=== PATIENT | male | born 1960 | race Caucasian/White ===

== ENCOUNTER → 2017-01-24 | Outpatient (CLI) | payer OTHER ==
[~2017-01-24] MED LIST: ADVIN25/60 INH; IPRA1AER2 INH; IPRASOL4 INH; LISI20TA3 PO; PRLSR20 PO; SILD100T PO
--- NOTE | 2017-01-24 12:17 | DIAGNOSTIC IMAGING REPORT ---
CHEST 2 VIEWS ROUTINE CLINICAL HISTORY: COPD Dyspnea dyspnea COMPARISON STUDY: 08/22/2016 FINDINGS: Mild emphysematous change. Possible nodular density left lower lung region. Lungs otherwise are considered clear. Minimal chronic colonic atelectasis left base. IMPRESSION: 1. Mild emphysematous change. 2. No acute infiltrate. 3. Potential developing nodular density lower left lung with CT chest recommended Electronically signed by: Vinecnt Maradiaga M.D. 01/24/2017 12:16 PM Dictated Date/Time: 01/24/2017 12:14 PM
== END | disposition home or self-care (01) ==
LOC: C.RADPV 11:52
PROVIDERS: ATTEND Family Medicine
DX: J44.1 Chronic obstructive pulmonary disease with (acute) exacerbation (principal); R06.09 Other forms of dyspnea

== ENCOUNTER → 2017-02-01 | Outpatient (CLI) | payer OTHER ==
[~2017-02-01] MED LIST changes: +OPTIRAY 320 IV PRN
--- NOTE | 2017-02-01 09:38 | DIAGNOSTIC IMAGING REPORT ---
CHEST CT WITH CONTRAST CT DOSE: 459.87 mGycm HISTORY: Lung nodule PULMONARY NODULE TECHNIQUE: Multiaxial CT images of the chest were performed following the intravenous administration of contrast. COMPARISON: 10/19/2015 FINDINGS: Unchanging linear scarlike density involving the lingula. This is identical compared to the prior study. No new or interval findings. Lungs otherwise appear clear. The hypervascular densities of the liver are unchanged. IMPRESSION: 1. Identical study compared to the prior exam. 2. Stable scar like density of the lingula 3. Hypervascular changes involving the liver also stable. Electronically signed by: Vincent Maradiaga M.D. 02/01/2017 9:36 AM Dictated Date/Time: 02/01/2017 9:32 AM
== END | disposition home or self-care (01) ==
LOC: C.CTS 08:58
PROVIDERS: ATTEND Family Medicine
DX: R91.1 Solitary pulmonary nodule (principal)

== ENCOUNTER → 2017-03-21 | Outpatient (CLI) | payer OTHER ==
[~2017-03-21] MED LIST changes: -OPTIRAY 320 IV PRN
[2017-03-21 18:34] LABS: ALT/SGPT 31 U/L (12-78); AST/SGOT 13 U/L (15-37); BLOOD UREA NITROGEN 16 mg/dl (7-18); BUN/CREATININE RATIO 16.4 (10-20); CALCIUM 8.8 mg/dl (8.5-10.1); CARBON DIOXIDE 30 mmol/L (21-32); CHLORIDE 108 mmol/L (98-107); GLUCOSE 89 mg/dl (70-99); POTASSIUM 3.7 mmol/L (3.5-5.1); SODIUM 144 mmol/L (136-145)
[2017-03-21 18:37] LABS: ALB/GLOB RATIO 1.1 (0.9-2); ALKALINE PHOSPHATASE 68 U/L (45-117); CHOLESTEROL 177 mg/dl (0-200); CHOLESTEROL/HDL RATIO 3.6; HDL CHOLESTEROL 49 mg/dl; LDL CHOLESTEROL CALCULATED 103 mg/dl; TRIGLYCERIDES 126 mg/dl (0-150); VERY LOW DENSITY LIPOPROT CALC 25 mg/dl
[2017-03-22 06:58] LABS: ESTIMATED AVERAGE GLUCOSE 157 mg/dl; HA1C FLAG Normal (Normal)
== END | disposition home or self-care (01) ==
LOC: C.LABPVFM 15:56
PROVIDERS: ATTEND Nurse Practitioner
DX: R35.0 Frequency of micturition (principal); I10 Essential (primary) hypertension; R73.01 Impaired fasting glucose

== ENCOUNTER → 2017-06-28 | Outpatient (CLI) | payer OTHER | END | disposition home or self-care (01) | LOC: C.LABPVFM 13:14 | PROVIDERS: ATTEND Family Medicine | DX: N23 Unspecified renal colic (principal) ==

== ENCOUNTER → 2018-03-07 | Outpatient (CLI) | payer OTHER | END | disposition home or self-care (01) | LOC: C.LABPVFM 18:26 | PROVIDERS: ATTEND Family Medicine | DX: R31.9 Hematuria, unspecified (principal) ==

== ENCOUNTER 2018-12-07 21:58 | Inpatient (IN) ==
[2018-12-07] MEDS ORDERED: ALBUT/IPRATROP 3MG/0.5MG NEB 3 ML VIAL INH STA (22:03)
[2018-12-07] MEDS ORDERED: RAPID SEQUENCE INDUCTION BAG ONE (22:05)
--- NOTE | 2018-12-07 22:25 | XRay Report ---
XR chest 1V portable CLINICAL HISTORY: Dyspnea COMPARISON STUDY: Chest radiograph July 11, 2018. Chest CT February 01, 2017. FINDINGS: Kyphotic positioning is noted. There is no pneumothorax or pleural effusion. No consolidati on is identified. Cardiomediastinal silhouette is stable. The appearance of the chest is unchanged. IMPRESSION: No acute cardiopulmonary findings. Electronically signed by: Damion Urrutia M.D. 12/07/2018 10:23 PM
[2018-12-07 22:41] LABS: Partial Thromboplastin Ratio 0.9; Partial Thromboplastin Time 22.9 Seconds (21.0-31.0); Prothrombin Time 10.2 Seconds (9.0-12.0)
[2018-12-07 22:44] LABS: Hematocrit (blood only) 48.5 % (42-52); Hemoglobin 15.9 g/dL (14.0-18.0); Mean Corpuscular Hgb Conc 32.8 g/dL (32-36); Mean Corpuscular Volume 92.6 fL (80-100); Platelet Count 287 K/uL (130-400); RDW Coefficient of Variation 13.1 % (11.5-14.5); RDW Standard Deviation 44.3 fL (36.4-46.3); Red Blood Count 5.24 M/uL (4.7-6.1); White Blood Count 27.97 K/uL (4.8-10.8)
[2018-12-07 22:47] LABS: Alanine Aminotransferase 31 U/L (12-78); Albumin Level 4.1 gm/dl (3.4-5.0); Aspartate Aminotransferase 15 U/L (15-37); Blood Urea Nitrogen 23 mg/dl (7-18); Calcium 9.2 mg/dl (8.5-10.1); Carbon Dioxide 34 mmol/L (21-32); Chloride 101 mmol/L (98-107); Est GFR (African American) 57.3; Est GFR (Non-African American) 49.4; Glucose 244 mg/dl (70-99); Potassium 4.6 mmol/L (3.5-5.1); Sodium 140 mmol/L (136-145)
[2018-12-07 22:49] LABS: ALC (manual) 6.88 K/uL (1.2-3.4); Eosinophils # (manual) 1.48 K/uL (0-0.5); Lymphocytes # (manual) 1.23 K/uL (1.2-3.4); Lymphocytes % (manual) 4.4 %; Monocytes # (manual) 0.73 K/uL (0.11-0.59); Monocytes % (manual) 2.6 %; Neutrophils % (manual) 67.5 %; Reactive Lymphocytes # (manual) 5.65 K/uL
[2018-12-07 22:50] LABS: Albumin Globulin Ratio 1.1 (0.9-2); Alkaline Phosphatase 74 U/L (45-117); Bilirubin,Total 0.3 mg/dl (0.2-1); Globulin 3.9 gm/dl (2.5-4.0)
[2018-12-07] MEDS ORDERED: SODIUM CHLORIDE 0.9% 1000ML 1,000 ML IV ONE ×2 (23:01→23:55)
[2018-12-07] MEDS ORDERED: cefTRIAXone SODIUM 1,000 MG/50 ML BAG IV STA (23:16)
[2018-12-07] MEDS ORDERED: OPTIRAY 320 125ml IV PRN (23:31)
--- NOTE | 2018-12-07 23:43 | Emergency Department Note ---
Entered by Valdemar Raphael acting as a scribe for History of Present Illness General Chief complaint: Shortness of Breath/Dyspnea Stated complaint: SOB Time Seen by Provider: 12/07/18 22:03 Source: family () and EMS Limitations: other (patient is not conscious) History of Present Illness Onset (ago): hour(s) 10 Location: chest Pain Consistency: + constant Quality: + other (worsening) Associated symptoms: + denies other symptoms (trauma); no chest pain The patient is a 58 year old male who presents to the Emergency Room with complaints of SOB starting 8 hours ago per EMS. EMS states the patient was sinus tachycardia in the 130s. EMS states the patient was put on C-PAP and did worse on that. The patient's states the patient did not complain about any chest pain or have any recent trauma. The states the patient's SOB started a few hours ago. The notes the patient did not feel good today. She states the patient took nebulizer and antibiotics earlier today. EMS notes they gave the patient Ativan and the patient has a history of anxiety. They note they gave the patient 125 mg of Solumedrol. EMS notes the patient has COPD. HPI is limited because the patient is not conscious. Home Medications Home Medications Medication Instructions Recorded Confirmed Type albuterol sulfate [Ventolin HFA] 1 dose INHALATION DIRECTED 12/07/18 History [id number] 0 dose INHALATION DIRECTED 12/07/18 12/07/18 History [Trelegy Ellipta] lisinopril 20 mg PO DAILY 12/07/18 12/07/18 History metformin 500 mg PO BID 12/07/18 12/07/18 History tiotropium bromide [Spiriva 1 dose INHALATION DIRECTED 12/07/18 12/07/18 History Respimat] Allergies Allergy/AdvReac Type Severity Reaction Status Date / Time Penicillins Allergy Severe THROAT Verified 12/07/18 22:15 SWELLING Past Med/Surg History Medical History COPD (chronic obstructive pulmonary disease) (Chronic) Hypertension (Chronic) Family History Other Family history non-contributory Social History Feels Safe at Home: Yes Smoking Status: Current every day smoker Review of Systems See HPI for pertinent positives & negatives. and A total of 10 systems reviewed and were otherwise negative Physical Exam Vital Signs Vital Signs - 24 hr 12/07/18 22:00 12/07/18 22:03 12/07/18 22:11 Temperature 36.5 C Temperature Source Axillary Sepsis Recent Fever Within 48 Hours No Sepsis Action Taken by Nursing No Action Required Pulse Rate 153 H 153 H Pulse Rate [Apical] Respiratory Rate 32 H Respiratory Effort / Characteristics Labored Pursed Lip Retracting Short of Breath Spontaneous Accessory Muscle Use Labored Pursed Lip Short of Breath Respiratory Depth Shallow Respiratory Pattern Rapid/Shallow Tachypnea Blood Pressure 183/151 H Blood Pressure Mean 161 Pulse Oximetry 83 L 100 Oxygen Delivery Method Nasal Cannula Oxygen Flow Rate 2 Fraction of Inspired Oxygen SaO2/FiO2 Ratio 12/07/18 22:13 12/07/18 22:15 12/07/18 22:16 Temperature Temperature Source Sepsis Recent Fever Within 48 Hours Sepsis Action Taken by Nursing Pulse Rate 156 H 157 H 150 H Pulse Rate [Apical] Respiratory Rate 32 H Respiratory Effort / Characteristics Respiratory Depth Respiratory Pattern Blood Pressure 183/151 H 199/130 H Blood Pressure Mean 161 153 Pulse Oximetry 100 81 L 100 Oxygen Delivery Method Oxygen Flow Rate Fraction of Inspired Oxygen 100 SaO2/FiO2 Ratio 12/07/18 22:17 12/07/18 22:22 12/07/18 22:25 Temperature Temperature Source Sepsis Recent Fever Within 48 Hours Sepsis Action Taken by Nursing Pulse Rate Pulse Rate [Apical] Respiratory Rate Respiratory Effort / Characteristics Respiratory Depth Respiratory Pattern Blood Pressure 182/125 H Blood Pressure Mean 144 Pulse Oximetry 100 Oxygen Delivery Method BiPAP Oxygen Flow Rate Fraction of Inspired Oxygen 100 50 SaO2/FiO2 Ratio 12/07/18 22:30 12/07/18 22:31 12/07/18 22:32 Temperature Temperature Source Sepsis Recent Fever Within 48 Hours Sepsis Action Taken by Nursing Pulse Rate 141 H 140 H 140 H Pulse Rate [Apical] Respiratory Rate Respiratory Effort / Characteristics Respiratory Depth Respiratory Pattern Blood Pressure 144/107 H Blood Pressure Mean 119 Pulse Oximetry 100 97 99 Oxygen Delivery Method Oxygen Flow Rate Fraction of Inspired Oxygen 50 SaO2/FiO2 Ratio 12/07/18 22:40 12/07/18 22:42 12/07/18 22:45 Temperature Temperature Source Sepsis Recent Fever Within 48 Hours Sepsis Action Taken by Nursing Pulse Rate 131 H 143 H Pulse Rate [Apical] Respiratory Rate Respiratory Effort / Characteristics Respiratory Depth Respiratory Pattern Blood Pressure 143/100 H Blood Pressure Mean 114 Pulse Oximetry 99 99 99 Oxygen Delivery Method BiPAP Oxygen Flow Rate Fraction of Inspired Oxygen 50 SaO2/FiO2 Ratio 198 12/07/18 22:50 12/07/18 22:56 12/07/18 23:00 Temperature Temperature Source Sepsis Recent Fever Within 48 Hours Sepsis Action Taken by Nursing Pulse Rate 142 H 137 H Pulse Rate [Apical] 153 H Respiratory Rate 32 H Respiratory Effort / Characteristics Short of Breath Respiratory Depth Respiratory Pattern Blood Pressure 130/93 Blood Pressure Mean 105 Pulse Oximetry 98 82 L 99 Oxygen Delivery Method BiPAP Oxygen Flow Rate Fraction of Inspired Oxygen 100 SaO2/FiO2 Ratio 12/07/18 23:10 12/07/18 23:33 12/07/18 23:35 Temperature Temperature Source Sepsis Recent Fever Within 48 Hours Sepsis Action Taken by Nursing Pulse Rate 132 H 144 H Pulse Rate [Apical] Respiratory Rate Respiratory Effort / Characteristics Respiratory Depth Respiratory Pattern Blood Pressure 168/109 H Blood Pressure Mean 128 Pulse Oximetry 100 96 100 Oxygen Delivery Method Oxygen Flow Rate Fraction of Inspired Oxygen SaO2/FiO2 Ratio 12/07/18 23:40 12/07/18 23:45 12/07/18 23:50 Temperature Temperature Source Sepsis Recent Fever Within 48 Hours Sepsis Action Taken by Nursing Pulse Rate 132 H 134 H 134 H Pulse Rate [Apical] Respiratory Rate 25 H Respiratory Effort / Characteristics Respiratory Depth Respiratory Pattern Blood Pressure 126/94 Blood Pressure Mean 104 Pulse Oximetry 100 100 100 Oxygen Delivery Method Oxygen Flow Rate Fraction of Inspired Oxygen SaO2/FiO2 Ratio 12/08/18 00:00 12/08/18 00:10 12/08/18 00:16 Temperature Temperature Source Sepsis Recent Fever Within 48 Hours Sepsis Action Taken by Nursing Pulse Rate 136 H 153 H 159 H Pulse Rate [Apical] Respiratory Rate Respiratory Effort / Characteristics Respiratory Depth Respiratory Pattern Blood Pressure 135/97 176/135 H Blood Pressure Mean 109 148 Pulse Oximetry 100 100 98 Oxygen Delivery Method Oxygen Flow Rate Fraction of Inspired Oxygen SaO2/FiO2 Ratio 12/08/18 00:20 Temperature Temperature Source Sepsis Recent Fever Within 48 Hours Sepsis Action Taken by Nursing Pulse Rate 159 H Pulse Rate [Apical] Respiratory Rate Respiratory Effort / Characteristics Respiratory Depth Respiratory Pattern Blood Pressure Blood Pressure Mean Pulse Oximetry 100 Oxygen Delivery Method Oxygen Flow Rate Fraction of Inspired Oxygen SaO2/FiO2 Ratio General: Ill appearing older male. Patient is in severe respiratory distress. Patient is cynotic. He is struggling to breathe and is in alerted mental status. HEENT: Normal cephalic atraumatic. Pupils are equal round and reactive to light. Extraocular movements are intact. Oropharynx is pink with moist mucous membranes. No swelling of the mouth lips or tongue. Neck: Supple with a midline trachea. No meningeal signs or stiffness, no JVD or bruits. No Stridor. Chest: No rhonchi. Scattered wheezes with diminished breath sounds bilaterally. Heart: regular rate and rhythm. Abdomen: Soft nontender, nondistended without rebound guarding or rigidity. Extremities: No cyanosis clubbing or edema. No calf tenderness or assymetry Spine/Back. Non tender to palpation. No CVA tenderness Skin: Good turgor without rashes. Neurologic exam: Cranial nerves two through 12 are intact. Motor and sensation are intact and symmetrical throughout. Course 2158: Past medical records reviewed. The patient was evaluated in room B1, and a complete history and physical examination were performed. 2220: I reevaluated the patient. The patient looks better with Bi-Pap and is currently on 100% O2 Sat. iStat labs are not significantly abnormal. 2245: I reevaluated the patient. He is doing a lot better. 2250: I reevaluated the patient. He is able to communicate now. 2300: I reevaluated the patient. I was able to talk to the patient. 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 I will hydrate the patient and he will get a CTA. I reviewed the patient's case with Dr. Cox - [facility]. He will evaluate the patient for further management. 2318: I reevaluated the patient. He is doing much better. 2335: I reevaluated the patient. He got back from the CAT scan. He is doing okay. 2358: I reevaluated the patient. He is doing better. 0015: I reevaluated the patient. He was starting to get SOB again, and I was worried the BiPap was not working. 0035: I reevaluated the patient. Aurea Villatoro PA-C will intubate the patient with the assistance of myself and Dr. Dillon. 0040: I talked to the patient's about the patient's intubation. Administered Medications Ioversol (Optiray 320 125ml) 118 ml IV ONCE PRN PRN Reason: Interaction Checking Stop: 12/11/18 23:30 Last Admin: 12/07/18 23:31 Dose: 118 ml Discontinued Medications Albuterol (Duoneb) 12 ml INH ONE STA Stop: 12/07/18 22:04 Last Admin: 12/07/18 22:56 Dose: 12 ml Sodium Chloride (Nss 1000ml) 1,000 mls @ 999 mls/hr IV .Q1H1M ONE Stop: 12/08/18 00:01 Last Infusion: 12/08/18 00:01 Dose: 0 mls/hr Admin: 12/07/18 23:07 Dose: 999 mls/hr Ceftriaxone Sodium (Rocephin) 1,000 mg in 50 mls @ 100 mls/hr IV DAILY STA Stop: 12/07/18 23:45 Last Infusion: 12/08/18 00:25 Dose: Infusion: 12/08/18 00:13 Dose: 0 mls/hr Admin: 12/07/18 23:43 Dose: 100 mls/hr Medical Decision Making Differential Diagnosis Differential Diagnosis includes: COPD exacerbation, CO2 retention, PE, pneumonia , CHF, cardiac disease, electrolyte or metabolic abnormality. Medical Records Attestation: I reviewed the patient's medical records. Home Medications Current Medication List: was personally reviewed by me Laboratory Data Attestation: I reviewed the patient's lab results. Result diagrams: 12/07/18 22:13 12/07/18 22:13 Lab Results 12/07/18 12/07/18 12/07/18 Range/Units 22:08 22:13 22:13 WBC 27.97 H (4.8-10.8) K/uL RBC 5.24 (4.7-6.1) M/uL Hgb 15.9 (14.0-18.0) g/dL Hct 48.5 (42-52) % MCV 92.6 (80-100) fL MCH 30.3 (25-34) pg MCHC 32.8 (32-36) g/dL RDW Std Deviation 44.3 (36.4-46.3) fL RDW Coeff of [place] 13.1 (11.5-14.5) % Plt Count 287 (130-400) K/uL MPV 12.0 H (7.4-10.4) fL Neutrophils % (Manual) 67.5 % Lymphocytes % (Manual) 4.4 % Reactive Lymphs % (Man) 20.2 % Monocytes % (Manual) 2.6 % Eosinophils % (Manual) 5.3 % Neutrophils # (Manual) 18.88 H (1.4-6.5) K/uL Total Absolute Neuts 18.88 H (1.4-6.5) K/uL Lymphocytes # (Manual) 1.23 (1.2-3.4) K/uL Reactive Lymphs # 5.65 K/uL Total Abs Lymphocytes 6.88 H (1.2-3.4) K/uL Monocytes # (Manual) 0.73 H (0.11-0.59) K/uL Eosinophils # (Manual) 1.48 H (0-0.5) K/uL PT 10.2 (9.0-12.0) Seconds INR 1.0 (0.9-1.1) APTT 22.9 (21.0-31.0) Seconds PTT Ratio 0.9 Sodium (136-145) mmol/L Potassium (3.5-5.1) mmol/L Chloride (98-107) mmol/L Carbon Dioxide (21-32) mmol/L Anion Gap (3-11) BUN (7-18) mg/dl Creatinine (0.6-1.4) mg/dl Est Cr Clr Drug Dosing Est GFR ( Amer) Est GFR (Non-Af Amer) BUN/Creatinine Ratio (10-20) Glucose (70-99) mg/dl POC Glucose 217 H (70-99) Calcium (8.5-10.1) mg/dl Total Bilirubin (0.2-1) mg/dl AST (15-37) U/L ALT (12-78) U/L Alkaline Phosphatase (45-117) U/L Total Protein (6.4-8.2) gm/dl Albumin (3.4-5.0) gm/dl Globulin (2.5-4.0) gm/dl Albumin/Globulin Ratio (0.9-2) 12/07/18 Range/Units 22:13 WBC (4.8-10.8) K/uL RBC (4.7-6.1) M/uL Hgb (14.0-18.0) g/dL Hct (42-52) % MCV (80-100) fL MCH (25-34) pg MCHC (32-36) g/dL RDW Std Deviation (36.4-46.3) fL RDW Coeff of [place] (11.5-14.5) % Plt Count (130-400) K/uL MPV (7.4-10.4) fL Neutrophils % (Manual) % Lymphocytes % (Manual) % Reactive Lymphs % (Man) % Monocytes % (Manual) % Eosinophils % (Manual) % Neutrophils # (Manual) (1.4-6.5) K/uL Total Absolute Neuts (1.4-6.5) K/uL Lymphocytes # (Manual) (1.2-3.4) K/uL Reactive Lymphs # K/uL Total Abs Lymphocytes (1.2-3.4) K/uL Monocytes # (Manual) (0.11-0.59) K/uL Eosinophils # (Manual) (0-0.5) K/uL PT (9.0-12.0) Seconds INR (0.9-1.1) APTT (21.0-31.0) Seconds PTT Ratio Sodium 140 (136-145) mmol/L Potassium 4.6 (3.5-5.1) mmol/L Chloride 101 (98-107) mmol/L Carbon Dioxide 34 H (21-32) mmol/L Anion Gap 5.0 (3-11) BUN 23 H (7-18) mg/dl Creatinine 1.52 H (0.6-1.4) mg/dl Est Cr Clr Drug Dosing Not Reportable Est GFR ( Amer) 57.3 Est GFR (Non-Af Amer) 49.4 BUN/Creatinine Ratio 15.0 (10-20) Glucose 244 H (70-99) mg/dl POC Glucose (70-99) Calcium 9.2 (8.5-10.1) mg/dl Total Bilirubin 0.3 (0.2-1) mg/dl AST 15 (15-37) U/L ALT 31 (12-78) U/L Alkaline Phosphatase 74 (45-117) U/L Total Protein 8.0 (6.4-8.2) gm/dl Albumin 4.1 (3.4-5.0) gm/dl Globulin 3.9 (2.5-4.0) gm/dl Albumin/Globulin Ratio 1.1 (0.9-2) Imaging Data Attestation: I personally reviewed and interpreted this imaging study as follows : My Impression: Chest X-ray 1 view: No congestive heart failure, pneumothorax, or pneumonia. Radiologist's Impression: Radiology results as stated below per my review and the radiologist's interpretation: XR chest 1V portable CLINICAL HISTORY: Dyspnea COMPARISON STUDY: Chest radiograph July 11, 2018. Chest CT February 01, 2017. FINDINGS: Kyphotic positioning is noted. There is no pneumothorax or pleural effusion. No consolidation is identified. Cardiomediastinal silhouette is stable. The appearance of the chest is unchanged. IMPRESSION: No acute cardiopulmonary findings. Electronically signed by: Damion Urrutia M.D. 12/07/2018 10:23 PM CTA CHEST: No evidence of pulmonary embolism or other acute chest abnormality. Emphysematous chagnges in the lungs without focal consolidation or pulmonary edema. Normal cardiac size. No pericardial effusion. Spondylosis of the spine. Radiologist: Ara Velazquez MD Study ready at 23:44 and initial results transmitted at 00:05 ECG Data Attestation: I personally reviewed and interpreted this ECG as follows: Indication: SOB/dyspnea Rate (beats per minute): 150 Rhythm: sinus tachycardia (poor baseline) Findings: + acute ischemic change (no definite ischemic change) Comparison ECG Date: from (08/22/16) Change: the following changes noted (rate has increased, otherwise no definite change) Blood Pressure Blood Pressure Findings: Elevated blood pressure Blood Pressure Disposition: further management by hospitalist [facility] Narrative This patient comes in as described above. The nurses called me to see him immediately upon arrival. He was in extremis he was initially put in B2 but as I evaluated we quickly moved him to be 1 which is her major resuscitation bay. Upon arrival he was cyanotic and very tachypneic he would not but did also seem somewhat altered. 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 He denies any chest pain. We moved quickly to room B1 and put him on BiPAP. We established to large-bore IVs. A portable chest x- ray did not show any pneumonia or pneumothorax he was given continuous albuterol Atrovent nebs through the BiPAP he had received IV Solu-Medrol prior to arrival. His ABG shows a respiratory acidosis with CO2 retention. The BiPAP should help this and in fact with the BiPAP he started improving dramatically. He did tolerate the BiPAP and was able to answer questions and is now no longer cyanotic. his respiratory rate improved dramatically as well. He was given a liter normal saline bolus as there is concern for possible dehydration his white count is elevated at 27 most likely from stress at this point there is no pneumonia. He may also be on steroids. 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 His CAT scan is unremarkable and shows no evidence of PE pneumothorax congestive heart failure or pneumonia. He tolerated the CAT scan well. While he was waiting to be admitted he suddenly got much more tachycardic and short of breath. There was concern that the BiPAP machine was not working well so he switched masks. Dr. Stevens was also at the bedside. He was given further nebs. I suspect that he is just tiring out. Although he seemed to be doing better all of a sudden he is now worse and does need to be intubated for respiratory failure. Dr. Rodgers did agree. The patient was intubated by Aurea Ch PA-C with supervision from Dr. Dillon and myself. Please refer to the procedure note. he did receive IV etomidate as well as IV succinyl choline and the procedure went well and on the first attempt without difficulties. There was positive CO2 color change and condensation in the tube. No breath sounds over the stomach. His oxygen saturation was high 90s to 100%. He was started on propofol dripIV and did need to get a propofol bolus of 40 mg IV as he was starting to wake up. He tolerated this well and has remained normotensive thus far. Post intubation chest x-ray does show that the tube looks a little high and it was advanced. The patient will be going to the ICU. Impression & Plan COPD exacerbation, Respiratory failure, CO2 retention, SOB (shortness of breath ) Critical Care Time I have personally spent greater than 90 minutes of critical care time in the direct management of this patient. This includes bedside care, interpretation of diagnostic studies, and testing, discussion with consultants, patient, and family members, and other required patient management activities. This 90 minutes is in excess of all separately billable procedures. Critical Care Time: Yes Total Critical Care Time: 90 Discharge Plan Visit Data Chief Complaint: Shortness of Breath/Dyspnea Stated Complaint: SOB ED Provider: Luis Felipe Krause Discharge Problem: COPD exacerbation, Respiratory failure, CO2 retention, SOB (shortness of breath ) Patient Disposition: Being Evaluated by Hospitalist Forms Stand Alone Forms: My [facility] Prescriptions Prescriptions: No Action metformin 500 mg tablet 500 mg PO BID RF: 0 lisinopril 20 mg tablet 20 mg PO DAILY RF: 0 albuterol sulfate [Ventolin HFA] 90 mcg/actuation HFA aerosol inhaler 1 dose Inhalation DIRECTED RF: 0 tiotropium bromide [Spiriva Respimat] 2.5 mcg/actuation mist 1 dose Inhalation DIRECTED RF: 0 [id number] [Trelegy Ellipta] 100-62.5-25 mcg blister with device Inhalation DIRECTED RF: 0 Referrals Referrals: Viki Braswell CRNP [Primary Care Provider] - The scribe's documentation has been prepared under my direction and personally reviewed by me in its entirety. I confirm that the note above accurately reflects all work, treatment, procedures, and medical decision making performed by me.
[2018-12-08] MEDS ORDERED: ALBUT/IPRATROP 3MG/0.5MG NEB 3 ML VIAL ONE (00:18)
[2018-12-08] MEDS ORDERED: PROPOFOL IV EMULSION 10 MG/ML 100 ML VIAL IV ONE (00:36)
--- NOTE | 2018-12-08 00:59 | Emergency Department Note ---
ED Visit Note Endotracheal Intubation Indication: Respiratory distress The patient was being bagged by respiratory with BVM. Suction, airway equipment , RSI drugs, respiratory equipment, and appropriate personnel were prepared prior to the initiation of the procedure. A time out was taken. Induction was performed per Dr. Dillon. After observing the clinical benefit of the medications, the airway was easily visualized utilizing a glidescope. A 7.5 size ETT tube was placed atraumatically to 25 cm using standard technique. The cuff inflated without signs of malfunction. There were bilateral breath sounds, positive colormetric change, no gastric sounds, a good capnography waveform, and post procedure pulse oximetry was 100%. Post intubation sedation and paralysis was administered per Dr. Dillon. There were no complications.
[2018-12-08 01:03] LABS: HCO3 ABG 23 mmol/L (19-24); Oxygen Saturation ABG 99.2 % (90-95); PCO2 ABG 75 mmHg (35-46); PO2 ABG 189 mm/Hg (80-95)
[2018-12-08] MEDS ORDERED: MIDAZOLAM HCL 5 MG/ML 1 ML VIAL IV STA ×2 (01:04→01:34)
[2018-12-08] MEDS ORDERED: fentaNYL citrate 100 MCG/2 ML VIAL IV STA ×2 (01:04→01:47)
[2018-12-08 01:10] LABS: Allen Test Pos (Pos); pH ABG 7.09 (7.35-7.45)
[2018-12-08] MEDS ORDERED: SODIUM BICARBONATE 4.2% INJ 10 ML SYR IV STA (01:24)
[2018-12-08] MEDS ORDERED: SODIUM BICARB 8.4% INJ 50 MEQ/50 ML SYR ONE (01:28)
[2018-12-08] MEDS ORDERED: SODIUM BICARBONATE 8.4% 150 MEQ in DEXTROSE 5% 1,000 ML IV SCH (01:30)
[2018-12-08] MEDS ORDERED: SODIUM BICARBONATE 4.2% INJ 10 ML SYR ONE (01:32)
--- NOTE | 2018-12-08 01:37 | Emergency Department Note ---
ED Visit Note ED Physician Sign Out Note: 58 yr old male with COPD arrived earlier in evening with exacerbation. Initially evaluated and treated by Dr Krause and was stabilizing on BiPAP. On return from CTA worsening work of breathing and patient not moving much air. He is becoming increasingly tachycardic, dyspneic and beginning to show signs of hypercapnea. Impending respiratory arrest thus Dr Krause asked that I take over patient's care for intubation and transfer to ICU. Under my supervision Aurea Miller PA-C intubated patient on first attempt using glidescope. I provided sedation for intubation (see below). Patient HR improving. Given boluses of Propofol and Versed/fentanyl with improvement in sedation post intubation. CXR with mildly high tube which was advanced. Mild hypotension for which 500ml NSS bolus ordered by Dr Cox of [facility]. Hospitalists and ICU will manage patient further in ICU. Procedural Sedation Indication: Intubation by JOSE of pt with respiratory failure due to COPD with hypercapnea. Last Ate: unknown Previous issues with sedation: Unknown Snore: Yes Emergent: Yes ASA: 3 Dentures: Uppers, removed by me Total time: 20 Verbal consent was obtained for intubation after the risks and benefits were explained to the family, including, but not limited to aspiration, allergic reaction, breathing difficulties, cardiac complications, vomiting, pain, event recall, bleeding, and/or infection. The patient was on 100% oxygen via BIPAP prior to the procedure. Continuos end tidal CO2 monitoring, pulse oximetry, and cardiac monitoring were utilized. Suction, airway equipment, medications, respiratory equipment, and appropriate personnel were prepared prior to the initiation of the procedure. A time out was taken. Sedation was achieved utilizing 25mg of Etomidate and paralysis with 150mg Succinylcholine. I briefly bagged patient while awaiting complete paralysis. After this the main procedure was performed by Aurea Miller PA-C under my supervision without complication. Sedation was continued with propofol gtt and fentanyl/versed bolus and the monitoring continued. Patient care transferred to Hospitalist/ CCM teams. Forrest Dillon MD
[2018-12-08] MEDS ORDERED: SODIUM BICARB 8.4% INJ 50 MEQ/50 ML SYR IV STA (01:38)
[2018-12-08] MEDS ORDERED: GLUCOSE 10 TABS/TUBE PO PRN (02:46)
[2018-12-08] MEDS ORDERED: ACETAMINOPHEN 1000 MG/100 ML IV IV PRN (02:46)
[2018-12-08] MEDS ORDERED: DEXTROSE 50% 50 ML SYRINGE IV PRN (02:46)
[2018-12-08] MEDS ORDERED: ONDANSETRON INJ 2 MG/ML 2 ML VIAL IV PRN (02:46)
[2018-12-08] MEDS ORDERED: GLUCAGON FOR INJ 1 MG VIAL SQ PRN (02:46)
[2018-12-08] MEDS ORDERED: CARBOHYDRATES FOR HYPOGLYCEMIA PO PRN (02:46)
[2018-12-08] MEDS ORDERED: GLUCOSE 40% GEL 15 GM TUBE PO PRN (02:46)
[2018-12-08] MEDS ORDERED: ICU PROTOCOL FOR HYPERGLYCEMIA PRN (02:46)
[2018-12-08] MEDS ORDERED: fentaNYL citrate 100 MCG/2 ML VIAL IV PRN (02:57)
[2018-12-08 03:07] LABS: Appearance Urine Clear (Clear); Bacteria Urine Automated Negative (Negative); Bilirubin Urine Negative (Negative); Color Urine Yellow; Glucose Urine UA 3+ (Negative); Ketones Urine Trace (Negative); Leukocyte Esterase Urine Negative (Negative); Nitrite Urine Negative (Negative); Protein Urine Negative (Negative); Specific Gravity Urine > 1.045 (1.000-1.030); Urobilinogen Urine Negative (Negative); pH Urine 5.5 (4.5-7.5)
[2018-12-08] MEDS ORDERED: PATIENT'S HEIGHT AND/OR WEIGHT NEEDED SCH (03:15)
[2018-12-08] MEDS: MIDAZOLAM HCL 1 MG/ML 2ML VIAL IV PRN ×2 (03:55→05:37)
[2018-12-08] MEDS: methylPREDNISolone 60 MG in SYRINGE 0 ML IV SCH ×4 (03:57→23:06)
[2018-12-08] MEDS ORDERED: LEVOFLOXACIN/D5W 500 MG/100 ML BAG IV SCH (04:00)
[2018-12-08 04:03] LABS: iSTAT Allen Test Pass; iSTAT Arterial Blood Gas HCO3 29 meg/L (19-24); iSTAT Carbon Dioxide 31 mEq/l (24-31); iSTAT FiO2 50 %
--- NOTE | 2018-12-08 04:16 | History & Physical Report ---
Date of Service December 08, 2018 The patient was seen and examined on December 07, 2018. Assessment & Plan (1) Acute respiratory failure with hypoxia and hypercapnia: Acute respiratory failure with hypoxia and hypercapnia/COPD exacerbation-- As noted, the patient initially seemed to be responding to BiPAP, however, patient did acutely decompensate again. He was intubated while in the emergency department, and was later transferred to the ICU. Ceftriaxone 1 g IV daily. Azithromycin 500 mg IV daily. Solu-Medrol 60 mg IV every 6 hours. Duonebs every 4 hours while awake and every 2 hours when necessary. Sputum Gram stain and culture. 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 Order venous Dopplers bilaterally Consult hard hat diver. Continue vent management adjustments with serial ABGs. Present on Admission?: Yes (2) COPD exacerbation: As above. Present on Admission?: Yes (3) Acute kidney injury (nontraumatic): Creatinine was 1.52 upon admission. Patient did receive IV dye for a CTA of the chest. Will continue IV fluid rehydration, and follow serial laboratory studies. Present on Admission?: Yes (4) Hyperglycemia due to type 2 diabetes mellitus: Check hemoglobin A1c. Placed on Accu-Cheks before meals and at bedtime with NovoLog coverage per scale. Present on Admission?: Yes (5) Hypotension: Patient did develop lower blood pressure shortly after intubation and associate with medication as needed for intubation. He did respond to IV fluid rehydration. He may require levophed is at night progresses. Present on Admission?: Yes (6) Hypertension: On lisinopril 20 mg p.o. daily as outpatient. Present on Admission?: Yes (7) Admitted to intensive care unit: As noted above. Present on Admission?: Yes History of Present Illness Chief Complaint: The patient initially presented to the emergency department via EMS who report that the patient had developed shortness of breath about 8 hours prior to their arrival. EMS reports that the patient was in sinus tachycardia in the 130s, was put on CPAP, which seemed to make him worse. The patient was given Solu-Medrol 125 mg IV in route. Primary Care Provider: CHARISSA Hu The patient is a 58-year-old male with a past medical history including COPD, hypertension and diabetes mellitus, who developed acute shortness of breath about 8 hours prior to EMS being summoned to his home. When EMS arrived, the patient was unconscious, and his heart rate was sinus tachycardia in the 130's. The patient himself is unconscious, and therefore HPI is limited to reports of EMS and the patient's . Patient's reports that he was not feeling well earlier in the day, and had taken his nebulizer and antibiotics earlier in the day. The patient was given Solu-Medrol 25 mg IV in route to the hospital. Upon arrival to the emergency department, the patient was found to be cyanotic appearing, with skin reportedly appearing to be blue, he was placed on BiPAP, given an hour-long nebulizer treatment, and seemed to be somewhat improved. He also underwent a CT of the chest, which was negative for PE. The patient again later decompensated while on the BiPAP in the ED, and decision was made to have the patient intubated. The patient was then admitted to the ICU. Allergies Allergy/AdvReac Type Severity Reaction Status Date / Time Penicillins Allergy Severe THROAT Verified 12/07/18 22:15 SWELLING Home Medications Home Medications Medication Instructions Recorded Confirmed Type albuterol sulfate [Ventolin HFA] 1 dose INHALATION DIRECTED 12/07/18 History [id number]-[id number] 0 dose INHALATION DIRECTED 12/07/18 12/07/18 History [Trelegy Ellipta] lisinopril 20 mg PO DAILY 12/07/18 12/07/18 History metformin 500 mg PO BID 12/07/18 12/07/18 History tiotropium bromide [Spiriva 1 dose INHALATION DIRECTED 12/07/18 12/07/18 History Respimat] Past Med/Surg History Medical History COPD (chronic obstructive pulmonary disease) (Chronic) Hypertension (Chronic) Family History Other Family history non-contributory Social History Current Living Situation: Family Feels Safe at Home: Yes Smoking Status: Unknown if ever smoked Review of Systems Review of systems is severely limited due to patient's nonresponsive state. Any information gathered is as noted from EMS and his . Physical Exam 2 Vital Signs (Past 24 Hours): Last Vital Signs Temp 37.0 C 12/08/18 02:00 Pulse 127 H 12/08/18 02:29 Resp 26 H 12/08/18 02:29 BP 109/74 12/08/18 02:00 Pulse Ox 97 12/08/18 02:29 Physical Exam: The patient is nonresponsive, normocephalic and atraumatic, lying in bed and in moderate respiratory distress while on BiPAP. HEENT--PERRL, EOMI, mucous membranes and oropharynx dry. Neck--supple. No JVD. No bruits. Thyroid normal, trachea midline, no adenopathy. Heart--normal S1 and S2. No murmurs, rubs or gallops. Lungs--decreased breath sounds throughout. Abdomen--normal bowel sounds and soft. Nontender. Moderately distended and tympanitic. Extremities--no cyanosis or clubbing. No edema. There are good distal pulses b/ l. Dermatologic--skin color was variable depending upon oxygenation status from normal-appearing to more cyanotic. Neurologic--cranial nerves II through XII grossly intact. Rheumatologic--limited exam Psychiatric--nonresponsive Results & Data Laboratory Results Laboratory Results WBC 27.97 K/uL (4.8-10.8) H 12/07/18 22:13 RBC 5.24 M/uL (4.7-6.1) 12/07/18 22:13 Hgb 15.9 g/dL (14.0-18.0) 12/07/18 22:13 Hct 48.5 % (42-52) 12/07/18 22:13 MCV 92.6 fL (80-100) 12/07/18 22:13 MCH 30.3 pg (25-34) 12/07/18 22: MCHC 32.8 g/dL (32-36) 12/07/18 22:13 RDW Std Deviation 44.3 fL (36.4-46.3) 12/07/18 22:13 RDW Coeff of [place] 13.1 % (11.5-14.5) 12/07/18 22:13 Plt Count 287 K/uL (130-400) 12/07/18 22:13 MPV 12.0 fL (7.4-10.4) H 12/07/18 22:13 Neutrophils % (Manual) 67.5 % 12/07/18 22:13 Lymphocytes % (Manual) 4.4 % 12/07/18 22:13 Reactive Lymphs % (Man) 20.2 % 12/07/18 22:13 Monocytes % (Manual) 2.6 % 12/07/18 22:13 Eosinophils % (Manual) 5.3 % 12/07/18 22:13 Neutrophils # (Manual) 18.88 K/uL (1.4-6.5) H 12/07/18 22:13 Total Absolute Neuts 18.88 K/uL (1.4-6.5) H 12/07/18 22:13 Lymphocytes # (Manual) 1.23 K/uL (1.2-3.4) 12/07/18 22:13 Reactive Lymphs # 5.65 K/uL 12/07/18 22:13 Total Abs Lymphocytes 6.88 K/uL (1.2-3.4) H 12/07/18 22:13 Monocytes # (Manual) 0.73 K/uL (0.11-0.59) H 12/07/18 22:13 Eosinophils # (Manual) 1.48 K/uL (0-0.5) H 12/07/18 22:13 PT 10.2 Seconds (9.0-12.0) 12/07/18 22:13 INR 1.0 (0.9-1.1) 12/07/18 22:13 APTT 22.9 Seconds (21.0-31.0) 12/07/18 22:13 PTT Ratio 0.9 12/07/18 22:13 Sample Site L Radial 12/08/18 03:48 POC pH 7.31 (7.35-7.45) L 12/08/18 03:48 POC pCO2 58 mmHg (35-46) H 12/08/18 03:48 POC pO2 156 mmHg (80-95) H 12/08/18 03:48 POC HCO3 29 janes/L (19-24) H 12/08/18 03:48 POC Total CO2 31 mEq/l (24-31) 12/08/18 03:48 POC Base Excess 3.0 janes/L (-9-1.8) H 12/08/18 03:48 ABG pH 7.09 (7.35-7.45) L* 12/08/18 00:55 ABG pCO2 75 mmHg (35-46) H 12/08/18 00:55 ABG pO2 189 mm/Hg (80-95) H 12/08/18 00:55 ABG HCO3 23 mmol/L (19-24) 12/08/18 00:55 POC ABG O2 Sat 99.0 % (90-95) H 12/08/18 03:48 ABG O2 Saturation 99.2 % (90-95) H 12/08/18 00:55 ABG Base Excess -8.7 mEq/L (-9-1.8) 12/08/18 00:55 Deuce Test Pass 12/08/18 03:48 Oxygen Given 50% BIPAP 12/08/18 00:55 O2 Delivery Device Ventilator 12/08/18 03:48 POC O2 Rate 26 12/08/18 03:48 Minute Ventilation 13.3 12/08/18 03:48 POC FiO2 50 % 12/08/18 03:48 Tidal Volume 550 12/08/18 03:48 PEEP 5 12/08/18 03:48 Sodium 140 mmol/L (136-145) 12/07/18 22:13 Potassium 4.6 mmol/L (3.5-5.1) 12/07/18 22:13 Chloride 101 mmol/L (98-107) 12/07/18 22:13 Carbon Dioxide 34 mmol/L (21-32) H 12/07/18 22:13 Anion Gap 5.0 (3-11) 12/07/18 22:13 BUN 23 mg/dl (7-18) H 12/07/18 22:13 Creatinine 1.52 mg/dl (0.6-1.4) H 12/07/18 22:13 Est Cr Clr Drug Dosing Not Reportable 12/07/18 22:13 Est GFR ( Amer) 57.3 12/07/18 22:13 Est GFR (Non-Af Amer) 49.4 12/07/18 22:13 BUN/Creatinine Ratio 15.0 (10-20) 12/07/18 22:13 Glucose 244 mg/dl (70-99) H 12/07/18 22:13 POC Glucose 217 (70-99) H 12/07/18 22:08 Calcium 9.2 mg/dl (8.5-10.1) 12/07/18 22:13 Total Bilirubin 0.3 mg/dl (0.2-1) 12/07/18 22:13 AST 15 U/L (15-37) 12/07/18 22:13 ALT 31 U/L (12-78) 12/07/18 22:13 Alkaline Phosphatase 74 U/L (45-117) 12/07/18 22:13 Total Protein 8.0 gm/dl (6.4-8.2) 12/07/18 22:13 Albumin 4.1 gm/dl (3.4-5.0) 12/07/18 22:13 Globulin 3.9 gm/dl (2.5-4.0) 12/07/18 22:13 Albumin/Globulin Ratio 1.1 (0.9-2) 12/07/18 22:13 Urine Color Yellow 12/08/18 02:50 Urine Appearance Clear (Clear) 12/08/18 02:50 Urine pH 5.5 (4.5-7.5) 12/08/18 02:50 Ur Specific [place] > 1.045 (1.000-1.030) H 12/08/18 02:50 Urine Protein Negative (Negative) 12/08/18 02:50 Urine Glucose (UA) 3+ (Negative) H 12/08/18 02:50 Urine Ketones Trace (Negative) H 12/08/18 02:50 Urine Blood Trace (Negative) H 12/08/18 02:50 Urine Nitrite Negative (Negative) 12/08/18 02:50 Urine Bilirubin Negative (Negative) 12/08/18 02:50 Urine Urobilinogen Negative (Negative) 12/08/18 02:50 Ur Leukocyte Esterase Negative (Negative) 12/08/18 02:50 Urine WBC (Auto) 1-5 /hpf (0-5) 12/08/18 02:50 Urine RBC (Auto) 5-10 /hpf (0-4) H 12/08/18 02:50 U Hyaline Cast (Auto) 1-5 /lpf (0-5) 12/08/18 02:50 U Epithel Cells (Auto) 10-20 /lpf (0-5) H 12/08/18 02:50 Urine Bacteria (Auto) Negative (Negative) 12/08/18 02:50 Diagnostic Findings [facility], [place] [phone] XRay Report Patient: SIMON BACAAdmit Date: 12/07/18 MR#: [id number] [address] Acct ID:[id number]: [address] Date: 1960City Zip: [place] [address] Age: 58Location: ED Sex: M Room/Bed: Att Phy: Diagnosis: SOB Amita Phy: Viki Braswell CRNPService Date: 12/07/18 Fam Phy: Interpreting Phy: Damion Urrutia MD Admit Phy: Ordering Phy: Luis Felipe Krause M.D. cc: ~ XR chest 1V portable CLINICAL HISTORY: Dyspnea COMPARISON STUDY: Chest radiograph July 11, 2018. Chest CT February 01, 2017. FINDINGS: Kyphotic positioning is noted. There is no pneumothorax or pleural effusion. No consolidation is identified. Cardiomediastinal silhouette is stable. The appearance of the chest is unchanged. IMPRESSION: No acute cardiopulmonary findings. Electronically signed by: Damion Urrutia M.D. 12/07/2018 10:23 PM Dictated: 12/07/182220 Transcribed: 12/07/182220 Medications Administered Home Medications Medication Instructions Recorded Confirmed albuterol sulfate [Ventolin HFA] 1 dose INHALATION DIRECTED 12/07/18 12/07/18 oiorfytktsx-znxvvkshq-umwduvik 0 dose INHALATION DIRECTED 12/07/18 12/07/18 [Trelegy Ellipta] lisinopril 20 mg PO DAILY 12/07/18 12/07/18 metformin 500 mg PO BID 12/07/18 12/07/18 tiotropium bromide [Spiriva 1 dose INHALATION DIRECTED 12/07/18 12/07/18 Respimat] Code Status & VTE Plan Code Status Full code VTE Prophylaxis Plan VTE Prophylaxis will be ordered: Yes Critical Care Time Total critical care time was 70 minutes. Critical Care Time: Yes Total Critical Care Time: 70
[2018-12-08] MEDS ORDERED: SODIUM CHLORIDE 0.9% 1000ML 1,000 ML IV SCH (04:30)
[2018-12-08 04:38] LABS: Partial Thromboplastin Ratio 0.8; Partial Thromboplastin Time 20.2 Seconds (21.0-31.0); Prothrombin Time 10.2 Seconds (9.0-12.0)
[2018-12-08] MEDS: PROPOFOL 1,000 MG/100 ML VIAL IV PRN ×2 (04:39→06:24)
[2018-12-08 04:45] LABS: Basophils # (auto) 0.01 K/uL (0-0.2); Basophils % (auto) 0.1 %; Eosinophils # (auto) 0.01 K/uL (0-0.5); Eosinophils % (auto) 0.1 %; Hematocrit (blood only) 43.2 % (42-52); Hemoglobin 14.2 g/dL (14.0-18.0); Immature Granulocytes # (auto) 0.09 K/uL (0.00-0.02); Immature Granulocytes % (auto) 0.6 %; Lymphocytes # (auto) 0.34 K/uL (1.2-3.4); Lymphocytes % (auto) 2.2 %; Mean Corpuscular Hgb Conc 32.9 g/dL (32-36); Mean Corpuscular Volume 92.7 fL (80-100); Mean Platelet Volume 11.2 fL (7.4-10.4); Monocytes # (auto) 0.62 K/uL (0.11-0.59); Neutrophils # (auto) 14.59 K/uL (1.4-6.5); Platelet Count 260 K/uL (130-400); RDW Coefficient of Variation 13.2 % (11.5-14.5); RDW Standard Deviation 44.7 fL (36.4-46.3); Red Blood Count 4.66 M/uL (4.7-6.1); White Blood Count 15.66 K/uL (4.8-10.8)
--- NOTE | 2018-12-08 04:54 | Critical Care Consultation ---
Date of Consultation December 08, 2018 Assessment & Plan (1) Admitted to intensive care unit: Reason Critically Ill: 58-year-old male with acute hypoxic respiratory failure with hypercapnia requiring endotracheal intubation for airway protection and aggressive pulmonary toilet. NEURO - * CAM ICU: POSITIVE * SEDATION: Propofol gtt, Fentanyl/Versed PRN CARDIAC/VASCULAR - * Tachycardia: * Presumed stress reaction related to pulmonary status. * Agree with CTA for PE eval in patient's presentation. * Trend Trops. * AM Echo ordered. * Will recheck EKG on presentation to ICU. * Monitor on telemetry. * After arrival in the ICU, patient was found to have a significantly elevated troponin of greater than 3. EKG shows no acute ST/T-wave changes per my interpretation. In conjunction with newly found DVT, will treat with heparin pending further cardiac evaluation. RESPIRATORY - * Acute hypoxic respiratory failure with hypercapnia with respiratory failure: * Requiring endotracheal intubation. * Settings: 26/550/5/50% * Initial gas: 7.09/75/189/23 * Will make adjustments to vent as needed. * Serial ABGs. * Aggressive pulmonary toilet. Steroids/nebs. * h/o Pulmonary nodule - followed in the outpatient with pulm. GI/NUTRITION - * NPO at this point. * OG in place. RENAL/LYTES - * CHANTELL: * Continue w/ IVFs * Monitor for IV Contrast induced nephropathy. * IVF: Initially placed on BiCarb gtt - will d/c with repeat ABG showing improvement. Will continue w/ NSS. - * Jarrell in place - Strict I&Os. ENDO - * Hyperglycemia: * h/o DMII on metformin alone. * Will recheck. Patient at risk for HHS vs. DKA. * BSGs per unit protocol. ISS --> gtt per unit policy. HEME - * Stable H&H: * Will trend. ID - * COPD w/ Exacerbation: * Given extent of s/s and c/o developing infection, agree with empiric antibiotic coverage. * Rocephin/Levaquin. Plan for early deescalation. LINES/IV ACCESS - * PIVs x3 DVT PROPHYLAXIS - * Heparin bolus w/ gtt added in the setting of new RLE DVT w/ new STEMI. * Hold on SCDs in the setting of known DVT. I have personally spent 60 minutes of critical care time in the direct management of this patient. This is a life/limb threatening event. This includes time spent evaluating patient, direct bedside care, chart review, placing orders, interpretation of diagnostic studies, discussion with consultants, patient, and family members, as well as other required patient management activities. This time is exclusive of all separately billable procedures, and teaching time and separate from and in addition to any other critical care service time. Thank you for allowing us to participate in the care of this patient. Please refer to my attending physician's documentation for any further recommendations. (2) Acute respiratory failure with hypoxia and hypercapnia: (3) Respiratory failure: (4) Acute kidney injury (nontraumatic): (5) Hyperglycemia due to type 2 diabetes mellitus: (6) DVT (deep venous thrombosis): Supervising Physician Co-Signing Physician Notes I have personally evaluated and examined this patient. I agree with assessment and plan of Lesley Andrade PA-C. Patient was extubated this morning transition to noninvasive mechanical ventilation. Had been temporary weaned to nasal cannula had increased work of breathing and placed back on noninvasive mechanical ventilation. He is at risk of reintubation however his extubation parameters were acceptable. Continue IV steroids today and respiratory quinolone his EKG is largely unremarkable. His troponin is elevating however he is still remains on heparin. QTC this morning for 446 repeat was 467 this was after administration of Levaquin. I have personally spent 35 minutes of critical care time in the direct management of this patient. This is a life/limb threatening event. This includes time spent evaluating patient, direct bedside care, chart review, placing orders, interpretation of diagnostic studies, discussion with consultants, patient, and/or family members regarding treatment decisions, as well as other required patient management activities. This time is exclusive of all separately billable procedures, and teaching time and separate from and in addition to any other critical care service time. History of Present Illness Attending Physician: Darian Cox MD History of Present Illness Information per colleagues notes and conversations. Patient unable to participate in history of present illness secondary to current state of intubation with sedation. Patient is a 58-year-old male with a significant past medical history of COPD who was recently treated in October of last month for bronchitis at his primary care provider's office. He presented via EMS to the emergency department with acute respiratory failure. He was placed on CPAP in route to the emergency department. While in the emergency department, he was found to be acidotic with primary respiratory component. He was placed on BiPAP with moderate resolve of symptoms. A chest x-ray demonstrated no acute pathology. Given his acuity of onset of symptoms and worsening dyspnea, a CTA of the chest was obtained for evaluation of possible underlying thromboembolic process. CTA demonstrated no acute PE. Despite on BiPAP, the patient decompensated with a significant respiratory acidosis and change in mental status. At this point, the patient was intubated and sedated. The patient was found to have a moderate leukocytosis. In addition, he was found to have an CHANTELL. Through the events, the patient was significantly tachycardic with heart rates in the 150s. This did improve with sedation. Upon arrival in the ICU, patient is endotracheally intubated and sedated. He does respond to stimuli and becomes agitated and attempts to pull at equipment. Allergies Allergy/AdvReac Type Severity Reaction Status Date / Time Penicillins Allergy Severe THROAT Verified 12/07/18 22:15 SWELLING Home Medications Home Medications Medication Instructions Recorded Confirmed Type albuterol sulfate [Ventolin HFA] 1 dose INHALATION DIRECTED 12/07/18 History knobtyobtaw-trnhxgjyp-mmwrjsmv 0 dose INHALATION DIRECTED 12/07/18 12/07/18 History [Trelegy Ellipta] lisinopril 20 mg PO DAILY 12/07/18 12/07/18 History metformin 500 mg PO BID 12/07/18 12/07/18 History tiotropium bromide [Spiriva 1 dose INHALATION DIRECTED 12/07/18 12/07/18 History Respimat] Patient History Medical History COPD (chronic obstructive pulmonary disease) (Chronic) Hypertension (Chronic) Family History Other Family history non-contributory Social History Current Living Situation: Family Feels Safe at Home: Yes Smoking Status: Unknown if ever smoked Communication Ability: Effective Review of Systems Unable to obtain secondary to current state of sedation. Physical Exam 2 Vital Signs (Past 24 Hours): Last Vital Signs Temp 37.0 C 12/08/18 02:00 Pulse 127 H 12/08/18 02:29 Resp 26 H 12/08/18 04:25 BP 109/74 12/08/18 02:00 Pulse Ox 97 12/08/18 02:29 Physical Exam: VITAL SIGNS - Vital signs and nursing notes were reviewed. GENERAL - 58-year-old male appearing older than his stated age who is in no acute distress. Intubated and sedated. HEAD - NC/AT. EYES - PERRL with EOMI bilaterally. Sclera anicteric. EARS - No deformities of external structures noted on gross examination bilaterally. NOSE - Midline and without cyanosis. No epistaxis or purulent drainage noted. MOUTH/OROPHARYNX - ET Tube in place. Without perioral cyanosis. Buccal mucosa pink and moist. NECK - Neck with FROM. Supple to palpation. LUNGS - Chest wall symmetric with accessory muscle use and retractions appreciated. Slight inspiratory wheeze noted to the LEFT lung lane with little to no air movement. RIGHT lung lane with little to no air exchange. CARDIAC - RRR with S1/S2. No murmur, rubs, or gallops appreciated. ABDOMEN - Abdominal contour protuberant without pulsations or visible masses. BS normoactive all four quadrants. No tenderness, palpable masses, hepatosplenomegaly, or ascites noted. EXTREMITIES - No clubbing or peripheral cyanosis. No pretibial edema present. +3 /5 radial and dorsalis pedis pulses palpated throughout. NEUROLOGIC - Unable to assess secondary to sedation. No focal deficits appreciated. _ (1) Respiratory failure Chronicity: unspecified Respiratory failure complication: hypercapnia Qualified Code(s): J96.92 - Respiratory failure, unspecified with hypercapnia
[2018-12-08 05:01] LABS: Albumin Level 3.2 gm/dl (3.4-5.0); BUN Creatinine Ratio 18.4 (10-20); Bilirubin,Total 0.7 mg/dl (0.2-1); Calcium 7.5 mg/dl (8.5-10.1); Creatinine Clr Calc Pharmacy 65.7 ml/min; Est GFR (African American) 72.6; Est GFR (Non-African American) 62.6; Globulin 3.2 gm/dl (2.5-4.0); Magnesium 1.7 mg/dl (1.8-2.4); Total Protein 6.4 gm/dl (6.4-8.2); Troponin I 3.41 ng/ml (0-0.045)
[2018-12-08] MEDS ORDERED: HEPARIN IV BOLUS 6,000 UNITS in SYRINGE 0 ML IV ONE (05:30)
[2018-12-08] MEDS: HEPARIN STANDARD DEXTROSE 25,000 UNITS/500 ML IV SCH (05:42)
[2018-12-08] MEDS ORDERED: ENOXAPARIN 80 MG/0.8 ML SYR SQ SCH (06:00)
[2018-12-08] MEDS ORDERED: HEPARIN SOD 5,000 UNIT/0.5 ML VIAL SQ SCH (06:00)
[2018-12-08] MEDS ORDERED: NovoLIN-R BOLUS FROM BAG IV ONE (06:34)
--- NOTE | 2018-12-08 06:38 | CT Scan Report ---
CT ANGIOGRAM OF THE CHEST CLINICAL HISTORY: Shortness of breath. Possible pulmonary embolism. COMPARISON STUDY: 02/01/2017 TECHNIQUE: Following the IV administration of 118 mL of Optiray-320, CT angiogram of the thorax was p erformed from the thoracic inlet to the lung bases utilizing the pulmonary embolus protocol. Images a re reviewed in the axial, sagittal, and coronal planes. IV contrast was administered without complica tion. MIP imaging was performed. A dose lowering technique was utilized adhering to the principles o f ALARA. CT DOSE: 745.91 mGy.cm FINDINGS: Hilar lymph nodes are the upper limits of normal in size. There are no pathologically enlarged medias tinal or axillary lymph nodes. There was no evidence of thoracic aortic dilatation. There were no pulmonary artery filling defects to indicate acute pulmonary embolism. No pleural effusions are visualized. There is moderate respiratory motion artifact. There is no focal pulmonary consolidation. There is mi ld emphysema. There are lingular atelectatic changes. 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 IMPRESSION: 1. No evidence of acute pulmonary embolism 2. No evidence of focal pulmonary consolidation 3. Ankylosis of the spine. Electronically signed by: Dennis Weber M.D. 12/08/2018 6:37 AM
--- NOTE | 2018-12-08 06:39 | XRay Report ---
XR chest 1V portable CLINICAL HISTORY: Shortness of breath. COMPARISON STUDY: 12/07/2018 FINDINGS: There is mild pulmonary emphysema. There is no focal pulmonary consolidation. There is no p neumothorax. There is no overt failure. There are no significant pleural effusions.[ IMPRESSION: 1. Mild emphysema. No evidence of focal pulmonary consolidation Electronically signed by: Dennis Weber M.D. 12/08/2018 6:38 AM
[2018-12-08] MEDS: INSULIN REGULAR 250 UNITS in SODIUM CHLORIDE 0.9% 247.5 ML IV SCH (06:43)
--- NOTE | 2018-12-08 06:43 | XRay Report ---
XR chest 1V portable CLINICAL HISTORY: Respiratory failure COMPARISON STUDY: 12/08/2018 FINDINGS: The cardiac and mediastinal contours remain stable. There is no focal pulmonary consolidati on. There is been interval insertion of endotracheal tube. Tip projects 5.8 cm above the mary lou. A se cond catheter projects of the upper thoracic spine. This could represent a nasogastric tube within th e upper thoracic esophagus.[ IMPRESSION: 1. Interval placement of an endotracheal tube 5.8 cm above the mary lou 2. Equivocal visualization of a nasogastric tube within the upper thoracic esophagus Electronically signed by: Dennis Weber M.D. 12/08/2018 6:41 AM
--- NOTE | 2018-12-08 06:44 | Ultrasound Report ---
US venous doppler LE BI HISTORY: Dyspnea. Pain. acute resp failure with hypoxia/hypercap COMPARISON STUDY: None. FINDINGS: Evidence for acute deep venous thrombosis peripheral aspect distal superficial femoral vein . All remaining venous structures are unremarkable. Compressibility and augmentation characteristics are unremarkable involving the left leg. IMPRESSION: Focal deep venous thrombosis distal right superficial femoral vein. All remaining components of the s tudy are unremarkable. The above report was generated using voice recognition software. It may contain grammatical, syntax or spelling errors. Electronically signed by: Vincent Maradiaga M.D. 12/08/2018 6:43 AM
--- NOTE | 2018-12-08 06:45 | XRay Report ---
XR KUB CLINICAL HISTORY: og tube placement COMPARISON STUDY: No previous studies for comparison. FINDINGS: A single view centered the hemidiaphragms provided for interpretation. The orogastric tube is positioned with its tip at the level the esophagogastric junction. The proximal sidehole was posit ioned within the distal esophagus. IMPRESSION: The enteric tube is positioned with its tip at the esophagogastric junction. Electronically signed by: Dennis Weber M.D. 12/08/2018 6:44 AM
[2018-12-08] MEDS ORDERED: PHARMACY GLYCEMIC MGMT CONSULT PRN (06:50)
[2018-12-08 07:01] LABS: Estimated Average Glucose 137 mg/dl
[2018-12-08] MEDS: ALBUT/IPRATROP 3MG/0.5MG NEB 3 ML VIAL NEB SCH ×4 (07:14→18:53)
--- NOTE | 2018-12-08 07:26 | XRay Report ---
XR chest 1V portable CLINICAL HISTORY: acute resp failure with hypoxia and hypercapnia COMPARISON STUDY: 12/08/2018 FINDINGS: There is an endotracheal tube 5.2 cm above the mary lou. There is a nasogastric tube with its tip extending into the stomach. Mild emphysema is suspected. There is no focal pulmonary consolidati on.[ IMPRESSION: 1. No evidence of focal pulmonary consolidation 2. Nasogastric tube within the stomach. Endotracheal tube 52 mm above the mary lou Electronically signed by: Dennis Weber M.D. 12/08/2018 7:25 AM
[2018-12-08] MEDS ORDERED: INSULIN ASPART 100 UNITS/ML 3 ML PEN SC SCH (07:30)
[2018-12-08] MEDS ORDERED: fentaNYL citrate 100 MCG/2 ML VIAL IV ONE (07:38)
[2018-12-08] MEDS ORDERED: MIDAZOLAM HCL 5 MG/ML VIAL IV ONE (07:38)
[2018-12-08] MEDS ORDERED: ETOMIDATE 2 MG/ML 20 ML VIAL IV ONE (07:38)
[2018-12-08] MEDS ORDERED: SUCCINYLCHOLINE CHLORIDE 20 MG/ML 10 ML VIAL IV ONE (07:38)
[2018-12-08] MEDS: INSULIN ASPART 100 UNITS/ML 3 ML PEN SC SCH ×4 (08:41→22:49)
[2018-12-08] MEDS: MAGNESIUM SULFATE / D5W 1 GM/100 ML BAG IV SCH ×2 (08:49→09:52)
[2018-12-08 09:48] LABS: Influenza A virus by PCR Neg for Influ A (Neg); Influenza B virus by PCR Neg for Influ B (Neg)
[2018-12-08] MEDS: LACTATED RINGER'S 1,000 ML IV SCH ×2 (09:51→19:48)
[2018-12-08] MEDS: PANTOprazole 40 MG in SYRINGE 0 ML IV SCH (11:22)
[2018-12-08] MEDS ORDERED: BISACODYL 5 MG TABEC PO ONE (11:30)
[2018-12-08] MEDS ORDERED: POLYETHYLENE (MIRALAX) 17 GM PACK PO ONE (12:00)
[2018-12-08 12:25] LABS: Partial Thromboplastin Ratio 3.7
[2018-12-08 13:06] LABS: Partial Thromboplastin Time 95.1 Seconds (21.0-31.0)
[2018-12-08] MEDS ORDERED: METOPROLOL TARTRATE 1 MG/ML VIAL IV ONE (13:15)
[2018-12-08] MEDS ORDERED: METOPROLOL TARTRATE 1 MG/ML VIAL IV STA (13:16)
[2018-12-08 17:33] LABS: BUN Creatinine Ratio 22.9 (10-20); Calcium 8.3 mg/dl (8.5-10.1); Creatinine Clr Calc Pharmacy 85.5 ml/min; Est GFR (African American) 99.9; Est GFR (Non-African American) 86.2; Magnesium 2.6 mg/dl (1.8-2.4); Potassium 4.3 mmol/L (3.5-5.1)
[2018-12-08 17:41] LABS: Troponin I 7.72 ng/ml (0-0.045)
--- NOTE | 2018-12-08 17:52 | Hospitalist Progress Note ---
Date of Service December 08, 2018 Assessment & Plan (1) Acute respiratory failure with hypoxia and hypercapnia: 2nd to COPD exacerbation. Extubated from the vent this am to BIPAP, weaned to oxymask, then placed back on BIPAP this afternoon. Cont high-dose IV steroids, IV abx, nebs, etc. Cannot rule out a component of acute systolic CHF / NSTEMI contributing. Appreciate critical care input and recommendations. Present on Admission?: Yes (2) COPD exacerbation: Cont IV steroids, abx, nebs, supportive care, BIPAP, etc. (3) Acute kidney injury (nontraumatic): resolved (4) DVT (deep venous thrombosis): RLE heparin drip the heparin will also cover the NSTEMI no evidence of PE on CTA (5) NSTEMI (non-ST elevated myocardial infarction): troponin today up to 7 no ischemic symptoms but multiple CAD risk factors (tobacco, HTN, pre-DM/DM, etc ) add asa 81mg daily check lipids am will need BB echo with severe systolic CHF -- ischemic? cardiology consult requested (6) Acute systolic congestive heart failure: chronicity uncertain in light of NSTEMI - could some of the depressed EF be from ischemic cardiomyopathy? will need BB and ANGELIKA (or ARB) caution with IVF and volume (7) Hypomagnesemia: replaced with IV mag today (8) Hyperglycemia due to type 2 diabetes mellitus: control satisfactory at this time appreciate pharmacy consult & management (9) Hypertension: controlled Subjective Patient was extubated this am by the critical care staff. During my afternoon rounds he was on oxymask. About 1/2 way through the visit he asked to be put back on BIPAP. He was very dyspneic, only able to speak in 2-3 word sentences. He denied chest pain or chest tightness. Denied any etoh use. Very anxious. Constitutional: no fever Respiratory: + dyspnea, + dyspnea on exertion and + wheezing Cardiovascular: + orthopnea; no chest pain Gastrointestinal: no abdominal pain Physical Exam 2 Vital Signs (Past 24 Hours): Last Vital Signs Temp 36.9 C 12/08/18 13:00 Pulse 119 H 12/08/18 17:24 Resp 22 12/08/18 17:24 BP 106/84 12/08/18 14:30 Pulse Ox 96 12/08/18 17:24 Constitutional: well developed, well nourished, + acute distress (with simply moving in the bed he got very short of breath, tachypneic, with accessory muscle use ) and + ill appearing ENMT: external ear and nose normal, oropharynx normal Respiratory: Auscultation: + diminished lung sounds (throughout both hemithoraces) and + wheezes (minimal ); no rales and no rhonchi Cardiovascular: Rate/Rhythm: regular rate and + tachycardic Heart Sounds: normal S1 and normal S2; no murmur Vessels: posterior tibial pulses present and dorsalis pedis pulses present Extremities: no edema Gastrointestinal (Abdomen): Inspection/Auscultation: + abdomen distended and normal bowel sounds Percussion/Palpation: abdomen nontender, no guarding and no hepatosplenomegaly Psychiatric: Affect: + anxious affect Results & Data Laboratory Results Laboratory Results - last 24 hr 12/07/18 12/08/18 12/08/18 22:13 00:55 02:50 WBC RBC Hgb Hct MCV MCH MCHC RDW Std Deviation RDW Coeff of [place] Plt Count MPV Immature Gran % (Auto) Neut % (Auto) Lymph % (Auto) [place] % (Auto) Eos % (Auto) Baso % (Auto) Immature Gran # (Auto) Neut # (Auto) Lymph # (Auto) [place] # (Auto) Eos # (Auto) Baso # (Auto) Blood Smear Review PT INR APTT PTT Ratio Sample Site POC pH POC pCO2 POC pO2 POC HCO3 POC Total CO2 POC Base Excess ABG pH 7.09 L* ABG pCO2 75 H ABG pO2 189 H ABG HCO3 23 POC ABG O2 Sat ABG O2 Saturation 99.2 H ABG Base Excess -8.7 Deuce Test Pos Oxygen Given 50% BIPAP O2 Delivery Device POC O2 Rate Minute Ventilation POC FiO2 Tidal Volume PEEP Sodium Potassium Chloride Carbon Dioxide Anion Gap BUN Creatinine Est Cr Clr Drug Dosing Est GFR ( Amer) Est GFR (Non-Af Amer) BUN/Creatinine Ratio Glucose POC Glucose Estimat Average Glucose Hemoglobin A1c Calcium Phosphorus Magnesium Total Bilirubin AST ALT Alkaline Phosphatase Troponin I Total Protein Albumin Globulin Albumin/Globulin Ratio Triglycerides Cholesterol LDL Cholesterol, Calc VLDL Cholesterol, Calc HDL Cholesterol Cholesterol/HDL Ratio Beta-Hydroxybutyric Acd Urine Color Yellow Urine Appearance Clear Urine pH 5.5 Ur Specific [place] > 1.045 H Urine Protein Negative Urine Glucose (UA) 3+ H Urine Ketones Trace H Urine Blood Trace H Urine Nitrite Negative Urine Bilirubin Negative Urine Urobilinogen Negative Ur Leukocyte Esterase Negative Urine WBC (Auto) 1-5 Urine RBC (Auto) 5-10 H U Hyaline Cast (Auto) 1-5 U Epithel Cells (Auto) 10-20 H Urine Bacteria (Auto) Negative Nasal Screen MRSA (PCR) Hepatitis C Ab Screen Influenza Type A (PCR) Influenza Type B (PCR) 12/08/18 12/08/18 12/08/18 02:50 03:48 04:12 WBC RBC Hgb Hct MCV MCH MCHC RDW Std Deviation RDW Coeff of [place] Plt Count MPV Immature Gran % (Auto) Neut % (Auto) Lymph % (Auto) [place] % (Auto) Eos % (Auto) Baso % (Auto) Immature Gran # (Auto) Neut # (Auto) Lymph # (Auto) [place] # (Auto) Eos # (Auto) Baso # (Auto) Blood Smear Review PT INR APTT PTT Ratio Sample Site L Radial POC pH 7.31 L POC pCO2 58 H POC pO2 156 H POC HCO3 29 H POC Total CO2 31 POC Base Excess 3.0 H ABG pH ABG pCO2 ABG pO2 ABG HCO3 POC ABG O2 Sat 99.0 H ABG O2 Saturation ABG Base Excess Deuce Test Pass Oxygen Given O2 Delivery Device Ventilator POC O2 Rate 26 Minute Ventilation 13.3 POC FiO2 50 Tidal Volume 550 PEEP 5 Sodium 138 Potassium 5.0 Chloride 106 Carbon Dioxide 24 Anion Gap 8.0 BUN 23 H Creatinine 1.25 Est Cr Clr Drug Dosing 65.7 Est GFR ( Amer) 72.6 Est GFR (Non-Af Amer) 62.6 BUN/Creatinine Ratio 18.4 Glucose 344 H POC Glucose Estimat Average Glucose Hemoglobin A1c Calcium 7.5 L D Phosphorus Magnesium 1.7 L Total Bilirubin 0.7 AST 70 H ALT 75 Alkaline Phosphatase 58 Troponin I 3.410 H* Total Protein 6.4 Albumin 3.2 L Globulin 3.2 Albumin/Globulin Ratio 1.0 Triglycerides Cholesterol LDL Cholesterol, Calc VLDL Cholesterol, Calc HDL Cholesterol Cholesterol/HDL Ratio Beta-Hydroxybutyric Acd 6.36 H Urine Color Urine Appearance Urine pH Ur Specific [place] Urine Protein Urine Glucose (UA) Urine Ketones Urine Blood Urine Nitrite Urine Bilirubin Urine Urobilinogen Ur Leukocyte Esterase Urine WBC (Auto) Urine RBC (Auto) U Hyaline Cast (Auto) U Epithel Cells (Auto) Urine Bacteria (Auto) Nasal Screen MRSA (PCR) Negative Hepatitis C Ab Screen Influenza Type A (PCR) Influenza Type B (PCR) 12/08/18 12/08/18 12/08/18 04:12 04:12 04:12 WBC 15.66 H D RBC 4.66 L Hgb 14.2 Hct 43.2 MCV 92.7 MCH 30.5 MCHC 32.9 RDW Std Deviation 44.7 RDW Coeff of [place] 13.2 Plt Count 260 MPV 11.2 H Immature Gran % (Auto) 0.6 Neut % (Auto) 93.0 Lymph % (Auto) 2.2 [place] % (Auto) 4.0 Eos % (Auto) 0.1 Baso % (Auto) 0.1 Immature Gran # (Auto) 0.09 H Neut # (Auto) 14.59 H Lymph # (Auto) 0.34 L [place] # (Auto) 0.62 H Eos # (Auto) 0.01 Baso # (Auto) 0.01 Blood Smear Review PT 10.2 INR 1.0 APTT 20.2 L PTT Ratio 0.8 Sample Site POC pH POC pCO2 POC pO2 POC HCO3 POC Total CO2 POC Base Excess ABG pH ABG pCO2 ABG pO2 ABG HCO3 POC ABG O2 Sat ABG O2 Saturation ABG Base Excess Deuce Test Oxygen Given O2 Delivery Device POC O2 Rate Minute Ventilation POC FiO2 Tidal Volume PEEP Sodium Potassium Chloride Carbon Dioxide Anion Gap BUN Creatinine Est Cr Clr Drug Dosing Est GFR ( Amer) Est GFR (Non-Af Amer) BUN/Creatinine Ratio Glucose POC Glucose Estimat Average Glucose 137 Hemoglobin A1c 6.4 H Calcium Phosphorus Magnesium Total Bilirubin AST ALT Alkaline Phosphatase Troponin I Total Protein Albumin Globulin Albumin/Globulin Ratio Triglycerides Cholesterol LDL Cholesterol, Calc VLDL Cholesterol, Calc HDL Cholesterol Cholesterol/HDL Ratio Beta-Hydroxybutyric Acd Urine Color Urine Appearance Urine pH Ur Specific [place] Urine Protein Urine Glucose (UA) Urine Ketones Urine Blood Urine Nitrite Urine Bilirubin Urine Urobilinogen Ur Leukocyte Esterase Urine WBC (Auto) Urine RBC (Auto) U Hyaline Cast (Auto) U Epithel Cells (Auto) Urine Bacteria (Auto) Nasal Screen MRSA (PCR) Hepatitis C Ab Screen Influenza Type A (PCR) Influenza Type B (PCR) 12/08/18 12/08/18 12/08/18 04:12 07:48 08:45 WBC RBC Hgb Hct MCV MCH MCHC RDW Std Deviation RDW Coeff of [place] Plt Count MPV Immature Gran % (Auto) Neut % (Auto) Lymph % (Auto) [place] % (Auto) Eos % (Auto) Baso % (Auto) Immature Gran # (Auto) Neut # (Auto) Lymph # (Auto) [place] # (Auto) Eos # (Auto) Baso # (Auto) Blood Smear Review PT INR APTT PTT Ratio Sample Site POC pH POC pCO2 POC pO2 POC HCO3 POC Total CO2 POC Base Excess ABG pH ABG pCO2 ABG pO2 ABG HCO3 POC ABG O2 Sat ABG O2 Saturation ABG Base Excess Deuce Test Oxygen Given O2 Delivery Device POC O2 Rate Minute Ventilation POC FiO2 Tidal Volume PEEP Sodium Potassium Chloride Carbon Dioxide Anion Gap BUN Creatinine Est Cr Clr Drug Dosing Est GFR ( Amer) Est GFR (Non-Af Amer) BUN/Creatinine Ratio Glucose POC Glucose 233 H 196 H Estimat Average Glucose Hemoglobin A1c Calcium Phosphorus Magnesium Total Bilirubin AST ALT Alkaline Phosphatase Troponin I Total Protein Albumin Globulin Albumin/Globulin Ratio Triglycerides Cholesterol LDL Cholesterol, Calc VLDL Cholesterol, Calc HDL Cholesterol Cholesterol/HDL Ratio Beta-Hydroxybutyric Acd Urine Color Urine Appearance Urine pH Ur Specific [place] Urine Protein Urine Glucose (UA) Urine Ketones Urine Blood Urine Nitrite Urine Bilirubin Urine Urobilinogen Ur Leukocyte Esterase Urine WBC (Auto) Urine RBC (Auto) U Hyaline Cast (Auto) U Epithel Cells (Auto) Urine Bacteria (Auto) Nasal Screen MRSA (PCR) Hepatitis C Ab Screen Neg Influenza Type A (PCR) Influenza Type B (PCR) 12/08/18 12/08/18 12/08/18 09:05 09:44 09:46 WBC RBC Hgb Hct MCV MCH MCHC RDW Std Deviation RDW Coeff of [place] Plt Count MPV Immature Gran % (Auto) Neut % (Auto) Lymph % (Auto) [place] % (Auto) Eos % (Auto) Baso % (Auto) Immature Gran # (Auto) Neut # (Auto) Lymph # (Auto) [place] # (Auto) Eos # (Auto) Baso # (Auto) Blood Smear Review PT INR APTT PTT Ratio Sample Site POC pH POC pCO2 POC pO2 POC HCO3 POC Total CO2 POC Base Excess ABG pH ABG pCO2 ABG pO2 ABG HCO3 POC ABG O2 Sat ABG O2 Saturation ABG Base Excess Deuce Test Oxygen Given O2 Delivery Device POC O2 Rate Minute Ventilation POC FiO2 Tidal Volume PEEP Sodium Potassium Chloride Carbon Dioxide Anion Gap BUN Creatinine Est Cr Clr Drug Dosing Est GFR ( Amer) Est GFR (Non-Af Amer) BUN/Creatinine Ratio Glucose POC Glucose 211 H Estimat Average Glucose Hemoglobin A1c Calcium Phosphorus Magnesium Total Bilirubin AST ALT Alkaline Phosphatase Troponin I 6.580 H* Total Protein Albumin Globulin Albumin/Globulin Ratio Triglycerides Cholesterol LDL Cholesterol, Calc VLDL Cholesterol, Calc HDL Cholesterol Cholesterol/HDL Ratio Beta-Hydroxybutyric Acd Urine Color Urine Appearance Urine pH Ur Specific [place] Urine Protein Urine Glucose (UA) Urine Ketones Urine Blood Urine Nitrite Urine Bilirubin Urine Urobilinogen Ur Leukocyte Esterase Urine WBC (Auto) Urine RBC (Auto) U Hyaline Cast (Auto) U Epithel Cells (Auto) Urine Bacteria (Auto) Nasal Screen MRSA (PCR) Hepatitis C Ab Screen Influenza Type A (PCR) Neg for Influ A Influenza Type B (PCR) Neg for Influ B 12/08/18 12/08/18 12/08/18 10:51 11:49 11:51 WBC RBC Hgb Hct MCV MCH MCHC RDW Std Deviation RDW Coeff of [place] Plt Count MPV Immature Gran % (Auto) Neut % (Auto) Lymph % (Auto) [place] % (Auto) Eos % (Auto) Baso % (Auto) Immature Gran # (Auto) Neut # (Auto) Lymph # (Auto) [place] # (Auto) Eos # (Auto) Baso # (Auto) Blood Smear Review PT INR APTT 95.1 H* PTT Ratio 3.7 Sample Site POC pH POC pCO2 POC pO2 POC HCO3 POC Total CO2 POC Base Excess ABG pH ABG pCO2 ABG pO2 ABG HCO3 POC ABG O2 Sat ABG O2 Saturation ABG Base Excess Deuce Test Oxygen Given O2 Delivery Device POC O2 Rate Minute Ventilation POC FiO2 Tidal Volume PEEP Sodium Potassium Chloride Carbon Dioxide Anion Gap BUN Creatinine Est Cr Clr Drug Dosing Est GFR ( Amer) Est GFR (Non-Af Amer) BUN/Creatinine Ratio Glucose POC Glucose 227 H 185 H Estimat Average Glucose Hemoglobin A1c Calcium Phosphorus Magnesium Total Bilirubin AST ALT Alkaline Phosphatase Troponin I Total Protein Albumin Globulin Albumin/Globulin Ratio Triglycerides Cholesterol LDL Cholesterol, Calc VLDL Cholesterol, Calc HDL Cholesterol Cholesterol/HDL Ratio Beta-Hydroxybutyric Acd Urine Color Urine Appearance Urine pH Ur Specific [place] Urine Protein Urine Glucose (UA) Urine Ketones Urine Blood Urine Nitrite Urine Bilirubin Urine Urobilinogen Ur Leukocyte Esterase Urine WBC (Auto) Urine RBC (Auto) U Hyaline Cast (Auto) U Epithel Cells (Auto) Urine Bacteria (Auto) Nasal Screen MRSA (PCR) Hepatitis C Ab Screen Influenza Type A (PCR) Influenza Type B (PCR) 12/08/18 12/08/18 12/08/18 12:51 13:47 14:49 WBC RBC Hgb Hct MCV MCH MCHC RDW Std Deviation RDW Coeff of [place] Plt Count MPV Immature Gran % (Auto) Neut % (Auto) Lymph % (Auto) [place] % (Auto) Eos % (Auto) Baso % (Auto) Immature Gran # (Auto) Neut # (Auto) Lymph # (Auto) [place] # (Auto) Eos # (Auto) Baso # (Auto) Blood Smear Review PT INR APTT PTT Ratio Sample Site POC pH POC pCO2 POC pO2 POC HCO3 POC Total CO2 POC Base Excess ABG pH ABG pCO2 ABG pO2 ABG HCO3 POC ABG O2 Sat ABG O2 Saturation ABG Base Excess Deuce Test Oxygen Given O2 Delivery Device POC O2 Rate Minute Ventilation POC FiO2 Tidal Volume PEEP Sodium Potassium Chloride Carbon Dioxide Anion Gap BUN Creatinine Est Cr Clr Drug Dosing Est GFR ( Amer) Est GFR (Non-Af Amer) BUN/Creatinine Ratio Glucose POC Glucose 170 H 190 H 157 H Estimat Average Glucose Hemoglobin A1c Calcium Phosphorus Magnesium Total Bilirubin AST ALT Alkaline Phosphatase Troponin I Total Protein Albumin Globulin Albumin/Globulin Ratio Triglycerides Cholesterol LDL Cholesterol, Calc VLDL Cholesterol, Calc HDL Cholesterol Cholesterol/HDL Ratio Beta-Hydroxybutyric Acd Urine Color Urine Appearance Urine pH Ur Specific [place] Urine Protein Urine Glucose (UA) Urine Ketones Urine Blood Urine Nitrite Urine Bilirubin Urine Urobilinogen Ur Leukocyte Esterase Urine WBC (Auto) Urine RBC (Auto) U Hyaline Cast (Auto) U Epithel Cells (Auto) Urine Bacteria (Auto) Nasal Screen MRSA (PCR) Hepatitis C Ab Screen Influenza Type A (PCR) Influenza Type B (PCR) 12/08/18 12/08/18 12/08/18 16:09 16:23 16:23 WBC RBC Hgb Hct MCV MCH MCHC RDW Std Deviation RDW Coeff of [place] Plt Count MPV Immature Gran % (Auto) Neut % (Auto) Lymph % (Auto) [place] % (Auto) Eos % (Auto) Baso % (Auto) Immature Gran # (Auto) Neut # (Auto) Lymph # (Auto) [place] # (Auto) Eos # (Auto) Baso # (Auto) Blood Smear Review PT INR APTT PTT Ratio Sample Site POC pH POC pCO2 POC pO2 POC HCO3 POC Total CO2 POC Base Excess ABG pH ABG pCO2 ABG pO2 ABG HCO3 POC ABG O2 Sat ABG O2 Saturation ABG Base Excess Deuce Test Oxygen Given O2 Delivery Device POC O2 Rate Minute Ventilation POC FiO2 Tidal Volume PEEP Sodium 139 Potassium 4.3 Chloride 107 Carbon Dioxide 27 Anion Gap 5.0 BUN 22 H Creatinine 0.96 Est Cr Clr Drug Dosing 85.5 Est GFR ( Amer) 99.9 Est GFR (Non-Af Amer) 86.2 BUN/Creatinine Ratio 22.9 H Glucose 148 H POC Glucose 176 H Estimat Average Glucose Hemoglobin A1c Calcium 8.3 L Phosphorus 2.0 L Magnesium 2.6 H Total Bilirubin AST ALT Alkaline Phosphatase Troponin I Cancelled 7.720 H* Total Protein Albumin Globulin Albumin/Globulin Ratio Triglycerides Cancelled 50 Cholesterol Cancelled 150 LDL Cholesterol, Calc Cancelled 90 VLDL Cholesterol, Calc Cancelled 10 HDL Cholesterol Cancelled 50 Cholesterol/HDL Ratio Cancelled 3 Beta-Hydroxybutyric Acd Urine Color Urine Appearance Urine pH Ur Specific [place] Urine Protein Urine Glucose (UA) Urine Ketones Urine Blood Urine Nitrite Urine Bilirubin Urine Urobilinogen Ur Leukocyte Esterase Urine WBC (Auto) Urine RBC (Auto) U Hyaline Cast (Auto) U Epithel Cells (Auto) Urine Bacteria (Auto) Nasal Screen MRSA (PCR) Hepatitis C Ab Screen Influenza Type A (PCR) Influenza Type B (PCR) 12/08/18 12/08/18 12/08/18 17:14 18:20 19:32 WBC RBC Hgb Hct MCV MCH MCHC RDW Std Deviation RDW Coeff of [place] Plt Count MPV Immature Gran % (Auto) Neut % (Auto) Lymph % (Auto) [place] % (Auto) Eos % (Auto) Baso % (Auto) Immature Gran # (Auto) Neut # (Auto) Lymph # (Auto) [place] # (Auto) Eos # (Auto) Baso # (Auto) Blood Smear Review PT INR APTT PTT Ratio Sample Site POC pH POC pCO2 POC pO2 POC HCO3 POC Total CO2 POC Base Excess ABG pH ABG pCO2 ABG pO2 ABG HCO3 POC ABG O2 Sat ABG O2 Saturation ABG Base Excess Deuce Test Oxygen Given O2 Delivery Device POC O2 Rate Minute Ventilation POC FiO2 Tidal Volume PEEP Sodium Potassium Chloride Carbon Dioxide Anion Gap BUN Creatinine Est Cr Clr Drug Dosing Est GFR ( Amer) Est GFR (Non-Af Amer) BUN/Creatinine Ratio Glucose POC Glucose 140 H 168 H 140 H Estimat Average Glucose Hemoglobin A1c Calcium Phosphorus Magnesium Total Bilirubin AST ALT Alkaline Phosphatase Troponin I Total Protein Albumin Globulin Albumin/Globulin Ratio Triglycerides Cholesterol LDL Cholesterol, Calc VLDL Cholesterol, Calc HDL Cholesterol Cholesterol/HDL Ratio Beta-Hydroxybutyric Acd Urine Color Urine Appearance Urine pH Ur Specific [place] Urine Protein Urine Glucose (UA) Urine Ketones Urine Blood Urine Nitrite Urine Bilirubin Urine Urobilinogen Ur Leukocyte Esterase Urine WBC (Auto) Urine RBC (Auto) U Hyaline Cast (Auto) U Epithel Cells (Auto) Urine Bacteria (Auto) Nasal Screen MRSA (PCR) Hepatitis C Ab Screen Influenza Type A (PCR) Influenza Type B (PCR) 12/08/18 12/08/18 12/08/18 20:18 20:37 22:34 WBC RBC Hgb Hct MCV MCH MCHC RDW Std Deviation RDW Coeff of [place] Plt Count MPV Immature Gran % (Auto) Neut % (Auto) Lymph % (Auto) [place] % (Auto) Eos % (Auto) Baso % (Auto) Immature Gran # (Auto) Neut # (Auto) Lymph # (Auto) [place] # (Auto) Eos # (Auto) Baso # (Auto) Blood Smear Review PT INR APTT 56.6 H* PTT Ratio 2.2 Sample Site POC pH POC pCO2 POC pO2 POC HCO3 POC Total CO2 POC Base Excess ABG pH ABG pCO2 ABG pO2 ABG HCO3 POC ABG O2 Sat ABG O2 Saturation ABG Base Excess Deuce Test Oxygen Given O2 Delivery Device POC O2 Rate Minute Ventilation POC FiO2 Tidal Volume PEEP Sodium Potassium Chloride Carbon Dioxide Anion Gap BUN Creatinine Est Cr Clr Drug Dosing Est GFR ( Amer) Est GFR (Non-Af Amer) BUN/Creatinine Ratio Glucose POC Glucose 136 H 150 H Estimat Average Glucose Hemoglobin A1c Calcium Phosphorus Magnesium Total Bilirubin AST ALT Alkaline Phosphatase Troponin I Total Protein Albumin Globulin Albumin/Globulin Ratio Triglycerides Cholesterol LDL Cholesterol, Calc VLDL Cholesterol, Calc HDL Cholesterol Cholesterol/HDL Ratio Beta-Hydroxybutyric Acd Urine Color Urine Appearance Urine pH Ur Specific [place] Urine Protein Urine Glucose (UA) Urine Ketones Urine Blood Urine Nitrite Urine Bilirubin Urine Urobilinogen Ur Leukocyte Esterase Urine WBC (Auto) Urine RBC (Auto) U Hyaline Cast (Auto) U Epithel Cells (Auto) Urine Bacteria (Auto) Nasal Screen MRSA (PCR) Hepatitis C Ab Screen Influenza Type A (PCR) Influenza Type B (PCR) _ (1) DVT (deep venous thrombosis) DVT location: lower extremity Affected thrombotic vein of extremity: unspecified vein of extremity Chronicity: acute Laterality: unspecified laterality Qualified Code(s): I82.409 - Acute embolism and thrombosis of unspecified deep veins of unspecified lower extremity (2) Hyperglycemia due to type 2 diabetes mellitus 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
[2018-12-08] MEDS ORDERED: SODIUM PHOSPHATE 3 MMOL/1 ML 5 ML VIAL IV ONE (18:02)
[2018-12-08] MEDS ORDERED: SODIUM PHOSPHATE 15 MMOL in SODIUM CHLORIDE 0.9% 250 ML IV ONE (18:15)
[2018-12-08] MEDS: ASPIRIN 81 MG ECTAB PO SCH (18:16)
[2018-12-08] MEDS ORDERED: diazePAM 5 MG TABLET PO PRN (20:09)
[2018-12-08] MEDS ORDERED: FUROSEMIDE 80 MG in SYRINGE 0 ML IV STA (20:12)
[2018-12-08 20:46] LABS: Partial Thromboplastin Ratio 2.2
[2018-12-08 20:47] LABS: Partial Thromboplastin Time 56.6 Seconds (21.0-31.0)
[2018-12-09] MEDS: HEPARIN STANDARD DEXTROSE 25,000 UNITS/500 ML IV SCH (02:28)
[2018-12-09] MEDS: methylPREDNISolone 60 MG in SYRINGE 0 ML IV SCH ×2 (04:21→09:13)
[2018-12-09] MEDS: LEVOFLOXACIN/D5W 750 MG/150 ML BAG IV SCH (04:21)
[2018-12-09 04:38] LABS: Hematocrit (blood only) 43.8 % (42-52); Hemoglobin 14.4 g/dL (14.0-18.0); Immature Granulocytes # (auto) 0.05 K/uL (0.00-0.02); Immature Granulocytes % (auto) 0.3 %; Lymphocytes # (auto) 1.18 K/uL (1.2-3.4); Lymphocytes % (auto) 7.6 %; Mean Corpuscular Hgb Conc 32.9 g/dL (32-36); Mean Corpuscular Volume 91.4 fL (80-100); Mean Platelet Volume 12.1 fL (7.4-10.4); Monocytes # (auto) 0.99 K/uL (0.11-0.59); Monocytes % (auto) 6.4 %; Neutrophils # (auto) 13.35 K/uL (1.4-6.5); Neutrophils % (auto) 85.7 %; Platelet Count 221 K/uL (130-400); RDW Coefficient of Variation 13.4 % (11.5-14.5); RDW Standard Deviation 44.1 fL (36.4-46.3); Red Blood Count 4.79 M/uL (4.7-6.1); White Blood Count 15.57 K/uL (4.8-10.8)
[2018-12-09 04:46] LABS: INR 1.2 (0.9-1.1); Prothrombin Time 11.8 Seconds (9.0-12.0)
[2018-12-09 05:00] LABS: Albumin Level 3.2 gm/dl (3.4-5.0); BUN Creatinine Ratio 24.3 (10-20); Creatinine Clr Calc Pharmacy 95.5 ml/min; Est GFR (Non-African American) 94.9; Magnesium 2.3 mg/dl (1.8-2.4); Potassium 3.8 mmol/L (3.5-5.1)
[2018-12-09 05:11] LABS: Bilirubin,Total 0.4 mg/dl (0.2-1); Globulin 3.2 gm/dl (2.5-4.0); Phosphorus 2.7 mg/dl (2.5-4.9); Total Protein 6.4 gm/dl (6.4-8.2); Troponin I 10.1 ng/ml (0-0.045)
[2018-12-09 05:12] LABS: Partial Thromboplastin Ratio 2.2
[2018-12-09 05:32] LABS: Partial Thromboplastin Time 58.1 Seconds (21.0-31.0)
[2018-12-09] MEDS ORDERED: FUROSEMIDE 40 MG in SYRINGE 0 ML IV ONE (05:45)
[2018-12-09 06:03] LABS: iSTAT Allen Test Pass; iSTAT Arterial Blood Gas HCO3 31 meg/L (19-24); iSTAT Carbon Dioxide 32 mEq/l (24-31); iSTAT FiO2 35 %
[2018-12-09] MEDS: ALBUT/IPRATROP 3MG/0.5MG NEB 3 ML VIAL NEB SCH ×4 (07:03→19:03)
[2018-12-09] MEDS: ASPIRIN 81 MG ECTAB PO SCH (07:33)
[2018-12-09] MEDS: INSULIN ASPART 100 UNITS/ML 3 ML PEN SC SCH ×4 (07:45→19:57)
[2018-12-09] MEDS ORDERED: BISACODYL 5 MG TABEC PO ONE (08:30)
[2018-12-09] MEDS ORDERED: POLYETHYLENE (MIRALAX) 17 GM PACK PO ONE (09:00)
[2018-12-09] MEDS: PANTOprazole 40 MG in SYRINGE 0 ML IV SCH (09:13)
--- NOTE | 2018-12-09 09:31 | Cardiology Consultation ---
Date of Consultation December 09, 2018 Assessment & Plan (1) NSTEMI (non-ST elevated myocardial infarction): He has an elevated troponin, and it has been rising since admission. It is a somewhat unusual presentation in that he appears to have had a myocardial infarction sometime prior to admission (between 2016 and now) and seems to have ongoing damage yet he did not present in congestive heart failure and despite his low EF did not have left ventricular dilatation. Certainly we need to evaluate his coronary status, some of the left ventricular dysfunction may be due to his presentation with respiratory failure. (2) CAD (coronary artery disease): Based on his electrocardiogram and his wall motion abnormalities on the he will most certainly has coronary artery disease. It is not clear the extent of it as noted above. We will need to catheterization on that and see whether there is anything which needs to be addressed urgently. If we can do the catheterization today that would be ideal, we will see if he can lay flat and I will keep him and n. p.o. (3) SOB (shortness of breath): He has a long history of shortness of breath and well-documented lung disease, which was quite severe on presentation. Conceivably some of his dyspnea on exertion coronary disease, that had been evaluated in 2016 with a stress test which was negative for ischemia. It is possible that some of his presentation was heart failure although it did not show up on his chest x-ray or his CT scan. His weight has not changed here. (4) Cardiomyopathy: He has a cardiomyopathy, the duration is not certain. With that degree of left ventricular dysfunction one would expect for him to develop left ventricular dilatation which he has not, that may suggest a more acute presentation however that is often associated with congestive heart failure which she does not seem to have. We need to determine whether this is ischemic in etiology or some other etiology. Currently he is not on an ANGELIKA inhibitor although he is on low-dose metoprolol tartrate. We should start an ANGELIKA inhibitor, but perhaps not immediately before catheterization. History of Present Illness Reason for Consultation: Elevated troponin Attending Physician: Chaz Garzon History of Present Illness This is a very pleasant 58-year-old gentleman who has a history of lung disease but no known history of heart disease. He presented on December 07, 2017 with shortness of breath starting shortly before presentation, he apparently had acute onset of shortness of breath, was brought in by EMS and was put on CPAP but did not tolerate it very well. He was intubated, that remained in for about a day before it was removed. At the time of my evaluation today he is breathing on his own. He reports to me that his breathing is not as good as it should be, but he is not very short of breath but is at rest. He describes long-standing lung disease, he tells me it is been present for perhaps 10 years and he does see wheel cutter in our office. He currently does not smoke. He has had worsening of his shortness of breath over the last week or so, especially immediately before presentation. He did have a dobutamine stress echo on October 26, 2015 for dyspnea on exertion, that showed normal left ventricular size and function with no wall motion abnormalities. It was negative for ischemia and he had no chest discomfort. He reports never having much in the way of chest discomfort, over the last month or so he may have had what he calls mild twinges, these do not really sound like angina. His exertional symptoms are primarily dyspnea on exertion. He has however got anteroseptal Q waves suggestive of a prior myocardial infarction and his troponins have been trending upward since he arrived, now being over 10. His electrocardiogram on presentation December 07 at 2200 showed sinus tachycardia with anterior Q waves and some J-point elevation but does not appear to be an acute myocardial infarction. Compared to his most recent prior electrocardiogram and I am aware of done August 22, 2016 the anteroseptal Q waves are new. They have remained present during this hospitalization. Echocardiography has shown severe left ventricular dysfunction with ejection fraction the 20% range. Allergies Allergy/AdvReac Type Severity Reaction Status Date / Time Penicillins Allergy Severe THROAT Verified 12/07/18 22:15 SWELLING Home Medications Home Medications Medication Instructions Recorded Confirmed Type albuterol sulfate [Ventolin HFA] 1 dose INHALATION DIRECTED 12/07/18 History excikfghxbi-wfwfiqwfk-djvnznly 0 dose INHALATION DIRECTED 12/07/18 12/07/18 History [Trelegy Ellipta] lisinopril 20 mg PO DAILY 12/07/18 12/07/18 History metformin 500 mg PO BID 12/07/18 12/07/18 History tiotropium bromide [Spiriva 1 dose INHALATION DIRECTED 02/10/19 02/10/19 History Respimat] Patient History Medical History COPD (chronic obstructive pulmonary disease) (Chronic) Hypertension (Chronic) Family History Other Family history non-contributory Social History Current Living Situation: Family Feels Safe at Home: Yes Smoking Status: Unknown if ever smoked Communication Ability: Effective Review of Systems Negative for lightheadedness, dizziness, palpitations, presyncope or syncope. Chronic dyspnea on exertion with recent progression, no exertional chest pain. No orthopnea or PND or peripheral edema. No GI complaints, no bleeding. No neurologic complaints such as TIA or stroke symptoms. Other systems negative. Physical Exam 2 Vital Signs (Past 24 Hours): Last Vital Signs Temp 37.1 C 12/09/18 07:46 Pulse 91 H 12/09/18 09:00 Resp 17 12/09/18 09:00 BP 122/84 12/09/18 09:00 Pulse Ox 97 12/09/18 09:00 Physical Exam: Constitutional: Alert, cooperative and in no distress. HEENT: Unremarkable Neck: No jugular venous distention, carotid pulses are normal and equal bilaterally without bruits. Pulmonary: Clear to auscultation bilaterally but with decreased breath sounds throughout. Cardiac: Regular rhythm with no murmur, gallop or rub. Abdomen: Soft, nontender with normal bowel sounds. Extremities: No edema. Distal pulses intact. Neurologic: No focal findings. Gait is steady. Skin: No rash, ecchymoses or petechiae. Results & Data Diagnostic Findings Electrocardiograms: The initial electrocardiogram shows an anteroseptal myocardial infarction which is new since 2016, but does not appear to be acute. There is not been much in way of progression and subsequent electrocardiograms but the Q waves have remained. Echocardiogram: This shows severe left ventricular dysfunction (but with normal left ventricular size) and wall motion abnormalities consistent with ischemic heart disease. Chest x-ray: Normal cardiac size, emphysema, no significant CHF CT scan: Normal LV size, no PE
--- NOTE | 2018-12-09 09:33 | Critical Care Progress Note ---
Date of Service December 09, 2018 Assessment & Plan (1) Admitted to intensive care unit: Reason Critically Ill: 58-year-old male with acute hypoxic respiratory failure with hypercapnia initially requiring endotracheal intubation for airway protection and aggressive pulmonary toilet. Now extubated to NC and CPAP at night. Developing NSTEMI w/ Troponins continuing to trend from 3 to 13. No acute EKG change and on heparin gtt. Cards consulted and plan for heart cath today. NEURO - * CAM ICU: Negative * Alert and oriented CARDIAC/VASCULAR - * Tachycardia: * Presumed stress reaction related to pulmonary status. * CTA negative for PE. * 12.5 mg MTP started this AM * Currently NSR, Continue to monitor on telemetry. * NSTEMI: troponin trending from 3 to 13. No acute changes on EKGs and pt asymptomatic. - Cards consulted and plan for heart cath today. F/u procedural note. - Continue heparin gtt. - weaning methylprednisone - monitor and replete electrolytes as needed - Trending * CAD: Lipid profile unremarkable dispite no home statin and s/s - starting Lipitor 40mg - f/u heart cath report - continue ASA, holding lisinopril for CHANTELL RESPIRATORY - * Acute hypoxic respiratory failure with hypercapnia with respiratory failure: * initially required intubation, extubated to Bipap; now on 2L NC and CPAP at night * AB.46/43/115/32. * Aggressive pulmonary toilet. Continue nebs. Weaning IV steroids. * Diuresis with Diamox switched from lasix d/t mild alkylosis * h/o Pulmonary nodule - followed in the outpatient with pulm. GI/NUTRITION - * Currently NPO for HC, will advance diet post-procedure RENAL/LYTES - * CHANTELL: * Continue w/ IVFs * Trend with AM labs. * BUN/ Cr / .86 * Hypokalemia: - aggressively repleting w/ KCl IV - trend w/ BMPs - * Ardon in place - Strict I&Os. ENDO - * Hyperglycemia: * h/o DMII on metformin alone. A1C 6.4. * Started on insulin gtt per unit policy, will continue for now HEME - * Stable H&H: * Will trend. ID - * COPD w/ Exacerbation: * Leukocytosis and c/o developing infection, agree with empiric antibiotic coverage. * Rocephin D/Josh; Continueing Levaquin x7 days. LINES/IV ACCESS - * PIVs x3 DVT PROPHYLAXIS - * Heparin bolus w/ gtt added in the setting of new RLE DVT w/ N-STEMI. * Hold on SCDs in the setting of known DVT. Thank you for allowing us to participate in the care of this patient. Please refer to my attending physician's documentation for any further recommendations. (2) Acute respiratory failure with hypoxia and hypercapnia: (3) Respiratory failure: (4) Acute kidney injury (nontraumatic): (5) Hyperglycemia due to type 2 diabetes mellitus: (6) DVT (deep venous thrombosis): Supervising Physician Co-Signing Physician Notes I have personally evaluated and examined this patient. I agree with assessment and plan of Gonzales CARRINGTON. Patient extubated yesterday, transition to noninvasive mechanical ventilation, Eventually weaned to nasal cannula reviewed echocardiogram, in setting of increasing troponins requested cardiology to evaluate. Patient will remain n.p.o. for possible cardiac cath. His troponin is elevating however he is still remains on heparin, Troponins continue to elevate QTC this morning for 459 can continue Levaquin. Initiating beta-pete 12.5 metoprolol p.o. Continue diuresis and aggressive potassium replenishment I have personally spent 40 minutes of critical care time in the direct management of this patient. This is a life/limb threatening event. This includes time spent evaluating patient, direct bedside care, chart review, placing orders, interpretation of diagnostic studies, discussion with consultants, patient, and/or family members regarding treatment decisions, as well as other required patient management activities. This time is exclusive of all separately billable procedures, and teaching time and separate from and in addition to any other critical care service time. Subjective Constitutional: no fever, no chills, no body aches, no fatigue and no weakness Eyes: no diplopia, no discharge and no problem reported Ear, Nose, Mouth, Throat: + sore throat and + hoarseness; no tinnitus and no dysphagia Respiratory: no cough, no dyspnea, no hemoptysis and no wheezing Cardiovascular: no chest pain, no dyspnea at rest, no palpitations and no syncope Gastrointestinal: no abdominal pain, no nausea and no vomiting Genitourinary (Male): no testicle pain Approximately 2.5 L diuresed overnight Ardon currently in place Musculoskeletal: no deformity, no limited range of motion and no body aches Integumentary: no rash, no sores and no wounds Neurologic: no loss of sensation, no numbness, no syncope, no headache(s) and no confusion Psychiatric: no suicidal ideation, no confusion and no problem reported Endocrine: no fatigue and no problem reported Hematologic / Lymphatic: no unexplained weight loss and no problem reported Physical Exam 2 Vital Signs (Past 24 Hours): Last Vital Signs Temp 37.1 C 12/09/18 07:46 Pulse 91 H 12/09/18 09:00 Resp 17 12/09/18 09:00 BP 122/84 12/09/18 09:00 Pulse Ox 97 12/09/18 09:00 Constitutional: WD/WN, vitals as above no acute distress Eyes: PERRL, conjunctivae normal, anicteric sclerae EOM intact bilaterally ; normal light reflex ENMT: external ear and nose normal, oropharynx normal Ears: no hearing impairment Nose: no nasal discharge Neck: trachea midline, no thyromegaly no tracheal deviation and no neck crepitus Respiratory: normal respiratory effort, lungs clear to auscultation no respiratory distress, no labored breathing and does not use accessory muscles Auscultation: lungs clear to auscultation bilaterally and + diminished lung sounds (in bases bilaterally) Cardiovascular: RRR, no murmur, no edema Rate/Rhythm: regular rate and regular rhythm Heart Sounds: normal S1 and normal S2; no gallop and no murmur Vessels: normal peripheral pulses; no JVD Extremities: normal capillary refill Gastrointestinal (Abdomen): normal bowel sounds, soft, nontender, no hepatosplenomegaly Percussion/Palpation: abdomen soft; no hernia and no ascites Musculoskeletal: no cyanosis or clubbing, extremities motor strength 5/5 Head/Neck/Chest: normocephalic and neck supple Extremities: extremities normal to inspection Skin: no rashes, warm and dry normal turgor Neurologic: PERRL, EOMI, accommodation nl, no face palsy, no dysarthria normal touch/pain/proprioception and moves all extremities Psychiatric: A+Ox3, euthymic affect Speech: normal rate/rhythm/volume of speech Judgement: good judgement Genitourinary: ardon inserted, adequate urine output Lymphatic: no cervical or axillary lymphadenopathy Results & Data Laboratory Results Abnormal lab results 12/08/18 12/08/1812/08/19 Range/Units 11:51 12:51 13:47 WBC (4.8-10.8) K/uL MPV (7.4-10.4) fL Immature Gran # (Auto) (0.00-0.02) K/uL Neut # (Auto) (1.4-6.5) K/uL Lymph # (Auto) (1.2-3.4) K/uL [place] # (Auto) (0.11-0.59) K/uL INR (0.9-1.1) APTT 95.1 H* (21.0-31.0) Seconds POC pH (7.35-7.45) POC pO2 (80-95) mmHg POC HCO3 (19-24) janes/L POC Total CO2 (24-31) mEq/l POC Base Excess (-9-1.8) janes/L POC ABG O2 Sat (90-95) % BUN (7-18) mg/dl BUN/Creatinine Ratio (10-20) Glucose (70-99) mg/dl POC Glucose 170 H 190 H (70-99) Calcium (8.5-10.1) mg/dl Phosphorus (2.5-4.9) mg/dl Magnesium (1.8-2.4) mg/dl AST (15-37) U/L Troponin I (0-0.045) ng/ml Albumin (3.4-5.0) gm/dl 12/08/18 12/08/18 12/08/18 Range/Units 14:49 16:09 16:23 WBC (4.8-10.8) K/uL MPV (7.4-10.4) fL Immature Gran # (Auto) (0.00-0.02) K/uL Neut # (Auto) (1.4-6.5) K/uL Lymph # (Auto) (1.2-3.4) K/uL [place] # (Auto) (0.11-0.59) K/uL INR (0.9-1.1) APTT (21.0-31.0) Seconds POC pH (7.35-7.45) POC pO2 (80-95) mmHg POC HCO3 (19-24) janes/L POC Total CO2 (24-31) mEq/l POC Base Excess (-9-1.8) janes/L POC ABG O2 Sat (90-95) % BUN 22 H (7-18) mg/dl BUN/Creatinine Ratio 22.9 H (10-20) Glucose 148 H (70-99) mg/dl POC Glucose 157 H 176 H (70-99) Calcium 8.3 L (8.5-10.1) mg/dl Phosphorus 2.0 L (2.5-4.9) mg/dl Magnesium 2.6 H (1.8-2.4) mg/dl AST (15-37) U/L Troponin I 7.720 H* (0-0.045) ng/ml Albumin (3.4-5.0) gm/dl 12/08/18 12/08/18 12/08/18 Range/Units 17:14 18:20 19:32 WBC (4.8-10.8) K/uL MPV (7.4-10.4) fL Immature Gran # (Auto) (0.00-0.02) K/uL Neut # (Auto) (1.4-6.5) K/uL Lymph # (Auto) (1.2-3.4) K/uL [place] # (Auto) (0.11-0.59) K/uL INR (0.9-1.1) APTT (21.0-31.0) Seconds POC pH (7.35-7.45) POC pO2 (80-95) mmHg POC HCO3 (19-24) janes/L POC Total CO2 (24-31) mEq/l POC Base Excess (-9-1.8) janes/L POC ABG O2 Sat (90-95) % BUN (7-18) mg/dl BUN/Creatinine Ratio (10-20) Glucose (70-99) mg/dl POC Glucose 140 H 168 H 140 H (70-99) Calcium (8.5-10.1) mg/dl Phosphorus (2.5-4.9) mg/dl Magnesium (1.8-2.4) mg/dl AST (15-37) U/L Troponin I (0-0.045) ng/ml Albumin (3.4-5.0) gm/dl 12/08/18 12/08/18 12/08/18 Range/Units 20:18 20:37 22:34 WBC (4.8-10.8) K/uL MPV (7.4-10.4) fL Immature Gran # (Auto) (0.00-0.02) K/uL Neut # (Auto) (1.4-6.5) K/uL Lymph # (Auto) (1.2-3.4) K/uL [place] # (Auto) (0.11-0.59) K/uL INR (0.9-1.1) APTT 56.6 H* (21.0-31.0) Seconds POC pH (7.35-7.45) POC pO2 (80-95) mmHg POC HCO3 (19-24) janes/L POC Total CO2 (24-31) mEq/l POC Base Excess (-9-1.8) janes/L POC ABG O2 Sat (90-95) % BUN (7-18) mg/dl BUN/Creatinine Ratio (10-20) Glucose (70-99) mg/dl POC Glucose 136 H 150 H (70-99) Calcium (8.5-10.1) mg/dl Phosphorus (2.5-4.9) mg/dl Magnesium (1.8-2.4) mg/dl AST (15-37) U/L Troponin I (0-0.045) ng/ml Albumin (3.4-5.0) gm/dl 12/09/18 12/09/18 12/09/18 Range/Units 00:32 02:27 04:06 WBC 15.57 H (4.8-10.8) K/uL MPV 12.1 H (7.4-10.4) fL Immature Gran # (Auto) 0.05 H (0.00-0.02) K/uL Neut # (Auto) 13.35 H (1.4-6.5) K/uL Lymph # (Auto) 1.18 L (1.2-3.4) K/uL [place] # (Auto) 0.99 H (0.11-0.59) K/uL INR (0.9-1.1) APTT (21.0-31.0) Seconds POC pH (7.35-7.45) POC pO2 (80-95) mmHg POC HCO3 (19-24) janes/L POC Total CO2 (24-31) mEq/l POC Base Excess (-9-1.8) janes/L POC ABG O2 Sat (90-95) % BUN (7-18) mg/dl BUN/Creatinine Ratio (10-20) Glucose (70-99) mg/dl POC Glucose 127 H 117 H (70-99) Calcium (8.5-10.1) mg/dl Phosphorus (2.5-4.9) mg/dl Magnesium (1.8-2.4) mg/dl AST (15-37) U/L Troponin I (0-0.045) ng/ml Albumin (3.4-5.0) gm/dl 12/09/18 12/09/18 12/09/18 Range/Units 04:06 04:06 04:06 WBC (4.8-10.8) K/uL MPV (7.4-10.4) fL Immature Gran # (Auto) (0.00-0.02) K/uL Neut # (Auto) (1.4-6.5) K/uL Lymph # (Auto) (1.2-3.4) K/uL [place] # (Auto) (0.11-0.59) K/uL INR 1.2 H (0.9-1.1) APTT 58.1 H* (21.0-31.0) Seconds POC pH (7.35-7.45) POC pO2 (80-95) mmHg POC HCO3 (19-24) janes/L POC Total CO2 (24-31) mEq/l POC Base Excess (-9-1.8) janes/L POC ABG O2 Sat (90-95) % BUN 21 H (7-18) mg/dl BUN/Creatinine Ratio 24.3 H (10-20) Glucose 123 H (70-99) mg/dl POC Glucose (70-99) Calcium 8.0 L (8.5-10.1) mg/dl Phosphorus (2.5-4.9) mg/dl Magnesium (1.8-2.4) mg/dl AST 79 H (15-37) U/L Troponin I 10.100 H* (0-0.045) ng/ml Albumin 3.2 L (3.4-5.0) gm/dl 12/09/18 12/09/18 12/09/18 Range/Units 04:12 05:50 06:20 WBC (4.8-10.8) K/uL MPV (7.4-10.4) fL Immature Gran # (Auto) (0.00-0.02) K/uL Neut # (Auto) (1.4-6.5) K/uL Lymph # (Auto) (1.2-3.4) K/uL [place] # (Auto) (0.11-0.59) K/uL INR (0.9-1.1) APTT (21.0-31.0) Seconds POC pH 7.46 H (7.35-7.45) POC pO2 115 H (80-95) mmHg POC HCO3 31 H (19-24) janes/L POC Total CO2 32 H (24-31) mEq/l POC Base Excess 7.0 H (-9-1.8) janes/L POC ABG O2 Sat 99.0 H (90-95) % BUN (7-18) mg/dl BUN/Creatinine Ratio (10-20) Glucose (70-99) mg/dl POC Glucose 116 H 136 H (70-99) Calcium (8.5-10.1) mg/dl Phosphorus (2.5-4.9) mg/dl Magnesium (1.8-2.4) mg/dl AST (15-37) U/L Troponin I (0-0.045) ng/ml Albumin (3.4-5.0) gm/dl 12/09/18 12/09/18 12/09/18 Range/Units 07:22 08:31 10:47 WBC (4.8-10.8) K/uL MPV (7.4-10.4) fL Immature Gran # (Auto) (0.00-0.02) K/uL Neut # (Auto) (1.4-6.5) K/uL Lymph # (Auto) (1.2-3.4) K/uL [place] # (Auto) (0.11-0.59) K/uL INR (0.9-1.1) APTT (21.0-31.0) Seconds POC pH (7.35-7.45) POC pO2 (80-95) mmHg POC HCO3 (19-24) janes/L POC Total CO2 (24-31) mEq/l POC Base Excess (-9-1.8) janes/L POC ABG O2 Sat (90-95) % BUN (7-18) mg/dl BUN/Creatinine Ratio (10-20) Glucose (70-99) mg/dl POC Glucose 119 H 114 H (70-99) Calcium (8.5-10.1) mg/dl Phosphorus (2.5-4.9) mg/dl Magnesium (1.8-2.4) mg/dl AST (15-37) U/L Troponin I 13.000 H* (0-0.045) ng/ml Albumin (3.4-5.0) gm/dl Diagnostic Findings Electrocardiograms: The initial electrocardiogram shows an anteroseptal myocardial infarction which is new since 2016, but does not appear to be acute. There is not been much in way of progression and subsequent electrocardiograms but the Q waves have remained. Echocardiogram: This shows severe left ventricular dysfunction (but with normal left ventricular size) and wall motion abnormalities consistent with ischemic heart disease. Chest x-ray: Normal cardiac size, emphysema, no significant CHF CT scan: Normal LV size, no PE Medications Administered Current Inpatient Medications Acetaminophen (Ofirmev) 1,000 mg IV Q8H PRN PRN Reason: Pain or Fever Stop: 01/07/19 02:45 Albuterol (Duoneb) 3 ml NEB QIDR [facility] Stop: 01/07/19 07:59 Last Admin: 12/09/18 11:17 Dose: 3 ml Aspirin (Ecotrin Ectab) 81 mg PO QAM [facility] Stop: 01/07/19 17:59 Last Admin: 12/09/18 07:33 Dose: 81 mg Atorvastatin Calcium (Lipitor) 40 mg PO QAM [facility] Stop: 01/08/19 09:44 Last Admin: 12/09/18 10:44 Dose: 40 mg Bisacodyl (Dulcolax) 10 mg [place] QD PRN PRN Reason: CONSTIPATION Stop: 01/08/19 11:13 Dextrose (Dextrose 50%) 25 - 50 ml IV UD PRN; Protocol PRN Reason: Hypoglycemia Protocol Stop: 01/07/19 02:45 Diazepam (Valium) 5 mg PO HS PRN PRN Reason: Sleep Stop: 01/07/19 20:08 Glucagon (Glucagen) 1 mg SQ UD PRN; Protocol PRN Reason: Hypoglycemia Protocol Stop: 01/07/19 02:45 Glucose (Glucose 40%) 15 - 30 gm PO UD PRN; Protocol PRN Reason: Hypoglycemia Protocol Stop: 01/07/19 02:45 Glucose (Dex4 Glucose) 4 - 8 tabs PO UD PRN; Protocol PRN Reason: Hypoglycemia Protocol Stop: 01/07/19 02:45 Pantoprazole Sodium 40 mg/ (Syringe) 10 mls @ 5 mls/min IV DAILY@1100 [facility] Stop: 01/07/19 10:59 Last Admin: 12/09/18 09:13 Dose: 5 mls/min Heparin Sodium/Dextrose (Heparin Sodium/Dextrose) 25,000 units in 500 mls @ 24 mls/hr IV .Q0M [facility]; Protocol Stop: 01/07/19 05:19 Last Titration: 12/09/18 06:47 Dose: 1,200 units/hr, 24 mls/hr Insulin Human Regular 250 (units/ Sodium Chloride) 250 mls @ 2.7 mls/hr IV .Q24H [facility]; Protocol Stop: 01/07/19 06:33 Last Titration: 12/09/18 06:47 Dose: 2.7 units/hr, 2.7 mls/hr Levofloxacin/Dextrose (Levaquin/D5w) 750 mg in 150 mls @ 100 mls/hr IV Q24H [facility] Stop: 12/14/18 03:59 Last Infusion: 12/09/18 05:55 Dose: Infused Acetazolamide 500 mg/ Syringe 5 mls @ 5 mls/min IV Q8H [facility] Stop: 12/09/18 17:30 Last Admin: 12/09/18 09:53 Dose: 5 mls/min Methylprednisolone 40 mg/ (Syringe) 0.64 mls @ 1.5 mls/min IV Q8H [facility] Stop: 01/08/19 11:59 Last Admin: 12/09/18 12:02 Dose: 1.5 mls/min Insulin Aspart (Novolog Flexpen) 0 units SC [facility] Stop: 01/07/19 08:59 Last Admin: 12/09/18 11:50 Dose: Not Given Ioversol (Optiray 320 125ml) 118 ml IV ONCE PRN PRN Reason: Interaction Checking Stop: 12/11/18 23:30 Last Admin: 12/07/18 23:31 Dose: 118 ml Metoprolol Tartrate (Lopressor) 12.5 mg PO BID KEISHA Stop: 01/08/19 09:29 Last Admin: 12/09/18 09:53 Dose: 12.5 mg Miscellaneous ([facility] Protocol For Hyperglycemia) 1 ea N/A PRN PRN; Protocol PRN Reason: Hyperglycemia Protocol Stop: 12/10/18 02:45 Miscellaneous (Carbohydrates For Hypoglycemia) 15 - 30 gm PO UD PRN PRN Reason: Hypoglycemia Treatment Stop: 01/07/19 02:45 Miscellaneous Information (Consult Glycemic Management Pharmacy) 1 ea N/A UD PRN PRN Reason: Consult Stop: 01/07/19 06:49 Ondansetron HCl (Zofran) 4 mg IV Q6H PRN PRN Reason: NAUSEA/VOMITING Stop: 01/07/19 02:45 Potassium Chloride (Klor-Con M20) 40 meq PO Q8H [facility]IS[facility] Stop: 12/09/18 17:31 Last Admin: 12/09/18 09:57 Dose: 40 meq _ (1) Hyperglycemia due to type 2 diabetes mellitus Diabetes mellitus fpc insulin use: without fpc use Qualified Code (s): E11.65 - Type 2 diabetes mellitus with hyperglycemia (2) DVT (deep venous thrombosis) Affected thrombotic vein of extremity: unspecified vein of extremity Chronicity: acute DVT location: lower extremity Laterality: unspecified laterality Qualified Code(s): I82.409 - Acute embolism and thrombosis of unspecified deep veins of unspecified lower extremity (3) Respiratory failure Chronicity: unspecified Respiratory failure complication: hypercapnia Qualified Code(s): J96.92 - Respiratory failure, unspecified with hypercapnia
[2018-12-09] MEDS: METOPROLOL TARTRATE 25 MG TAB PO SCH ×2 (09:53→19:57)
[2018-12-09] MEDS: acetaZOLAMIDE 500 MG in SYRINGE 0 ML IV SCH ×2 (09:53→17:18)
[2018-12-09] MEDS: POTASSIUM CHLORIDE 20 MEQ TABCR PO SCH ×2 (09:57→17:18)
[2018-12-09] MEDS: ATORVASTATIN 40 MG TAB PO SCH (10:44)
--- NOTE | 2018-12-09 11:04 | Pharmacy Report ---
PHA: Glycemic Control AP - Date of Service December 09, 2018 - Assessment & Plan The patient is currently receiving an insulin infusion. This will continue while plan for cardiac procedure determined and high dose solumedrol begins to taper. This plan was discussed on multidisciplinary rounds. * Insulin: Insulin infusion Novolog Correction per scale [facility] Goal Range: Low 110 mg/dL - High 180 mg/dL Pharmacy will continue to monitor patient daily and write orders per [facility] inpatient glycemic control protocol. Thanks. * Please note that the plan above was derived based on current level of insulin resistance and hospital stress. These recommendations are appropriate for inpatient admission only. Plan of care upon discharge will need to be reassessed to avoid potential outpatient hypo/hyperglycemia.
[2018-12-09] MEDS ORDERED: BISACODYL 10 MG SUPP PR PRN (11:14)
[2018-12-09] MEDS: methylPREDNISolone 40 MG in SYRINGE 0 ML IV SCH ×2 (12:02→20:00)
[2018-12-09] MEDS ORDERED: fentaNYL citrate 100 MCG/2 ML VIAL ONE (12:41)
[2018-12-09] MEDS ORDERED: MIDAZOLAM HCL 1 MG/ML 2ML VIAL ONE (12:41)
[2018-12-09] MEDS ORDERED: NiCARDipine HCL INJ 2.5 MG/ML 10 ML AMP ONE (12:41)
[2018-12-09] MEDS ORDERED: HEPARIN (PORCINE) 1000 UNIT/ML 10 ML (CATH LAB USE ONLY) ONE (12:41)
[2018-12-09] MEDS ORDERED: NITROGLYCERIN/D5W 100MCG/ML 20ML SYR ONE (12:42)
[2018-12-09] MEDS ORDERED: DEXTROSE 50% 50 ML SYRINGE IV ONE (13:32)
--- NOTE | 2018-12-09 13:48 | XRay Report ---
XR chest 1V portable CLINICAL HISTORY: acute resp failure with hypoxia and hypercapnea COMPARISON STUDY: 12/08/2018 FINDINGS: The endotracheal tube and nasogastric tubes have been removed. The cardiac and mediastinal contours remain stable. There is no acute parenchymal consolidation. There is no failure. There are n o pleural effusions.[ IMPRESSION: 1. Interval removal of the endotracheal tube and nasogastric tube 2. No acute findings. Electronically signed by: Dennis Weber M.D. 12/09/2018 1:46 PM
[2018-12-09] MEDS ORDERED: CLOPIDOGREL BISULFATE 300 MG TAB ONE (14:11)
--- NOTE | 2018-12-09 14:18 | Pre Anesthesia Assessment ---
Date of Service December 09, 2018 Pre Sedation Assessment Vital Signs Temp Pulse Pulse Resp BP Pulse Ox 12/09/18 11:20 87 18 97 12/09/18 11:00 90 21 137/85 96 12/09/18 10:00 94 H 19 127/82 97 12/09/18 09:00 91 H 17 122/84 97 12/09/18 08:00 93 H 20 132/88 97 12/09/18 07:46 37.1 C 12/09/18 07:06 92 H 96 12/09/18 07:00 93 H 18 120/84 96 12/09/18 06:00 87 18 124/88 99 12/09/18 05:58 90 24 99 12/09/18 05:01 77 20 100/74 98 12/09/18 05:00 80 20 98 12/09/18 04:00 36.6 C 82 18 119/80 98 12/09/18 03:01 90 20 124/88 100 12/09/18 02:29 88 24 99 12/09/18 02:00 85 20 135/91 100 12/09/18 01:00 86 118/96 100 12/09/18 00:00 36.5 C 90 115/77 99 12/08/18 23:10 91 H 23 99 12/08/18 23:00 91 H 117/88 99 12/08/18 22:30 92 H 123/88 99 12/08/18 22:00 93 H 122/88 99 12/08/18 21:30 93 H 115/85 99 12/08/18 21:00 95 H 116/89 98 12/08/18 20:30 96 H 124/95 100 12/08/18 20:01 36.7 C 94 H 117/83 100 12/08/18 20:00 95 H 100 12/08/18 19:30 97 H 131/82 100 12/08/18 19:00 95 H 119/84 100 12/08/18 18:57 95 H 22 99 12/08/18 18:54 95 H 22 99 12/08/18 18:30 97 H 115/82 99 12/08/18 18:01 99 H 114/84 98 12/08/18 18:00 100 H 97 12/08/18 17:32 109 H 98 12/08/18 17:31 110 H 134/97 98 12/08/18 17:30 111 H 98 12/08/18 17:24 119 H 22 96 12/08/18 17:23 120 H 22 97 12/08/18 17:00 101 H 155/94 H 98 12/08/18 16:31 92 H 127/94 100 12/08/18 16:30 91 H 100 12/08/18 16:15 90 114/86 98 12/08/18 16:00 91 H 110/86 99 12/08/18 15:45 36.7 C 91 H 116/87 100 12/08/18 15:44 91 H 18 100 12/08/18 15:30 90 118/89 99 12/08/18 15:15 89 119/87 100 12/08/18 15:00 88 103/90 100 12/08/18 14:30 87 106/84 100 Cardiovascular RRR, no murmur, no edema Respiratory normal respiratory effort, lungs clear to auscultation Pre-Sedation Airway Assessment Smoking Status: Unknown if ever smoked Hx Sleep Apnea: No Short, Thick Neck: No Thyromental Distance: > or= 3.5 Finger Breadths Oral Cavity: + WNL Mallampati Class: III ASA: ASA3 NPO Status Date of Last Intake of Fluids: 12/09/18 Time of Last Intake of Fluids: 07:00 Date of Last Intake of Solid Food: 12/09/18 Time of Last Intake of Solid Foods: 07:00 Procedure Planning Contraindications for Sedation: none Current Medications Reviewed: Yes Notes The planned sedation has been discussed with the patient. Informed Consent was obtained. I have identified the patient, determined the appropriateness of sedation and have assessed the patient immediately prior to the procedure. All medicine(s) and interventions are by my order.
--- NOTE | 2018-12-09 14:19 | Post Anesthesia Assessment ---
Date of Service December 09, 2018 Post Sedation Assessment Vital Signs Temp Pulse Pulse Resp BP Pulse Ox 12/09/18 11:20 87 18 97 12/09/18 11:00 90 21 137/85 96 12/09/18 10:00 94 H 19 127/82 97 12/09/18 09:00 91 H 17 122/84 97 12/09/18 08:00 93 H 20 132/88 97 12/09/18 07:46 37.1 C 12/09/18 07:06 92 H 96 12/09/18 07:00 93 H 18 120/84 96 12/09/18 06:00 87 18 124/88 99 12/09/18 05:58 90 24 99 12/09/18 05:01 77 20 100/74 98 12/09/18 05:00 80 20 98 12/09/18 04:00 36.6 C 82 18 119/80 98 12/09/18 03:01 90 20 124/88 100 12/09/18 02:29 88 24 99 12/09/18 02:00 85 20 135/91 100 12/09/18 01:00 86 118/96 100 12/09/18 00:00 36.5 C 90 115/77 99 12/08/18 23:10 91 H 23 99 12/08/18 23:00 91 H 117/88 99 12/08/18 22:30 92 H 123/88 99 12/08/18 22:00 93 H 122/88 99 12/08/18 21:30 93 H 115/85 99 12/08/18 21:00 95 H 116/89 98 12/08/18 20:30 96 H 124/95 100 12/08/18 20:01 36.7 C 94 H 117/83 100 12/08/18 20:00 95 H 100 12/08/18 19:30 97 H 131/82 100 12/08/18 19:00 95 H 119/84 100 12/08/18 18:57 95 H 22 99 12/08/18 18:54 95 H 22 99 12/08/18 18:30 97 H 115/82 99 12/08/18 18:01 99 H 114/84 98 12/08/18 18:00 100 H 97 12/08/18 17:32 109 H 98 12/08/18 17:31 110 H 134/97 98 12/08/18 17:30 111 H 98 12/08/18 17:24 119 H 22 96 12/08/18 17:23 120 H 22 97 12/08/18 17:00 101 H 155/94 H 98 12/08/18 16:31 92 H 127/94 100 12/08/18 16:30 91 H 100 12/08/18 16:15 90 114/86 98 12/08/18 16:00 91 H 110/86 99 12/08/18 15:45 36.7 C 91 H 116/87 100 12/08/18 15:44 91 H 18 100 12/08/18 15:30 90 118/89 99 12/08/18 15:15 89 119/87 100 12/08/18 15:00 88 103/90 100 12/08/18 14:30 87 106/84 100 Recovery Score Activity: Moves 4 extremities Respiration: Deep Breath/Cough Circulation: +/-20% PreAnes Value Consciousness: Fully Awake Oxygen Saturation: O2 needed for >90% Discharge Sedation Level of Care: Fast Track Phase II Post Sedation Plan On clinical assessment, the patient appears to have tolerated the sedation without complications. Patient is recovering as anticipated. Patient will continue to be monitored by nursing and may be discharged when sedation discharge criteria are met per below protocol. Upon Completions of procedure and additional 15 minutes continue every 5 minute vital signs and the P.A.R. score; then discharge to a Phase I or Fast Track to Phase II per the following guidelines: * Discharge Patient to appropriate Phase II area if PAR is 8 or greater or return to pre- procedure baseline. The post - procedure orders will be as directed. * If PAR score is less than 8 or not return to pre-procedure baseline then patient will follow Phase I monitoring till PAR is reached for Phase II. The Phase I may be done in procedure room or may call to secure a Phase I area. * If naloxone or flumazenil are used for reversal, hold in Phase I for continued monitoring from when last reversal dose was given for a minimum of 60 minutes or longer pending the nurse and/or physician discretion of patient condition before discharge to Phase II. Please call the Sedation Physician to re-evaluate and complete post-note for discharge to Phase II area. Do NOT discharge from procedure sedation or Phase 1 until post- sedation evaluation note is complete by procedure /sedation MD Sedation Discharge Instructions to be given to the patient at discharge to home.
--- NOTE | 2018-12-09 14:27 | Cardiac Catheterization ---
Cardiac Cath Procedure Full Procedure Date December 09, 2018 Pre-Procedure Diagnosis Pre-Procedure Diagnosis: Non STEMI and Cardiomyopathy AUC Score AUC Score: 8 Post-Procedure Diagnosis Post-Procedure Diagnosis: Severe CAD, Successful PCI and Elevated Intracardiac Pressures Procedure(s) Performed Procedure(s) Performed: Coronary Angiography, Left Heart Cath and Drug Eluting Stent Office Receptionist Adonay Haider MD Futures Trader(s) Emily Vallejo Estimated Blood Loss Estimated Blood Loss: 15 Medication(s) Medication(s): Clopidogrel, Fentanyl, Heparin, Lidocaine 1%, Nicardipine, Nitroglycerin and Versed Summary of Findings Indication: New severe LV dysfunction, NSTEMI Access: 6 [place] right radial artery Catheters: Dailey, JL 3.5; EBU 3.5 guide Findings: LM -20% distal stenosis LAD -moderate caliber vessel, moderately calcified, proximal luminal irregularities, distal vessel without significant disease as wraps around the apex. Gives off 2 small diagonals without disease. Circumflex -large caliber vessel, 20-30% mid segment disease, 80-90% hazy ostial stenosis of OM 2. Luminal irregularities in distal circumflex/left PLB RCA -dominant, moderate caliber vessel, 30-40% lateproximal into mid stenosis, 20-30% distal stenosis, luminal irregularities in right PDA LVEDP -21 -- PCI -- Antithrombotic therapy: Heparin, clopidogrel Procedure: Left main cannulated with EBU 3.5 guide BMW wire passed across lesion into distal vessel Ostial OM 2 lesion predilated with 2.0 and 2.5 compliant balloon Dilated lesion stented with 2.5 x 18 mm [place] drug-eluting stent Stent post-dilated with 2.5 noncompliant balloon IC vasodilators administered for spasm Post procedure NICO 3 flow, stent well expanded with minimal residual stenosis and no apparent cardiac complications. Arterial Closure: TR band Summary: 1. Severe single vessel coronary artery disease -80-90% ostial moderate caliber OM 2 2. Nonischemic cardiomyopathy 3. Elevated intracardiac filling pressure 4. Successful PCI of ostial OM 2 with single drug-eluting stent (2.5 x 18 mm Bernard). Recommendations: Return to ICU for continued monitoring Loaded with clopidogrel 600 mg in labels molder Continue dual-antiplatelet therapy for at least one year Continue statin, and ASCVD risk factor modification Consult cardiac Rehab Degree of LV dysfunction out of proportion to amount of coronary artery disease. Cardiomyopathy primarily nonischemic in origin. Continue guideline directed medical therapy for cardiomyopathy Continue diuresis for elevated left-sided filling pressures. Hemodynamics Rest Ao:: 105/70/86 Final Ao: 101/55/74 LV: 100/21 Recommendations Recommendations: PCI without planned CABG Specimens Specimens: None Radiation Exposure (mGy) 3715 Contrast (mls) 140 Fluids (cc crystalloids) Fluids (cc crystalloids): 16 Drains Drains: None Anesthesia Moderate Procedural Complication(s) None Disposition ICU ACC Data: [place] Worker Cardiac Status Clinical evaluation leading to the procedure CAD Presenation: Non STEMI Anginal Classification: CCS III Heart Failure: NYHA Class: CCS IV Cardiogenic Shock within 24 Hours: No Cardiac Arrest within 24 Hours: No Imaging Studies Past 6 Months: Yes Stress Studies Past 6 Months: No Diagnostic Physicians Name: Adonay Haider MD Status: Elective Closure Device Percutaneous Entry Location: Radial Closure Device: Radial Band Recommendations: PCI without planned CABG PCI Indication: PCI for high risk Non-VENKATA Lesion Segment Name: Ostial OM 2 Culprit Artery: Yes Stenosis Prior to Rx (%): 80-90 Chronic Total Occlusion: No IVUS: No FFR: No Pre-Procedure NICO Flow: 3 Previously Treated Lesion: No Lesion Complexity: Non-High/Non-C Lesion Length (mm): 15 Thrombus Present: Yes Bifurcation Lesion: Yes Guidewire Across Lesion: Stenosis Post-Procedure (%): 0 Post-Procedure NICO Flow : 3 Devices(s) Deployed: Yes Yes Intraprocedure Events Significant Disection: No Perforation: No
[2018-12-09] MEDS ORDERED: Nursing to Pharmacy Communication ONE (15:19)
[2018-12-09] MEDS: HEPARIN SODIUM/DEXTROSE 25,000 UNITS/500 ML BAG IV SCH (15:38)
--- NOTE | 2018-12-09 20:25 | Hospitalist Progress Note ---
Date of Service December 09, 2018 Assessment & Plan (1) Acute respiratory failure with hypoxia and hypercapnia: Mainly due to severe COPD exacerbation. NSTEMI/acute systolic CHF may have played a role as well. s/p intubation on Hospital day #1 and extubated later the same day. Needed BIPAP for about 24 hours then transitioned to NC O2. He remains on IV steroids & antibiotics for the COPD exacerbation. s/p cath today with deployment of JOE x 1 for severe CAD of single vessel. s/p lasix for probable volume overload from systolic CHF. Continues to slowly progress. Appreciate critical care assistance. Present on Admission?: Yes (2) COPD exacerbation: Improving albeit slowly. Cont high-dose IV steroids. Cont IV levaquin. Cont nebs, inhalers. Supportive care. Needs to quit smoking. Present on Admission?: Yes (3) Acute systolic congestive heart failure: EF 15% on echo. Chronicity uncertain. Initially thought that the cardiomyopathy was ischemic in origin. s/p cath by Dr. Haider on 12/09/18 with only single vessel CAD seen (s/p JOE). Dr. Haider felt the amount of CHF was out of proportion to the amount of CAD seen. He will ultimately need beta pete and resumption of ANGELIKA. s/p lasix this am along with diamox. Serial exams. Present on Admission?: Yes (4) Cardiomyopathy: see discussion above in acute systolic CHF. No history of etoh abuse. etiology of severe CHF?? defer additional work-up to cardiology. Present on Admission?: Yes (5) NSTEMI (non-ST elevated myocardial infarction): Troponin today now 13. Repeat level in am to trend peak. s/p cath today by Dr. Haider. Findings - Findings: LM -20% distal stenosis LAD -moderate caliber vessel, moderately calcified, proximal luminal irregularities, distal vessel without significant disease as wraps around the apex. Gives off 2 small diagonals without disease. Circumflex -large caliber vessel, 20-30% mid segment disease, 80-90% hazy ostial stenosis of OM 2. Luminal irregularities in distal circumflex/left PLB RCA -dominant, moderate caliber vessel, 30-40% lateproximal into mid stenosis, 20-30% distal stenosis, luminal irregularities in right PDA s/p JOE to the 80-90% ostial lesion. Cont asa, plavix, statin. Will ultimately need BB and ANGELIKA. Appreciate cardiology assistance. (6) CAD (coronary artery disease): (7) DVT (deep venous thrombosis): RLE, superficial femoral vein. 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 Remains on heparin drip. Good candidate for novel agent. (8) Hyperglycemia due to type 2 diabetes mellitus: Hemoglobin a1c 6.4%. Was taking metformin at home - this is on hold. Pharmacy managing glycemic control. (9) Acute kidney injury (nontraumatic): resolved. likely due to NSTEMI, acute resp failure, etc. either way it is resolved. (10) Hypertension: (11) DVT prophylaxis: remains on heparin drip PT, OT when able Subjective patient feeling better today with less dyspnea minimal cough no chest pain still w/ orthopnea received IV lasix this am with decent diuresis he reports his father had CAD s/p MT Constitutional: no fever Respiratory: + dyspnea, + dyspnea on exertion and + wheezing; no cough Cardiovascular: + orthopnea; no chest pain, no chest pain at rest and no paroxysmal nocturnal dyspnea Gastrointestinal: no abdominal pain and no vomiting Physical Exam 2 Vital Signs (Past 24 Hours): Last Vital Signs Temp 36.8 C 12/09/18 20:00 Pulse 94 H 12/09/18 20:00 Resp 16 12/09/18 20:00 BP 106/63 12/09/18 20:00 Pulse Ox 94 12/09/18 20:00 Constitutional: well developed and well nourished; no acute distress looks better today; not as much dyspnea ENMT: external ear and nose normal, oropharynx normal Respiratory: normal respiratory effort; no respiratory distress Auscultation: + diminished lung sounds and + wheezes; no crackles and no rhonchi Cardiovascular: RRR, no murmur, no edema Heart Sounds: normal S1 and normal S2 Vessels: posterior tibial pulses present and dorsalis pedis pulses present; no JVD heart tones distant due to COPD Gastrointestinal (Abdomen): Inspection/Auscultation: + abdomen distended ( mild but improved from yesterday's exam) Percussion/Palpation: abdomen nontender and no hepatosplenomegaly Psychiatric: A+Ox3, euthymic affect Results & Data Laboratory Results Laboratory Results - last 24 hr 12/09/18 12/09/18 12/09/18 04:06 04:06 04:06 WBC 15.57 H RBC 4.79 Hgb 14.4 Hct 43.8 MCV 91.4 MCH 30.1 MCHC 32.9 RDW Std Deviation 44.1 RDW Coeff of [place] 13.4 Plt Count 221 MPV 12.1 H Immature Gran % (Auto) 0.3 Neut % (Auto) 85.7 Lymph % (Auto) 7.6 [place] % (Auto) 6.4 Eos % (Auto) 0.0 Baso % (Auto) 0.0 Immature Gran # (Auto) 0.05 H Neut # (Auto) 13.35 H Lymph # (Auto) 1.18 L [place] # (Auto) 0.99 H Eos # (Auto) 0.00 Baso # (Auto) 0.00 PT 11.8 INR 1.2 H APTT PTT Ratio Sample Site POC pH POC pCO2 POC pO2 POC HCO3 POC Total CO2 POC Base Excess POC ABG O2 Sat Deuce Test O2 Delivery Device POC O2 Rate POC FiO2 IPAP Sodium 139 Potassium 3.8 Chloride 103 Carbon Dioxide 30 Anion Gap 6.0 BUN 21 H Creatinine 0.86 Est Cr Clr Drug Dosing 95.5 Est GFR ( Amer) 110.0 Est GFR (Non-Af Amer) 94.9 BUN/Creatinine Ratio 24.3 H Glucose 123 H POC Glucose Calcium 8.0 L Phosphorus 2.7 Magnesium 2.3 Total Bilirubin 0.4 AST 79 H ALT 68 Alkaline Phosphatase 52 Troponin I 10.100 H* Total Protein 6.4 Albumin 3.2 L Globulin 3.2 Albumin/Globulin Ratio 1.0 12/09/18 12/09/18 12/09/18 04:06 04:12 05:50 WBC RBC Hgb Hct MCV MCH MCHC RDW Std Deviation RDW Coeff of [place] Plt Count MPV Immature Gran % (Auto) Neut % (Auto) Lymph % (Auto) [place] % (Auto) Eos % (Auto) Baso % (Auto) Immature Gran # (Auto) Neut # (Auto) Lymph # (Auto) [place] # (Auto) Eos # (Auto) Baso # (Auto) PT INR APTT 58.1 H* PTT Ratio 2.2 Sample Site L Radial POC pH 7.46 H POC pCO2 43 POC pO2 115 H POC HCO3 31 H POC Total CO2 32 H POC Base Excess 7.0 H POC ABG O2 Sat 99.0 H Deuce Test Pass O2 Delivery Device BIPAP POC O2 Rate 20 POC FiO2 35 IPAP 12 Sodium Potassium Chloride Carbon Dioxide Anion Gap BUN Creatinine Est Cr Clr Drug Dosing Est GFR ( Amer) Est GFR (Non-Af Amer) BUN/Creatinine Ratio Glucose POC Glucose 116 H Calcium Phosphorus Magnesium Total Bilirubin AST ALT Alkaline Phosphatase Troponin I Total Protein Albumin Globulin Albumin/Globulin Ratio 12/09/18 12/09/18 12/09/18 06:20 07:22 08:31 WBC RBC Hgb Hct MCV MCH MCHC RDW Std Deviation RDW Coeff of [place] Plt Count MPV Immature Gran % (Auto) Neut % (Auto) Lymph % (Auto) [place] % (Auto) Eos % (Auto) Baso % (Auto) Immature Gran # (Auto) Neut # (Auto) Lymph # (Auto) [place] # (Auto) Eos # (Auto) Baso # (Auto) PT INR APTT PTT Ratio Sample Site POC pH POC pCO2 POC pO2 POC HCO3 POC Total CO2 POC Base Excess POC ABG O2 Sat Deuce Test O2 Delivery Device POC O2 Rate POC FiO2 IPAP Sodium Potassium Chloride Carbon Dioxide Anion Gap BUN Creatinine Est Cr Clr Drug Dosing Est GFR ( Amer) Est GFR (Non-Af Amer) BUN/Creatinine Ratio Glucose POC Glucose 136 H 119 H 114 H Calcium Phosphorus Magnesium Total Bilirubin AST ALT Alkaline Phosphatase Troponin I Total Protein Albumin Globulin Albumin/Globulin Ratio 12/09/18 12/09/18 12/09/18 10:47 12:07 13:29 WBC RBC Hgb Hct MCV MCH MCHC RDW Std Deviation RDW Coeff of [place] Plt Count MPV Immature Gran % (Auto) Neut % (Auto) Lymph % (Auto) [place] % (Auto) Eos % (Auto) Baso % (Auto) Immature Gran # (Auto) Neut # (Auto) Lymph # (Auto) [place] # (Auto) Eos # (Auto) Baso # (Auto) PT INR APTT PTT Ratio Sample Site POC pH POC pCO2 POC pO2 POC HCO3 POC Total CO2 POC Base Excess POC ABG O2 Sat Deuce Test O2 Delivery Device POC O2 Rate POC FiO2 IPAP Sodium Potassium Chloride Carbon Dioxide Anion Gap BUN Creatinine Est Cr Clr Drug Dosing Est GFR ( Amer) Est GFR (Non-Af Amer) BUN/Creatinine Ratio Glucose POC Glucose 102 H 78 Calcium Phosphorus Magnesium Total Bilirubin AST ALT Alkaline Phosphatase Troponin I 13.000 H* Total Protein Albumin Globulin Albumin/Globulin Ratio 12/09/18 12/09/18 12/09/18 13:45 14:45 15:54 WBC RBC Hgb Hct MCV MCH MCHC RDW Std Deviation RDW Coeff of [place] Plt Count MPV Immature Gran % (Auto) Neut % (Auto) Lymph % (Auto) [place] % (Auto) Eos % (Auto) Baso % (Auto) Immature Gran # (Auto) Neut # (Auto) Lymph # (Auto) [place] # (Auto) Eos # (Auto) Baso # (Auto) PT INR APTT PTT Ratio Sample Site POC pH POC pCO2 POC pO2 POC HCO3 POC Total CO2 POC Base Excess POC ABG O2 Sat Deuce Test O2 Delivery Device POC O2 Rate POC FiO2 IPAP Sodium Potassium Chloride Carbon Dioxide Anion Gap BUN Creatinine Est Cr Clr Drug Dosing Est GFR ( Amer) Est GFR (Non-Af Amer) BUN/Creatinine Ratio Glucose POC Glucose 145 H 126 H 133 H Calcium Phosphorus Magnesium Total Bilirubin AST ALT Alkaline Phosphatase Troponin I Total Protein Albumin Globulin Albumin/Globulin Ratio 12/09/18 12/09/18 12/09/18 16:41 17:43 19:55 WBC RBC Hgb Hct MCV MCH MCHC RDW Std Deviation RDW Coeff of [place] Plt Count MPV Immature Gran % (Auto) Neut % (Auto) Lymph % (Auto) [place] % (Auto) Eos % (Auto) Baso % (Auto) Immature Gran # (Auto) Neut # (Auto) Lymph # (Auto) [place] # (Auto) Eos # (Auto) Baso # (Auto) PT INR APTT PTT Ratio Sample Site POC pH POC pCO2 POC pO2 POC HCO3 POC Total CO2 POC Base Excess POC ABG O2 Sat Deuce Test O2 Delivery Device POC O2 Rate POC FiO2 IPAP Sodium Potassium Chloride Carbon Dioxide Anion Gap BUN Creatinine Est Cr Clr Drug Dosing Est GFR ( Amer) Est GFR (Non-Af Amer) BUN/Creatinine Ratio Glucose POC Glucose 142 H 145 H 126 H Calcium Phosphorus Magnesium Total Bilirubin AST ALT Alkaline Phosphatase Troponin I Total Protein Albumin Globulin Albumin/Globulin Ratio 12/09/18 12/09/18 21:56 23:48 WBC RBC Hgb Hct MCV MCH MCHC RDW Std Deviation RDW Coeff of [place] Plt Count MPV Immature Gran % (Auto) Neut % (Auto) Lymph % (Auto) [place] % (Auto) Eos % (Auto) Baso % (Auto) Immature Gran # (Auto) Neut # (Auto) Lymph # (Auto) [place] # (Auto) Eos # (Auto) Baso # (Auto) PT INR APTT PTT Ratio Sample Site POC pH POC pCO2 POC pO2 POC HCO3 POC Total CO2 POC Base Excess POC ABG O2 Sat Deuce Test O2 Delivery Device POC O2 Rate POC FiO2 IPAP Sodium Potassium Chloride Carbon Dioxide Anion Gap BUN Creatinine Est Cr Clr Drug Dosing Est GFR ( Amer) Est GFR (Non-Af Amer) BUN/Creatinine Ratio Glucose POC Glucose 118 H 112 H Calcium Phosphorus Magnesium Total Bilirubin AST ALT Alkaline Phosphatase Troponin I Total Protein Albumin Globulin Albumin/Globulin Ratio _ (1) Cardiomyopathy Cardiomyopathy type: unspecified Qualified Code(s): I42.9 - Cardiomyopathy, unspecified (2) CAD (coronary artery disease) Coronary Disease-Associated Artery/Lesion type: [place] artery [place] vs. transplanted heart: [place] heart Associated angina: without angina Qualified Code(s): I25.10 - Atherosclerotic heart disease of [place] coronary artery without angina pectoris (3) DVT (deep venous thrombosis) DVT location: lower extremity Affected thrombotic vein of extremity: unspecified vein of extremity Chronicity: acute Laterality: unspecified laterality Qualified Code(s): I82.409 - Acute embolism and thrombosis of unspecified deep veins of unspecified lower extremity (4) Hyperglycemia due to type 2 diabetes mellitus Diabetes mellitus fdc insulin use: without silver service waiter use Qualified Code (s): E11.65 - Type 2 diabetes mellitus with hyperglycemia (5) Hypertension Hypertension type: essential hypertension Qualified Code(s): I10 - Essential (primary) hypertension
[2018-12-10] MEDS: LEVOFLOXACIN/D5W 750 MG/150 ML BAG IV SCH (04:03)
[2018-12-10] MEDS: methylPREDNISolone 40 MG in SYRINGE 0 ML IV SCH (04:03)
[2018-12-10 04:57] LABS: Hematocrit (blood only) 43.8 % (42-52); Hemoglobin 14.5 g/dL (14.0-18.0); Mean Corpuscular Hgb Conc 33.1 g/dL (32-36); Mean Corpuscular Volume 92.6 fL (80-100); Mean Platelet Volume 11.6 fL (7.4-10.4); Platelet Count 266 K/uL (130-400); RDW Coefficient of Variation 13.3 % (11.5-14.5); RDW Standard Deviation 45.3 fL (36.4-46.3); Red Blood Count 4.73 M/uL (4.7-6.1); White Blood Count 24.71 K/uL (4.8-10.8)
[2018-12-10 05:02] LABS: Basophils # (auto) 0.01 K/uL (0-0.2); Immature Granulocytes # (auto) 0.11 K/uL (0.00-0.02); Immature Granulocytes % (auto) 0.4 %; Lymphocytes # (auto) 1.63 K/uL (1.2-3.4); Lymphocytes % (auto) 6.6 %; Monocytes # (auto) 1.72 K/uL (0.11-0.59); Neutrophils # (auto) 21.24 K/uL (1.4-6.5)
[2018-12-10 05:09] LABS: INR 1.2 (0.9-1.1); Partial Thromboplastin Ratio 1.9; Prothrombin Time 11.9 Seconds (9.0-12.0)
[2018-12-10 05:16] LABS: Partial Thromboplastin Time 48.1 Seconds (21.0-31.0)
[2018-12-10 05:33] LABS: Albumin Globulin Ratio 0.9 (0.9-2); Albumin Level 3.1 gm/dl (3.4-5.0); Bilirubin,Total 0.5 mg/dl (0.2-1); Calcium 8.4 mg/dl (8.5-10.1); Creatinine Clr Calc Pharmacy 75.3 ml/min; Est GFR (African American) 85.7; Est GFR (Non-African American) 73.9; Globulin 3.3 gm/dl (2.5-4.0); Magnesium 2.3 mg/dl (1.8-2.4); Potassium 4.4 mmol/L (3.5-5.1); Total Protein 6.4 gm/dl (6.4-8.2); Troponin I 8.53 ng/ml (0-0.045)
[2018-12-10] MEDS: INSULIN REGULAR 250 UNITS in SODIUM CHLORIDE 0.9% 247.5 ML IV SCH ×2 (06:32→06:36)
[2018-12-10] MEDS: METOPROLOL TARTRATE 25 MG TAB PO SCH ×2 (07:40→20:35)
[2018-12-10] MEDS: ATORVASTATIN 40 MG TAB PO SCH (07:40)
[2018-12-10] MEDS: CLOPIDOGREL BISULFATE 75 MG TAB PO SCH (07:41)
[2018-12-10] MEDS: ASPIRIN 81 MG ECTAB PO SCH (07:41)
[2018-12-10] MEDS: INSULIN ASPART 100 UNITS/ML 3 ML PEN SC SCH ×5 (07:41→20:35)
--- NOTE | 2018-12-10 08:00 | Critical Care Progress Note ---
Date of Service December 10, 2018 Assessment & Plan (1) Admitted to intensive care unit: 58-year-old male with acute hypoxic respiratory failure with hypercapnia initially requiring endotracheal intubation for airway protection and aggressive pulmonary toilet. Now extubated to NC and CPAP at night. Developing NSTEMI w/ Troponins continuing to trend from 3 to 15 yesterday. No acute EKG change and on heparin gtt. Cards consulted and went for Left heart cath yesterday. OM 2 found to be 80-90 % calcified per cardiology note and JOE successfully placed. Okay to downgrade to telemetry per critical care team. NEURO - * CAM ICU: Negative * Alert and oriented CARDIAC/VASCULAR - * Tachycardia: resolved * NSTEMI / CAD: troponin trending down from 15 to 8 after stent placement 12/09. No acute changes on EKGs and pt w/o CP. - Left heart cath comfirmed, see report - Plavix, Lipitor, MTP, ASA - D/C Heparin gtt. - monitor and replete electrolytes as needed - Trending RESPIRATORY - * Acute hypoxic respiratory failure with hypercapnia with respiratory failure: * initially required intubation, extubated to Bipap; now on 2L NC and CPAP at night * Aggressive pulmonary toilet. Continue nebs. * Convert IV steroid to prednisone taper * h/o Pulmonary nodule - followed in the outpatient with pulm. GI/NUTRITION - * Heart healthy, low carb diet RENAL/LYTES - * CHANTELL: * Trend with AM labs. * BUN/ Cr 25/ 1.09 * Hypokalemia: - trend w/ BMPs - * Jarrell removed, monitor for voiding ENDO - * Hyperglycemia: * h/o DMII on metformin alone. A1C 6.4. * Started on insulin gtt per unit policy, will continue for now HEME - * Stable H&H: * Will trend. ID - * COPD w/ Exacerbation: * Leukocytosis and c/o developing infection, agree with empiric antibiotic coverage. * Rocephin D/Josh; Continueing Levaquin x7 days. LINES/IV ACCESS - * PIVs x3 DVT PROPHYLAXIS - * Heparin gtt D/Josh, coumadin started. * Hold on SCDs in the setting of known DVT. Thank you for allowing us to participate in the care of this patient. Please refer to my attending physician's documentation for any further recommendations. (2) Acute respiratory failure with hypoxia and hypercapnia: (3) Respiratory failure: (4) Acute kidney injury (nontraumatic): (5) Hyperglycemia due to type 2 diabetes mellitus: (6) DVT (deep venous thrombosis): Supervising Physician Co-Signing Physician Notes I have personally evaluated and examined this patient. I agree with assessment and plan of Gonzales CARRINGTON. Patient was discussed in multidisciplinary rounds Patient received drug-eluting stents yesterday shortness of breath improved. Patient will be transitioned off the insulin drip to subcutaneous insulin. 10- day taper of prednisone. Will transition to warfarin at this time given DVT and recent drug-eluting stent. Troponins downtrending, finishing short course of Levaquin for COPD exacerbation. QTC 425 patient stable for downgrade to telemetry status Subjective Review of Systems All systems reviewed & are unremarkable except as noted in HPI & below Pt complains of mild sore throat and sob w/ activity. All other systems reviewed and no further complaints this AM. Ear, Nose, Mouth, Throat: + sore throat; no tinnitus and no dysphagia Respiratory: + dyspnea on exertion Physical Exam 2 Vital Signs (Past 24 Hours): Last Vital Signs Temp 36.6 C 12/10/18 04:00 Pulse 85 12/10/18 06:00 Resp 18 12/10/18 06:00 BP 140/89 12/10/18 06:00 Pulse Ox 96 12/10/18 06:00 Constitutional: no acute distress Eyes: PERRL, conjunctivae normal, anicteric sclerae EOM intact bilaterally ; normal light reflex ENMT: external ear and nose normal, oropharynx normal Ears: no hearing impairment Nose: no nasal discharge Neck: trachea midline, no thyromegaly no tracheal deviation and no neck crepitus Respiratory: normal respiratory effort, lungs clear to auscultation no respiratory distress, no labored breathing and does not use accessory muscles Auscultation: lungs clear to auscultation bilaterally and + diminished lung sounds (in bases bilaterally) Cardiovascular: RRR, no murmur, no edema Rate/Rhythm: regular rate and regular rhythm Heart Sounds: normal S1 and normal S2; no gallop and no murmur Vessels: normal peripheral pulses; no JVD Extremities: normal capillary refill Gastrointestinal (Abdomen): normal bowel sounds, soft, nontender, no hepatosplenomegaly Percussion/Palpation: abdomen soft; no hernia and no ascites Musculoskeletal: no cyanosis or clubbing, extremities motor strength 5/5 Head/Neck/Chest: normocephalic and neck supple Extremities: extremities normal to inspection Skin: no rashes, warm and dry normal turgor Neurologic: PERRL, EOMI, accommodation nl, no face palsy, no dysarthria normal touch/pain/proprioception and moves all extremities Psychiatric: A+Ox3, euthymic affect Speech: normal rate/rhythm/volume of speech Judgement: good judgement Lymphatic: no cervical or axillary lymphadenopathy Results & Data Laboratory Results Laboratory Results - last 24 hr 12/09/18 12/09/18 12/09/18 10:47 12:07 13:29 WBC RBC Hgb Hct MCV MCH MCHC RDW Std Deviation RDW Coeff of [place] Plt Count MPV Immature Gran % (Auto) Neut % (Auto) Lymph % (Auto) [place] % (Auto) Eos % (Auto) Baso % (Auto) Immature Gran # (Auto) Neut # (Auto) Lymph # (Auto) [place] # (Auto) Eos # (Auto) Baso # (Auto) PT INR APTT PTT Ratio Activ Coag Time Kaolin Sodium Potassium Chloride Carbon Dioxide Anion Gap BUN Creatinine Est Cr Clr Drug Dosing Est GFR ( Amer) Est GFR (Non-Af Amer) BUN/Creatinine Ratio Glucose POC Glucose 102 H 78 Calcium Magnesium Total Bilirubin AST ALT Alkaline Phosphatase Troponin I 13.000 H* Total Protein Albumin Globulin Albumin/Globulin Ratio 12/09/18 12/09/18 12/09/18 13:45 14:02 14:45 WBC RBC Hgb Hct MCV MCH MCHC RDW Std Deviation RDW Coeff of [place] Plt Count MPV Immature Gran % (Auto) Neut % (Auto) Lymph % (Auto) [place] % (Auto) Eos % (Auto) Baso % (Auto) Immature Gran # (Auto) Neut # (Auto) Lymph # (Auto) [place] # (Auto) Eos # (Auto) Baso # (Auto) PT INR APTT PTT Ratio Activ Coag Time Kaolin 235 H Sodium Potassium Chloride Carbon Dioxide Anion Gap BUN Creatinine Est Cr Clr Drug Dosing Est GFR ( Amer) Est GFR (Non-Af Amer) BUN/Creatinine Ratio Glucose POC Glucose 145 H 126 H Calcium Magnesium Total Bilirubin AST ALT Alkaline Phosphatase Troponin I Total Protein Albumin Globulin Albumin/Globulin Ratio 12/09/18 12/09/18 12/09/18 15:54 16:41 17:43 WBC RBC Hgb Hct MCV MCH MCHC RDW Std Deviation RDW Coeff of [place] Plt Count MPV Immature Gran % (Auto) Neut % (Auto) Lymph % (Auto) [place] % (Auto) Eos % (Auto) Baso % (Auto) Immature Gran # (Auto) Neut # (Auto) Lymph # (Auto) [place] # (Auto) Eos # (Auto) Baso # (Auto) PT INR APTT PTT Ratio Activ Coag Time Kaolin Sodium Potassium Chloride Carbon Dioxide Anion Gap BUN Creatinine Est Cr Clr Drug Dosing Est GFR ( Amer) Est GFR (Non-Af Amer) BUN/Creatinine Ratio Glucose POC Glucose 133 H 142 H 145 H Calcium Magnesium Total Bilirubin AST ALT Alkaline Phosphatase Troponin I Total Protein Albumin Globulin Albumin/Globulin Ratio 12/09/18 12/09/18 12/09/18 19:55 21:56 23:48 WBC RBC Hgb Hct MCV MCH MCHC RDW Std Deviation RDW Coeff of [place] Plt Count MPV Immature Gran % (Auto) Neut % (Auto) Lymph % (Auto) [place] % (Auto) Eos % (Auto) Baso % (Auto) Immature Gran # (Auto) Neut # (Auto) Lymph # (Auto) [place] # (Auto) Eos # (Auto) Baso # (Auto) PT INR APTT PTT Ratio Activ Coag Time Kaolin Sodium Potassium Chloride Carbon Dioxide Anion Gap BUN Creatinine Est Cr Clr Drug Dosing Est GFR ( Amer) Est GFR (Non-Af Amer) BUN/Creatinine Ratio Glucose POC Glucose 126 H 118 H 112 H Calcium Magnesium Total Bilirubin AST ALT Alkaline Phosphatase Troponin I Total Protein Albumin Globulin Albumin/Globulin Ratio 12/10/18 12/10/18 12/10/18 03:47 04:23 04:23 WBC 24.71 H RBC 4.73 Hgb 14.5 Hct 43.8 MCV 92.6 MCH 30.7 MCHC 33.1 RDW Std Deviation 45.3 RDW Coeff of [place] 13.3 Plt Count 266 MPV 11.6 H Immature Gran % (Auto) 0.4 Neut % (Auto) 86.0 Lymph % (Auto) 6.6 [place] % (Auto) 7.0 Eos % (Auto) 0.0 Baso % (Auto) 0.0 Immature Gran # (Auto) 0.11 H Neut # (Auto) 21.24 H Lymph # (Auto) 1.63 [place] # (Auto) 1.72 H Eos # (Auto) 0.00 Baso # (Auto) 0.01 PT 11.9 INR 1.2 H APTT 48.1 H* PTT Ratio 1.9 Activ Coag Time Kaolin Sodium Potassium Chloride Carbon Dioxide Anion Gap BUN Creatinine Est Cr Clr Drug Dosing Est GFR ( Amer) Est GFR (Non-Af Amer) BUN/Creatinine Ratio Glucose POC Glucose 125 H Calcium Magnesium Total Bilirubin AST ALT Alkaline Phosphatase Troponin I Total Protein Albumin Globulin Albumin/Globulin Ratio 12/10/18 12/10/18 04:23 07:33 WBC RBC Hgb Hct MCV MCH MCHC RDW Std Deviation RDW Coeff of [place] Plt Count MPV Immature Gran % (Auto) Neut % (Auto) Lymph % (Auto) [place] % (Auto) Eos % (Auto) Baso % (Auto) Immature Gran # (Auto) Neut # (Auto) Lymph # (Auto) [place] # (Auto) Eos # (Auto) Baso # (Auto) PT INR APTT PTT Ratio Activ Coag Time Kaolin Sodium 136 Potassium 4.4 D Chloride 108 H Carbon Dioxide 25 Anion Gap 3.0 BUN 25 H Creatinine 1.09 Est Cr Clr Drug Dosing 75.3 Est GFR ( Amer) 85.7 Est GFR (Non-Af Amer) 73.9 BUN/Creatinine Ratio 23.0 H Glucose 129 H POC Glucose 116 H Calcium 8.4 L Magnesium 2.3 Total Bilirubin 0.5 AST 70 H ALT 69 Alkaline Phosphatase 30 L Troponin I 8.530 H* Total Protein 6.4 Albumin 3.1 L Globulin 3.3 Albumin/Globulin Ratio 0.9 Medications Administered Home Medications albuterol sulfate [Ventolin HFA] 1 dose INHALATION DIRECTED 12/07/18 [ History Confirmed 12/07/18] [id number] [Trelegy Ellipta] 0 dose INHALATION DIRECTED 12/07/18 [History Confirmed 12/07/18] lisinopril 20 mg PO DAILY 12/07/18 [History Confirmed 12/07/18] metformin 500 mg PO BID 12/07/18 [History Confirmed 12/07/18] tiotropium bromide [Spiriva Respimat] 1 dose INHALATION DIRECTED 12/07/18 [ History Confirmed 12/07/18] Active Medications Acetaminophen (Ofirmev) 1,000 mg IV Q8H PRN PRN Reason: Pain or Fever Stop: 01/07/19 02:45 Albuterol (Duoneb) 3 ml NEB QIDR [facility] Stop: 01/07/19 07:59 Last Admin: 12/10/18 08:46 Dose: 3 ml Aspirin (Ecotrin Ectab) 81 mg PO [facility] Stop: 01/07/19 17:59 Last Admin: 12/10/18 07:41 Dose: 81 mg Atorvastatin Calcium (Lipitor) 40 mg PO [facility] Stop: 01/08/19 09:44 Last Admin: 12/10/18 07:40 Dose: 40 mg Bisacodyl (Dulcolax) 10 mg ME QD PRN PRN Reason: CONSTIPATION Stop: 01/08/19 11:13 Clopidogrel Bisulfate (Plavix) 75 mg PO [facility] Stop: 01/09/19 08:59 Last Admin: 12/10/18 07:41 Dose: 75 mg Dextrose (Dextrose 50%) 25 - 50 ml IV UD PRN; Protocol PRN Reason: Hypoglycemia Protocol Stop: 01/07/19 02:45 Diazepam (Valium) 5 mg PO HS PRN PRN Reason: Sleep Stop: 01/07/19 20:08 Glucagon (Glucagen) 1 mg SQ UD PRN; Protocol PRN Reason: Hypoglycemia Protocol Stop: 01/07/19 02:45 Glucose (Glucose 40%) 15 - 30 gm PO UD PRN; Protocol PRN Reason: Hypoglycemia Protocol Stop: 01/07/19 02:45 Glucose (Dex4 Glucose) 4 - 8 tabs PO UD PRN; Protocol PRN Reason: Hypoglycemia Protocol Stop: 01/07/19 02:45 Insulin Human Regular 250 (units/ Sodium Chloride) 250 mls @ 1.3 mls/hr IV .Q24H [facility]; Protocol Stop: 01/07/19 06:33 Last Titration: 12/10/18 07:43 Dose: 1.3 units/hr, 1.3 mls/hr Levofloxacin/Dextrose (Levaquin/D5w) 750 mg in 150 mls @ 100 mls/hr IV Q24H [facility] Stop: 12/14/18 03:59 Last Infusion: 12/10/18 05:37 Dose: Infused Methylprednisolone 40 mg/ (Syringe) 0.64 mls @ 1.5 mls/min IV Q8H [facility] Stop: 01/08/19 11:59 Last Admin: 12/10/18 04:03 Dose: 1.5 mls/min Heparin Sodium/Dextrose (Heparin Sodium/Dextrose) 25,000 units in 500 mls @ 24 mls/hr IV .[id number] [facility]; Protocol Stop: 01/08/19 15:29 Last Titration: 12/10/18 07:07 Dose: 1,200 units/hr, 24 mls/hr Insulin Aspart (Novolog Flexpen) 0 units SC [facility] Stop: 01/07/19 08:59 Last Admin: 12/10/18 07:41 Dose: 2 units Insulin Aspart (Novolog Flexpen) 0 units SC [facility] Stop: 01/09/19 11:29 Insulin Glargine (Lantus Solostar Pen) 15 units SC NOW ONE Stop: 12/10/18 09:01 Ioversol (Optiray 320 125ml) 118 ml IV ONCE PRN PRN Reason: Interaction Checking Stop: 12/11/18 23:30 Last Admin: 12/07/18 23:31 Dose: 118 ml Metoprolol Tartrate (Lopressor) 12.5 mg PO BID [facility] Stop: 01/08/19 09:29 Last Admin: 12/10/18 07:40 Dose: 12.5 mg Miscellaneous (Carbohydrates For Hypoglycemia) 15 - 30 gm PO UD PRN PRN Reason: Hypoglycemia Treatment Stop: 01/07/19 02:45 Miscellaneous Information (Consult Glycemic Management Pharmacy) 1 ea N/A UD PRN PRN Reason: Consult Stop: 01/07/19 06:49 Ondansetron HCl (Zofran) 4 mg IV Q6H PRN PRN Reason: NAUSEA/VOMITING Stop: 01/07/19 02:45 Pantoprazole Sodium (Protonix) 40 mg PO DAILY [facility] Stop: 01/09/19 08:59 _ (1) Hyperglycemia due to type 2 diabetes mellitus 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
[2018-12-10] MEDS: ALBUT/IPRATROP 3MG/0.5MG NEB 3 ML VIAL NEB SCH ×4 (08:46→19:58)
[2018-12-10] MEDS ORDERED: INSULIN GLARGINE SOLOSTAR 100 UNITS/ML 3 ML PEN SC ONE (09:00)
[2018-12-10] MEDS: predniSONE 10 MG TABLET PO SCH (09:27)
[2018-12-10] MEDS: PANTOprazole 40 MG TAB PO SCH (09:27)
--- NOTE | 2018-12-10 10:27 | Cardiology Progress Note ---
Date of Service December 10, 2018 Assessment & Plan (1) NSTEMI (non-ST elevated myocardial infarction): His troponin peaked at 13, and has now dropped following successful PCI. He does have other residual coronary disease but nothing severe. (2) CAD (coronary artery disease): He has triple-vessel coronary artery disease although only one area requiring intervention. He will need to continue risk factor modification over the long run as well as aspirin Plavix for now. (3) SOB (shortness of breath): His shortness of breath is probably primarily pulmonary in etiology, but with his severe left ventricular function he may well have had a cardiac component. We will need to watch this closely once his pulmonary situation is optimized. (4) Cardiomyopathy: He has a cardiomyopathy, the duration is not certain. With that degree of left ventricular dysfunction one would expect for him to develop left ventricular dilatation which he has not, that may suggest a more acute presentation however that is often associated with severe congestive heart failure which he does not seem to have. The cardiomyopathy does not appear to be ischemic in etiology, although he does have coronary artery disease. I would like to repeat his echocardiogram prior to discharge as a limited study, his left ventricular dysfunction may have been precipitated by his presentation. Currently he is not on an ANGELIKA inhibitor and he is on low-dose metoprolol tartrate. We should start an ANGELIKA inhibitor, but his creatinine bumped slightly following catheterization yesterday (although not suggestive of acute renal failure) so I will not start it today. I would like to switch to a different beta-pete however if his ejection fraction remains low. Subjective He is feeling quite well today, he is having no chest discomfort, his breathing is improved. He is out of bed in his chair today. Physical Exam 2 Vital Signs (Past 24 Hours): Last Vital Signs Temp 36.8 C 12/10/18 08:00 Pulse 77 12/10/18 09:01 Resp 16 12/10/18 09:01 BP 135/89 12/10/18 09:01 Pulse Ox 96 12/10/18 09:01 Physical Exam: Constitutional: Alert, cooperative and in no distress. Pulmonary: Clear to auscultation bilaterally but with markedly diminished breath sounds. Cardiac: Regular rhythm with no murmur, gallop or rub. Abdomen: Soft, nontender with normal bowel sounds. Extremities: No edema. Skin: No rash, ecchymoses or petechiae. Results & Data Diagnostic Findings Telemetry: Sinus rhythm, no significant arrhythmia _ (1) CAD (coronary artery disease) Coronary Disease-Associated Artery/Lesion type: [place] artery [place] vs. transplanted heart: [place] heart Associated angina: without angina Qualified Code(s): I25.10 - Atherosclerotic heart disease of [place] coronary artery without angina pectoris (2) Cardiomyopathy Cardiomyopathy type: unspecified Qualified Code(s): I42.9 - Cardiomyopathy, unspecified
[2018-12-10] MEDS: HEPARIN SODIUM/DEXTROSE 25,000 UNITS/500 ML BAG IV SCH (12:17)
--- NOTE | 2018-12-10 13:17 | Pharmacy Report ---
Pharmacy Glycemic Short Note 2 - Date of Service December 10, 2018 - Glycemic Short BSG Results (Last 24 hours): 12/09/18 12/09/18 12/09/18 12:07 13:29 13:45 Glucose POC Glucose 102 H 78 145 H 12/09/18 12/09/18 12/09/18 14:45 15:54 16:41 Glucose POC Glucose 126 H 133 H 142 H 12/09/18 12/09/18 12/09/18 17:43 19:55 21:56 Glucose POC Glucose 145 H 126 H 118 H 12/09/18 12/10/18 12/10/18 23:48 03:47 04:23 Glucose 129 H POC Glucose 112 H 125 H 12/10/18 12/10/18 07:33 10:53 Glucose POC Glucose 116 H 131 H OUTPATIENT ANTIDIABETIC REGIMEN: * Metformin 500 mg BID * A1c 6.4% ASSESSMENT: * Patient initially started on insulin gtt in ICU for elevated BSG- high dose steroids/post cardiac-cath * BSGs have been stable with drip at 1.3 units/hr- Begin transition off * 15 units lantus x 1, drip to be discontinued after two bsg checks in goal or 6 hours * Lantus scale for this evening, Start with weight based stress of 2 for novolog parameters, patient previously npo * Steroids switched to prednisone taper PLAN FOR INPATIENT GLYCEMIC CONTROL: * Hold outpatient oral diabetes medications * Basal insulin * Lantus 15 units SQ x 1 * Scale for this PM * BSG <120: Hold * BSG 120-180: 5 units * BSG: >180: 10 units * Bolus insulin * NovoLog per scale ACHS or Q6hrs while NPO * Goal Range: Low 110 mg/dL - High 160 mg/dL * Correction Factor: 30 mg/dL/unit * Nutritional / Prandial insulin per carb ratio of 1 unit per 10 grams CHO consumed PLAN FOR DISCHARGE: * Patient's A1c of 6.4 indicates good outpatient control. Patient can likely continue current outpatient regimen, metformin, without additional changes.
[2018-12-10] MEDS ORDERED: WARFARIN SOD 10 MG TAB PO SCH (16:00)
[2018-12-10] MEDS: INSULIN GLARGINE SOLOSTAR 100 UNITS/ML 3 ML PEN SC SCH (20:35)
--- NOTE | 2018-12-10 21:22 | Hospitalist Progress Note ---
Date of Service December 10, 2018 Assessment & Plan (1) Acute respiratory failure with hypoxia and hypercapnia: Mainly due to severe COPD exacerbation. NSTEMI/acute systolic CHF may have played a role as well. s/p intubation on Hospital day #1 and extubated later the same day. Needed BIPAP for about 24 hours then transitioned to NC O2. Continues on O2 via NC during day and plan for CPAP at night as per ICU -He remains on steroids, but converted to po prednisone 40mg daily -changed to IV Levaquin for the COPD exacerbation--> 750mg daily dose ordered, but could transition to 500mg daily for acute bronchitis dosing. -s/p cath today with deployment of JOE x 1 for severe CAD of single vessel. -s/p lasix for probable volume overload from systolic CHF. Continues to slowly progress. Appreciate critical care assistance. Stable for transfer out of ICU to [facility] (2) Acute kidney injury (nontraumatic): resolved. likely due to NSTEMI, acute resp failure, etc. -follow BMP (3) Hyperglycemia due to type 2 diabetes mellitus: Hemoglobin a1c 6.4%. Was taking metformin at home - this is on hold. Pharmacy managing glycemic control. Improved control today (4) DVT (deep venous thrombosis): RLE,in the distal superficial femoral vein. 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 Remains on heparin drip and started coumadin on 12/10/18. -continue coumadin at 5mg daily starting tomorrow -follow INR in AM, follow PTT -recommend AC for at least 3 months and then can likely stop after that, especially in the setting of being on triple therapy (DAPT + coumadin = high risk for bleeding)-discussed with pt (5) Cardiomyopathy: With biventricular systolic dysfunction, LVEF 15%, reduced RV fxn--> unclear if all from lung disease and NSTEMI? Cardiology does not think necessarily due to the ischemic disease No history of etoh abuse. -plan to repeat limited ECHO prior to discharge to see if had stunned myocardium from NSTEMI -continue meds as per "CHF" (6) CAD (coronary artery disease): with JOE placed in OM2 for 80-90% stenosis -now on ASA. Plavix, high intensity statin -continue metoprolol but will likely change to Coreg or Toprol XL prior to dc given systolic dysfunction -will need to add ACEi back on prior to dc if renal function stable (7) Acute systolic congestive heart failure: LVEF 15% on echo, RV sys dysfunction and dilation as well Chronicity uncertain. Initially thought that the cardiomyopathy was ischemic in origin. s/p cath by Dr. Haider on 12/09/18 with only single vessel CAD seen (s/p JOE). Dr. Haider felt the amount of CHF was out of proportion to the amount of CAD seen. s/p lasix along with diamox on hospital day #2, now seems euvolemic -continue metoprolol and change to Toprol XL or Coreg soon -add ACEi back on at some point -change to low Na+ diet and add fluid restriction to 1800 mL/day -continue daily weights and strict I/Os -repeat limited ECHO prior to dc as above (8) Hypomagnesemia: replaced with IV mag-now resolved (9) NSTEMI (non-ST elevated myocardial infarction): Troponin peaked at 13, and now trended downward ECGs with ischemic findings s/p cath on 12/09/[address] Haider. Findings: LM -20% distal stenosis LAD -moderate caliber vessel, moderately calcified, proximal luminal irregularities, distal vessel without significant disease as wraps around the apex. Gives off 2 small diagonals without disease. Circumflex -large caliber vessel, 20-30% mid segment disease, 80-90% hazy ostial stenosis of OM 2. Luminal irregularities in distal circumflex/left PLB RCA -dominant, moderate caliber vessel, 30-40% lateproximal into mid stenosis, 20-30% distal stenosis, luminal irregularities in right PDA Now s/p JOE to the 80-90% ostial lesion. Cont asa, plavix, statin, beta pete -add ACEi soon as above Appreciate cardiology assistance. -will need cardiac rehab (10) COPD exacerbation: Improving Cont po steroids. Cont IV levaquin. Cont nebs, inhalers. Supportive care. Quit smoking 14 years ago -on Spiriva, Advair, and albuterol prn at home and can restart these after discharge (11) Hypertension: controlled (12) DVT prophylaxis: remains on heparin drip , coumadin PT, OT when able Dispo-transfer to tele, downgrade from ICU Subjective Feeling better today, less SOB. Denies chest pain. Feels congested in chest but not coughing any sputum up. Review of Systems All systems reviewed & are unremarkable except as noted in HPI & below Physical Exam 2 Vital Signs (Past 24 Hours): Last Vital Signs Temp 36.9 C 12/10/18 20:00 Pulse 89 12/10/18 20:00 Resp 18 12/10/18 20:00 BP 119/73 12/10/18 20:00 Pulse Ox 99 12/10/18 20:00 Constitutional: WD/WN, vitals as above Eyes: PERRL, conjunctivae normal, anicteric sclerae ENMT: external ear and nose normal, oropharynx normal (except small erythematous patch on right posterior OP) Neck: trachea midline, no thyromegaly Respiratory: normal respiratory effort; no respiratory distress Auscultation: + diminished lung sounds (throughout) and + wheezes (faint exp wheeze at right base); no crackles and no rhonchi Cardiovascular: RRR, no murmur, no edema Gastrointestinal (Abdomen): normal bowel sounds, soft, nontender, no hepatosplenomegaly Musculoskeletal: Extremities: extremities normal to inspection; no cyanosis and no clubbing Skin: no rashes, warm and dry Neurologic: moves all extremities and awake; no focal motor deficits Psychiatric: A+Ox3, euthymic affect Results & Data Laboratory Results 12/10/18 12/10/18 12/10/18 Range/Units 20:29 16:48 13:47 WBC (4.8-10.8) K/uL RBC (4.7-6.1) M/uL Hgb (14.0-18.0) g/dL Hct (42-52) % MCV (80-100) fL MCH (25-34) pg MCHC (32-36) g/dL RDW Std Deviation (36.4-46.3) fL RDW Coeff of [place] (11.5-14.5) % Plt Count (130-400) K/uL MPV (7.4-10.4) fL Immature Gran % (Auto) % Neut % (Auto) % Lymph % (Auto) % Terry % (Auto) % Eos % (Auto) % Baso % (Auto) % Immature Gran # (Auto) (0.00-0.02) K/uL Neut # (Auto) (1.4-6.5) K/uL Lymph # (Auto) (1.2-3.4) K/uL Terry # (Auto) (0.11-0.59) K/uL Eos # (Auto) (0-0.5) K/uL Baso # (Auto) (0-0.2) K/uL PT (9.0-12.0) Seconds INR (0.9-1.1) APTT (21.0-31.0) Seconds PTT Ratio Activ Coag Time Kaolin (94-140) SECONDS Sodium (136-145) mmol/L Potassium (3.5-5.1) mmol/L Chloride (98-107) mmol/L Carbon Dioxide (21-32) mmol/L Anion Gap (3-11) BUN (7-18) mg/dl Creatinine (0.6-1.4) mg/dl Est Cr Clr Drug Dosing ml/min Est GFR ( Amer) Est GFR (Non-Af Amer) BUN/Creatinine Ratio (10-20) Glucose (70-99) mg/dl POC Glucose 152 H 174 H 174 H (70-99) Calcium (8.5-10.1) mg/dl Magnesium (1.8-2.4) mg/dl Total Bilirubin (0.2-1) mg/dl AST (15-37) U/L ALT (12-78) U/L Alkaline Phosphatase (45-117) U/L Troponin I (0-0.045) ng/ml Total Protein (6.4-8.2) gm/dl Albumin (3.4-5.0) gm/dl Globulin (2.5-4.0) gm/dl Albumin/Globulin Ratio (0.9-2) 12/10/18 12/10/18 12/10/18 Range/Units 10:53 07:33 04:23 WBC (4.8-10.8) K/uL RBC (4.7-6.1) M/uL Hgb (14.0-18.0) g/dL Hct (42-52) % MCV (80-100) fL MCH (25-34) pg MCHC (32-36) g/dL RDW Std Deviation (36.4-46.3) fL RDW Coeff of [place] (11.5-14.5) % Plt Count (130-400) K/uL MPV (7.4-10.4) fL Immature Gran % (Auto) % Neut % (Auto) % Lymph % (Auto) % Terry % (Auto) % Eos % (Auto) % Baso % (Auto) % Immature Gran # (Auto) (0.00-0.02) K/uL Neut # (Auto) (1.4-6.5) K/uL Lymph # (Auto) (1.2-3.4) K/uL Terry # (Auto) (0.11-0.59) K/uL Eos # (Auto) (0-0.5) K/uL Baso # (Auto) (0-0.2) K/uL PT (9.0-12.0) Seconds INR (0.9-1.1) APTT (21.0-31.0) Seconds PTT Ratio Activ Coag Time Kaolin (94-140) SECONDS Sodium 136 (136-145) mmol/L Potassium 4.4 D (3.5-5.1) mmol/L Chloride 108 H (98-107) mmol/L Carbon Dioxide 25 (21-32) mmol/L Anion Gap 3.0 (3-11) BUN 25 H (7-18) mg/dl Creatinine 1.09 (0.6-1.4) mg/dl Est Cr Clr Drug Dosing 75.3 ml/min Est GFR ( Amer) 85.7 Est GFR (Non-Af Amer) 73.9 BUN/Creatinine Ratio 23.0 H (10-20) Glucose 129 H (70-99) mg/dl POC Glucose 131 H 116 H (70-99) Calcium 8.4 L (8.5-10.1) mg/dl Magnesium 2.3 (1.8-2.4) mg/dl Total Bilirubin 0.5 (0.2-1) mg/dl AST 70 H (15-37) U/L ALT 69 (12-78) U/L Alkaline Phosphatase 30 L (45-117) U/L Troponin I 8.530 H* (0-0.045) ng/ml Total Protein 6.4 (6.4-8.2) gm/dl Albumin 3.1 L (3.4-5.0) gm/dl Globulin 3.3 (2.5-4.0) gm/dl Albumin/Globulin Ratio 0.9 (0.9-2) 12/10/18 12/10/18 12/10/18 Range/Units 04:23 04:23 03:47 WBC 24.71 H (4.8-10.8) K/uL RBC 4.73 (4.7-6.1) M/uL Hgb 14.5 (14.0-18.0) g/dL Hct 43.8 (42-52) % MCV 92.6 (80-100) fL MCH 30.7 (25-34) pg MCHC 33.1 (32-36) g/dL RDW Std Deviation 45.3 (36.4-46.3) fL RDW Coeff of [place] 13.3 (11.5-14.5) % Plt Count 266 (130-400) K/uL MPV 11.6 H (7.4-10.4) fL Immature Gran % (Auto) 0.4 % Neut % (Auto) 86.0 % Lymph % (Auto) 6.6 % Terry % (Auto) 7.0 % Eos % (Auto) 0.0 % Baso % (Auto) 0.0 % Immature Gran # (Auto) 0.11 H (0.00-0.02) K/uL Neut # (Auto) 21.24 H (1.4-6.5) K/uL Lymph # (Auto) 1.63 (1.2-3.4) K/uL Terry # (Auto) 1.72 H (0.11-0.59) K/uL Eos # (Auto) 0.00 (0-0.5) K/uL Baso # (Auto) 0.01 (0-0.2) K/uL PT 11.9 (9.0-12.0) Seconds INR 1.2 H (0.9-1.1) APTT 48.1 H* (21.0-31.0) Seconds PTT Ratio 1.9 Activ Coag Time Kaolin (94-140) SECONDS Sodium (136-145) mmol/L Potassium (3.5-5.1) mmol/L Chloride (98-107) mmol/L Carbon Dioxide (21-32) mmol/L Anion Gap (3-11) BUN (7-18) mg/dl Creatinine (0.6-1.4) mg/dl Est Cr Clr Drug Dosing ml/min Est GFR ( Amer) Est GFR (Non-Af Amer) BUN/Creatinine Ratio (10-20) Glucose (70-99) mg/dl POC Glucose 125 H (70-99) Calcium (8.5-10.1) mg/dl Magnesium (1.8-2.4) mg/dl Total Bilirubin (0.2-1) mg/dl AST (15-37) U/L ALT (12-78) U/L Alkaline Phosphatase (45-117) U/L Troponin I (0-0.045) ng/ml Total Protein (6.4-8.2) gm/dl Albumin (3.4-5.0) gm/dl Globulin (2.5-4.0) gm/dl Albumin/Globulin Ratio (0.9-2) 12/09/18 12/09/18 12/09/18 Range/Units 23:48 21:56 19:55 WBC (4.8-10.8) K/uL RBC (4.7-6.1) M/uL Hgb (14.0-18.0) g/dL Hct (42-52) % MCV (80-100) fL MCH (25-34) pg MCHC (32-36) g/dL RDW Std Deviation (36.4-46.3) fL RDW Coeff of [place] (11.5-14.5) % Plt Count (130-400) K/uL MPV (7.4-10.4) fL Immature Gran % (Auto) % Neut % (Auto) % Lymph % (Auto) % Terry % (Auto) % Eos % (Auto) % Baso % (Auto) % Immature Gran # (Auto) (0.00-0.02) K/uL Neut # (Auto) (1.4-6.5) K/uL Lymph # (Auto) (1.2-3.4) K/uL Terry # (Auto) (0.11-0.59) K/uL Eos # (Auto) (0-0.5) K/uL Baso # (Auto) (0-0.2) K/uL PT (9.0-12.0) Seconds INR (0.9-1.1) APTT (21.0-31.0) Seconds PTT Ratio Activ Coag Time Kaolin (94-140) SECONDS Sodium (136-145) mmol/L Potassium (3.5-5.1) mmol/L Chloride (98-107) mmol/L Carbon Dioxide (21-32) mmol/L Anion Gap (3-11) BUN (7-18) mg/dl Creatinine (0.6-1.4) mg/dl Est Cr Clr Drug Dosing ml/min Est GFR ( Amer) Est GFR (Non-Af Amer) BUN/Creatinine Ratio (10-20) Glucose (70-99) mg/dl POC Glucose 112 H 118 H 126 H (70-99) Calcium (8.5-10.1) mg/dl Magnesium (1.8-2.4) mg/dl Total Bilirubin (0.2-1) mg/dl AST (15-37) U/L ALT (12-78) U/L Alkaline Phosphatase (45-117) U/L Troponin I (0-0.045) ng/ml Total Protein (6.4-8.2) gm/dl Albumin (3.4-5.0) gm/dl Globulin (2.5-4.0) gm/dl Albumin/Globulin Ratio (0.9-2) 12/09/18 Range/Units 14:02 WBC (4.8-10.8) K/uL RBC (4.7-6.1) M/uL Hgb (14.0-18.0) g/dL Hct (42-52) % MCV (80-100) fL MCH (25-34) pg MCHC (32-36) g/dL RDW Std Deviation (36.4-46.3) fL RDW Coeff of [place] (11.5-14.5) % Plt Count (130-400) K/uL MPV (7.4-10.4) fL Immature Gran % (Auto) % Neut % (Auto) % Lymph % (Auto) % Terry % (Auto) % Eos % (Auto) % Baso % (Auto) % Immature Gran # (Auto) (0.00-0.02) K/uL Neut # (Auto) (1.4-6.5) K/uL Lymph # (Auto) (1.2-3.4) K/uL Terry # (Auto) (0.11-0.59) K/uL Eos # (Auto) (0-0.5) K/uL Baso # (Auto) (0-0.2) K/uL PT (9.0-12.0) Seconds INR (0.9-1.1) APTT (21.0-31.0) Seconds PTT Ratio Activ Coag Time Kaolin 235 H (94-140) SECONDS Sodium (136-145) mmol/L Potassium (3.5-5.1) mmol/L Chloride (98-107) mmol/L Carbon Dioxide (21-32) mmol/L Anion Gap (3-11) BUN (7-18) mg/dl Creatinine (0.6-1.4) mg/dl Est Cr Clr Drug Dosing ml/min Est GFR ( Amer) Est GFR (Non-Af Amer) BUN/Creatinine Ratio (10-20) Glucose (70-99) mg/dl POC Glucose (70-99) Calcium (8.5-10.1) mg/dl Magnesium (1.8-2.4) mg/dl Total Bilirubin (0.2-1) mg/dl AST (15-37) U/L ALT (12-78) U/L Alkaline Phosphatase (45-117) U/L Troponin I (0-0.045) ng/ml Total Protein (6.4-8.2) gm/dl Albumin (3.4-5.0) gm/dl Globulin (2.5-4.0) gm/dl Albumin/Globulin Ratio (0.9-2) _ (1) Hyperglycemia due to type 2 diabetes mellitus Diabetes mellitus exterminator termite insulin use: without exterminator termite use Qualified Code (s): E11.65 - Type 2 diabetes mellitus with hyperglycemia (2) DVT (deep venous thrombosis) Affected thrombotic vein of extremity: unspecified vein of extremity Chronicity: acute DVT location: lower extremity Laterality: unspecified laterality Qualified Code(s): I82.409 - Acute embolism and thrombosis of unspecified deep veins of unspecified lower extremity (3) CAD (coronary artery disease) Associated angina: without angina Coronary Disease-Associated Artery/Lesion type: [place] artery [place] vs. transplanted heart: [place] heart Qualified Code (s): I25.10 - Atherosclerotic heart disease of [place] coronary artery without angina pectoris (4) Hypertension Hypertension type: essential hypertension Qualified Code(s): I10 - Essential (primary) hypertension (5) Cardiomyopathy Cardiomyopathy type: unspecified Qualified Code(s): I42.9 - Cardiomyopathy, unspecified
[2018-12-11] MEDS: LEVOFLOXACIN/D5W 750 MG/150 ML BAG IV SCH (03:57)
[2018-12-11 04:28] LABS: Hematocrit (blood only) 42.3 % (42-52); Hemoglobin 14.2 g/dL (14.0-18.0); Immature Granulocytes # (auto) 0.07 K/uL (0.00-0.02); Immature Granulocytes % (auto) 0.4 %; Lymphocytes # (auto) 2.09 K/uL (1.2-3.4); Lymphocytes % (auto) 11.4 %; Mean Corpuscular Hgb Conc 33.6 g/dL (32-36); Mean Platelet Volume 12.1 fL (7.4-10.4); Monocytes % (auto) 8.2 %; Neutrophils # (auto) 14.61 K/uL (1.4-6.5); Platelet Count 250 K/uL (130-400); RDW Coefficient of Variation 13.1 % (11.5-14.5); RDW Standard Deviation 43.3 fL (36.4-46.3); White Blood Count 18.27 K/uL (4.8-10.8)
[2018-12-11 04:46] LABS: INR 1.3 (0.9-1.1); Partial Thromboplastin Ratio 2.3; Prothrombin Time 12.5 Seconds (9.0-12.0)
[2018-12-11 04:51] LABS: BUN Creatinine Ratio 28.3 (10-20); Calcium 8.5 mg/dl (8.5-10.1); Est GFR (African American) 83.8; Est GFR (Non-African American) 72.3; Magnesium 2.3 mg/dl (1.8-2.4); Potassium 3.9 mmol/L (3.5-5.1)
[2018-12-11 04:53] LABS: Albumin Globulin Ratio 0.9 (0.9-2); Bilirubin,Total 0.6 mg/dl (0.2-1); Globulin 3.3 gm/dl (2.5-4.0); Total Protein 6.3 gm/dl (6.4-8.2)
[2018-12-11 04:58] LABS: Partial Thromboplastin Time 59.1 Seconds (21.0-31.0)
[2018-12-11] MEDS: HEPARIN SODIUM/DEXTROSE 25,000 UNITS/500 ML BAG IV SCH (05:07)
[2018-12-11] MEDS: ALBUT/IPRATROP 3MG/0.5MG NEB 3 ML VIAL NEB SCH ×4 (07:16→20:51)
--- NOTE | 2018-12-11 07:30 | Critical Care Progress Note ---
ICU Progress Note Date of Service December 11, 2018 Vital Signs Vital Signs Temp Pulse Pulse Resp BP Pulse Ox Pulse Ox 12/11/18 07:17 91 H 18 97 12/11/18 04:00 36.8 C 87 20 106/60 97 12/11/18 00:00 36.8 C 79 76 16 96/53 L 98 12/10/18 22:00 88 18 93/54 L 96 12/10/18 21:00 88 18 100/58 L 94 12/10/18 20:00 36.9 C 89 18 119/73 99 12/10/18 19:58 91 H 14 96 12/10/18 19:50 102 H 97 Notes Mental Status: Alert / Awake and Participated in Eval Nausea / Vomiting: adequately controlled Pain: adequately controlled Airway Patency, RR, SpO2: stable & adequate BP & HR: stable & adequate (Continue to titrate antihypertensive medications) Notes: Patient is a 58-year-old male originally presented with respiratory failure requiring intubation. Was extubated on 12/08 to nasal cannula. Continue to taper steroids. Ok to use prednisone at this time. Consider outpatient follow up with pulmonary office for further management of COPD and asthma. Troponin elevated from 3-15, required catheterization and placement of drug- eluting stent OM. Troponin down trended and patient stabilized. No longer meeting critical care criteria and downgraded to telemetry. Follow-up with cardiology to determine plan for cardiac rehab. Patient anticoagulated for DVT. Will require anticoagulation. Transition started with Warfarin. Continue to titrate. Follow up with PCP. Reviewed progress notes, labs, and inpatient medication list Continue current management Please feel free to reconsult as needed
[2018-12-11] MEDS: INSULIN ASPART 100 UNITS/ML 3 ML PEN SC SCH ×4 (07:46→20:40)
[2018-12-11] MEDS: METOPROLOL TARTRATE 25 MG TAB PO SCH ×2 (07:47→20:38)
[2018-12-11] MEDS: ATORVASTATIN 40 MG TAB PO SCH (07:50)
[2018-12-11] MEDS: PANTOprazole 40 MG TAB PO SCH (07:50)
[2018-12-11] MEDS: ASPIRIN 81 MG ECTAB PO SCH (07:50)
[2018-12-11] MEDS: predniSONE 10 MG TABLET PO SCH (07:50)
[2018-12-11] MEDS: CLOPIDOGREL BISULFATE 75 MG TAB PO SCH (07:50)
[2018-12-11] MEDS ORDERED: predniSONE 10 MG TABLET PO SCH (09:00)
[2018-12-11] MEDS ORDERED: INSULIN GLARGINE SOLOSTAR 100 UNITS/ML 3 ML PEN SC ONE (09:00)
--- NOTE | 2018-12-11 09:26 | Cardiology Progress Note ---
Date of Service December 11, 2018 Assessment & Plan (1) NSTEMI (non-ST elevated myocardial infarction): His troponin peaked at 13, and then dropped following successful PCI. He did not have a large amount of damage based on his troponin, but he did have a myocardial infarction. He does have other residual coronary disease but nothing severe. (2) CAD (coronary artery disease): He has triple-vessel coronary artery disease although only one area requiring intervention. He will need to continue risk factor modification over the long run as well as aspirin Plavix for now. (3) SOB (shortness of breath): His shortness of breath is probably primarily pulmonary in etiology, but with his severe left ventricular function he may well have had a cardiac component. We will need to watch this closely once his pulmonary situation is optimized. His symptoms have improved dramatically with pulmonary treatment. (4) Cardiomyopathy: He has a cardiomyopathy, the duration is not certain. With that degree of left ventricular dysfunction one would expect for him to develop left ventricular dilatation which he has not, that may suggest a more acute presentation however that is often associated with severe congestive heart failure which he does not seem to have. The cardiomyopathy does not appear to be ischemic in etiology, although he does have coronary artery disease. I would like to repeat his echocardiogram tomorrow as a limited study, his left ventricular dysfunction may have been precipitated by his presentation and may improve quickly. Currently he is not on an ANGELIKA inhibitor and he is on low-dose metoprolol tartrate. We should start an ANGELIKA inhibitor, his creatinine bumped slightly following catheterization 2 days ago but remains normal so I will start low-dose lisinopril today. I would like to switch to a different beta- pete however if his ejection fraction remains low but we will not do that until after the echo. Subjective He continues to feel well from the cardiovascular standpoint. No chest discomfort, he feels his breathing is improving. Physical Exam 2 Vital Signs (Past 24 Hours): Last Vital Signs Temp 36.7 C 12/11/18 07:48 Pulse 95 H 12/11/18 07:48 Resp 16 12/11/18 07:48 BP 143/74 H 12/11/18 07:48 Pulse Ox 92 12/11/18 08:00 Physical Exam: Constitutional: Alert, cooperative and in no distress. Pulmonary: Clear to auscultation bilaterally but with markedly diminished breath sounds. Cardiac: Regular rhythm with no murmur, gallop or rub. Abdomen: Soft, nontender with normal bowel sounds. Extremities: No edema. Skin: No rash, ecchymoses or petechiae. Results & Data Diagnostic Findings Telemetry: Sinus rhythm and sinus tachycardia _ (1) CAD (coronary artery disease) Coronary Disease-Associated Artery/Lesion type: [place] artery [place] vs. transplanted heart: [place] heart Associated angina: without angina Qualified Code(s): I25.10 - Atherosclerotic heart disease of [place] coronary artery without angina pectoris (2) Cardiomyopathy Cardiomyopathy type: unspecified Qualified Code(s): I42.9 - Cardiomyopathy, unspecified
[2018-12-11] MEDS ORDERED: PERFLUTREN LIPID MICROSPHERE (DEFINITY) IV ONE (11:37)
[2018-12-11] MEDS: LISINOPRIL 2.5 MG TAB PO SCH (11:38)
[2018-12-11] MEDS ORDERED: WARFARIN SOD 5 MG TAB PO SCH (16:00)
--- NOTE | 2018-12-11 18:23 | Hospitalist Progress Note ---
Date of Service December 11, 2018 Assessment & Plan (1) Acute respiratory failure with hypoxia and hypercapnia: Mainly due to severe COPD exacerbation. NSTEMI/acute systolic CHF may have played a role as well. s/p intubation on Hospital day #1 and extubated later the same day. Needed BIPAP for about 24 hours then transitioned to NC O2. Remains on continuous O2 via NC-he was on 2 L nasal cannula at home but only nightly Continues to slowly progress. -Continue prednisone 40mg daily and slow taper down -Changed to Levaquin 500mg p.o. daily for acute bronchitis dosing and complete a 7-day course-today is day #3 -s/p cath on 12/09 with deployment of JOE x 1 for severe CAD of single vessel. -s/p lasix x1 for probable volume overload from systolic CHF. -will need a two-step prior to discharge (2) Acute kidney injury (nontraumatic): resolved. likely due to NSTEMI, acute resp failure, etc. -follow BMP (3) Hyperglycemia due to type 2 diabetes mellitus: Hemoglobin a1c 6.4%. Was taking metformin at home - this is on hold. Pharmacy managing glycemic control. Improved control (4) DVT (deep venous thrombosis): RLE,in the distal superficial femoral vein. 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 Remains on heparin drip and started coumadin on 12/10/18. INR already trending upward to 1.3 today, likely going up quickly due to being on Levaquin -continue coumadin at 5mg daily -follow INR in AM, follow PTT -recommend AC for at least 3 months and then can likely stop after that, especially in the setting of being on triple therapy (DAPT + coumadin = high risk for bleeding)-discussed with pt -If stable for discharge otherwise, could switch to Lovenox (5) Cardiomyopathy: With biventricular systolic dysfunction, LVEF 15%, moderate-severely reduced RV fxn--> unclear if all from lung disease and NSTEMI? Cardiology does not think necessarily due to the ischemic disease No history of etoh abuse. -repeat limited ECHO on 12/11 with mildly improved LVEF to 20-25% -continue meds as per "CHF" -will need repeat echo as an outpatient and if not improved, will be candidate for an ICD (6) CAD (coronary artery disease): with JOE placed in OM2 for 80-90% stenosis -now on ASA. Plavix, high intensity statin -continue metoprolol but will likely change to Coreg or Toprol XL prior to dc given systolic dysfunction -Added lisinopril 2.5 mg daily on today and can titrate upwards as needed (7) Acute systolic congestive heart failure: LVEF 15% on echo initially now improved slightly to 20-25% after stent placement, RV sys dysfunction and dilation as well Chronicity uncertain. Initially thought that the cardiomyopathy was ischemic in origin. s/p cath by Dr. Haider on 12/09/18 with only single vessel CAD seen (s/p JOE). Dr. Haider felt the amount of CHF was out of proportion to the amount of CAD seen. s/p lasix along with diamox on hospital day #2, now remains euvolemic -continue metoprolol and change to Toprol XL or Coreg soon -add lisinopril back on 2.5 mg daily as above -Continue low Na+ diet and fluid restriction to 1800 mL/day -continue daily weights and strict I/Os -will need follow-up in the CHF clinic -No need for further diuretics at this time (8) Hypomagnesemia: replaced with IV mag-now resolved (9) NSTEMI (non-ST elevated myocardial infarction): Troponin peaked at 13, and now trended downward ECGs with ischemic findings s/p cath on 12/09/[address] Haidre. Findings: LM -20% distal stenosis LAD -moderate caliber vessel, moderately calcified, proximal luminal irregularities, distal vessel without significant disease as wraps around the apex. Gives off 2 small diagonals without disease. Circumflex -large caliber vessel, 20-30% mid segment disease, 80-90% hazy ostial stenosis of OM 2. Luminal irregularities in distal circumflex/left PLB RCA -dominant, moderate caliber vessel, 30-40% lateproximal into mid stenosis, 20-30% distal stenosis, luminal irregularities in right PDA Now s/p JOE to the 80-90% ostial lesion. Cont asa, plavix, statin, beta pete, and ANGELIKA inhibitor as above Appreciate cardiology assistance. -will need cardiac rehab (10) COPD exacerbation: Improving Cont po steroids and taper down. Cont Levaquin as above Cont nebs, inhalers. Supportive care. Quit smoking 14 years ago -on Spiriva, Advair, and albuterol prn at home and can restart these after discharge (11) Hypertension: controlled -Continue metoprolol, lisinopril (12) DVT prophylaxis: remains on heparin drip , coumadin PT, OT ordered Dispo-continue telemetry monitoring, possible discharge to home in 1-2 days Subjective Patient reports feeling fairly well today. He is a little short of breath with moving too quickly from bed to chair. Not coughing anything up. Denies chest pain. He is tolerating p.o. quite well. No evidence of bleeding. No significant events on telemetry, remains in normal sinus rhythm. Review of Systems All systems reviewed & are unremarkable except as noted in HPI & below Physical Exam 2 Vital Signs (Past 24 Hours): Last Vital Signs Temp 36.5 C 12/11/18 16:00 Pulse 88 12/11/18 16:19 Resp 16 12/11/18 16:19 BP 134/87 12/11/18 16:19 Pulse Ox 97 12/11/18 16:00 Constitutional: WD/WN, vitals as above Eyes: PERRL, conjunctivae normal, anicteric sclerae ENMT: external ear and nose normal, oropharynx normal (except small erythematous patch on right posterior OP) Neck: trachea midline, no thyromegaly Respiratory: normal respiratory effort; no respiratory distress Auscultation: + diminished lung sounds (throughout); no crackles, no rhonchi and no wheezes Cardiovascular: RRR, no murmur, no edema Gastrointestinal (Abdomen): normal bowel sounds, soft, nontender, no hepatosplenomegaly Musculoskeletal: Extremities: extremities normal to inspection; no cyanosis and no clubbing Skin: no rashes, warm and dry Neurologic: moves all extremities and awake; no focal motor deficits Psychiatric: A+Ox3, euthymic affect Results & Data Laboratory Results 12/11/18 12/11/18 12/11/18 Range/Units 16:22 11:34 07:40 WBC (4.8-10.8) K/uL RBC (4.7-6.1) M/uL Hgb (14.0-18.0) g/dL Hct (42-52) % MCV (80-100) fL MCH (25-34) pg MCHC (32-36) g/dL RDW Std Deviation (36.4-46.3) fL RDW Coeff of [place] (11.5-14.5) % Plt Count (130-400) K/uL MPV (7.4-10.4) fL Immature Gran % (Auto) % Neut % (Auto) % Lymph % (Auto) % [place] % (Auto) % Eos % (Auto) % Baso % (Auto) % Immature Gran # (Auto) (0.00-0.02) K/uL Neut # (Auto) (1.4-6.5) K/uL Lymph # (Auto) (1.2-3.4) K/uL [place] # (Auto) (0.11-0.59) K/uL Eos # (Auto) (0-0.5) K/uL Baso # (Auto) (0-0.2) K/uL PT (9.0-12.0) Seconds INR (0.9-1.1) APTT (21.0-31.0) Seconds PTT Ratio Sodium (136-145) mmol/L Potassium (3.5-5.1) mmol/L Chloride (98-107) mmol/L Carbon Dioxide (21-32) mmol/L Anion Gap (3-11) BUN (7-18) mg/dl Creatinine (0.6-1.4) mg/dl Est Cr Clr Drug Dosing ml/min Est GFR ( Amer) Est GFR (Non-Af Amer) BUN/Creatinine Ratio (10-20) Glucose (70-99) mg/dl POC Glucose 182 H 123 H 103 H (70-99) Calcium (8.5-10.1) mg/dl Magnesium (1.8-2.4) mg/dl Total Bilirubin (0.2-1) mg/dl AST (15-37) U/L ALT (12-78) U/L Alkaline Phosphatase (45-117) U/L Total Protein (6.4-8.2) gm/dl Albumin (3.4-5.0) gm/dl Globulin (2.5-4.0) gm/dl Albumin/Globulin Ratio (0.9-2) 12/11/18 12/11/18 12/11/18 Range/Units 03:58 03:58 03:58 WBC 18.27 H (4.8-10.8) K/uL RBC 4.70 (4.7-6.1) M/uL Hgb 14.2 (14.0-18.0) g/dL Hct 42.3 (42-52) % MCV 90.0 (80-100) fL MCH 30.2 (25-34) pg MCHC 33.6 (32-36) g/dL RDW Std Deviation 43.3 (36.4-46.3) fL RDW Coeff of [place] 13.1 (11.5-14.5) % Plt Count 250 (130-400) K/uL MPV 12.1 H (7.4-10.4) fL Immature Gran % (Auto) 0.4 % Neut % (Auto) 80.0 % Lymph % (Auto) 11.4 % [place] % (Auto) 8.2 % Eos % (Auto) 0.0 % Baso % (Auto) 0.0 % Immature Gran # (Auto) 0.07 H (0.00-0.02) K/uL Neut # (Auto) 14.61 H (1.4-6.5) K/uL Lymph # (Auto) 2.09 (1.2-3.4) K/uL [place] # (Auto) 1.50 H (0.11-0.59) K/uL Eos # (Auto) 0.00 (0-0.5) K/uL Baso # (Auto) 0.00 (0-0.2) K/uL PT 12.5 H (9.0-12.0) Seconds INR 1.3 H (0.9-1.1) APTT 59.1 H* (21.0-31.0) Seconds PTT Ratio 2.3 Sodium 139 (136-145) mmol/L Potassium 3.9 (3.5-5.1) mmol/L Chloride 108 H (98-107) mmol/L Carbon Dioxide 26 (21-32) mmol/L Anion Gap 5.0 (3-11) BUN 31 H (7-18) mg/dl Creatinine 1.11 (0.6-1.4) mg/dl Est Cr Clr Drug Dosing 74.0 ml/min Est GFR ( Amer) 83.8 Est GFR (Non-Af Amer) 72.3 BUN/Creatinine Ratio 28.3 H (10-20) Glucose 106 H (70-99) mg/dl POC Glucose (70-99) Calcium 8.5 (8.5-10.1) mg/dl Magnesium 2.3 (1.8-2.4) mg/dl Total Bilirubin 0.6 (0.2-1) mg/dl AST 40 H (15-37) U/L ALT 70 (12-78) U/L Alkaline Phosphatase 50 (45-117) U/L Total Protein 6.3 L (6.4-8.2) gm/dl Albumin 3.0 L (3.4-5.0) gm/dl Globulin 3.3 (2.5-4.0) gm/dl Albumin/Globulin Ratio 0.9 (0.9-2) 12/10/18 Range/Units 20:29 WBC (4.8-10.8) K/uL RBC (4.7-6.1) M/uL Hgb (14.0-18.0) g/dL Hct (42-52) % MCV (80-100) fL MCH (25-34) pg MCHC (32-36) g/dL RDW Std Deviation (36.4-46.3) fL RDW Coeff of [place] (11.5-14.5) % Plt Count (130-400) K/uL MPV (7.4-10.4) fL Immature Gran % (Auto) % Neut % (Auto) % Lymph % (Auto) % [place] % (Auto) % Eos % (Auto) % Baso % (Auto) % Immature Gran # (Auto) (0.00-0.02) K/uL Neut # (Auto) (1.4-6.5) K/uL Lymph # (Auto) (1.2-3.4) K/uL [place] # (Auto) (0.11-0.59) K/uL Eos # (Auto) (0-0.5) K/uL Baso # (Auto) (0-0.2) K/uL PT (9.0-12.0) Seconds INR (0.9-1.1) APTT (21.0-31.0) Seconds PTT Ratio Sodium (136-145) mmol/L Potassium (3.5-5.1) mmol/L Chloride (98-107) mmol/L Carbon Dioxide (21-32) mmol/L Anion Gap (3-11) BUN (7-18) mg/dl Creatinine (0.6-1.4) mg/dl Est Cr Clr Drug Dosing ml/min Est GFR ( Amer) Est GFR (Non-Af Amer) BUN/Creatinine Ratio (10-20) Glucose (70-99) mg/dl POC Glucose 152 H (70-99) Calcium (8.5-10.1) mg/dl Magnesium (1.8-2.4) mg/dl Total Bilirubin (0.2-1) mg/dl AST (15-37) U/L ALT (12-78) U/L Alkaline Phosphatase (45-117) U/L Total Protein (6.4-8.2) gm/dl Albumin (3.4-5.0) gm/dl Globulin (2.5-4.0) gm/dl Albumin/Globulin Ratio (0.9-2) _ (1) Hyperglycemia due to type 2 diabetes mellitus Diabetes mellitus manager of corporate insulin use: without manager of corporate use Qualified Code (s): E11.65 - Type 2 diabetes mellitus with hyperglycemia (2) DVT (deep venous thrombosis) Affected thrombotic vein of extremity: unspecified vein of extremity Chronicity: acute DVT location: lower extremity Laterality: unspecified laterality Qualified Code(s): I82.409 - Acute embolism and thrombosis of unspecified deep veins of unspecified lower extremity (3) CAD (coronary artery disease) Associated angina: without angina Coronary Disease-Associated Artery/Lesion type: [place] artery [place] vs. transplanted heart: [place] heart Qualified Code (s): I25.10 - Atherosclerotic heart disease of [place] coronary artery without angina pectoris (4) Hypertension Hypertension type: essential hypertension Qualified Code(s): I10 - Essential (primary) hypertension (5) Cardiomyopathy Cardiomyopathy type: unspecified Qualified Code(s): I42.9 - Cardiomyopathy, unspecified
[2018-12-11] MEDS: INSULIN GLARGINE SOLOSTAR 100 UNITS/ML 3 ML PEN SC SCH (20:39)
[2018-12-12] MEDS: HEPARIN SODIUM/DEXTROSE 25,000 UNITS/500 ML BAG IV SCH (05:15)
[2018-12-12 06:51] LABS: Eosinophils % (auto) 1.1 %; Hematocrit (blood only) 40.3 % (42-52); Hemoglobin 13.5 g/dL (14.0-18.0); Immature Granulocytes # (auto) 0.03 K/uL (0.00-0.02); Immature Granulocytes % (auto) 0.3 %; Lymphocytes # (auto) 2.37 K/uL (1.2-3.4); Lymphocytes % (auto) 25.8 %; Mean Corpuscular Hgb Conc 33.5 g/dL (32-36); Mean Corpuscular Volume 90.2 fL (80-100); Mean Platelet Volume 11.8 fL (7.4-10.4); Monocytes # (auto) 0.97 K/uL (0.11-0.59); Monocytes % (auto) 10.6 %; Neutrophils # (auto) 5.72 K/uL (1.4-6.5); Neutrophils % (auto) 62.2 %; Platelet Count 220 K/uL (130-400); RDW Standard Deviation 42.9 fL (36.4-46.3); Red Blood Count 4.47 M/uL (4.7-6.1); White Blood Count 9.19 K/uL (4.8-10.8)
[2018-12-12 07:01] LABS: INR 2.4 (0.9-1.1); Prothrombin Time 22.7 Seconds (9.0-12.0)
[2018-12-12] MEDS: ALBUT/IPRATROP 3MG/0.5MG NEB 3 ML VIAL NEB SCH ×4 (07:13→19:16)
[2018-12-12 07:19] LABS: Partial Thromboplastin Ratio 2.6
[2018-12-12 07:20] LABS: BUN Creatinine Ratio 27.9 (10-20); Calcium 8.3 mg/dl (8.5-10.1); Creatinine Clr Calc Pharmacy 94.4 ml/min; Est GFR (African American) 109.5; Est GFR (Non-African American) 94.5; Potassium 3.5 mmol/L (3.5-5.1)
[2018-12-12 07:21] LABS: Partial Thromboplastin Time 67.9 Seconds (21.0-31.0)
[2018-12-12] MEDS: ATORVASTATIN 40 MG TAB PO SCH (07:54)
[2018-12-12] MEDS: CLOPIDOGREL BISULFATE 75 MG TAB PO SCH (07:54)
[2018-12-12] MEDS: METOPROLOL TARTRATE 25 MG TAB PO SCH (07:55)
[2018-12-12] MEDS: PANTOprazole 40 MG TAB PO SCH (07:55)
[2018-12-12] MEDS: predniSONE 10 MG TABLET PO SCH (07:55)
[2018-12-12] MEDS: ASPIRIN 81 MG ECTAB PO SCH (07:57)
[2018-12-12] MEDS: LISINOPRIL 2.5 MG TAB PO SCH (07:57)
[2018-12-12] MEDS: INSULIN GLARGINE SOLOSTAR 100 UNITS/ML 3 ML PEN SC SCH ×2 (08:00→08:07)
[2018-12-12] MEDS: INSULIN ASPART 100 UNITS/ML 3 ML PEN SC SCH ×4 (08:00→20:54)
--- NOTE | 2018-12-12 09:29 | Pharmacy Report ---
Pharmacy Glycemic Short Note 2 - Date of Service December 12, 2018 - Glycemic Short BSG Results (Last 24 hours): 12/11/18 12/11/18 12/11/18 11:34 16:22 20:19 Glucose POC Glucose 123 H 182 H 123 H 12/12/18 12/12/18 12/12/18 06:19 07:26 07:27 Glucose 73 POC Glucose 66 L* 67 L* OUTPATIENT ANTIDIABETIC REGIMEN: * Metformin 500 mg BID * A1c 6.4% ASSESSMENT: * Blood sugar slightly low this morning d/t too much basal, will move dose to once daily in the AM and reduce total basal dose * Prednisone tapering, down to 30mg today PLAN FOR INPATIENT GLYCEMIC CONTROL: * Hold outpatient oral diabetes medications * Basal insulin - CHANGE * Lantus 15 units SQ Daily * Bolus insulin * NovoLog per scale ACHS or Q6hrs while NPO * Goal Range: Low 120 mg/dL - High 150 mg/dL * Correction Factor: 30 mg/dL/unit * Nutritional / Prandial insulin per carb ratio of 1 unit per 10 grams CHO consumed PLAN FOR DISCHARGE: * Patient's A1c of 6.4 indicates good outpatient control. Patient can likely continue current outpatient regimen, metformin, without additional changes.
--- NOTE | 2018-12-12 11:01 | Cardiology Progress Note ---
Date of Service December 12, 2018 Assessment & Plan (1) NSTEMI (non-ST elevated myocardial infarction): His troponin peaked at 13, and then dropped following successful PCI. He did not have a large amount of damage based on his troponin, but he did have a myocardial infarction. He does have other residual coronary disease but nothing severe. (2) CAD (coronary artery disease): He has triple-vessel coronary artery disease although only one area requiring intervention. He will need to continue risk factor modification over the long run as well as aspirin and Plavix for now. (3) SOB (shortness of breath): His shortness of breath is probably primarily pulmonary in etiology, but with his severe left ventricular function he may well have had a component of congestive heart failure. We will need to watch this closely once his pulmonary situation is optimized. His symptoms have improved dramatically with pulmonary treatment. (4) Cardiomyopathy: He has a cardiomyopathy, the duration is not certain. With that degree of left ventricular dysfunction one would expect for him to develop left ventricular dilatation which he has not, that may suggest a more acute presentation however that is often associated with severe congestive heart failure which he does not seem to have. Based on his repeat limited echo his left ventricular function has not improved significantly throughout this hospitalization. The cardiomyopathy does not appear to be ischemic in etiology , although he does have coronary artery disease. We need to continue titrating his heart failure medications. I would also like to switch his metoprolol tartrate to carvedilol at a roughly equivalent dose, I will switch to 6.25 mg twice daily. I am also going to increase his lisinopril to 5 mg daily. We will need to watch his pressure, this is a slightly higher dose and he is currently on. Subjective He is feeling better today, he feels his breathing is improved and he has no cardiovascular symptoms. Physical Exam 2 Vital Signs (Past 24 Hours): Last Vital Signs Temp 36.7 C 12/12/18 10:56 Pulse 69 12/12/18 10:56 Resp 17 12/12/18 10:56 BP 119/74 12/12/18 10:56 Pulse Ox 94 12/12/18 10:56 Physical Exam: Constitutional: Alert, cooperative and in no distress. Pulmonary: Clear to auscultation bilaterally but with markedly diminished breath sounds. Cardiac: Regular rhythm with no murmur, gallop or rub. Abdomen: Soft, nontender with normal bowel sounds. Extremities: No edema. Skin: No rash, ecchymoses or petechiae. Results & Data Diagnostic Findings Telemetry: Sinus rhythm rate 70-80 bpm _ (1) CAD (coronary artery disease) Coronary Disease-Associated Artery/Lesion type: [place] artery [place] vs. transplanted heart: [place] heart Associated angina: without angina Qualified Code(s): I25.10 - Atherosclerotic heart disease of [place] coronary artery without angina pectoris (2) Cardiomyopathy Cardiomyopathy type: unspecified Qualified Code(s): I42.9 - Cardiomyopathy, unspecified
[2018-12-12] MEDS ORDERED: LISINOPRIL 2.5 MG TAB PO ONE (11:45)
[2018-12-12] MEDS: levoFLOXacin 500 MG TAB PO SCH (12:11)
[2018-12-12] MEDS ORDERED: CARVEDILOL 3.125 MG TAB PO ONE (12:43)
[2018-12-12] MEDS ORDERED: CARVEDILOL 6.25 MG TAB PO ONE (12:59)
--- NOTE | 2018-12-12 13:02 | Hospitalist Progress Note ---
Date of Service December 12, 2018 Assessment & Plan (1) Acute respiratory failure with hypoxia and hypercapnia: Mainly due to severe COPD exacerbation. NSTEMI/acute systolic CHF may have played a role as well. Improved, can likely be weaned off oxygen today s/p intubation on Hospital day #1 and extubated later the same day. Needed BIPAP for about 24 hours then transitioned to NC O2. -Continue prednisone 30mg daily and slow taper down -Continue Levaquin 500mg p.o. daily for acute bronchitis dosing and complete a 7 -day course-today is day #4 -s/p cath on 12/09 with deployment of JOE x 1 for severe CAD of single vessel. -s/p lasix x1 for probable volume overload from systolic CHF. -will need a two-step prior to discharge (2) Acute kidney injury (nontraumatic): resolved. likely due to NSTEMI, acute resp failure, etc. -follow BMP (3) Hyperglycemia due to type 2 diabetes mellitus: Now with hypoglycemia Hemoglobin a1c 6.4%. Was taking metformin at home - this is on hold. Pharmacy managing glycemic control. (4) DVT (deep venous thrombosis): RLE,in the distal superficial femoral vein. 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 Remains on heparin drip and started coumadin on 12/10/18. INR already therapeutic at 2.4 today, likely going up quickly due to being on Levaquin -Decrease dose of Coumadin to 2.5 mg daily -Continue heparin drip bridging for 1 more day and if INR still therapeutic tomorrow, can discontinue heparin drip -follow INR in AM, follow PTT -recommend AC for at least 3 months for the DVT, but now with atrial fibrillation as below should remain on anticoagulation indefinitely (5) Cardiomyopathy: With biventricular systolic dysfunction, LVEF 15%, moderate-severely reduced RV fxn--> unclear if all from lung disease and NSTEMI? Cardiology does not think necessarily due to the ischemic disease No history of etoh abuse. -repeat limited ECHO on 12/11 with mildly improved LVEF to 20-25% -continue meds as per "CHF" -will need repeat echo as an outpatient and if not improved, will be candidate for an ICD (6) CAD (coronary artery disease): with JOE placed in OM2 for 80-90% stenosis -now on ASA. Plavix, high intensity statin -Change metoprolol to Coreg 12.5 mg p.o. twice daily now given systolic dysfunction -Increase lisinopril to 5 mg daily on today Appreciate cardiology management (7) Acute systolic congestive heart failure: LVEF 15% on echo initially now improved slightly to 20-25% after stent placement, RV sys dysfunction and dilation as well Chronicity uncertain. Was given Lasix along with Diamox early on in the hospitalization for volume overload-now remains euvolemic Initially thought that the cardiomyopathy was ischemic in origin. s/p cath by Dr. Haider on 12/09/18 with only single vessel CAD seen (s/p JOE). Dr. Haider felt the amount of CHF was out of proportion to the amount of CAD seen. -Change to Coreg 0.5 mg p.o. twice daily as above -To new lisinopril and increase to 5 mg daily as above -Continue low Na+ diet and fluid restriction to 1800 mL/day -continue daily weights and strict I/Os -will need follow-up in the CHF clinic -No need for further diuretics at this time (8) Hypomagnesemia: replaced with IV mag-now resolved (9) NSTEMI (non-ST elevated myocardial infarction): Troponin peaked at 13, and now trended downward ECGs with ischemic findings s/p cath on 12/09/[address] Haider. Findings: LM -20% distal stenosis LAD -moderate caliber vessel, moderately calcified, proximal luminal irregularities, distal vessel without significant disease as wraps around the apex. Gives off 2 small diagonals without disease. Circumflex -large caliber vessel, 20-30% mid segment disease, 80-90% hazy ostial stenosis of OM 2. Luminal irregularities in distal circumflex/left PLB RCA -dominant, moderate caliber vessel, 30-40% lateproximal into mid stenosis, 20-30% distal stenosis, luminal irregularities in right PDA Now s/p JOE to the 80-90% ostial lesion. Cont asa, plavix, statin, beta pete, and ANGELIKA inhibitor as above Appreciate cardiology assistance. -will need cardiac rehab (10) COPD exacerbation: Improving Cont po steroids and taper down. Cont Levaquin as above Cont nebs, inhalers. Supportive care. Quit smoking 14 years ago -on Spiriva, Advair, and albuterol prn at home and can restart these after discharge (11) Hypertension: controlled -Continue Coreg, lisinopril (12) Paroxysmal atrial fibrillation: With rapid atrial fibrillation the lasted 1 hour on 12/12. This is paroxysmal in no way to know if he has had it in the past as he is completely asymptomatic with it. Change beta-pete to carvedilol and gave a one-time dose now of 6.25 mg and then increase to 12.5 mg p.o. twice daily after that. Is already anticoagulated fully with Coumadin with a heparin bridge for his DVT Appreciate cardiology consultation (13) DVT prophylaxis: remains on heparin drip , coumadin PT, OT ordered Dispo-continue telemetry monitoring, possible discharge to home in 1-2 days Subjective Patient went into rapid atrial fibrillation at noon today which lasted about 1 hour with rates in the 120s-130s. He was completely asymptomatic with this and has no recollection of ever having been told he had atrial fibrillation in the past. He denies chest pain. He still feels short of breath with getting up and ambulating to the bathroom and is still requiring oxygen continuously. He otherwise has no complaints. He has a mild cough. No bleeding from anywhere. Review of Systems All systems reviewed & are unremarkable except as noted in HPI & below Physical Exam 2 Vital Signs (Past 24 Hours): Last Vital Signs Temp 36.7 C 12/12/18 10:56 Pulse 71 12/12/18 11:20 Resp 18 12/12/18 11:20 BP 119/74 12/12/18 10:56 Pulse Ox 95 12/12/18 11:20 Constitutional: WD/WN, vitals as above Eyes: PERRL, conjunctivae normal, anicteric sclerae Neck: trachea midline, no thyromegaly Respiratory: normal respiratory effort; no respiratory distress Auscultation: + diminished lung sounds (throughout); no crackles, no rhonchi and no wheezes Cardiovascular: Rate/Rhythm: + tachycardic; + abnormal rhythm (Irregularly irregular) Heart Sounds: no murmur Extremities: no edema Gastrointestinal (Abdomen): normal bowel sounds, soft, nontender, no hepatosplenomegaly Musculoskeletal: Extremities: extremities normal to inspection; no cyanosis and no clubbing Skin: no rashes, warm and dry Neurologic: moves all extremities and awake; no focal motor deficits Psychiatric: A+Ox3, euthymic affect Results & Data Laboratory Results 12/12/18 12/12/18 12/12/18 Range/Units 20:25 16:26 11:02 WBC (4.8-10.8) K/uL RBC (4.7-6.1) M/uL Hgb (14.0-18.0) g/dL Hct (42-52) % MCV (80-100) fL MCH (25-34) pg MCHC (32-36) g/dL RDW Std Deviation (36.4-46.3) fL RDW Coeff of [place] (11.5-14.5) % Plt Count (130-400) K/uL MPV (7.4-10.4) fL Immature Gran % (Auto) % Neut % (Auto) % Lymph % (Auto) % [place] % (Auto) % Eos % (Auto) % Baso % (Auto) % Immature Gran # (Auto) (0.00-0.02) K/uL Neut # (Auto) (1.4-6.5) K/uL Lymph # (Auto) (1.2-3.4) K/uL [place] # (Auto) (0.11-0.59) K/uL Eos # (Auto) (0-0.5) K/uL Baso # (Auto) (0-0.2) K/uL PT (9.0-12.0) Seconds INR (0.9-1.1) APTT (21.0-31.0) Seconds PTT Ratio Sodium (136-145) mmol/L Potassium (3.5-5.1) mmol/L Chloride (98-107) mmol/L Carbon Dioxide (21-32) mmol/L Anion Gap (3-11) BUN (7-18) mg/dl Creatinine (0.6-1.4) mg/dl Est Cr Clr Drug Dosing ml/min Est GFR ( Amer) Est GFR (Non-Af Amer) BUN/Creatinine Ratio (10-20) Glucose (70-99) mg/dl POC Glucose 106 H 137 H 110 H (70-99) Calcium (8.5-10.1) mg/dl 12/12/18 12/12/18 12/12/18 Range/Units 07:27 07:26 06:19 WBC (4.8-10.8) K/uL RBC (4.7-6.1) M/uL Hgb (14.0-18.0) g/dL Hct (42-52) % MCV (80-100) fL MCH (25-34) pg MCHC (32-36) g/dL RDW Std Deviation (36.4-46.3) fL RDW Coeff of [place] (11.5-14.5) % Plt Count (130-400) K/uL MPV (7.4-10.4) fL Immature Gran % (Auto) % Neut % (Auto) % Lymph % (Auto) % [place] % (Auto) % Eos % (Auto) % Baso % (Auto) % Immature Gran # (Auto) (0.00-0.02) K/uL Neut # (Auto) (1.4-6.5) K/uL Lymph # (Auto) (1.2-3.4) K/uL [place] # (Auto) (0.11-0.59) K/uL Eos # (Auto) (0-0.5) K/uL Baso # (Auto) (0-0.2) K/uL PT (9.0-12.0) Seconds INR (0.9-1.1) APTT 67.9 H* (21.0-31.0) Seconds PTT Ratio 2.6 Sodium (136-145) mmol/L Potassium (3.5-5.1) mmol/L Chloride (98-107) mmol/L Carbon Dioxide (21-32) mmol/L Anion Gap (3-11) BUN (7-18) mg/dl Creatinine (0.6-1.4) mg/dl Est Cr Clr Drug Dosing ml/min Est GFR ( Amer) Est GFR (Non-Af Amer) BUN/Creatinine Ratio (10-20) Glucose (70-99) mg/dl POC Glucose 67 L* 66 L* (70-99) Calcium (8.5-10.1) mg/dl 12/12/18 12/12/18 12/12/18 Range/Units 06:19 06:19 06:19 WBC 9.19 (4.8-10.8) K/uL RBC 4.47 L (4.7-6.1) M/uL Hgb 13.5 L (14.0-18.0) g/dL Hct 40.3 L (42-52) % MCV 90.2 (80-100) fL MCH 30.2 (25-34) pg MCHC 33.5 (32-36) g/dL RDW Std Deviation 42.9 (36.4-46.3) fL RDW Coeff of [place] 13.0 (11.5-14.5) % Plt Count 220 (130-400) K/uL MPV 11.8 H (7.4-10.4) fL Immature Gran % (Auto) 0.3 % Neut % (Auto) 62.2 % Lymph % (Auto) 25.8 % [place] % (Auto) 10.6 % Eos % (Auto) 1.1 % Baso % (Auto) 0.0 % Immature Gran # (Auto) 0.03 H (0.00-0.02) K/uL Neut # (Auto) 5.72 (1.4-6.5) K/uL Lymph # (Auto) 2.37 (1.2-3.4) K/uL [place] # (Auto) 0.97 H (0.11-0.59) K/uL Eos # (Auto) 0.10 (0-0.5) K/uL Baso # (Auto) 0.00 (0-0.2) K/uL PT 22.7 H (9.0-12.0) Seconds INR 2.4 H (0.9-1.1) APTT (21.0-31.0) Seconds PTT Ratio Sodium 142 (136-145) mmol/L Potassium 3.5 (3.5-5.1) mmol/L Chloride 107 (98-107) mmol/L Carbon Dioxide 30 (21-32) mmol/L Anion Gap 5.0 (3-11) BUN 24 H (7-18) mg/dl Creatinine 0.87 (0.6-1.4) mg/dl Est Cr Clr Drug Dosing 94.4 ml/min Est GFR ( Amer) 109.5 Est GFR (Non-Af Amer) 94.5 BUN/Creatinine Ratio 27.9 H (10-20) Glucose 73 (70-99) mg/dl POC Glucose (70-99) Calcium 8.3 L (8.5-10.1) mg/dl _ (1) Hyperglycemia due to type 2 diabetes mellitus Diabetes mellitus group home insulin use: without group home use Qualified Code (s): E11.65 - Type 2 diabetes mellitus with hyperglycemia (2) DVT (deep venous thrombosis) Affected thrombotic vein of extremity: unspecified vein of extremity Chronicity: acute DVT location: lower extremity Laterality: unspecified laterality Qualified Code(s): I82.409 - Acute embolism and thrombosis of unspecified deep veins of unspecified lower extremity (3) CAD (coronary artery disease) Associated angina: without angina Coronary Disease-Associated Artery/Lesion type: [place] artery [place] vs. transplanted heart: [place] heart Qualified Code (s): I25.10 - Atherosclerotic heart disease of [place] coronary artery without angina pectoris (4) Hypertension Hypertension type: essential hypertension Qualified Code(s): I10 - Essential (primary) hypertension (5) Cardiomyopathy Cardiomyopathy type: unspecified Qualified Code(s): I42.9 - Cardiomyopathy, unspecified
[2018-12-12] MEDS ORDERED: POTASSIUM CHLORIDE 20 MEQ TABCR PO ONE (13:30)
[2018-12-12] MEDS ORDERED: INFLUENZA VIRUS QUAD VACCINE 0.5 ML SYR IM ONE (16:00)
[2018-12-12] MEDS ORDERED: INFLUENZA ADMINISTRATION CHARGE ONE (16:00)
[2018-12-12] MEDS ORDERED: PNEUMOCOCCAL ADMINISTRATION CHARGE ONE (16:00)
[2018-12-12] MEDS ORDERED: PNEUMOCOCCAL POLYSACCHARIDES 25 MCG/0.5 ML VIAL/SYR IM ONE (16:00)
[2018-12-12] MEDS: WARFARIN SOD 2.5 MG TAB PO SCH (16:47)
[2018-12-12] MEDS: CARVEDILOL 12.5 MG TAB PO SCH (20:53)
[2018-12-12] MEDS ORDERED: CARVEDILOL 6.25 MG TAB PO SCH (21:00)
[2018-12-13] MEDS: HEPARIN SODIUM/DEXTROSE 25,000 UNITS/500 ML BAG IV SCH (00:41)
[2018-12-13] MEDS: ALBUT/IPRATROP 3MG/0.5MG NEB 3 ML VIAL NEB SCH ×4 (07:07→19:20)
[2018-12-13 07:13] LABS: INR 2.2 (0.9-1.1); Partial Thromboplastin Ratio 2.7; Prothrombin Time 21.6 Seconds (9.0-12.0)
[2018-12-13 07:24] LABS: Partial Thromboplastin Time 69.6 Seconds (21.0-31.0)
[2018-12-13 08:27] LABS: Calcium 8.2 mg/dl (8.5-10.1); Creatinine Clr Calc Pharmacy 84.7 ml/min; Est GFR (African American) 98.6; Est GFR (Non-African American) 85.1; Magnesium 2.2 mg/dl (1.8-2.4); Potassium 3.8 mmol/L (3.5-5.1)
[2018-12-13] MEDS: predniSONE 10 MG TABLET PO SCH (08:36)
[2018-12-13] MEDS: CARVEDILOL 12.5 MG TAB PO SCH ×2 (08:36→20:27)
[2018-12-13] MEDS: levoFLOXacin 500 MG TAB PO SCH (08:36)
[2018-12-13] MEDS: PANTOprazole 40 MG TAB PO SCH (08:36)
[2018-12-13] MEDS: ATORVASTATIN 40 MG TAB PO SCH (08:36)
[2018-12-13] MEDS: CLOPIDOGREL BISULFATE 75 MG TAB PO SCH (08:36)
[2018-12-13] MEDS: LISINOPRIL 5 MG TAB PO SCH (08:36)
[2018-12-13] MEDS: INSULIN ASPART 100 UNITS/ML 3 ML PEN SC SCH ×4 (08:37→20:27)
[2018-12-13] MEDS: ASPIRIN 81 MG ECTAB PO SCH (08:37)
[2018-12-13] MEDS: INSULIN GLARGINE SOLOSTAR 100 UNITS/ML 3 ML PEN SC SCH (08:37)
[2018-12-13 08:38] LABS: Basophils # (auto) 0.01 K/uL (0-0.2); Basophils % (auto) 0.1 %; Eosinophils # (auto) 0.25 K/uL (0-0.5); Eosinophils % (auto) 2.6 %; Hematocrit (blood only) 42.3 % (42-52); Hemoglobin 14.1 g/dL (14.0-18.0); Immature Granulocytes # (auto) 0.05 K/uL (0.00-0.02); Immature Granulocytes % (auto) 0.5 %; Lymphocytes # (auto) 2.53 K/uL (1.2-3.4); Lymphocytes % (auto) 26.7 %; Mean Corpuscular Hgb Conc 33.3 g/dL (32-36); Mean Corpuscular Volume 90.4 fL (80-100); Monocytes # (auto) 1.12 K/uL (0.11-0.59); Monocytes % (auto) 11.8 %; Neutrophils % (auto) 58.3 %; Platelet Count 233 K/uL (130-400); RDW Standard Deviation 42.7 fL (36.4-46.3); Red Blood Count 4.68 M/uL (4.7-6.1); White Blood Count 9.46 K/uL (4.8-10.8)
--- NOTE | 2018-12-13 12:25 | Pharmacy Report ---
Pharmacy Glycemic Short Note 2 - Date of Service December 13, 2018 - Glycemic Short BSG Results (Last 24 hours): 12/12/18 12/12/18 12/13/18 16:26 20:25 06:19 Glucose 106 H POC Glucose 137 H 106 H 12/13/18 12/13/18 07:20 11:18 Glucose POC Glucose 100 H 81 OUTPATIENT ANTIDIABETIC REGIMEN: * Metformin 500 mg BID * A1c 6.4% ASSESSMENT: 12/13/18 * Blood sugar dropped from 100-->81mg/dl from breakfast to lunch * Will reduce Lantus dose to prevent hypoglycemia and hold carb coverage at lunch today * Prednisone at 30mg today 12/12/18 * Blood sugar slightly low this morning d/t too much basal, will move dose to once daily in the AM and reduce total basal dose * Prednisone tapering, down to 30mg today PLAN FOR INPATIENT GLYCEMIC CONTROL: * Hold outpatient oral diabetes medications * Basal insulin - DECREASE starting tomorrow morning * Lantus 10 units SQ Daily * Bolus insulin - hold lunchtime dose today * NovoLog per scale ACHS or Q6hrs while NPO * Goal Range: Low 120 mg/dL - High 150 mg/dL * Correction Factor: 30 mg/dL/unit * Nutritional / Prandial insulin per carb ratio of 1 unit per 10 grams CHO consumed PLAN FOR DISCHARGE: * Patient's A1c of 6.4 indicates good outpatient control. Patient can likely continue current outpatient regimen, metformin, without additional changes.
[2018-12-13] MEDS: WARFARIN SOD 2.5 MG TAB PO SCH (15:19)
--- NOTE | 2018-12-13 17:42 | Hospitalist Progress Note ---
Date of Service December 13, 2018 Assessment & Plan (1) Acute respiratory failure with hypoxia and hypercapnia: Mainly due to severe COPD exacerbation. NSTEMI/acute systolic CHF may have played a role as well. Improved, will continue to try to wean off O2 s/p intubation on Hospital day #1 and extubated later the same day. Needed BIPAP for about 24 hours then transitioned to [place] O2. -Continue prednisone daily and slow taper down -Continue Levaquin 500mg p.o. daily for acute bronchitis dosing and complete a 7 -day course-today is day #5 -s/p cath on 12/09 with deployment of JOE x 1 for severe CAD of single vessel. -s/p lasix x1 for probable volume overload from systolic CHF. -will need a two-step prior to discharge-he already has O2 at home but needs O2 supplies/NC/tubing, etc. (2) Acute kidney injury (nontraumatic): resolved. likely due to NSTEMI, acute resp failure, etc. -follow BMP (3) Hyperglycemia due to type 2 diabetes mellitus: With hypoglycemia which is now resolved Hemoglobin a1c 6.4%. Was taking metformin at home - this is on hold. Pharmacy managing glycemic control. (4) DVT (deep venous thrombosis): RLE,in the distal superficial femoral vein. 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 Was on heparin drip and started coumadin on 12/10/18. INR remains therapeutic at 2.2 today, can dc heparin gtt -continue Coumadin to 2.5 mg daily -follow INR -recommend AC for at least 3 months for the DVT, but now with atrial fibrillation as below should remain on anticoagulation indefinitely (5) Cardiomyopathy: With biventricular systolic dysfunction, LVEF 15%, moderate-severely reduced RV fxn--> unclear if all from lung disease and NSTEMI? Cardiology does not think necessarily due to the ischemic disease No history of etoh abuse. -repeat limited ECHO on 12/11 with mildly improved LVEF to 20-25% -continue meds as per "CHF" -will need repeat echo as an outpatient and if not improved, will be candidate for an ICD (6) CAD (coronary artery disease): with JOE placed in OM2 for 80-90% stenosis -now on ASA. Plavix, high intensity statin -Cont Coreg 12.5 mg p.o. twice daily now given systolic dysfunction -continue lisinopril 5 mg daily Appreciate cardiology management (7) Acute systolic congestive heart failure: LVEF 15% on echo initially now improved slightly to 20-25% after stent placement, RV sys dysfunction and dilation as well Chronicity uncertain. Was given Lasix along with Diamox early on in the hospitalization for volume overload-now remains euvolemic Initially thought that the cardiomyopathy was ischemic in origin. s/p cath by Dr. Haider on 12/09/18 with only single vessel CAD seen (s/p JOE). Dr. Haider felt the amount of CHF was out of proportion to the amount of CAD seen. -weight is down 3.7kg -continue Coreg 12.5 mg p.o. twice daily -continue lisinopril 5 mg daily -Continue low Na+ diet and fluid restriction to 1800 mL/day -continue daily weights and strict I/Os -will need follow-up in the CHF clinic -No need for further diuretics at this time (8) Hypomagnesemia: replaced with IV mag-now resolved (9) NSTEMI (non-ST elevated myocardial infarction): Troponin peaked at 13, and now trended downward ECGs with ischemic findings s/p cath on 12/09/[address] Haider. Findings: LM -20% distal stenosis LAD -moderate caliber vessel, moderately calcified, proximal luminal irregularities, distal vessel without significant disease as wraps around the apex. Gives off 2 small diagonals without disease. Circumflex -large caliber vessel, 20-30% mid segment disease, 80-90% hazy ostial stenosis of OM 2. Luminal irregularities in distal circumflex/left PLB RCA -dominant, moderate caliber vessel, 30-40% lateproximal into mid stenosis, 20-30% distal stenosis, luminal irregularities in right PDA Now s/p JOE to the 80-90% ostial lesion. Cont asa, plavix, statin, beta pete, and ANGELIKA inhibitor as above Appreciate cardiology assistance. -will need cardiac rehab (10) COPD exacerbation: Improving Cont po steroids and taper down. Cont Levaquin as above Cont nebs, inhalers. Supportive care. Quit smoking 14 years ago -on Spiriva, Advair, and albuterol prn at home and can restart these after discharge (11) Hypertension: controlled -Continue Coreg, lisinopril (12) Paroxysmal atrial fibrillation: With rapid atrial fibrillation that lasted 1 hour on 12/12. This is paroxysmal, no way to know if he has had it in the past as he is completely asymptomatic with it. -continue carvedilol -continue Coumadin Appreciate cardiology consultation (13) DVT prophylaxis: Coumadin PT, OT ordered Dispo-continue telemetry monitoring, possible discharge to home tomorrow Subjective Pt feeling much better than previous, in fact says this is the best he has felt in many months. Still some SOB with exertion. Denies chest pain. No nausea or abd pain, no trouble getting his urine out or with BMs. Tele with NSR rates in the 60s-70s, no further Afib since yesterday Review of Systems All systems reviewed & are unremarkable except as noted in HPI & below Physical Exam 2 Vital Signs (Past 24 Hours): Last Vital Signs Temp 36.4 C L 12/13/18 16:02 Pulse 68 12/13/18 16:02 Resp 18 12/13/18 16:02 BP 137/78 12/13/18 16:02 Pulse Ox 95 12/13/18 16:02 Constitutional: WD/WN, vitals as above Eyes: PERRL, conjunctivae normal, anicteric sclerae ENMT: Ears: no hearing impairment Neck: trachea midline, no thyromegaly Respiratory: normal respiratory effort; no respiratory distress Auscultation: + diminished lung sounds (throughout); no crackles, no rhonchi and no wheezes Cardiovascular: RRR, no murmur, no edema Gastrointestinal (Abdomen): normal bowel sounds, soft, nontender, no hepatosplenomegaly Musculoskeletal: Extremities: extremities normal to inspection; no cyanosis and no clubbing Skin: no rashes, warm and dry Neurologic: moves all extremities and awake; no focal motor deficits Psychiatric: A+Ox3, euthymic affect Results & Data Laboratory Results 12/13/18 12/13/18 12/13/18 Range/Units 16:27 11:18 07:20 WBC (4.8-10.8) K/uL RBC (4.7-6.1) M/uL Hgb (14.0-18.0) g/dL Hct (42-52) % MCV (80-100) fL MCH (25-34) pg MCHC (32-36) g/dL RDW Std Deviation (36.4-46.3) fL RDW Coeff of [place] (11.5-14.5) % Plt Count (130-400) K/uL MPV (7.4-10.4) fL Immature Gran % (Auto) % Neut % (Auto) % Lymph % (Auto) % [place] % (Auto) % Eos % (Auto) % Baso % (Auto) % Immature Gran # (Auto) (0.00-0.02) K/uL Neut # (Auto) (1.4-6.5) K/uL Lymph # (Auto) (1.2-3.4) K/uL [place] # (Auto) (0.11-0.59) K/uL Eos # (Auto) (0-0.5) K/uL Baso # (Auto) (0-0.2) K/uL PT (9.0-12.0) Seconds INR (0.9-1.1) APTT (21.0-31.0) Seconds PTT Ratio Sodium (136-145) mmol/L Potassium (3.5-5.1) mmol/L Chloride (98-107) mmol/L Carbon Dioxide (21-32) mmol/L Anion Gap (3-11) BUN (7-18) mg/dl Creatinine (0.6-1.4) mg/dl Est Cr Clr Drug Dosing ml/min Est GFR ( Amer) Est GFR (Non-Af Amer) BUN/Creatinine Ratio (10-20) Glucose (70-99) mg/dl POC Glucose 129 H 81 100 H (70-99) Calcium (8.5-10.1) mg/dl Magnesium (1.8-2.4) mg/dl 12/13/18 12/13/18 12/13/18 Range/Units 06:19 06:19 06:19 WBC 9.46 (4.8-10.8) K/uL RBC 4.68 L (4.7-6.1) M/uL Hgb 14.1 (14.0-18.0) g/dL Hct 42.3 (42-52) % MCV 90.4 (80-100) fL MCH 30.1 (25-34) pg MCHC 33.3 (32-36) g/dL RDW Std Deviation 42.7 (36.4-46.3) fL RDW Coeff of [place] 13.0 (11.5-14.5) % Plt Count 233 (130-400) K/uL MPV 12.0 H (7.4-10.4) fL Immature Gran % (Auto) 0.5 % Neut % (Auto) 58.3 % Lymph % (Auto) 26.7 % [place] % (Auto) 11.8 % Eos % (Auto) 2.6 % Baso % (Auto) 0.1 % Immature Gran # (Auto) 0.05 H (0.00-0.02) K/uL Neut # (Auto) 5.50 (1.4-6.5) K/uL Lymph # (Auto) 2.53 (1.2-3.4) K/uL [place] # (Auto) 1.12 H (0.11-0.59) K/uL Eos # (Auto) 0.25 (0-0.5) K/uL Baso # (Auto) 0.01 (0-0.2) K/uL PT 21.6 H (9.0-12.0) Seconds INR 2.2 H (0.9-1.1) APTT 69.6 H* (21.0-31.0) Seconds PTT Ratio 2.7 Sodium 141 (136-145) mmol/L Potassium 3.8 (3.5-5.1) mmol/L Chloride 107 (98-107) mmol/L Carbon Dioxide 29 (21-32) mmol/L Anion Gap 5.0 (3-11) BUN 29 H (7-18) mg/dl Creatinine 0.97 (0.6-1.4) mg/dl Est Cr Clr Drug Dosing 84.7 ml/min Est GFR ( Amer) 98.6 Est GFR (Non-Af Amer) 85.1 BUN/Creatinine Ratio 30.0 H (10-20) Glucose 106 H (70-99) mg/dl POC Glucose (70-99) Calcium 8.2 L (8.5-10.1) mg/dl Magnesium 2.2 (1.8-2.4) mg/dl 12/12/18 Range/Units 20:25 WBC (4.8-10.8) K/uL RBC (4.7-6.1) M/uL Hgb (14.0-18.0) g/dL Hct (42-52) % MCV (80-100) fL MCH (25-34) pg MCHC (32-36) g/dL RDW Std Deviation (36.4-46.3) fL RDW Coeff of [place] (11.5-14.5) % Plt Count (130-400) K/uL MPV (7.4-10.4) fL Immature Gran % (Auto) % Neut % (Auto) % Lymph % (Auto) % [place] % (Auto) % Eos % (Auto) % Baso % (Auto) % Immature Gran # (Auto) (0.00-0.02) K/uL Neut # (Auto) (1.4-6.5) K/uL Lymph # (Auto) (1.2-3.4) K/uL [place] # (Auto) (0.11-0.59) K/uL Eos # (Auto) (0-0.5) K/uL Baso # (Auto) (0-0.2) K/uL PT (9.0-12.0) Seconds INR (0.9-1.1) APTT (21.0-31.0) Seconds PTT Ratio Sodium (136-145) mmol/L Potassium (3.5-5.1) mmol/L Chloride (98-107) mmol/L Carbon Dioxide (21-32) mmol/L Anion Gap (3-11) BUN (7-18) mg/dl Creatinine (0.6-1.4) mg/dl Est Cr Clr Drug Dosing ml/min Est GFR ( Amer) Est GFR (Non-Af Amer) BUN/Creatinine Ratio (10-20) Glucose (70-99) mg/dl POC Glucose 106 H (70-99) Calcium (8.5-10.1) mg/dl Magnesium (1.8-2.4) mg/dl _ (1) Hyperglycemia due to type 2 diabetes mellitus Diabetes mellitus assisted insulin use: without assisted use Qualified Code (s): E11.65 - Type 2 diabetes mellitus with hyperglycemia (2) DVT (deep venous thrombosis) DVT location: lower extremity Affected thrombotic vein of extremity: unspecified vein of extremity Chronicity: acute Laterality: unspecified laterality Qualified Code(s): I82.409 - Acute embolism and thrombosis of unspecified deep veins of unspecified lower extremity (3) Cardiomyopathy Cardiomyopathy type: unspecified Qualified Code(s): I42.9 - Cardiomyopathy, unspecified (4) CAD (coronary artery disease) Coronary Disease-Associated Artery/Lesion type: [place] artery [place] vs. transplanted heart: [place] heart Associated angina: without angina Qualified Code(s): I25.10 - Atherosclerotic heart disease of [place] coronary artery without angina pectoris (5) Hypertension Hypertension type: essential hypertension Qualified Code(s): I10 - Essential (primary) hypertension
[2018-12-14 05:43] LABS: Hemoglobin 13.8 g/dL (14.0-18.0); Mean Corpuscular Hgb Conc 33.7 g/dL (32-36); Mean Corpuscular Volume 88.4 fL (80-100); Mean Platelet Volume 11.8 fL (7.4-10.4); Platelet Count 230 K/uL (130-400); RDW Coefficient of Variation 12.9 % (11.5-14.5); RDW Standard Deviation 41.2 fL (36.4-46.3); Red Blood Count 4.64 M/uL (4.7-6.1); White Blood Count 10.24 K/uL (4.8-10.8)
[2018-12-14 06:09] LABS: BUN Creatinine Ratio 35.4 (10-20); Calcium 7.9 mg/dl (8.5-10.1); Creatinine Clr Calc Pharmacy 102.7 ml/min; Est GFR (African American) 113.3; Est GFR (Non-African American) 97.8; Magnesium 1.9 mg/dl (1.8-2.4); Potassium 3.5 mmol/L (3.5-5.1)
[2018-12-14 06:21] LABS: INR 1.9 (0.9-1.1); Prothrombin Time 18.3 Seconds (9.0-12.0)
[2018-12-14] MEDS: ALBUT/IPRATROP 3MG/0.5MG NEB 3 ML VIAL NEB SCH ×2 (07:00→11:16)
[2018-12-14] MEDS: CLOPIDOGREL BISULFATE 75 MG TAB PO SCH (07:42)
[2018-12-14] MEDS: CARVEDILOL 12.5 MG TAB PO SCH (07:42)
[2018-12-14] MEDS: ATORVASTATIN 40 MG TAB PO SCH (07:43)
[2018-12-14] MEDS: PANTOprazole 40 MG TAB PO SCH (07:43)
[2018-12-14] MEDS: predniSONE 10 MG TABLET PO SCH (07:43)
[2018-12-14] MEDS: LISINOPRIL 5 MG TAB PO SCH (07:44)
[2018-12-14] MEDS: ASPIRIN 81 MG ECTAB PO SCH (07:44)
[2018-12-14] MEDS: INSULIN ASPART 100 UNITS/ML 3 ML PEN SC SCH ×2 (07:46→12:47)
[2018-12-14] MEDS ORDERED: POTASSIUM CHLORIDE 20 MEQ TABCR PO STA (08:18)
[2018-12-14] MEDS ORDERED: MAGNESIUM SULFATE / D5W 1 GM/100 ML BAG IV ONE (08:30)
[2018-12-14] MEDS ORDERED: ENOXAPARIN 80 MG/0.8 ML SYR SQ SCH (08:30)
[2018-12-14] MEDS ORDERED: INSULIN GLARGINE SOLOSTAR 100 UNITS/ML 3 ML PEN SC SCH (09:00)
--- NOTE | 2018-12-14 11:49 | Discharge Summary ---
Date of Service December 14, 2018 Admission HPI Per Admitting Provider The patient is a 58-year-old male with a past medical history including COPD, hypertension and diabetes mellitus, who developed acute shortness of breath about 8 hours prior to EMS being summoned to his home. When EMS arrived, the patient was unconscious, and his heart rate was sinus tachycardia in the 130's. The patient himself is unconscious, and therefore HPI is limited to reports of EMS and the patient's . Patient's reports that he was not feeling well earlier in the day, and had taken his nebulizer and antibiotics earlier in the day. The patient was given Solu-Medrol 25 mg IV in route to the hospital. Upon arrival to the emergency department, the patient was found to be cyanotic appearing, with skin reportedly appearing to be blue, he was placed on BiPAP, given an hour-long nebulizer treatment, and seemed to be somewhat improved. He also underwent a CT of the chest, which was negative for PE. The patient again later decompensated while on the BiPAP in the ED, and decision was made to have the patient intubated. The patient was then admitted to the ICU. Principal Diagnosis Acute exacerbation COPD, acute hypoxic and hypercapnic respiratory failure, NSTEMI, acute systolic CHF, acute right lower extremity DVT Discharge Exam Constitutional WD/WN, vitals as above Eyes PERRL, conjunctivae normal, anicteric sclerae ENMT external ear and nose normal, oropharynx normal Neck trachea midline, no thyromegaly Respiratory normal respiratory effort; no respiratory distress Auscultation: + diminished lung sounds (throughout); no crackles, no rhonchi and no wheezes Cardiovascular RRR, no murmur, no edema Gastrointestinal (Abdomen) normal bowel sounds, soft, nontender, no hepatosplenomegaly Musculoskeletal Extremities: extremities normal to inspection; no cyanosis and no clubbing Skin no rashes, warm and dry Neurologic moves all extremities and awake; no focal motor deficits Psychiatric A+Ox3, euthymic affect Discharge Data Allergies Allergy/AdvReac Type Severity Reaction Status Date / Time Penicillins Allergy Severe THROAT Verified 12/07/18 22:15 SWELLING Consultations [employer] [facility] Procedures Performed Operation Date: 12/09/18 12:30 Actual Procedures p Cath, Left with Cors and Vent - Juan Haider MD s Cineradiography w/Routine Exam(Not Applicable) - Juan Haider MD s Drug Eluting Stent SGl Vessel(Not Applicable) - Juan Haider MD Echocardiogram Ordered Studies 12/07/18 23:04 CT angio chest PE protocol Stat 12/08/18 02:46 US venous doppler LE BI Urgent 12/09/18 12:38 CL Cath Imgs for PACS use only Routine Chest x-rays [facility] Hospital Course (1) Acute respiratory failure with hypoxia and hypercapnia: Mainly due to severe COPD exacerbation. NSTEMI/acute systolic CHF may have played a role as well. Resolved-completely weaned off oxygen at rest and with exertion, can continue nightly O2 at home s/p intubation on Hospital day #1 and extubated later the same day. Needed BIPAP for about 24 hours then transitioned to NC O2. -Continue prednisone daily and slow taper down to 20 mg tomorrow and then 10 mg daily for 2 more days -Continue Levaquin 500mg p.o. daily for acute bronchitis dosing and complete a 7 -day course-today is day #6 -s/p cath on 12/09 with deployment of JOE x 1 for severe CAD of single vessel. -s/p lasix x1 for probable volume overload from systolic CHF. (2) Acute kidney injury (nontraumatic): resolved. likely due to NSTEMI, acute resp failure, etc. -follow BMP (3) Hyperglycemia due to type 2 diabetes mellitus: And then with hypoglycemia which is now resolved. He received basal and bolus insulin while here Hemoglobin a1c 6.4%. Was taking metformin at home and can restart this on discharge (4) DVT (deep venous thrombosis): RLE,in the distal superficial femoral vein. 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 Was on heparin drip and started coumadin on 12/10/18. INR was therapeutic for 2 straight days and the heparin drip was discontinued Unfortunately, his INR was down to 1.9 on the day of discharge -Start bridging Lovenox 1 mg/kg SQ every 12 hours and having INR checked at Coumadin clinic tomorrow afternoon-he can be discontinued on Lovenox if the INR is therapeutic again He received 10 mg of Coumadin on day 1, followed by 5 mg x 2 days and because of the rapid rise of INR, his Coumadin dose was reduced to 2.5 mg on the fourth day. Now the INR is low, will increase Coumadin to 4 mg daily upon discharge with close follow-up planned -recommend AC for at least 3 months for the DVT, but now with atrial fibrillation as below should remain on anticoagulation indefinitely (5) Cardiomyopathy: With biventricular systolic dysfunction, LVEF 15%, moderate-severely reduced RV fxn--> unclear if all from lung disease and NSTEMI? Cardiology does not think necessarily due to the ischemic disease No history of etoh abuse. -repeat limited ECHO on 12/11 with mildly improved LVEF to 20-25% -continue meds as per "CHF" -will need repeat echo as an outpatient and if not improved, will be candidate for an ICD (6) CAD (coronary artery disease): with JEO placed in OM2 for 80-90% stenosis -Was started on ASA. Plavix, high intensity statin, however on discharge, it is recommended by the covering ceramic tiler on the day of discharge that because of his need for indefinite Coumadin therapy for his atrial fibrillation, that he only be on Plavix and Coumadin. The aspirin will be discontinued at this time. He should remain on Plavix and Coumadin for 1 year and then can consider discontinuing the Plavix and doing aspirin and Coumadin alone indefinitely -Started on Coreg 12.5 mg p.o. twice daily given systolic dysfunction and CAD -continue lisinopril 5 mg daily which is a decreased from his usual daily dose at home of 20 mg Appreciate cardiology management - will need cardiac rehab and cardiology follow-up which is already scheduled for him (7) Acute systolic congestive heart failure: LVEF 15% on echo initially now improved slightly to 20-25% after stent placement, RV sys dysfunction and dilation as well Chronicity uncertain. Was given Lasix along with Diamox early on in the hospitalization for volume overload-now remains euvolemic Initially thought that the cardiomyopathy was ischemic in origin. s/p cath by Dr. Haider on 12/09/18 with only single vessel CAD seen (s/p JOE). Dr. Haider felt the amount of CHF was out of proportion to the amount of CAD seen. This may be a combination of nonischemic cardiomyopathy as well as some ischemic cardiomyopathy -weight is down 3.7kg since admission -continue Coreg 12.5 mg p.o. twice daily -continue lisinopril 5 mg daily -Continue low Na+ diet and fluid restriction to 1800 mL/day upon discharge -continue daily weights at home -will need follow-up in the CHF clinic -No need for further diuretics at this time (8) Hypomagnesemia: replaced with IV mag (9) NSTEMI (non-ST elevated myocardial infarction): Troponin peaked at 13, and now trended downward ECGs with ischemic findings s/p cath on 12/09/[address] Haider. Findings: LM -20% distal stenosis LAD -moderate caliber vessel, moderately calcified, proximal luminal irregularities, distal vessel without significant disease as wraps around the apex. Gives off 2 small diagonals without disease. Circumflex -large caliber vessel, 20-30% mid segment disease, 80-90% hazy ostial stenosis of OM 2. Luminal irregularities in distal circumflex/left PLB RCA -dominant, moderate caliber vessel, 30-40% lateproximal into mid stenosis, 20-30% distal stenosis, luminal irregularities in right PDA Now s/p JOE to the 80-90% ostial lesion. Cont plavix, statin, beta pete, and ANGELIKA inhibitor as above Appreciate cardiology assistance. -will need cardiac rehab (10) COPD exacerbation: Pretty much resolved at this point Cont po steroids and taper down. Cont Levaquin as above Cont nebs, inhalers. Supportive care. Quit smoking 14 years ago -on Spiriva, Advair, and albuterol prn at home and can restart these after discharge (11) Hypertension: controlled -Continue Coreg, lisinopril (12) Paroxysmal atrial fibrillation: With rapid atrial fibrillation that lasted 1 hour on 12/12. This is paroxysmal, no way to know if he has had it in the past as he is completely asymptomatic with it. -continue carvedilol -continue Coumadin Appreciate cardiology consultation (13) DVT prophylaxis: Coumadin, Lovenox Dispo-stable for discharge to home today Total Time Total Time Spent Total Time Spent (In Minutes): Greater than 30 minutes Total Time Includes: Examination of the Patient, Discharge Planning, Medication Reconciliation and Communication With Other Providers (Dr. Elizondo, cardiology) Discharge Plan Discharge Items Patient Disposition: Home - Self-Care Reason For Visit: ACUTE RESPIRATORY FAILURE W/ HYPOXIA & HYPERCAPNIA Discharge Diagnosis: Acute respiratory failure, heart attack, DVT, congestive heart failure Condition: Good Discharge Goals: Decrease discomfort, Diagnostic testing, Improve disease control, Improve function, Learn about illness and Therapeutic intervention Activity: As commented below Lifting: Gradually increase as tolerated Bathing: No limitations Exercise/Sports: Wait until after follow-up appointment Driving/Machine Use: No limitations Non-emergency contact: Primary Care Provider and [employer] Call non-emergency contact if: you have any medication questions, your symptoms worsen, your pain is not controlled, your pain is worsening, your pain is unusual for you and your pain is concerning for you Follow-up/Referrals: Viki Braswell CRNP [Primary Care Provider] - 12/15/18 10:30 am (Please, follow up at [facility] with Viki CARRINGTON on SaturdayDecember 15 at 10:30 am. *If you need to change this appointment, call the office at [phone].) Juan Haider MD [Physician] - 12/19/18 2:15 pm (Please, follow up at [facility] Office with Dr. Daniel Haider on SaturdayDecember 19 at 2:15 pm. *This office is located in [address] of [facility] - big building next to this hospital. If you need to change this appointment, call the office at [phone].) Diet: Carb Consistent or DM2 and Low Sodium (2gm) Fluids: 1800ml (7 cups) Addtl Provider Instructions: You were admitted with shortness of breath which was due to an exacerbation of your COPD as well as heart attack. You are found to have severe congestive heart failure and had a stent placed in a blockage in the artery of your heart. You had tremendous improvement in your symptoms after that. He was started on a number of new medications to help keep your heart strong and to treat your COPD exacerbation. You were also found to have a blood clot in your right leg that needs to be treated with Coumadin. You also developed an irregular rapid heartbeat called atrial fibrillation which also requires you to be on a blood thinner to prevent you from having a stroke. Please have your blood checked tomorrow as scheduled and continue the injections of Lovenox until you are told to stop when your Coumadin level is at the right level again. Please keep the follow-up appointments as scheduled with the ceramic tiler and your primary care provider. Call your Primary Care doctor if any of the following symptoms or problems start or get worse: * Shortness of breath or difficulty breathing * Wake up at night short of breath * Chest pain * Cough * Swelling of your hands, feet, or legs * More fatigued or tired with your normal activity * Palpitations - sudden fast heart beats WEIGHT * Weigh yourself every morning after using the bathroom. * Use the same scale. * Wear the same amount of clothing. * Write your weight down on a chart. * Call your Primary Care doctor if you gain more than 2-3 pounds in 1-2 days. MEDICATIONS * Use this discharge instruction sheet for medication instructions. * Take your medications at the time your doctor ordered. * Do not skip a dose of your medicines. * If you miss a dose of medicine, take it as soon as possible, but DO NOT DOUBLE A DOSE. * Read your medicine information when you get home. * Know all of the side effects of your medicine. If in doubt, ask your pharmacist * Call your Primary Care doctor's office if you have any side effects. * Be sure all of your doctors know what medicine and herbs you take (including cold, flu, and herbal medicine). Take the following with you to your follow-up doctor appointments: * Weight Chart * Medication List * List of questions Do not drink excessive alcohol, beer or wine. Medication Instructions: * Warfarin is a medicine prescribed to prevent blood clots * Warfarin will thin your blood and help prevent new clots * Take your medications exactly as directed * Never skip a dose. Never take a double dose. If you miss a dose, take it as soon as you remember * It is important for your doctor to monitor your prothrombin time (PT). This is a lab test * Keep your appointment for lab tests Risk of Adverse Drug Reactions and Interactions: * Warfarin increases your risk of bleeding * The food you eat and other medications you take can affect how Warfarin works in your body * It is very important to talk with your doctor about all of the other medicines, antibiotics, vitamins or herbal products that you are taking * All of your medication must be approved by your doctor, including new medicines, as well as medicines you have taken before you started taking Warfarin Diet: * In order for Warfarin to work properly, it is important to keep your intake of Vitamin K as consistent as possible * You should avoid any sudden change in Vitamin K intake * Report any significant changes in your diet or weight to your doctor Call your Doctor if you experience any of the following: * Swelling or Pain in your leg * Sudden, continuous pain deep in a muscle * Pain that worsens when you are active or when you stand still for a long time * Chest Pain * Sudden Shortness of Breath * Rapid or pounding heart beat * Fainting * Dizziness * Cough with blood or bloody sputum * Sweating more than normal * Bruises * heavy or uncontrolled bleeding * Blood in your urine, stool or vomit * Black or tarry stools Caring for Your Self at Home: * Avoid sitting, standing or lying down for long periods without moving your legs and feet * When traveling by car, stop to get out and move around at least once every 3 hours * On long airplane, train or bus rides, get up and move around when possible * If you can't get up, wiggle your toes and tighten your calves to keep your blood moving Follow Up: * It is important for you to keep your follow up appointments with your medical provider. Follow-up Anticoagulation Therapy: Name and Phone number of Health professional/clinic/office monitoring the anticoagulation therapy: Dr. Mason Next Date of PT/INR Laboratory Blood Draw: Dec 15 at 1:00 pm Prescriptions: New levofloxacin 500 mg Tablet 500 mg PO DAILY@1100 Qty: 1 RF: 0 clopidogrel 75 mg Tablet 75 mg PO QAM Qty: 30 RF: 0 enoxaparin [Lovenox] 80 mg/0.8 mL Syringe 80 mg subcut Q12H 1 Days Qty: 1.6 RF: 0 warfarin [Coumadin] 4 mg Tablet 4 mg PO DAILY@1600 Qty: 30 RF: 0 atorvastatin 40 mg Tablet 40 mg PO QAM Qty: 30 RF: 0 carvedilol 12.5 mg Tablet 12.5 mg PO BID Qty: 60 RF: 0 lisinopril [Zestril] 5 mg Tablet 5 mg PO QAM Qty: 30 RF: 0 prednisone 10 mg Tablet 20 mg PO DAILY Qty: 4 RF: 0 Continue metformin 500 mg tablet 500 mg PO BID RF: 0 albuterol sulfate [Ventolin HFA] 90 mcg/actuation HFA aerosol inhaler 1 dose Inhalation DIRECTED RF: 0 tiotropium bromide [Spiriva Respimat] 2.5 mcg/actuation mist 1 dose Inhalation DIRECTED RF: 0 fluticasone-salmeterol [Advair Diskus] 500-50 mcg/dose blister with device 1 puff Inhalation BID RF: 0 Discontinued lisinopril 20 mg tablet 20 mg PO DAILY RF: 0 Stand-Alone Forms: [facility] Discharge Orders: Discharge Order (Routine); Ordered 12/14/18 Ordered By: Ayla Mccrary Admission Data Admit Date/Time: 12/07/18 23:16 Attending Provider: Ayla Mccrary Admit Provider: Darian Cox Primary Care Provider: Viki Braswell Other Providers: Brain Enciso ; Darian Cox ; Carlee Ramirez ; Juan Haider Service: Telemetry Other Pending Studies at Discharge: No
[2018-12-14] MEDS: levoFLOXacin 500 MG TAB PO SCH (12:44)
[2018-12-14] MEDS ORDERED: WARFARIN SOD 4 MG TAB PO SCH (16:00)
== END 2018-12-14 14:05 | disposition home or self-care (01) | DRG 246 ==
LOC: ED 21:58 → SUATTDRO 23:16 → 1E 23:16 → 2S 12-11 18:28

== ENCOUNTER 2022-11-23 14:09 | Inpatient (IN) ==
[2022-11-23] MEDS ORDERED: methylPREDNISolone 125 MG/2 ML VIAL IV STA (14:33)
[2022-11-23] MEDS ORDERED: ALBUTEROL 0.083% NEBU SOLN 3 ML VIAL NEB STA (14:33)
--- NOTE | 2022-11-23 14:43 | Emergency Department Note ---
History of Present Illness General Chief complaint: Shortness of Breath/Dyspnea Stated complaint: POSSIBLE COVID, SOB Time Seen by Provider: 11/23/22 14:19 Source: patient, RN notes reviewed and old records reviewed (I have reviewed the recent pulmonary clinic) Mode of arrival: ambulatory Limitations: no limitations History of Present Illness This patient is a 59-year-old male who has a history of COPD, comes in after increasing shortness of breath. He is felt short of breath for the last 2 weeks he saw his lung doctor about a week ago and they changed his meds around he says. He does use 2 L oxygen at night but the last couple days has been using all the time. He does have a rescue inhaler which she is using as well he has occasional cough he is feeling much more short of breath than normal. His COVID test were positive twice a day at home. He does not have a fever no chest pain his heart is been a little faster than normal he is on Eliquis for history of DVT as well as A. fib. Is not sure if he is in A. fib all the time. No nausea or vomiting he did have a small mount of diarrhea yesterday. No blood or melena stool no lower extremity pain or swelling he feels generally weak but nonfocal. Home Medications Medication Instructions Recorded Confirmed Type nebulizer accessories #1 ea 06/17/19 11/06/22 Rx blood sugar diagnostic (OneTouch #100 ea 06/07/20 11/06/22 Rx Ultra Blue Test Strip) acetaminophen 500 mg tablet 500 mg PO Q6H PRN Pain 04/02/21 11/23/22 History (Tylenol Extra Strength) flash glucose scanning reader #1 ea 03/16/22 11/06/22 Rx (FreeStyle Ran 2 Olmitz) flash glucose sensor (FreeStyle #2 ea 03/16/22 11/06/22 Rx Ran 2 Sensor kit) amlodipine 10 mg tablet 10 mg PO QPM 04/11/22 11/23/22 History albuterol sulfate 90 mcg/actuation 2 puff inhalation Q4H PRN 06/12/22 11/23/22 Rx aerosol inhaler (Ventolin HFA) shortness of breath or wheezing #8.5 grams apixaban 5 mg tablet (Eliquis) 5 mg PO BID #180 tabs 07/09/22 11/23/22 Rx carvedilol 12.5 mg tablet 12.5 mg PO BID #180 tabs 07/12/22 11/23/22 Rx sildenafil 100 mg tablet 100 mg PO DAILY PRN sexual 07/12/22 11/23/22 Rx activity #30 tabs trazodone 50 mg tablet 50 mg PO DAILY #30 tabs 07/12/22 11/23/22 Rx albuterol sulfate 2.5 mg/3 mL 2.5 mg (3 mL) inhalation Q4H #75 mL 07/23/22 11/23/22 Rx (0.083 %) solution for nebulization metformin 500 mg tablet 1,000 mg PO BID #180 tabs 07/31/22 11/23/22 Rx Flutter Valve #1 ea 10/05/22 11/06/22 Rx lisinopril 30 mg tablet 30 mg PO QAM #90 tabs 10/30/22 11/23/22 Rx ipratropium 0.5 mg-albuterol 3 mg 3 ml inhalation QID #180 mL 11/19/22 11/23/22 Rx (2.5 mg base)/3 mL nebulization soln theophylline 300 mg 300 mg PO DAILY #60 tabs 11/19/22 11/23/22 Rx tablet,extended release,12 hr atorvastatin 40 mg tablet 40 mg PO HS 11/23/22 11/23/22 History fluticasone fur. 200 mcg-umeclid 1 ea inhalation QAM 11/23/22 11/23/22 History 62.5 mcg-vilant 25 mcg inhalat.powder (Trelegy Ellipta) Allergies Allergy/AdvReac Type Severity Reaction Status Date / Time Penicillins Allergy Severe THROAT Verified 11/06/22 13:43 SWELLING doxycycline Allergy Mild Rash Verified 11/06/22 13:43 naproxen Allergy Unknown Unknown Verified 11/06/22 13:43 Past Med/Surg History Medical History Atrial fibrillation on Eliquis. Follows with Dr. Vitaly Ray BPH (benign prostatic hyperplasia) Cardiomyopathy Constipation COPD (chronic obstructive pulmonary disease) inhaler daily/prn Coronary artery disease Diabetes mellitus NIDDM DVT of leg (deep venous thrombosis) 11/2018 History of anesthesia reaction "at least 20yrs ago having teeth removed and they lost me for awhile and then got me back"--no other issues with anesthesia History of COVID-19 10/01/20 @ [facility]--headache/cold symptoms Hyperlipidemia Hypertension Non-ST elevation myocardial infarction (NSTEMI) in recovery phase 2019--had heart cath--follows with Dr. Haider On anticoagulant therapy eliquis daily On home oxygen therapy 2L N/C at HS Surgical History History of cardiac cath (~12/09/18) History of colonoscopy History of heart artery stent (~12/09/18) [address] Haider History of tooth extraction all teeth removed Family History Mother Colorectal cancer Father Myocardial infarction Other Coronary heart disease Diabetes Heart disease Hypertension No family history of adverse response to anesthesia Denies family history of Prostate cancer Breast cancer Social History Smoking Status: Former smoker Tobacco Type: Cigarettes Age Started Using Tobacco: 15; Age Quit Using Tobacco: 53; packs per day: 1.5; Second Hand Exposure: No; Hx Alcohol Use: No Hx Substance Use: No Preferred Language: Amharic Communication Ability: Effective Set Staff Fitter Required: No Beliefs That Will Affect Care: None marital status: Current Living Situation: Spouse current occupational status: employed and disabled 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 Qualified How many Children do You have: 3 Feels Safe at Home: Yes Childhood Exposure to Second-Hand Smoke: No caffeine: Yes (coffee) Dental Care, Regularly: Yes Physical Activity Frequency: Daily Seatbelt Use: always Sunscreen Use: No Assistive Devices: Denture - Upper, Glasses and Oxygen - at Night Review of Systems A total of 10 systems reviewed and were otherwise negative Physical Exam Vital Signs Vital Signs - 24 hr 11/23/22 14:11 11/23/22 14:16 11/23/22 14:52 Temperature 36.5 C Temperature Source Temporal Artery Scan Pulse Rate 74 75 Pulse Rate [Right Finger] Pulse Rhythm Regular Respiratory Rate 18 20 Respiratory Effort / Characteristics Non-Labored Non-Labored Spontaneous Respiratory Depth Normal Blood Pressure 208/98 H Blood Pressure Mean 134 Pulse Oximetry 97 98 Oxygen Delivery Method Nasal Cannula Nasal Cannula Oxygen Flow Rate 3 2 Sepsis Recent Fever Within 48 Hours No Sepsis New/Unexplained Change in Mental Status N/A Sepsis Action Taken by Nursing No Action Required Oxygen Flow Rate - Titration Pulse Oximetry Post Tiitration 11/23/22 14:53 11/23/22 14:18 11/23/22 15:06 Temperature Temperature Source Pulse Rate Pulse Rate [Right Finger] 1 L Pulse Rhythm Respiratory Rate 20 21 Respiratory Effort / Characteristics Labored Non-Labored Respiratory Depth Blood Pressure Blood Pressure Mean Pulse Oximetry 99 98 97 Oxygen Delivery Method Nasal Cannula Nasal Cannula Nasal Cannula Oxygen Flow Rate 3 2 1 Sepsis Recent Fever Within 48 Hours Sepsis New/Unexplained Change in Mental Status Sepsis Action Taken by Nursing Oxygen Flow Rate - Titration 2 Pulse Oximetry Post Tiitration 98 General: Well developed well nourished chronically ill-appearing middle-age male who is wearing 2 L nasal cannula but in no acute distress, breathing comfortably.. Normal speech HEENT: Normal cephalic atraumatic. Pupils are equal round and reactive to light. Extraocular movements are intact. Oropharynx is pink with moist mucous membranes. No swelling of the mouth lips or tongue. Neck: Supple with a midline trachea. No meningeal signs or stiffness, no JVD or bruits. No Stridor. Chest: Somewhat diminished to auscultation bilaterally. No wheezes or rhonchi. No increased work of breathing. Heart: Regular rate and rhythm without murmurs or gallops. Abdomen: Soft nontender, nondistended without rebound guarding or rigidity. Extremities: No cyanosis clubbing or edema. No calf tenderness or assymetry Spine/Back. Non tender to palpation. No CVA tenderness Skin: Good turgor without rashes. Neurologic exam: Cranial nerves two through 12 are intact. Motor and sensation are intact and symmetrical throughout. Course Administered Medications Discontinued Medications Albuterol (Albuterol 0.083% Nebu Soln 3 Ml Vial) 10 mg NEB NOW STA; Protocol Stop: 11/23/22 14:34 Last Admin: 11/23/22 15:06 Dose: 10 mg Documented By: ROCKY Methylprednisolone (Methylprednisolone 125 Mg/2 Ml Vial) 125 mg IV NOW STA Stop: 11/23/22 14:34 Last Admin: 11/23/22 14:49 Dose: 125 mg Documented By: ELGIN Medical Decision Making Differential Diagnosis COPD exacerbation, COVID, DVT/PE, pneumonia, pneumothorax, acute coronary syndrome, arrhythmia, electrolyte or metabolic abnormality, sepsis Medical Records Attestation: I reviewed the patient's medical records. Home Medications Current Medication List: was personally reviewed by me Laboratory Data Attestation: I reviewed the patient's lab results. 11/23/22 14:44 11/23/22 14:44 Lab Results 11/23/22 11/23/22 11/23/22 Range/Units 14:14 14:44 14:44 WBC 7.44 (4.8-10.8) K/ul RBC 5.21 (4.70-6.10) M/uL Hgb 15.5 (14.0-18.0) g/dl Hct 46.0 (42.0-52.0) % MCV 88.3 (80.0-100.0) fL MCH 29.8 (25.0-34.0) pg MCHC 33.7 (32.0-36.0) g/dL RDW Std Deviation 42.3 (36.4-46.3) fL RDW Coeff of [place] 13.1 (11.5-14.5) % Plt Count 248 (130-400) K/uL MPV 11.1 (9.4-12.4) fL Immature Gran % (Auto) 0.4 % Neut % (Auto) 59.1 % Lymph % (Auto) 19.5 % Stanton % (Auto) 8.5 % Eos % (Auto) 12.1 % Baso % (Auto) 0.4 % Neut # (Auto) 4.40 (1.40-6.50) K/uL Lymph # (Auto) 1.45 (1.2-3.4) K/uL Stanton # (Auto) 0.63 H (0.11-0.59) K/uL Eos # (Auto) 0.90 H (0-0.50) K/uL Baso # (Auto) 0.03 (0-0.2) K/uL Immature Gran # (Auto) 0.03 (0.01-0.20) K/uL PT 11.2 (9.0-12.0) Seconds INR 1.1 (0.9-1.1) APTT 26.9 (21.0-31.0) Seconds PTT Ratio 1.0 D-Dimer < 190 (0-500) ug/L FEU Sodium (136-145) mmol/L Potassium (3.5-5.1) mmol/L Chloride (98-107) mmol/L Carbon Dioxide (21-32) mmol/L Anion Gap (3-11) BUN (6-23) mg/dl Creatinine (0.6-1.4) mg/dl Est Cr Clr Drug Dosing Est GFR ( Amer) ml/min Est GFR (Non-Af Amer) ml/min BUN/Creatinine Ratio (10-20) Glucose (70-99(Fasting)) mg/dl Calcium (8.5-10.1) mg/dl Magnesium (1.7-2.4) mg/dl Total Bilirubin (0.2-1.0) mg/dl AST (13-39) U/L ALT (7-52) U/L Alkaline Phosphatase (34-104) U/L Troponin I High Sens (0-20) pg/ml Total Protein (6.0-8.3) gm/dl Albumin (3.4-5.0) gm/dl Globulin (2.5-4.0) gm/dl Albumin/Globulin Ratio (0.9-2) SARS-CoV-2 (PCR) POSITIVE A* (Negative) Influenza Type A (PCR) Negative (Neg) Influenza Type B (PCR) Negative (Neg) RSV (RT-PCR) Negative (Neg) 11/23/22 Range/Units 14:44 WBC (4.8-10.8) K/ul RBC (4.70-6.10) M/uL Hgb (14.0-18.0) g/dl Hct (42.0-52.0) % MCV (80.0-100.0) fL MCH (25.0-34.0) pg MCHC (32.0-36.0) g/dL RDW Std Deviation (36.4-46.3) fL RDW Coeff of [place] (11.5-14.5) % Plt Count (130-400) K/uL MPV (9.4-12.4) fL Immature Gran % (Auto) % Neut % (Auto) % Lymph % (Auto) % Stanton % (Auto) % Eos % (Auto) % Baso % (Auto) % Neut # (Auto) (1.40-6.50) K/uL Lymph # (Auto) (1.2-3.4) K/uL Stanton # (Auto) (0.11-0.59) K/uL Eos # (Auto) (0-0.50) K/uL Baso # (Auto) (0-0.2) K/uL Immature Gran # (Auto) (0.01-0.20) K/uL PT (9.0-12.0) Seconds INR (0.9-1.1) APTT (21.0-31.0) Seconds PTT Ratio D-Dimer (0-500) ug/L FEU Sodium 136 (136-145) mmol/L Potassium 3.9 (3.5-5.1) mmol/L Chloride 100 (98-107) mmol/L Carbon Dioxide 31 (21-32) mmol/L Anion Gap 5 (3-11) BUN 11 (6-23) mg/dl Creatinine 0.74 (0.6-1.4) mg/dl Est Cr Clr Drug Dosing Not Reportable Est GFR ( Amer) 113.8 ml/min Est GFR (Non-Af Amer) 98.2 ml/min BUN/Creatinine Ratio 14.9 (10-20) Glucose 164 H (70-99(Fasting)) mg/dl Calcium 9.2 (8.5-10.1) mg/dl Magnesium 1.7 (1.7-2.4) mg/dl Total Bilirubin 0.8 (0.2-1.0) mg/dl AST 15 (13-39) U/L ALT 15 (7-52) U/L Alkaline Phosphatase 67 (34-104) U/L Troponin I High Sens 3.0 (0-20) pg/ml Total Protein 7.2 (6.0-8.3) gm/dl Albumin 4.5 (3.4-5.0) gm/dl Globulin 2.7 (2.5-4.0) gm/dl Albumin/Globulin Ratio 1.7 (0.9-2) SARS-CoV-2 (PCR) (Negative) Influenza Type A (PCR) (Neg) Influenza Type B (PCR) (Neg) RSV (RT-PCR) (Neg) Imaging Data Attestation: I personally reviewed and interpreted this imaging study as follows: My Impression: Chest x-rayno acute infiltrate, failure, pneumothorax seen. Radiologist's Impression: Chest X-Ray 11/23/22 14:18 XR chest 1V portable CLINICAL HISTORY: Shortness of breath. COMPARISON STUDY: Chest radiograph August 28, 2022. Chest CT December 07, 2018. Chest CT July 18, 2022. FINDINGS: Emphysema is present. Lung volumes are normal. Lungs are clear. There is no pneumothorax or pleural effusion. Cardiac size is normal. Mediastinal contours are normal. There is no evidence for pulmonary edema. IMPRESSION: No acute cardiopulmonary findings. No change in appearance of the chest. ACT 112: Negative or not required by law. Electronically signed by: Damion Urrutia M.D. 11/23/2022 3:15 PM ECG Data Attestation: I personally reviewed and interpreted this ECG as follows: Indication: + SOB/dyspnea MDM Narrative This patient comes in as described above he has COPD and has been getting worse over the last 2 weeks is gotten increasingly worse over the last couple days. he has a complex medical history with positive home COVID test today as well and he has a history of cardiac disease, is on blood thinners a history of DVT as well. In light of this, he did require an extensive work-up. I did give him a continuous albuterol and Atrovent nebs to help treat his COPD as well as Solu- Medrol 125 mg IV. He had multiple blood tests we COVID swab him he was reassessed frequently. He was feeling a lot better. I was concerned however as he tells me that he is using oxygen oactcm-lte-dodef and usually does not do that he tells me when he exerts himself his O2 sat drops into the 70s so he has been hypoxemic as well. EKG does not suggest acute coronary syndrome or arrhythmia. His troponin is within normal limits and D-dimer is also within normal limits which makes PE highly unlikely. He has no acute electrolyte or metabolic abnormalities his chest x-ray does not suggest congestive heart failure,pneumonia or pneumothorax. He does not feel he can go home he has been very short of breath. I think he does have a COPD exacerbation as well as COVID is been hypoxemic I think it is reasonable to keep him for further observation or admission in the hospital. I did consult and talk to Dr. Chaz Solis, internal medicine hospitalist at length about the case I explained my concerns and my findings and he will see the patient for admission/observation. Continuous cardiac monitoring: Orders placed in EMR for continuous cardiac monitoring. Upon my interpretation patient noted to be normal sinus rhythm rate of 90. Impression & Plan COVID, Asthma exacerbation in COPD, Hypoxemia, Cough Discharge Plan Visit Data Chief Complaint: Shortness of Breath/Dyspnea Stated Complaint: POSSIBLE COVID, SOB ED Provider: Luis Felipe Krause Discharge Problem: COVID, Asthma exacerbation in COPD, Hypoxemia, Cough Forms Stand Alone Forms: My [facility] Prescriptions Prescriptions: No Action (DME) blood sugar diagnostic [OneTouch Ultra Blue Test Strip] Strip See Rx Instructions .ROUTE .MEDSUPPLY Qty: 100 5RF Rx Instructions: Test blood sugar once daily, Dx:E11.9 (DME) FreeStyle Ran 2 Olmitz Misc See Rx Instructions .Route Qty: 1 0RF Rx Instructions: Test blood sugar once daily Dx:E11.9 (DME) FreeStyle Ran 2 Sensor Kit See Rx Instructions .Route Qty: 2 8RF Rx Instructions: Test blood sugar once daily Dx:E11.9 Eliquis 5 mg tablet 5 mg PO BID Qty: 180 3RF carvedilol 12.5 mg tablet 12.5 mg PO BID Qty: 180 3RF metformin 500 mg tablet 1,000 mg PO BID Qty: 180 3RF lisinopril 30 mg tablet 30 mg PO QAM Qty: 90 3RF theophylline 300 mg tablet extended release 12 hr 300 mg PO DAILY Qty: 60 2RF albuterol sulfate [Ventolin HFA] 90 mcg/actuation HFA aerosol inhaler 2 puff INH Q4H PRN (Reason: shortness of breath or wheezing) Qty: 8.5 11RF trazodone 50 mg tablet 50 mg PO DAILY Qty: 30 5RF sildenafil 100 mg tablet 100 mg PO DAILY PRN (Reason: sexual activity) Qty: 30 5RF Rx Instructions: administer 30 minutes to 4 hours before activity albuterol sulfate 2.5 mg /3 mL (0.083 %) solution for nebulization 2.5 mg inhalation Q4H Qty: 75 0RF Rx Instructions: Please use 1 vial up to every 4 hours as needed for shortness of breath. (DME) Flutter Valve Device See Rx Instructions .MEDSUPPLY Qty: 1 0RF Rx Instructions: As directed (DME) nebulizer accessories misc See Dose Instructions .ROUTE .MEDSUPPLY Qty: 1 0RF Dose Instruction: As directed Rx Instructions: nebulizer supplies as needed ipratropium-albuterol 0.5 mg-3 mg(2.5 mg base)/3 mL solution for nebulization 3 ml inhalation QID Qty: 180 2RF acetaminophen [Tylenol Extra Strength] 500 mg Tablet 500 mg PO Q6H PRN (Reason: Pain) amlodipine 10 mg tablet 10 mg PO QPM Trelegy Ellipta 200-62.5-25 mcg blister with device 1 ea INHALATION QAM atorvastatin 40 mg Tablet 40 mg PO HS Referrals Referrals: Viki Braswell CRNP [Primary Care Provider] -
[2022-11-23 14:58] LABS: Basophils # (auto) 0.03 K/uL (0-0.2); Basophils % (auto) 0.4 %; Eosinophils % (auto) 12.1 %; Hemoglobin 15.5 g/dl (14.0-18.0); Immature Granulocytes # (auto) 0.03 K/uL (0.01-0.20); Immature Granulocytes % (auto) 0.4 %; Lymphocytes # (auto) 1.45 K/uL (1.2-3.4); Lymphocytes % (auto) 19.5 %; Mean Corpuscular Hemoglobin 29.8 pg (25.0-34.0); Mean Corpuscular Hgb Conc 33.7 g/dL (32.0-36.0); Mean Corpuscular Volume 88.3 fL (80.0-100.0); Mean Platelet Volume 11.1 fL (9.4-12.4); Monocytes # (auto) 0.63 K/uL (0.11-0.59); Monocytes % (auto) 8.5 %; Neutrophils % (auto) 59.1 %; Platelet Count 248 K/uL (130-400); RDW Coefficient of Variation 13.1 % (11.5-14.5); RDW Standard Deviation 42.3 fL (36.4-46.3); Red Blood Count 5.21 M/uL (4.70-6.10); White Blood Count 7.44 K/ul (4.8-10.8)
[2022-11-23 15:10] LABS: D Dimer < 190 ug/L FEU (0-500); INR 1.1 (0.9-1.1); Partial Thromboplastin Time 26.9 Seconds (21.0-31.0); Prothrombin Time 11.2 Seconds (9.0-12.0)
[2022-11-23 15:14] LABS: Albumin Level 4.5 gm/dl (3.4-5.0); Anion Gap 5 (3-11); Bilirubin,Total 0.8 mg/dl (0.2-1.0); Calcium 9.2 mg/dl (8.5-10.1); Carbon Dioxide 31 mmol/L (21-32); Chloride 100 mmol/L (98-107); Magnesium 1.7 mg/dl (1.7-2.4); Potassium 3.9 mmol/L (3.5-5.1); Sodium 136 mmol/L (136-145)
--- NOTE | 2022-11-23 15:16 | XRay Report ---
XR chest 1V portable CLINICAL HISTORY: Shortness of breath. COMPARISON STUDY: Chest radiograph August 28, 2022. Chest CT December 07, 2018. Chest CT July 18, 2022. FINDINGS: Emphysema is present. Lung volumes are normal. Lungs are clear. There is no pneumothorax or pleural effusion. Cardiac size is normal. Mediastinal contours are normal. There is no evidence for pulmonary edema. IMPRESSION: No acute cardiopulmonary findings. No change in appearance of the chest. ACT 112: Negative or not required by law. Electronically signed by: Damion Urrutia M.D. 11/23/2022 3:15 PM
[2022-11-23 15:20] LABS: Alanine Aminotransferase 15 U/L (7-52); Albumin Globulin Ratio 1.7 (0.9-2); Alkaline Phosphatase 67 U/L (34-104); Aspartate Aminotransferase 15 U/L (13-39); BUN Creatinine Ratio 14.9 (10-20); Blood Urea Nitrogen 11 mg/dl (6-23); Est GFR (African American) 113.8 ml/min; Est GFR (Non-African American) 98.2 ml/min; Globulin 2.7 gm/dl (2.5-4.0); Glucose 164 mg/dl (70-99(Fasting)); Total Protein 7.2 gm/dl (6.0-8.3)
[2022-11-23 15:31] LABS: Influenza A virus by PCR Negative (Neg); Influenza B virus by PCR Negative (Neg); RSV by PCR Negative (Neg)
[2022-11-23 16:11] LABS: SARS CoV2 RNA(COVID-19) Ceph POSITIVE (Negative)
--- NOTE | 2022-11-23 17:08 | History & Physical Report ---
Date of Service November 23, 2022 Assessment & Plan (1) COVID: Plan: Unclear onset of symptoms given his chronic shortness of breth and slow progressive worsening Vaccinated and boosted with prior infection not requiring hospitalization COVID isolation precautions Solu-medrol as below (2) COPD exacerbation: Plan: Solu-medrol 125mg IV given in ER. Continue 40mg IV BID Duoneb QID Per previous pulm note considering budesonide and Perforomist nebulizers therefore will start these here Continue theophylline 300 mg p.o. daily (3) Hypoxemia: Plan: Aim O2 sats 88-92% (4) Hypertension: Plan: Continue amlodipine 10 mg p.o. daily, lisinopril 30 mg p.o. daily, carvedilol 12.5 mg p.o. twice daily (5) Diabetes mellitus: Plan: HbA1C 6.5 in June 2022 Hold metformin' Start Novolog: --Goal BSG Range: Low 110 mg/dL, High 140 mg/dL --Correction Factor: 45 mg/dL/unit --Carbohydrate ratio = 15 g/unit --BSGs ACHS if eating, q6h if npo (6) Paroxysmal atrial fibrillation: Plan: Currently normal sinus rhythm Continue carvedilol Continue anticoagulation with Eliquis (7) Coronary artery disease: Plan: --status post NSTEMI and PCI of OM2 with single JOE (12/16) Continue apixaban, carvedilol, lisinopril, atorvastatin Plan VTE Prophylaxis - apixaban Diet - regular Disposition - admit to med/surg Admission and Anticipated Discharge Date Admission Date: November 23, 2022 History of Present Illness Chief Complaint: Shortness of breath Primary Care Provider: CHARISSA Hu Claude Monterroso is a 62 year old male who presents to the ER with shortness of breath. He reports progressively worsening symptoms even prior to medication changes at his pulmonologists office on November 15. At that appointment due to Trelegy not offering him clear benefit he was switched to duonebs 2-3 times a day to see if that helped him more. He reports picking up the duonebs on Saturday but starting it on Saturday with worsening symptoms since. Much worse over the last 2 days with worsening hypoxia especially on exertion and generalized fatigue. He took a COVID test at home which was positive. He denies any nasal congestion, fever, chills, sore throat, abdominal pain or diarrhea. He is vacc inated and boosted for COVID-19, with a previous infection not requiring hospitalization. In the ER he is hypoxic down to mid/low 80s on minimal exertion therefore was referred to medicine for admission and ongoing management of COPD exacerbation and COVID-19. Allergies Allergy/AdvReac Type Severity Reaction Status Date / Time Penicillins Allergy Severe THROAT Verified 11/06/22 13:43 SWELLING doxycycline Allergy Mild Rash Verified 11/06/22 13:43 naproxen Allergy Unknown Unknown Verified 11/06/22 13:43 Home Medications Medication Instructions Recorded Confirmed Type nebulizer accessories #1 ea 06/17/19 11/06/22 Rx blood sugar diagnostic (OneTouch #100 ea 06/07/20 11/06/22 Rx Ultra Blue Test Strip) acetaminophen 500 mg tablet 500 mg PO Q6H PRN Pain 04/02/21 11/23/22 History (Tylenol Extra Strength) flash glucose scanning reader #1 ea 03/16/22 11/06/22 Rx (FreeStyle Ran 2 [place]) flash glucose sensor (FreeStyle #2 ea 03/16/22 11/06/22 Rx Ran 2 Sensor kit) amlodipine 10 mg tablet 10 mg PO QPM 04/11/22 11/23/22 History albuterol sulfate 90 mcg/actuation 2 puff inhalation Q4H PRN 06/12/22 11/23/22 Rx aerosol inhaler (Ventolin HFA) shortness of breath or wheezing #8.5 grams apixaban 5 mg tablet (Eliquis) 5 mg PO BID #180 tabs 07/09/22 11/23/22 Rx carvedilol 12.5 mg tablet 12.5 mg PO BID #180 tabs 07/12/22 11/23/22 Rx sildenafil 100 mg tablet 100 mg PO DAILY PRN sexual 07/12/22 11/23/22 Rx activity #30 tabs trazodone 50 mg tablet 50 mg PO DAILY #30 tabs 07/12/22 11/23/22 Rx albuterol sulfate 2.5 mg/3 mL 2.5 mg (3 mL) inhalation Q4H #75 mL 07/23/22 11/23/22 Rx (0.083 %) solution for nebulization metformin 500 mg tablet 1,000 mg PO BID #180 tabs 07/31/22 11/23/22 Rx Flutter Valve #1 ea 10/05/22 11/06/22 Rx lisinopril 30 mg tablet 30 mg PO QAM #90 tabs 10/30/22 11/23/22 Rx ipratropium 0.5 mg-albuterol 3 mg 3 ml inhalation QID #180 mL 11/19/22 11/23/22 Rx (2.5 mg base)/3 mL nebulization soln theophylline 300 mg 300 mg PO DAILY #60 tabs 11/19/22 11/23/22 Rx tablet,extended release,12 hr atorvastatin 40 mg tablet 40 mg PO HS 11/23/22 11/23/22 History fluticasone fur. 200 mcg-umeclid 1 ea inhalation QAM 11/23/22 11/23/22 History 62.5 mcg-vilant 25 mcg inhalat.powder (Trelegy Ellipta) Past Med/Surg History Medical History (Updated 11/23/22 @ 23:29 by Chaz Solis MD) Atrial fibrillation on Eliquis. Follows with Dr. Haider Bloating BPH (benign prostatic hyperplasia) Cardiomyopathy Constipation COPD (chronic obstructive pulmonary disease) inhaler daily/prn Coronary artery disease Diabetes mellitus NIDDM DVT of leg (deep venous thrombosis) 11/2018 History of anesthesia reaction "at least 20yrs ago having teeth removed and they lost me for awhile and then got me back"--no other issues with anesthesia History of COVID-19 10/01/20 @ [facility]--headache/cold symptoms Hyperlipidemia Hypertension Non-ST elevation myocardial infarction (NSTEMI) in recovery phase 2018--had heart cath--follows with Dr. Haider On anticoagulant therapy eliquis daily On home oxygen therapy 2L N/C at HS Paroxysmal atrial fibrillation Surgical History History of cardiac cath (~12/09/18) History of colonoscopy History of heart artery stent (~12/09/18) [address] Haider History of tooth extraction all teeth removed Family History Mother Colorectal cancer Father Myocardial infarction Other Coronary heart disease Diabetes Heart disease Hypertension No family history of adverse response to anesthesia Denies family history of Prostate cancer Breast cancer Social History Smoking Status: Former smoker Tobacco Type: Cigarettes Age Started Using Tobacco: 15; Age Quit Using Tobacco: 53; packs per day: 1.5; Second Hand Exposure: No; Do You Dip or Chew Tobacco: No; Hx Alcohol Use: No Hx Substance Use: No Preferred Language: Haitian Communication Ability: Effective Sprinkler Installer Required: No Beliefs That Will Affect Care: None marital status: Current Living Situation: Spouse current occupational status: employed and disabled 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 How many Children do You have: 3 Other Information That Helps Us Care for You: No Feels Safe at Home: Yes Safety Concerns: Feels Safe At This Time Childhood Exposure to Second-Hand Smoke: No caffeine: Yes (coffee) Dental Care, Regularly: Yes Physical Activity Frequency: Daily Seatbelt Use: always Sunscreen Use: No Assistive Devices: Denture - Upper, Glasses and Oxygen - at Night Review of Systems Review of Systems: All systems reviewed & are unremarkable except as noted in HPI & below Physical Exam Constitutional: WD/WN, vitals as above Eyes: + anicteric sclerae; normal pupil size ENMT: external ear and nose normal, oropharynx normal Respiratory: normal respiratory effort; no respiratory distress Auscultation: + diminished lung sounds (posteriorly) and + wheezes (expiratory mild); breath sounds present, no crackles and no rales Cardiovascular: RRR, no murmur, no edema Gastrointestinal (Abdomen): normal bowel sounds, soft, nontender, no hepatosplenomegaly Musculoskeletal: no cyanosis or clubbing, extremities motor strength 5/5 Skin: no rashes, warm and dry Psychiatric: A+Ox3, euthymic affect Results & Data Results & Data ([facility]) Vital Signs (Past 12 Hours) Vital Signs Temp Pulse Pulse Resp BP Pulse Ox O2 Del Method 11/23/22 15:06 1 L 21 97 Nasal Cannula 11/23/22 14:18 20 98 Nasal Cannula 11/23/22 14:53 99 Nasal Cannula 11/23/22 14:52 75 20 98 Nasal Cannula 11/23/22 14:11 36.5 C 74 18 208/98 H 97 Nasal Cannula O2 Flow Rate 11/23/22 15:06 1 11/23/22 14:18 2 11/23/22 14:53 3 11/23/22 14:52 2 11/23/22 14:11 3 Laboratory Results Abnormal lab results 11/23/22 11/23/22 11/23/22 Range/Units 14:14 14:44 14:44 [place] # (Auto) 0.63 H (0.11-0.59) K/uL [place] # (Auto) 0.90 H (0-0.50) K/uL Glucose 164 H (70-99(Fasting)) mg/dl SARS-CoV-2 (PCR) POSITIVE A* (Negative) Diagnostic Findings XR chest 1V portable CLINICAL HISTORY: Shortness of breath. COMPARISON STUDY: Chest radiograph August 28, 2022. Chest CT December 07, 2018. Chest CT July 18, 2022. FINDINGS: Emphysema is present. Lung volumes are normal. Lungs are clear. There is no pneumothorax or pleural effusion. Cardiac size is normal. Mediastinal contours are normal. There is no evidence for pulmonary edema. IMPRESSION: No acute cardiopulmonary findings. No change in appearance of the chest. Medications Administered ER medications given: Solu-Medrol 125 mg IV DuoNeb 10 mg neb ECG Indication: SOB/dyspnea Rate (beats per minute): 71 Rhythm: normal sinus Comparison ECG Date: from (December 12, 2018) Additional Comments: No definitive ischemic changes but poor quality affects interpretation Code Status & VTE Plan Code Status Full VTE Prophylaxis Plan VTE Prophylaxis will be ordered: Yes PG Care Time/CCT Total # of Minutes Spent Total Time Spent with Patient: Total time spent is greater than 50% in coordination of care (as documented) at patient's floor/unit and/or counseling patient: Coding Level of Care Code 39482 INT INP/OBS CARE 2/55MIN Diagnoses COVID U07.1 COPD exacerbation J44.1 Hypoxemia R09.02 Hypertension I10 Diabetes mellitus E11.9 Paroxysmal atrial fibrillation I48.0 Coronary artery disease I25.10
--- NOTE | 2022-11-23 17:54 | Electrocardiogram Report ---
Test Reason : Blood Pressure : / mmHG Vent. Rate : 071 BPM Atrial Rate : 071 BPM P-R Int : 168 ms QRS Dur : 070 ms QT Int : 370 ms P-R-T Axes : 099 080 085 degrees QTc Int : 402 ms Poor data quality, interpretation may be adversely affected Normal sinus rhythm When compared with ECG of 12-DEC-2018 12:44, Sinus rhythm has replaced Atrial fibrillation Vent. rate has decreased BY [address] now depressed in Anterior leads Nonspecific T wave abnormality no longer evident in Inferior leads T wave inversion less evident in Anterolateral leads Confirmed by Adonay Pierce ([id number]) on 11/23/2022 5:53:39 PM Referred By: REFERRED SELF Confirmed By:Willi Pierce
[2022-11-23] MEDS ORDERED: ACETAMINOPHEN 325 MG TAB PO PRN (20:28)
[2022-11-23] MEDS ORDERED: Patient's HEIGHT &/or WEIGHT Needed SCH (20:45)
[2022-11-23] MEDS: amLODIPine BESYLATE 5 MG TAB PO SCH (21:32)
[2022-11-23] MEDS: carvediloL 12.5 MG TAB PO SCH (21:32)
[2022-11-23] MEDS: FORMOTEROL 20 MCG/2 ML VIAL NEB SCH (21:47)
[2022-11-23] MEDS: BUDESONIDE 0.5 MG/2 ML VIAL (PULMICORT) NEB SCH (21:47)
[2022-11-23] MEDS: ALBUT/IPRATROP 3MG/0.5MG NEB 3 ML VIAL NEB SCH (21:47)
[2022-11-23] MEDS ORDERED: GLUCOSE 10 TAB/TUBE PO PRN (23:02)
[2022-11-23] MEDS ORDERED: GLUCOSE 40% GEL 15 GM TUBE PO PRN (23:02)
[2022-11-23] MEDS ORDERED: GLUCAGON FOR INJ 1 MG VIAL SQ PRN (23:02)
[2022-11-23] MEDS ORDERED: DEXTROSE 50% 50 ML SYRINGE IV PRN (23:02)
[2022-11-23] MEDS ORDERED: CARBOHYDRATES FOR HYPOGLYCEMIA PO PRN (23:02)
[2022-11-23] MEDS: traZODone HCL 50 MG TAB PO SCH (23:34)
[2022-11-23] MEDS: ATORVASTATIN 40 MG TAB PO SCH (23:34)
[2022-11-23] MEDS: APIXABAN 5 MG TABLET PO SCH (23:34)
[2022-11-24] MEDS: FORMOTEROL 20 MCG/2 ML VIAL NEB SCH ×2 (05:10→18:17)
[2022-11-24] MEDS: BUDESONIDE 0.5 MG/2 ML VIAL (PULMICORT) NEB SCH ×2 (05:10→18:16)
[2022-11-24] MEDS: ALBUT/IPRATROP 3MG/0.5MG NEB 3 ML VIAL NEB SCH ×4 (05:10→18:17)
[2022-11-24 08:19] LABS: Basophils # (auto) 0.01 K/uL (0-0.2); Basophils % (auto) 0.1 %; Hematocrit (blood only) 44.9 % (42.0-52.0); Hemoglobin 15.2 g/dl (14.0-18.0); Immature Granulocytes # (auto) 0.02 K/uL (0.01-0.20); Immature Granulocytes % (auto) 0.3 %; Lymphocytes # (auto) 1.15 K/uL (1.2-3.4); Lymphocytes % (auto) 16.1 %; Mean Corpuscular Hemoglobin 29.7 pg (25.0-34.0); Mean Corpuscular Hgb Conc 33.9 g/dL (32.0-36.0); Mean Corpuscular Volume 87.9 fL (80.0-100.0); Mean Platelet Volume 11.1 fL (9.4-12.4); Monocytes # (auto) 0.39 K/uL (0.11-0.59); Monocytes % (auto) 5.4 %; Neutrophils # (auto) 5.59 K/uL (1.40-6.50); Neutrophils % (auto) 78.1 %; Platelet Count 235 K/uL (130-400); RDW Coefficient of Variation 12.9 % (11.5-14.5); RDW Standard Deviation 41.6 fL (36.4-46.3); Red Blood Count 5.11 M/uL (4.70-6.10); White Blood Count 7.16 K/ul (4.8-10.8)
[2022-11-24 08:37] LABS: Estimated Average Glucose 126 mg/dl
[2022-11-24 08:45] LABS: Calcium 9.5 mg/dl (8.5-10.1); Potassium 4.1 mmol/L (3.5-5.1)
[2022-11-24 08:51] LABS: BUN Creatinine Ratio 23.8 (10-20); C Reactive Protein 0.92 mg/dl (0-0.5); Creatinine Clr Calc Pharmacy 123.9 ml/min; Est GFR (African American) 121.6 ml/min; Est GFR (Non-African American) 104.9 ml/min
[2022-11-24] MEDS: INSULIN ASPART PER UNIT SC SCH ×4 (09:06→21:22)
[2022-11-24] MEDS: APIXABAN 5 MG TABLET PO SCH ×2 (09:26→21:29)
[2022-11-24] MEDS: THEOPHYLLINE 300MG EXTENDED REL TAB PO SCH (09:26)
[2022-11-24] MEDS: lisinopril 10 MG TAB PO SCH (09:26)
[2022-11-24] MEDS: carvediloL 12.5 MG TAB PO SCH ×2 (09:26→21:30)
[2022-11-24] MEDS ORDERED: dexAMETHasone 6 MG in SYRINGE 0 ML IV ONE (17:45)
--- NOTE | 2022-11-24 21:16 | Hospitalist Progress Note ---
Date of Service November 24, 2022 Assessment & Plan (1) COVID: Plan: Unclear onset of symptoms given his chronic shortness of breth and slow progressive worsening Vaccinated and boosted with prior infection not requiring hospitalization COVID isolation precautions Transitioned him to decadron. will continue to take this daily. will hold antibiotics for now. (2) COPD exacerbation: Plan: Solu-medrol 125mg IV given in ER. Continue 40mg IV BID Duoneb QID Per previous pulm note considering budesonide and Perforomist nebulizers therefore will start these here Continue theophylline 300 mg p.o. daily (3) Hypoxemia: Plan: Aim O2 sats 88-92% (4) Hypertension: Plan: Continue amlodipine 10 mg p.o. daily, lisinopril 30 mg p.o. daily, carvedilol 12.5 mg p.o. twice daily (5) Diabetes mellitus: Plan: HbA1C 6.5 in June 2022 Hold metformin' Start Novolog: --Goal BSG Range: Low 110 mg/dL, High 140 mg/dL --Correction Factor: 45 mg/dL/unit --Carbohydrate ratio = 15 g/unit --BSGs ACHS if eating, q6h if npo (6) Paroxysmal atrial fibrillation: Plan: Currently normal sinus rhythm Continue carvedilol Continue anticoagulation with Eliquis (7) Coronary artery disease: Plan: --status post NSTEMI and PCI of OM2 with single JOE (12/16) Continue apixaban, carvedilol, lisinopril, atorvastatin Plan VTE Prophylaxis - apixaban Diet - regular Disposition - admit to med/surg Admission and Anticipated Discharge Date Admission Date: November 23, 2022 Subjective Patient reports feeling better. Breathing more comfortably today. Review of Systems Review of Systems: All systems reviewed & are unremarkable except as noted in HPI & below Physical Exam Constitutional: WD/WN, vitals as above Eyes: + anicteric sclerae; normal pupil size ENMT: external ear and nose normal, oropharynx normal Respiratory: normal respiratory effort; no respiratory distress Auscultation: + diminished lung sounds (posteriorly); breath sounds present, no crackles and no rales Cardiovascular: RRR, no murmur, no edema Gastrointestinal (Abdomen): normal bowel sounds, soft, nontender, no hepatosplenomegaly Musculoskeletal: no cyanosis or clubbing, extremities motor strength 5/5 Skin: no rashes, warm and dry Psychiatric: A+Ox3, euthymic affect Results & Data Results & Data ([facility]) Vital Signs (Past 12 Hours) Vital Signs Temp Pulse Pulse Pulse Pulse Pulse Resp 11/24/22 21:06 36.4 C L 57 L 17 11/24/22 18:17 78 18 11/24/22 16:30 36.7 C 61 18 11/24/22 09:18 11/24/22 14:58 80 18 11/24/22 11:23 83 85 80 77 11/24/22 11:23 77 18 Resp Resp Resp Resp BP Pulse Ox Pulse Ox 11/24/22 21:06 114/65 97 11/24/22 18:17 94 11/24/22 16:30 143/71 H 94 11/24/22 09:18 11/24/22 14:58 93 11/24/22 11:23 18 20 18 18 92 11/24/22 11:23 93 Pulse Ox Pulse Ox Pulse Ox O2 Del Method O2 Flow Rate O2 Flow Rate 11/24/22 21:06 Nasal Cannula 2 11/24/22 18:17 Nasal Cannula 3 11/24/22 16:30 Room Air 11/24/22 09:18 Nasal Cannula 2 11/24/22 14:58 Nasal Cannula 3 11/24/22 11:23 86 L 91 93 2 11/24/22 11:23 Room Air PG Care Time/CCT Total # of Minutes Spent Total Time Spent with Patient: Total time spent is greater than 50% in coordination of care (as documented) at patient's floor/unit and/or counseling patient: Coding Level of Care Code 10826 SUB INP/OBS CARE 2/35MIN Diagnoses COVID U07.1 COPD exacerbation J44.1 Hypoxemia R09.02 Hypertension I10 Diabetes mellitus E11.9 Paroxysmal atrial fibrillation I48.0 Coronary artery disease I25.10
[2022-11-24] MEDS: ATORVASTATIN 40 MG TAB PO SCH (21:29)
[2022-11-24] MEDS: amLODIPine BESYLATE 5 MG TAB PO SCH (21:29)
[2022-11-24] MEDS: traZODone HCL 50 MG TAB PO SCH (21:36)
[2022-11-25] MEDS: FORMOTEROL 20 MCG/2 ML VIAL NEB SCH (06:55)
[2022-11-25] MEDS: BUDESONIDE 0.5 MG/2 ML VIAL (PULMICORT) NEB SCH (06:55)
[2022-11-25] MEDS: ALBUT/IPRATROP 3MG/0.5MG NEB 3 ML VIAL NEB SCH ×3 (06:58→14:38)
[2022-11-25] MEDS: INSULIN ASPART PER UNIT SC SCH ×2 (09:29→13:01)
[2022-11-25] MEDS: carvediloL 12.5 MG TAB PO SCH (09:41)
[2022-11-25] MEDS: lisinopril 10 MG TAB PO SCH (09:41)
[2022-11-25] MEDS: THEOPHYLLINE 300MG EXTENDED REL TAB PO SCH (09:41)
[2022-11-25] MEDS: APIXABAN 5 MG TABLET PO SCH (09:43)
[2022-11-25] MEDS ORDERED: dexAMETHasone 4 MG TAB PO ONE (11:45)
--- NOTE | 2022-11-27 16:16 | Discharge Summary ---
Date of Service November 25, 2022 Admission HPI Per Admitting Provider Claude Monterroso is a 62 year old male who presents to the ER with shortness of breath. He reports progressively worsening symptoms even prior to medication changes at his pulmonologists office on November 15. At that appointment due to Trelegy not offering him clear benefit he was switched to duonebs 2-3 times a day to see if that helped him more. He reports picking up the duonebs on Saturday but starting it on Saturday with worsening symptoms since. Much worse over the last 2 days with worsening hypoxia especially on exertion and generalized fatigue. He took a COVID test at home which was positive. He denies any nasal congestion, fever, chills, sore throat, abdominal pain or diarrhea. He is vaccinated and boosted for COVID-19, with a previous infection not requiring hospitalization. In the ER he is hypoxic down to mid/low 80s on minimal exertion therefore was referred to medicine for admission and ongoing management of COPD exacerbation and COVID-19. Principal Diagnosis COVID 19 Discharge Exam Constitutional WD/WN, vitals as above Eyes + anicteric sclerae; normal pupil size ENMT external ear and nose normal, oropharynx normal Respiratory normal respiratory effort; no respiratory distress Auscultation: + diminished lung sounds (posteriorly); breath sounds present, no crackles and no rales Cardiovascular RRR, no murmur, no edema Gastrointestinal (Abdomen) normal bowel sounds, soft, nontender, no hepatosplenomegaly Musculoskeletal no cyanosis or clubbing, extremities motor strength 5/5 Skin no rashes, warm and dry Psychiatric A+Ox3, euthymic affect Discharge Data Allergies Allergy/AdvReac Type Severity Reaction Status Date / Time Penicillins Allergy Severe THROAT Verified 11/26/22 10:53 SWELLING doxycycline Allergy Mild Rash Verified 11/26/22 10:53 naproxen Allergy Unknown Unknown Verified 11/26/22 10:53 Consultations 11/23/22 17:10 ED Decision to Admit Stat Hospital Course (1) COVID: Unclear onset of symptoms given his chronic shortness of breth and slow progressive worsening Vaccinated and boosted with prior infection not requiring hospitalization COVID isolation precautions Transitioned him to decadron. will continue to take this daily Patient will complete 10 day course as an outpatient. (2) COPD exacerbation: Solu-medrol 125mg IV given in ER. Continue 40mg IV BID Duoneb QID Per previous pulm note considering budesonide and Perforomist nebulizers therefore will start these here Continue theophylline 300 mg p.o. daily (3) Hypoxemia: Aim O2 sats 88-92% (4) Hypertension: Continue amlodipine 10 mg p.o. daily, lisinopril 30 mg p.o. daily, carvedilol 12.5 mg p.o. twice daily (5) Diabetes mellitus: HbA1C 6.5 in June 2022 Hold metformin' Start Novolog: --Goal BSG Range: Low 110 mg/dL, High 140 mg/dL --Correction Factor: 45 mg/dL/unit --Carbohydrate ratio = 15 g/unit --BSGs ACHS if eating, q6h if npo At discharge: will resume home meds. (6) Paroxysmal atrial fibrillation: Currently normal sinus rhythm Continue carvedilol Continue anticoagulation with Eliquis (7) Coronary artery disease: --status post NSTEMI and PCI of OM2 with single JOE (12/16) Continue apixaban, carvedilol, lisinopril, atorvastatin Total Time Total Time Spent Total Time Spent (In Minutes): 32 Discharge Plan Discharge Items Patient Disposition: Home - Self-Care Reason For Visit: COPD EXACERBATION, COVID-19 Discharge Diagnosis: COVID 19 Activity: Resume your previous activity Non-emergency contact: Primary Care Provider Call non-emergency contact if: you have any medication questions Follow-up/Referrals: Viki Braswell CRNP [Primary Care Provider] - 12/03/22 11:30 am Diet: Regular Addtl Attending Provider Instructions: You were seen for COVID 19. Will recommend you continue taking decadron for 7 more days. will recommend followup with your PCP in 1-2 weeks. Will recommend you continue to isolate until Morning of . you can go out in public but will need to wear a mask at all times when outside until Saturday morning. This will help limit exposing others to COVID 19. Start dexamethasone on Sunday 11/26 Pending Studies at Discharge: No Stand-Alone Forms: [facility] [employer], Smoking Cessation Medications and DC Order Prescriptions: New dexamethasone 6 mg tablet 6 mg PO DAILY Qty: 7 0RF Rx Instructions: start tomorrow. Continued (DME) blood sugar diagnostic [Ule Blue Test Strip] Strip See Rx Instructions .ROUTE .MEDSUPPLY Qty: 100 5RF Rx Instructions: Test blood sugar once daily, Dx:E11.9 ([facility]) FreeStyle Ran 2 [facility] See Rx Instructions .Route Qty: 1 0RF Rx Instructions: Test blood sugar once daily Dx:E11.9 (DME) FreeStyle Ran 2 Sensor Kit See Rx Instructions .Route Qty: 2 8RF Rx Instructions: Test blood sugar once daily Dx:E11.9 Eliquis 5 mg tablet 5 mg PO BID Qty: 180 3RF carvedilol 12.5 mg tablet 12.5 mg PO BID Qty: 180 3RF lisinopril 30 mg tablet 30 mg PO QAM Qty: 90 3RF theophylline 300 mg tablet extended release 12 hr 300 mg PO DAILY Qty: 60 2RF albuterol sulfate [Ventolin HFA] 90 mcg/actuation HFA aerosol inhaler 2 puff INH Q4H PRN (Reason: shortness of breath or wheezing) Qty: 8.5 11RF trazodone 50 mg tablet 50 mg PO DAILY Qty: 30 5RF sildenafil 100 mg tablet 100 mg PO DAILY PRN (Reason: sexual activity) Qty: 30 5RF Rx Instructions: administer 30 minutes to 4 hours before activity albuterol sulfate 2.5 mg /3 mL (0.083 %) solution for nebulization 2.5 mg inhalation Q4H Qty: 75 0RF Rx Instructions: Please use 1 vial up to every 4 hours as needed for shortness of breath. ([facility]) Flutter Valve Device See Rx Instructions .MEDSUPPLY Qty: 1 0RF Rx Instructions: As directed ([facility]) nebulizer accessories [facility] See Dose Instructions .ROUTE .MEDSUPPLY Qty: 1 0RF Dose Instruction: As directed Rx Instructions: nebulizer supplies as needed ipratropium-albuterol 0.5 mg-3 mg(2.5 mg base)/3 mL solution for nebulization 3 ml inhalation QID Qty: 180 2RF acetaminophen [Tylenol Extra Strength] 500 mg Tablet 500 mg PO Q6H PRN (Reason: Pain) amlodipine 10 mg tablet 10 mg PO QPM atorvastatin 40 mg Tablet 40 mg PO HS No Action ascorbate calcium (vitamin C) 500 mg tablet 500 mg PO BID metformin 500 mg tablet 500 mg PO BID Qty: 180 3RF Discharge Orders: Discharge Order (Routine); Ordered 11/25/22 Ordered By: Aram Woodard Admission Data Admit Date/Time: 11/23/22 17:29 Attending Provider: Aram Woodard Admit Provider: Chaz Solis Primary Care Provider: Viki Braswell Other Providers: Chaz Solis Other Interventions: Discharge Summary Assessment (RN) Last Done: 11/25/22 14:21 Coding Level of Care Code HOSP INP/OBS DISCH >30 MIN Diagnoses COVID U07.1 COPD exacerbation J44.1 Hypoxemia R09.02 Hypertension I10 Diabetes mellitus E11.9 Paroxysmal atrial fibrillation I48.0 Coronary artery disease I25.10
== END 2022-11-25 15:15 | disposition home or self-care (01) | DRG 178 ==
LOC: ED 14:09 → SUATTDRO 17:29 → EDINP 17:29 → 3E 21:41

== ENCOUNTER 2023-01-02 15:21 | Inpatient (IN) ==
[2023-01-02] MEDS ORDERED: ALBUT/IPRATROP 3MG/0.5MG NEB 3 ML VIAL INH STA (15:58)
[2023-01-02] MEDS ORDERED: methylPREDNISolone 125 MG/2 ML VIAL IV STA (15:58)
--- NOTE | 2023-01-02 16:22 | XRay Report ---
XR chest 1V portable HISTORY: 62 years-old Male Dyspnea acute shortness of breath COMPARISON: Chest radiograph 11/23/2022 TECHNIQUE: AP view of the chest FINDINGS: Cardiac mediastinal and hilar silhouettes are within normal limits. Nipple shadow projects over the l eft lung base. Emphysema with chronic interstitial coarsening. No pneumothorax, pleural effusion, air space consolidation or pulmonary edema. Bones of the chest appear grossly intact. IMPRESSION: Emphysema without acute process. ACT 112: Negative or not required by law. The above report was generated using voice recognition software. It may contain grammatical, syntax o r spelling errors. Electronically signed by: Trey Salas M.D. 01/02/2023 4:21 PM
[2023-01-02 16:35] LABS: Basophils # (auto) 0.06 K/uL (0-0.2); Basophils % (auto) 0.5 %; Eosinophils # (auto) 0.63 K/uL (0-0.50); Eosinophils % (auto) 5.4 %; Hematocrit (blood only) 48.3 % (42.0-52.0); Hemoglobin 16.2 g/dl (14.0-18.0); Immature Granulocytes # (auto) 0.08 K/uL (0.01-0.20); Immature Granulocytes % (auto) 0.7 %; Lymphocytes # (auto) 2.38 K/uL (1.2-3.4); Lymphocytes % (auto) 20.2 %; Mean Corpuscular Hemoglobin 29.7 pg (25.0-34.0); Mean Corpuscular Hgb Conc 33.5 g/dL (32.0-36.0); Mean Corpuscular Volume 88.5 fL (80.0-100.0); Mean Platelet Volume 11.2 fL (9.4-12.4); Monocytes # (auto) 0.82 K/uL (0.11-0.59); Neutrophils # (auto) 7.79 K/uL (1.40-6.50); Neutrophils % (auto) 66.2 %; Platelet Count 294 K/uL (130-400); RDW Coefficient of Variation 12.6 % (11.5-14.5); Red Blood Count 5.46 M/uL (4.70-6.10); White Blood Count 11.76 K/ul (4.8-10.8)
--- NOTE | 2023-01-02 16:36 | Emergency Department Note ---
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 Was hospitalized here in October and had COVID at that time as well as her COPD. Has been regularly using home oxygen at home since that time and states his breathing continues to be quite bad. Reports he has difficulty walking around and his oxygen levels dropping into the mid 80s. Describes 1. 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 Reports he has not been sleeping well due to his breathing either. Doctor has tried him on trazodone which has not he lped with his sleep much. Reports he has been on a steroid burst as well as an azithromycin pack for the last several weeks without improvement. Does follow with pulmonology locally. Denies significant fever or abdominal symptoms. Denies chest pain. Denies leg swelling. Some slight cough reported. Using home breathing treatments. 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 NECK: Trachea midline. ENT: Mucous membranes pink and moist. LUNGS: Airway patent. No retractions. Breath sounds extensive expiratory and inspiratory wheezing appreciated. HEART: Regular rate and rhythm. No chest wall tenderness ABDOMEN: Soft and non-tender, without guarding or rebound. SKIN: Acyanotic, warm, dry, without rashes EXTREMITIES: Without swelling, tenderness or deformity NEUROLOGICAL: No focal deficits. No aphasia. No facial droop or slurred speech. Ambulatory. EK bpm normal sinus rhythm. No PVC or PAC. No acute ST segment elevation or depression with a QTc of 415. CONTINUOUS CARDIAC MONITORING: was ordered and showed a heart rate of 60s bpm in normal sinus rhythm Patient's laboratory studies and imaging reviewed. Differential includes Reactive airway disease, pneumonia, pneumothorax, COPD, CHF, infections, cardiac ischemia, pulmonary embolism, musculoskeletal, as well as other pathologies. IMPRESSION/MEDICAL DECISION MAKING: Reviewed patient recent hospitalization here in October. Had COVID at that time. We will repeat upper respiratory viral panel to evaluate for other additional: Fractions now. Ongoing oxygen and COPD issues since then. Anticoagulated lower suspicion for PE/VTE. Denies any significant chest pain. EKG and troponin however were completed. No significant acute EKG changes. Basic blood work obtained. Chest x-ray obtained today although not reporting significant fevers. Extensively wheezy and given DuoNeb as well as an additional burst of IV steroids. States minimal improvement with oral prednisone the last week or 2. Steroids may be contributing some to his insomnia in addition to his breathing issues. No trauma or fainting reported. Denies again chest pain or abdominal pain and doubt acute GI pathology. Doubt aortic dissection. No evidence of significant leg swelling and doubt CHF. Chest x-ray per my review and radiology without significant evidence of pulmonary edema, pleural effusion, or pneumonia noted. Blood work without anemia. Borderline slight leukocytosis although in the setting of recent steroids this is more likely the explanation as opposed to infection. Upper respiratory viral panel returns negative. No troponin elevation. Chemistries otherwise unremarkable. Reassessed the patient. Patient with some slight improvement. Ongoing increased oxygen to baseline at home. Patient still feeling short of breath when trying to move around and is still wheezing. Given additional DuoNeb treatment. Discussed with patient. Given his failure of outpatient therapy with recent steroid burst he is requesting further care here at the hospital. Hospitalist contacted. DIAGNOSIS: acute COPD exacerbation, dyspnea on exertion DISPOSITION: Hospitalist will evaluate Patient was agreeable with this plan. Past Med/Surg History Medical History (Updated 01/02/23 @ 22:34 by Leonardo Rodriguez M.D.) Atrial fibrillation on Eliquis. Follows with Dr. Vitaly Ray Constipation Coronary artery disease History of anesthesia reaction "at least 20yrs ago having teeth removed and they lost me for awhile and then got me back"--no other issues with anesthesia History of COVID-19 10/01/20 @ [facility]--headache/cold symptoms Non-ST elevation myocardial infarction (NSTEMI) in recovery phase 2019--had heart cath--follows with Dr. Haider On anticoagulant therapy eliquis daily Surgical History History of cardiac cath (~12/09/18) History of colonoscopy History of heart artery stent (~12/09/18) [address] Haider History of tooth extraction all teeth removed Family History Mother Colorectal cancer Father Myocardial infarction Other Coronary heart disease Diabetes Heart disease Hypertension No family history of adverse response to anesthesia Denies family history of Prostate cancer Breast cancer Social History Smoking Status: Former smoker Tobacco Type: Cigarettes Age Started Using Tobacco: 15; Age Quit Using Tobacco: 53; packs per day: 1.5; Second Hand Exposure: No; Hx Alcohol Use: No Hx Substance Use: No Preferred Language: Belarusian Communication Ability: Effective Waterside Worker Required: No Beliefs That Will Affect Care: None marital status: Current Living Situation: Spouse current occupational status: employed and disabled 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 How many Children do You have: 3 Feels Safe at Home: Yes Childhood Exposure to Second-Hand Smoke: No caffeine: Yes (coffee) Dental Care, Regularly: Yes Physical Activity Frequency: Daily Seatbelt Use: always Sunscreen Use: No Assistive Devices: Denture - Upper, Glasses and Oxygen - at Night Allergies Allergies Allergy/AdvReac Type Severity Reaction Status Date / Time Penicillins Allergy Severe THROAT Verified 01/02/23 16:25 SWELLING doxycycline Allergy Intermediate Rash Verified 01/02/23 16:25 naproxen Allergy Unknown Unknown Verified 01/02/23 16:25 Home Meds Home Medications Medication Instructions Recorded Confirmed acetaminophen 500 mg tablet 500 mg PO Q6H PRN Pain 04/02/21 01/02/23 (Tylenol Extra Strength) amlodipine 10 mg tablet 10 mg PO QPM 04/11/22 01/02/23 atorvastatin 40 mg tablet 40 mg PO HS 11/23/22 01/02/23 albuterol sulfate 2.5 mg/3 mL 2.5 mg inhalation Q4H PRN 01/02/23 01/02/23 (0.083 %) solution for nebulization Shortness Of Breath metformin 500 mg tablet 500 mg PO BID PRN SEE COMMENT 01/02/23 01/02/23 trazodone 50 mg tablet 75 mg PO HS 01/02/23 01/02/23 Previous Rx's Medication Instructions Recorded nebulizer accessories #1 ea 06/17/19 blood sugar diagnostic (OneTouch #100 ea 06/07/20 Ultra Blue Test Strip) albuterol sulfate 90 mcg/actuation 2 puff inhalation Q4H PRN 06/12/22 aerosol inhaler (Ventolin HFA) shortness of breath or wheezing #8.5 grams apixaban 5 mg tablet (Eliquis) 5 mg PO BID #180 tabs 07/09/22 carvedilol 12.5 mg tablet 12.5 mg PO BID #180 tabs 07/12/22 sildenafil 100 mg tablet 100 mg PO DAILY PRN sexual 07/12/22 activity #30 tabs Flutter Valve #1 ea 10/05/22 lisinopril 30 mg tablet 30 mg PO QAM #90 tabs 10/30/22 ipratropium 0.5 mg-albuterol 3 mg 3 ml inhalation QID #180 mL 11/19/22 (2.5 mg base)/3 mL nebulization soln budesonide 0.5 mg/2 mL suspension 0.5 mg (2 mL) inhalation BID #60 mL 12/07/22 for nebulization nystatin 100,000 unit/gram topical 1 applic topical TID PRN rash #90 12/17/22 cream grams Results & Data (ED) Vital Signs Vital Signs - 24 hr 01/02/23 15:27 01/02/23 15:27 01/02/23 15:27 Temperature 36.6 C Temperature Source Oral Pulse Rate 66 Pulse Rate [Apical] Pulse Rate from SpO2 Sensor Respiratory Rate 16 Respiratory Effort / Characteristics Blood Pressure 185/95 H Blood Pressure Mean 125 Pulse Oximetry 86 L 98 Oxygen Delivery Method Nasal Cannula Nasal Cannula Nasal Cannula Oxygen Flow Rate 2 5 5 Sepsis Recent Fever Within 48 Hours No Sepsis New/Unexplained Change in Mental Status N/A Sepsis Action Taken by Nursing No Action Required 01/02/23 15:58 01/02/23 16:22 01/02/23 16:25 Temperature Temperature Source Pulse Rate 65 68 Pulse Rate [Apical] 66 Pulse Rate from SpO2 Sensor Respiratory Rate 22 Respiratory Effort / Characteristics Spontaneous Blood Pressure Blood Pressure Mean Pulse Oximetry 96 97 Oxygen Delivery Method Nasal Cannula Nasal Cannula Oxygen Flow Rate 5 4 Sepsis Recent Fever Within 48 Hours Sepsis New/Unexplained Change in Mental Status Sepsis Action Taken by Nursing 01/02/23 15:28 01/02/23 15:30 01/02/23 16:00 Temperature Temperature Source Pulse Rate 72 66 65 Pulse Rate [Apical] Pulse Rate from SpO2 Sensor 72 67 65 Respiratory Rate 22 22 29 H Respiratory Effort / Characteristics Blood Pressure Blood Pressure Mean Pulse Oximetry 96 97 98 Oxygen Delivery Method Nasal Cannula Nasal Cannula Nasal Cannula Oxygen Flow Rate 5 5 5 Sepsis Recent Fever Within 48 Hours Sepsis New/Unexplained Change in Mental Status Sepsis Action Taken by Nursing 01/02/23 16:30 01/02/23 17:00 01/02/23 17:30 Temperature Temperature Source Pulse Rate 64 66 66 Pulse Rate [Apical] Pulse Rate from SpO2 Sensor 64 66 67 Respiratory Rate 15 21 21 Respiratory Effort / Characteristics Blood Pressure Blood Pressure Mean Pulse Oximetry 99 100 100 Oxygen Delivery Method Nasal Cannula Oxygen Flow Rate 5 Sepsis Recent Fever Within 48 Hours Sepsis New/Unexplained Change in Mental Status Sepsis Action Taken by Nursing 01/02/23 17:42 01/02/23 17:42 01/02/23 18:00 Temperature Temperature Source Pulse Rate 64 Pulse Rate [Apical] Pulse Rate from SpO2 Sensor 64 Respiratory Rate 18 Respiratory Effort / Characteristics Blood Pressure 118/75 138/75 Blood Pressure Mean 89 96 Pulse Oximetry 97 Oxygen Delivery Method Oxygen Flow Rate Sepsis Recent Fever Within 48 Hours Sepsis New/Unexplained Change in Mental Status Sepsis Action Taken by Nursing 01/02/23 18:00 01/02/23 18:30 01/02/23 18:30 Temperature Temperature Source Pulse Rate 65 64 Pulse Rate [Apical] Pulse Rate from SpO2 Sensor 65 65 Respiratory Rate 18 11 L Respiratory Effort / Characteristics Blood Pressure 124/67 Blood Pressure Mean 86 Pulse Oximetry 96 93 98 Oxygen Delivery Method Nasal Cannula Oxygen Flow Rate 3 Sepsis Recent Fever Within 48 Hours Sepsis New/Unexplained Change in Mental Status Sepsis Action Taken by Nursing Laboratory Data 01/02/23 15:42 01/02/23 15:42 Lab Results 01/02/23 01/02/23 01/02/23 Range/Units 15:42 15:42 15:42 WBC 11.76 H (4.8-10.8) K/ul RBC 5.46 (4.70-6.10) M/uL Hgb 16.2 (14.0-18.0) g/dl Hct 48.3 (42.0-52.0) % MCV 88.5 (80.0-100.0) fL MCH 29.7 (25.0-34.0) pg MCHC 33.5 (32.0-36.0) g/dL RDW Std Deviation 41.0 (36.4-46.3) fL RDW Coeff of [place] 12.6 (11.5-14.5) % Plt Count 294 (130-400) K/uL MPV 11.2 (9.4-12.4) fL Immature Gran % (Auto) 0.7 % Neut % (Auto) 66.2 % Lymph % (Auto) 20.2 % [place] % (Auto) 7.0 % Eos % (Auto) 5.4 % Baso % (Auto) 0.5 % Neut # (Auto) 7.79 H (1.40-6.50) K/uL Lymph # (Auto) 2.38 (1.2-3.4) K/uL [place] # (Auto) 0.82 H (0.11-0.59) K/uL Eos # (Auto) 0.63 H (0-0.50) K/uL Baso # (Auto) 0.06 (0-0.2) K/uL Immature Gran # (Auto) 0.08 (0.01-0.20) K/uL PT 11.6 (9.0-12.0) Seconds INR 1.1 (0.9-1.1) D-Dimer (0-500) ug/L FEU Sodium 138 (136-145) mmol/L Potassium 4.1 (3.5-5.1) mmol/L Chloride 99 (98-107) mmol/L Carbon Dioxide 32 (21-32) mmol/L Anion Gap 7 (3-11) BUN 20 (6-23) mg/dl Creatinine 0.77 (0.6-1.4) mg/dl Est Cr Clr Drug Dosing 101.4 ml/min Est GFR ( Amer) 111.9 ml/min Est GFR (Non-Af Amer) 96.6 ml/min BUN/Creatinine Ratio 26.0 H (10-20) Glucose 123 H (70-99(Fasting)) mg/dl Calcium 9.5 (8.5-10.1) mg/dl Magnesium 1.9 (1.7-2.4) mg/dl Total Bilirubin 0.8 (0.2-1.0) mg/dl AST 13 (13-39) U/L ALT 21 (7-52) U/L Alkaline Phosphatase 50 (34-104) U/L Troponin I High Sens 3.5 (0-20) pg/ml Total Protein 7.1 (6.0-8.3) gm/dl Albumin 4.7 (3.4-5.0) gm/dl Globulin 2.4 L (2.5-4.0) gm/dl Albumin/Globulin Ratio 2.0 (0.9-2) Adenovirus (PCR) (NotDetected) B. pertussis DNA (PCR) (NotDetected) B.parapertussis DNA PCR (NotDetected) C. pneumoniae DNA (PCR) (NotDetected) Coronavirus OC43 (PCR) (NotDetected) Coronavirus HKU1 (PCR) (NotDetected) Coronavirus 229E (PCR) (NotDetected) SARS-CoV-2 (PCR) (NotDetected) Coronavirus NL63 (PCR) (NotDetected) Human Metapneumovir PCR (NotDetected) Influenza Type A (PCR) (NotDetected) Influenza Type B (PCR) (NotDetected) M. pneumoniae (PCR) (NotDetected) Parainfluenza 1 (PCR) (NotDetected) Parainfluenza 2 (PCR) (NotDetected) Parainfluenza 3 (PCR) (NotDetected) Parainfluenza 4 (PCR) (NotDetected) RSV (PCR) (NotDetected) Entero/Rhino (PCR) (NotDetected) 01/02/23 01/02/23 Range/Units 15:42 16:16 WBC (4.8-10.8) K/ul RBC (4.70-6.10) M/uL Hgb (14.0-18.0) g/dl Hct (42.0-52.0) % MCV (80.0-100.0) fL MCH (25.0-34.0) pg MCHC (32.0-36.0) g/dL RDW Std Deviation (36.4-46.3) fL RDW Coeff of [place] (11.5-14.5) % Plt Count (130-400) K/uL MPV (9.4-12.4) fL Immature Gran % (Auto) % Neut % (Auto) % Lymph % (Auto) % [place] % (Auto) % Eos % (Auto) % Baso % (Auto) % Neut # (Auto) (1.40-6.50) K/uL Lymph # (Auto) (1.2-3.4) K/uL [place] # (Auto) (0.11-0.59) K/uL Eos # (Auto) (0-0.50) K/uL Baso # (Auto) (0-0.2) K/uL Immature Gran # (Auto) (0.01-0.20) K/uL PT (9.0-12.0) Seconds INR (0.9-1.1) D-Dimer < 190 (0-500) ug/L FEU Sodium (136-145) mmol/L Potassium (3.5-5.1) mmol/L Chloride (98-107) mmol/L Carbon Dioxide (21-32) mmol/L Anion Gap (3-11) BUN (6-23) mg/dl Creatinine (0.6-1.4) mg/dl Est Cr Clr Drug Dosing ml/min Est GFR ( Amer) ml/min Est GFR (Non-Af Amer) ml/min BUN/Creatinine Ratio (10-20) Glucose (70-99(Fasting)) mg/dl Calcium (8.5-10.1) mg/dl Magnesium (1.7-2.4) mg/dl Total Bilirubin (0.2-1.0) mg/dl AST (13-39) U/L ALT (7-52) U/L Alkaline Phosphatase (34-104) U/L Troponin I High Sens (0-20) pg/ml Total Protein (6.0-8.3) gm/dl Albumin (3.4-5.0) gm/dl Globulin (2.5-4.0) gm/dl Albumin/Globulin Ratio (0.9-2) Adenovirus (PCR) Not Detected (NotDetected) B. pertussis DNA (PCR) Not Detected (NotDetected) B.parapertussis DNA PCR Not Detected (NotDetected) C. pneumoniae DNA (PCR) Not Detected (NotDetected) Coronavirus OC43 (PCR) Not Detected (NotDetected) Coronavirus HKU1 (PCR) Not Detected (NotDetected) Coronavirus 229E (PCR) Not Detected (NotDetected) SARS-CoV-2 (PCR) Not Detected (NotDetected) Coronavirus NL63 (PCR) Not Detected (NotDetected) Human Metapneumovir PCR Not Detected (NotDetected) Influenza Type A (PCR) Not Detected (NotDetected) Influenza Type B (PCR) Not Detected (NotDetected) M. pneumoniae (PCR) Not Detected (NotDetected) Parainfluenza 1 (PCR) Not Detected (NotDetected) Parainfluenza 2 (PCR) Not Detected (NotDetected) Parainfluenza 3 (PCR) Not Detected (NotDetected) Parainfluenza 4 (PCR) Not Detected (NotDetected) RSV (PCR) Not Detected (NotDetected) Entero/Rhino (PCR) Not Detected (NotDetected) Administered Medications Albuterol (Albut/Ipratrop 3mg/0.5mg Neb 3 Ml Vial) 3 ml INH QIDR KEISHA; Protocol Stop: 02/01/23 21:09 Last Admin: 01/02/23 22:11 Dose: Not Given Documented By: JOSE Amlodipine Besylate (Amlodipine Besylate 5 Mg Tab) 10 mg PO QPM KEISHA Stop: 02/01/23 21:09 Last Admin: 01/02/23 22:07 Dose: 10 mg Documented By: LMP Apixaban (Apixaban 5 Mg Tablet) 5 mg PO BID KEISHA Stop: 02/01/23 21:09 Last Admin: 01/02/23 22:08 Dose: 5 mg Documented By: LMP Atorvastatin Calcium (Atorvastatin 40 Mg Tab) 40 mg PO HS KEISHA Stop: 02/01/23 21:09 Last Admin: 01/02/23 22:08 Dose: 40 mg Documented By: LMP Budesonide (Budesonide 0.5 Mg/2 Ml Vial (Pulmicort)) 0.5 mg INH BIDR KEISHA Stop: 02/01/23 21:09 Last Admin: 01/02/23 22:11 Dose: 0.5 mg Documented By: JOSE Carvedilol (Carvedilol 12.5 Mg Tab) 12.5 mg PO BID KEISHA Stop: 02/01/23 21:09 Last Admin: 01/02/23 22:08 Dose: 12.5 mg Documented By: JASMIN Formoterol Fumarate (Formoterol 20 Mcg/2 Ml Vial) 20 mcg NEB BIDR KEISHA Stop: 02/01/23 20:59 Last Admin: 01/02/23 22:11 Dose: 20 mcg Documented By: JOSE Guaifenesin (Guaifenesin 600 Mg Tabcr) 600 mg PO Q12 KEISHA Stop: 02/01/23 20:59 Last Admin: 01/02/23 22:08 Dose: 600 mg Documented By: JASMIN Insulin Aspart (Insulin Aspart Per Unit) 0 units SC ACHS KEISHA Stop: 02/01/23 20:59 Last Admin: 01/02/23 20:10 Dose: Not Given Documented By: MIRTHA Co-signed By: BENJY Insulin Glargine (Lantus Per Unit Charge) 5 units SQ BID KEISHA Stop: 02/01/23 20:59 Last Admin: 01/02/23 20:19 Dose: 5 units Documented By: MIRTHA Co-signed By: ROSALBA Sodium Chloride (Sodium Chloride 0.9% Nebu Soln 3 Ml) 3 ml NEB BIDR KEISHA Stop: 02/01/23 19:44 Last Admin: 01/02/23 22:11 Dose: 3 ml Documented By: JOSE Trazodone HCl (Trazodone Hcl 50 Mg Tab) 75 mg PO HS KEISHA Stop: 02/01/23 21:09 Last Admin: 01/02/23 22:08 Dose: 75 mg Documented By: JASMIN Discontinued Medications Albuterol (Albut/Ipratrop 3mg/0.5mg Neb 3 Ml Vial) 12 ml INH ONE STA Stop: 01/02/23 15:59 Last Admin: 01/02/23 16:24 Dose: 12 ml Documented By: ANTONINA Albuterol (Albut/Ipratrop 3mg/0.5mg Neb 3 Ml Vial) 3 ml NEB NOW STA; Protocol Stop: 01/02/23 18:08 Last Admin: 01/02/23 18:22 Dose: 3 ml Documented By: BRANDON Methylprednisolone (Methylprednisolone 125 Mg/2 Ml Vial) 125 mg IV NOW STA Stop: 01/02/23 15:59 Last Admin: 01/02/23 16:12 Dose: 125 mg Documented By: BRANDON Imaging Data Radiologist's Impression: Chest X-Ray 01/02/23 15:58 XR chest 1V portable HISTORY: 62 years-old Male Dyspnea acute shortness of breath COMPARISON: Chest radiograph 11/23/2022 TECHNIQUE: AP view of the chest FINDINGS: Cardiac mediastinal and hilar silhouettes are within normal limits. Nipple shadow projects over the left lung base. Emphysema with chronic interstitial coarsening. No pneumothorax, pleural effusion, airspace consolidation or pulmonary edema. Bones of the chest appear grossly intact. IMPRESSION: Emphysema without acute process. ACT 112: Negative or not required by law. The above report was generated using voice recognition software. It may contain grammatical, syntax or spelling errors. Electronically signed by: Trey Salas M.D. 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
[2023-01-02 16:50] LABS: Albumin Level 4.7 gm/dl (3.4-5.0); Bilirubin,Total 0.8 mg/dl (0.2-1.0); Calcium 9.5 mg/dl (8.5-10.1); Creatinine Clr Calc Pharmacy 101.4 ml/min; Est GFR (African American) 111.9 ml/min; Est GFR (Non-African American) 96.6 ml/min; Globulin 2.4 gm/dl (2.5-4.0); Magnesium 1.9 mg/dl (1.7-2.4); Potassium 4.1 mmol/L (3.5-5.1); Total Protein 7.1 gm/dl (6.0-8.3)
[2023-01-02 16:56] LABS: Troponin I High Sensitivity 3.5 pg/ml (0-20)
[2023-01-02 17:00] LABS: INR 1.1 (0.9-1.1); Prothrombin Time 11.6 Seconds (9.0-12.0)
[2023-01-02 17:20] LABS: Adenovirus PCR Not Detected (NotDetected); Bordetella parapertussis PCR Not Detected (NotDetected); Bordetella pertussis PCR Not Detected (NotDetected); Chlamydia pneumoniae PCR Not Detected (NotDetected); Coronavirus 229E PCR Not Detected (NotDetected); Coronavirus CoV-2 (COVID19)PCR Not Detected (NotDetected); Coronavirus HKU1 PCR Not Detected (NotDetected); Coronavirus NL63 PCR Not Detected (NotDetected); Coronavirus OC43PCR Not Detected (NotDetected); Human Metapneumovirus PCR Not Detected (NotDetected); Influenza A PCR Not Detected (NotDetected); Influenza B PCR Not Detected (NotDetected); Mycoplasma pneumoniae PCR Not Detected (NotDetected); Parainfluenza Virus 1 PCR Not Detected (NotDetected); Parainfluenza Virus 2 PCR Not Detected (NotDetected); Parainfluenza Virus 3 PCR Not Detected (NotDetected); Parainfluenza Virus 4 PCR Not Detected (NotDetected); Respiratory Syncytial VirusPCR Not Detected (NotDetected); Rhinovirus/Enterovirus PCR Not Detected (NotDetected)
[2023-01-02] MEDS ORDERED: ALBUT/IPRATROP 3MG/0.5MG NEB 3 ML VIAL NEB STA (18:07)
--- NOTE | 2023-01-02 18:58 | History & Physical Report ---
Date of Service January 02, 2023 Assessment & Plan (1) SOB (shortness of breath): Plan: -Admit to med/tele -The patient is currently afebrile, hemodynamically stable, and stable on his baseline 2L NC at rest with desaturations and increased SOB with ambulation -At this time it appears that his symptoms are most likely due to poorly controlled COPD/non-compliance with medications/inability to afford some of his COPD medications -It appears that he does not completely understand his current medication regimen and the necessity to use his medications as prescribed -CXR was negative for focal consolidations, D-dimer negative, no increase in cough or sputum production with negative full respiratory biofire to suggest infectious COPD exacerbation -S/P DuoNebs and 125 mg IV Solu-Medrol in the ED -Will continue with 40 mg IV Solu-Medrol BID, QID DuoNebs, Saline nebulizers BID, Budesonide BIB -Incentive spirometry and flutter therapy ordered, continue supplemental O2 to Keep SpO2 between 88-92%, prn Mucinex -Will hold abx at this time as it does not appear that he has an infectious source and recently completed a course of Azithromycin outpatient -Pulmonology consult placed -BL SCD's and home Eliquis for DVT PPX -AM CBC, BMP, Mag (2) Paroxysmal atrial fibrillation: Plan: -Stable -Continue Eliquis, carvedilol (3) GERD (gastroesophageal reflux disease): Plan: -40 mg PO famotidine daily while on steroids (4) Diabetes mellitus: Plan: -Hold metformin -Monitor BSG ACHS, goal is 110-140 -Will start lantus 5 units BID, correction factor of 45, and carb ratio of 15 -DMII -May need to adjust dosing with steroid treatment (5) Hyperlipidemia: Plan: -Continue statin (6) Hypertension: Plan: -Stable -Continue Carvedilol and amlodipine Plan The patient was discussed with Dr. Solis at the time of the admission History of Present Illness Chief Complaint: Increased SOB and Hypoxia Primary Care Provider: CHARISSA Hu Claude is a 62 year old male with a PMH significant for COPD (Follows with Dr. Roldan), chronic hypoxemic respiratory failure typically on 2L NC, afib on Eliquis, ankylosing spondylitis, HTN, GERD, CAD status post NSTEMI and PCI of OM2 with single JOE (12/16), and DMII who presented to the [facility] ED on 01/02/23 with complaints of increased SOB and increased O2 requirements. In the ED the patient was found to be afebrile, initially hypertensive at 185/95, and hypoxic ay 86% on his 2L NC. Labs were remarkable for a WBC of 11.76 with absolute neut count of 7.79, stable Hgb and platelets, stable Cr at 0.77 with stable electrolytes, LFT's WNL, high sensitivity trop of 3.5. Chest xray was read as "Emphysema without acute process.". Prior to admission the patient was given DuoNebs and 125 mg IV solud medrol. Per chart review, the patient was last admitted to [facility] from 11/23/22-11/25/22 for acute on chronic hypoxic respiratory failure and Covid-19 Pneumonia. His acute on chronic respiratory failure was thought to be multifactorial including covid pneumonia and possibly stopping his Trellegy as recommended by Dr. Roldan at his last clinic visit. He was started on BID 40 mg IV Solu-Medrol, scheduled DuoNebs, his home Theophylline, and was started on Budesonide and Perforomist nebulizers as mentioned by Dr. Roldan at their last clinic visit. The patient responded well to treatment and was able to be weaned back to his home O2 requirements and discharged home with PO Decadron to complete a 10 days course. Per his last PCP visit on 12/17/22 for follow-up the patient noted that his breathing was still bothering him. He called the Pulmonology office on 12/14/22 and was prescribed formoterol, budesonide and revefenacin nebulizers. Per the PCP note the patient's insurance would not cover the Yupelri (revefenacin)or Perforomist (formoterol). He stopped taking his Theophylline as well prior to this visit as he started to develop a rash and was concerned it was caused by the Theophylline. At that time his PCP ordered him a course of Azithromycin and a tapering course of prednisone. At the time of the exam the patient was resting in bed in no acute distress, he was saturating at 97% on 3L. At the beginning of my exam I turned the patient's O2 back down to 2L and he remained stable throughout. He states since his last discharge his breathing problems have continued. He is stable and asymptomatic at rest but is becoming significant SOB with O2 saturations in the 70's-80's with ambulation on 2L NC. He states that at the present time he is only using his albuterol as needed and is infrequently using his budesonide as he was unsure if it was helping. He did complete the course of Azithromycin and Prednisone he was given by his PCP but did not see improvement in his symptoms. He confirmed he stopped his Theophylline due to concerns for a possible rash. He has not seen a significant improvement in his rash since stopping the Theop hylline. When asked, he is also not using his ipratropium nebulizer as his insurance is not covering it. He thinks there may be a component of anxiety with his breathing difficulties with ambulation as his increased SOB makes him anxious, causing his to feel more SOB. I explained that we need to work on getting him back on a consistent medication regimen as he is not currently on one due to all his difficulties. He does not note an increase in cough or sputum production since his last admission. He has continued to take his Eliquis as prescribed and has not missed a dose. He denies recent fevers, chills, chest pain, abd pain, nausea, vomiting, dysuria, hematuria, LE swelling, and recent trauma. He wishes to be a full code and for his to make medical decisions for him if he could not make them himself. Please refer to Dr. Solis's attestation for any changes to the treatment plan Allergies Allergy/AdvReac Type Severity Reaction Status Date / Time Penicillins Allergy Severe THROAT Verified 01/02/23 16:25 SWELLING doxycycline Allergy Intermediate Rash Verified 01/02/23 16:25 naproxen Allergy Unknown Unknown Verified 01/02/23 16:25 Home Medications Medication Instructions Recorded Confirmed Type nebulizer accessories #1 ea 06/17/19 01/02/23 Rx blood sugar diagnostic (OneTouch #100 ea 06/07/20 01/02/23 Rx Ultra Blue Test Strip) acetaminophen 500 mg tablet 500 mg PO Q6H PRN Pain 04/02/21 01/02/23 History (Tylenol Extra Strength) amlodipine 10 mg tablet 10 mg PO QPM 04/11/22 01/02/23 History albuterol sulfate 90 mcg/actuation 2 puff inhalation Q4H PRN 06/12/22 01/02/23 Rx aerosol inhaler (Ventolin HFA) shortness of breath or wheezing #8.5 grams apixaban 5 mg tablet (Eliquis) 5 mg PO BID #180 tabs 07/09/22 01/02/23 Rx carvedilol 12.5 mg tablet 12.5 mg PO BID #180 tabs 07/12/22 01/02/23 Rx sildenafil 100 mg tablet 100 mg PO DAILY PRN sexual 07/12/22 01/02/23 Rx activity #30 tabs Flutter Valve #1 ea 10/05/22 01/02/23 Rx lisinopril 30 mg tablet 30 mg PO QAM #90 tabs 10/30/22 01/02/23 Rx ipratropium 0.5 mg-albuterol 3 mg 3 ml inhalation QID #180 mL 11/19/22 01/02/23 Rx (2.5 mg base)/3 mL nebulization soln atorvastatin 40 mg tablet 40 mg PO HS 11/23/22 01/02/23 History budesonide 0.5 mg/2 mL suspension 0.5 mg (2 mL) inhalation BID #60 mL 12/07/22 01/02/23 Rx for nebulization nystatin 100,000 unit/gram topical 1 applic topical TID PRN rash #90 12/17/22 01/02/23 Rx cream grams albuterol sulfate 2.5 mg/3 mL 2.5 mg inhalation Q4H PRN 01/02/23 01/02/23 History (0.083 %) solution for nebulization Shortness Of Breath metformin 500 mg tablet 500 mg PO BID PRN SEE COMMENT 01/02/23 01/02/23 History trazodone 50 mg tablet 75 mg PO HS 01/02/23 01/02/23 History Past Med/Surg History Medical History (Updated 01/02/23 @ 22:34 by Leonardo Rodriguez M.D.) Atrial fibrillation on Eliquis. Follows with Dr. Vitaly Ray Constipation Coronary artery disease History of anesthesia reaction "at least 20yrs ago having teeth removed and they lost me for awhile and then got me back"--no other issues with anesthesia History of COVID-19 10/01/20 @ [facility]--headache/cold symptoms Non-ST elevation myocardial infarction (NSTEMI) in recovery phase 2019--had heart cath--follows with Dr. Haider On anticoagulant therapy eliquis daily Surgical History History of cardiac cath (~12/09/18) History of colonoscopy History of heart artery stent (~12/09/18) [address] Haider History of tooth extraction all teeth removed Family History Mother Colorectal cancer Father Myocardial infarction Other Coronary heart disease Diabetes Heart disease Hypertension No family history of adverse response to anesthesia Denies family history of Prostate cancer Breast cancer Social History Smoking Status: Former smoker Tobacco Type: Cigarettes Age Started Using Tobacco: 15; Age Quit Using Tobacco: 53; packs per day: 1.5; Second Hand Exposure: No; Hx Alcohol Use: No Hx Substance Use: No Preferred Language: Divehi Communication Ability: Effective Vascular Technologist Sonographer Required: No Beliefs That Will Affect Care: None marital status: Current Living Situation: Spouse current occupational status: employed and disabled 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 All systems have been reviewed and are otherwise negative. Physical Exam Physical Exam: Physical Exam: General: In no acute distress, stated age, chorionically ill-appearing but non-toxic appearing HEENT: Normocephalic, atraumatic, no scleral icterus, pupils around round, symmetrical, and reactive to light, moist mucus membranes, trachea midline, no thyromegaly Chest/Pulm: No respiratory distress, audible wheeze noted with deep inspiration prior to auscultation, symmetrical chest expansion, expiratory wheezing noted throughout Cardiac: RRR, no murmurs noted Abdomen: Negative for ascites and bruising, normoactive bowel sounds, soft, non-tender to palpation throughout Musculoskeletal: Symmetrical and without signs of acute trauma, upper and lower extremities with full ROM, no atrophy, spasticity, or flaccidity Extremities: Radial, dorsalis pedis, and posterior tibial pulses are intact and symmetrical, no edema noted in the BL LE's Skin: Patient with erythematous, plaque-like lesions on the left hand which he notes are similar to the ones on his buttocks, the lesions do note appear infected and are not draining Neuro: Alert and oriented to person, place, month, year, and president, no focal defects, CN II-XII tested and intact, no tremors noted Psych: No acute distress, calm and cooperative during the exam Results & Data Results & Data ([facility]) Vital Signs (Past 12 Hours) Vital Signs Temp Pulse Pulse Resp BP Pulse Ox O2 Del Method 01/02/23 18:30 64 11 L 98 01/02/23 18:30 124/67 93 Nasal Cannula 01/02/23 18:00 65 18 96 01/02/23 18:00 138/75 01/02/23 17:42 118/75 01/02/23 17:42 64 18 97 01/02/23 17:30 66 21 100 01/02/23 17:00 66 21 100 01/02/23 16:30 64 15 99 Nasal Cannula 01/02/23 16:00 65 29 H 98 Nasal Cannula 01/02/23 15:30 66 22 97 Nasal Cannula 01/02/23 15:28 72 22 96 Nasal Cannula 01/02/23 16:25 66 22 97 Nasal Cannula 01/02/23 16:22 68 01/02/23 15:58 65 96 Nasal Cannula 01/02/23 15:27 98 Nasal Cannula 01/02/23 15:27 Nasal Cannula 01/02/23 15:27 36.6 C 66 16 185/95 H 86 L Nasal Cannula O2 Flow Rate 01/02/23 18:30 01/02/23 18:30 3 01/02/23 18:00 01/02/23 18:00 01/02/23 17:42 01/02/23 17:42 01/02/23 17:30 01/02/23 17:00 01/02/23 16:30 5 01/02/23 16:00 5 01/02/23 15:30 5 01/02/23 15:28 5 01/02/23 16:25 4 01/02/23 16:22 01/02/23 15:58 5 01/02/23 15:27 5 01/02/23 15:27 5 01/02/23 15:27 2 Laboratory Results Abnormal lab results 01/02/23 01/02/23 Range/Units 15:42 15:42 WBC 11.76 H (4.8-10.8) K/ul Neut # (Auto) 7.79 H (1.40-6.50) K/uL Stanley # (Auto) 0.82 H (0.11-0.59) K/uL Eos # (Auto) 0.63 H (0-0.50) K/uL BUN/Creatinine Ratio 26.0 H (10-20) Glucose 123 H (70-99(Fasting)) mg/dl Globulin 2.4 L (2.5-4.0) gm/dl Diagnostic Findings Chest X-Ray 01/02/23 15:58 XR chest 1V portable HISTORY: 62 years-old Male Dyspnea acute shortness of breath COMPARISON: Chest radiograph 11/23/2022 TECHNIQUE: AP view of the chest FINDINGS: Cardiac mediastinal and hilar silhouettes are within normal limits. Nipple shadow projects over the left lung base. Emphysema with chronic interstitial coarsening. No pneumothorax, pleural effusion, airspace consolidation or pulmonary edema. Bones of the chest appear grossly intact. IMPRESSION: Emphysema without acute process. ACT 112: Negative or not required by law. The above report was generated using voice recognition software. It may contain grammatical, syntax or spelling errors. Electronically signed by: Trey Salas M.D. 01/02/2023 4:21 PM ECG Additional Comments: Poor data quality, interpretation may be adversely affected Normal sinus rhythm Normal ECG When compared with ECG of 23-NOV-2022 14:37, ST elevation has replaced ST depression in Inferior leads ST no longer depressed in Lateral leads Code Status & VTE Plan Code Status Full code VTE Prophylaxis Plan VTE Prophylaxis will be ordered: Yes Supervising Physician Co-Signing Physician Notes I personally saw and examined the patient. I verified all francis points and agree with Alexey Cano PA-C with the following exceptions and/or additions: 62 year old female presents to the ER with shortness of breath and worsening hypoxia on exertion. Progressively getting worse since admission with COVID-19. O/E A&Ox3, HS RRR, no murmurs, Chest wheezing inspiratory and expiratory, Abdo SNT A/P COPD exacerbation - suspect due to confusion regarding his home medications and not able to get some with insurance. Solu-medrol 40mg IV BID, Duonebs, Formoterol NEB BID, Budesonide NEB BID. Consult pulmonology for further recommendations. PG Care Time/CCT Total # of Minutes Spent Total Time Spent with Patient: Total time spent is greater than 50% in coordination of care (as documented) at patient's floor/unit and/or counseling patient: C[place] [address] INT INP/OBS CARE 3/75MIN Patient Type Established Medical Decision Making High Complexity Diagnoses SOB (shortness of breath) R06.02 Paroxysmal atrial fibrillation I48.0 GERD (gastroesophageal reflux disease) K21.9 Diabetes mellitus E11.9 Hyperlipidemia E78.5 Hypertension I10
[2023-01-02 19:18] LABS: D Dimer < 190 ug/L FEU (0-500)
[2023-01-02] MEDS ORDERED: DEXTROSE 50% 50 ML SYRINGE IV PRN (19:22)
[2023-01-02] MEDS ORDERED: CARBOHYDRATES FOR HYPOGLYCEMIA PO PRN (19:22)
[2023-01-02] MEDS ORDERED: GLUCOSE 40% GEL 15 GM TUBE PO PRN (19:22)
[2023-01-02] MEDS ORDERED: GLUCOSE 10 TAB/TUBE PO PRN (19:22)
[2023-01-02] MEDS ORDERED: GLUCAGON FOR INJ 1 MG VIAL SQ PRN (19:22)
[2023-01-02] MEDS: INSULIN ASPART PER UNIT CHARGE SC SCH (20:10)
[2023-01-02] MEDS: LANTUS PER UNIT CHARGE SQ SCH (20:19)
[2023-01-02] MEDS ORDERED: ALBUT/IPRATROP 3MG/0.5MG NEB 3 ML VIAL INH SCH (21:10)
[2023-01-02] MEDS: amLODIPine BESYLATE 5 MG TAB PO SCH (22:07)
[2023-01-02] MEDS: traZODone HCL 50 MG TAB PO SCH (22:08)
[2023-01-02] MEDS: ATORVASTATIN 40 MG TAB PO SCH (22:08)
[2023-01-02] MEDS: guaiFENesin 600 MG TABCR PO SCH (22:08)
[2023-01-02] MEDS: carvediloL 12.5 MG TAB PO SCH (22:08)
[2023-01-02] MEDS: APIXABAN 5 MG TABLET PO SCH (22:08)
[2023-01-02] MEDS: SODIUM CHLORIDE 0.9% NEBU SOLN 3 ML NEB SCH (22:11)
[2023-01-02] MEDS: BUDESONIDE 0.5 MG/2 ML VIAL (PULMICORT) INH SCH (22:11)
[2023-01-02] MEDS: FORMOTEROL 20 MCG/2 ML VIAL NEB SCH (22:11)
[2023-01-02] MEDS: FAMOTIDINE 40 MG TABLET PO SCH (22:53)
--- NOTE | 2023-01-03 06:23 | Electrocardiogram Report ---
Test Reason : Blood Pressure : / mmHG Vent. Rate : 066 BPM Atrial Rate : 066 BPM P-R Int : 156 ms QRS Dur : 076 ms QT Int : 396 ms P-R-T Axes : 090 076 071 degrees QTc Int : 415 ms Poor data quality, interpretation may be adversely affected Normal sinus rhythm Normal ECG When compared with ECG of 23-NOV-2022 14:37, No significant change Confirmed by Brain Enciso ([id number]) on 01/03/2023 6:23:00 AM Referred By: REFERRED SELF Confirmed By:Brain Enciso
[2023-01-03 06:33] LABS: Basophils # (auto) 0.01 K/uL (0-0.2); Basophils % (auto) 0.1 %; Hemoglobin 14.6 g/dl (14.0-18.0); Immature Granulocytes # (auto) 0.06 K/uL (0.01-0.20); Immature Granulocytes % (auto) 0.6 %; Lymphocytes # (auto) 1.29 K/uL (1.2-3.4); Lymphocytes % (auto) 13.6 %; Mean Corpuscular Hemoglobin 29.9 pg (25.0-34.0); Mean Corpuscular Hgb Conc 34.8 g/dL (32.0-36.0); Mean Corpuscular Volume 85.9 fL (80.0-100.0); Mean Platelet Volume 10.8 fL (9.4-12.4); Monocytes % (auto) 2.1 %; Neutrophils # (auto) 7.91 K/uL (1.40-6.50); Neutrophils % (auto) 83.6 %; Platelet Count 270 K/uL (130-400); RDW Coefficient of Variation 12.3 % (11.5-14.5); RDW Standard Deviation 38.6 fL (36.4-46.3); Red Blood Count 4.89 M/uL (4.70-6.10); White Blood Count 9.47 K/ul (4.8-10.8)
[2023-01-03] MEDS: ALBUT/IPRATROP 3MG/0.5MG NEB 3 ML VIAL NEB SCH ×4 (07:01→19:11)
[2023-01-03] MEDS: BUDESONIDE 0.5 MG/2 ML VIAL (PULMICORT) INH SCH ×2 (07:02→19:11)
[2023-01-03] MEDS: SODIUM CHLORIDE 0.9% NEBU SOLN 3 ML NEB SCH ×2 (07:02→19:13)
[2023-01-03] MEDS: FORMOTEROL 20 MCG/2 ML VIAL NEB SCH ×2 (07:02→19:11)
[2023-01-03 07:17] LABS: BUN Creatinine Ratio 30.6 (10-20); Est GFR (African American) 122.4 ml/min; Est GFR (Non-African American) 105.6 ml/min; Magnesium 1.9 mg/dl (1.7-2.4)
[2023-01-03] MEDS: guaiFENesin 600 MG TABCR PO SCH ×2 (08:08→20:38)
[2023-01-03] MEDS: FAMOTIDINE 40 MG TABLET PO SCH (08:08)
[2023-01-03] MEDS: carvediloL 12.5 MG TAB PO SCH ×2 (08:08→20:37)
[2023-01-03] MEDS: APIXABAN 5 MG TABLET PO SCH ×2 (08:08→20:38)
[2023-01-03] MEDS: lisinopril 10 MG TAB PO SCH (08:08)
[2023-01-03] MEDS: methylPREDNISolone 40 MG in SYRINGE 0 ML IV SCH ×2 (08:08→20:38)
[2023-01-03] MEDS: LANTUS PER UNIT CHARGE SQ SCH ×2 (08:13→20:45)
[2023-01-03] MEDS: INSULIN ASPART PER UNIT CHARGE SC SCH ×4 (08:13→20:46)
--- NOTE | 2023-01-03 10:33 | Pulmonary Consultation ---
Date of Consultation January 03, 2023 Assessment & Plan (1) Acute exacerbation of chronic obstructive pulmonary disease: (2) Breathlessness: (3) On home oxygen therapy: (4) Peripheral eosinophilia: Plan Patient with Gold D COPD and severe emphysema. He has had evidence of elevated eosinophil counts upwards of 900 previously and 630 this admission. He may be a candidate for antieosinophilic therapy. He may have a Th2 mediated component to his obstructive lung disease. We will check an IgE level. He may be a candidate for antieosinophilic therapy as an outpatient such as Fasenra. Recommend slowly weaning prednisone over the next 3 weeks. Continue with Pulmicort and Brovana even as an outpatient. Recommend discharging home on chronic azithromycin therapy of 250 mg every Saturday, Saturday and Saturday. Will need outpatient audiology exam. QTc acceptable. Recommend outpatient low-dose CT chest. Recommend outpatient lung transplant evaluation at a tertiary center and referral to pulmonary rehab. Wean O2 to maintain saturations of 92 to 94%. Thank you for allowing me to participate in the care of this patient. We will follow with you. History of Present Illness Reason for Consultation: COPD exacerbation Attending Physician: Aram Woodard History of Present Illness Medical history reviewed by discussion with patient and reviewing EMR. 62-year-old male with history of Gold D COPD who presented to the hospital due to increased shortness of breath. He is followed locally by Dr. Roldan through the pulmonary clinic and has also seen [facility]. His dyspnea is felt to be multifactorial due to cardiopulmonary disease. There was mention of previous evaluation for endobronchial valve placement given significant air trapping. Unclear if this was completed. He was most recently seen by Dr. Roldan on 11/15/2022. His Trelegy was discontinued in favor of nebulized DuoNebs 2-3 times per day. He was also placed on a trial of theophylline. He notes that he stopped using theophylline due to elevated blood sugars and heart rate. He feels that his breathing has improved compared to yesterday. He is coughing less and feeling less short of breath. He is down to 2 L of oxygen. He is currently on Solu-Medrol 40 mg twice daily, nebulized formoterol and nebulized budesonide. Admission chest x-ray demonstrated hyperinflation with emphysema. No acute infiltrates or effusions noted. Echo 12/11/2018 reveals an EF of 20 to 25%. He has severe right ventricular failure. He had a stress echo 03/13/2022. Resting echo revealed an LVEF of 50 to 55%. Normal RV size and function. He quit smoking 7 years ago. He has roughly 35-[id number]-[id number] smoking history. He smoked about 1.5 packs/day. He notes that other providers have previously mentioned lung transplantation evaluation to him, but he is reluctant to proceed with evaluation. He also notes that he previously completed pulmonary rehab. Allergies Allergy/AdvReac Type Severity Reaction Status Date / Time Penicillins Allergy Severe THROAT Verified 01/02/23 16:25 SWELLING doxycycline Allergy Intermediate Rash Verified 01/02/23 16:25 naproxen Allergy Unknown Unknown Verified 01/02/23 16:25 Home Medications Medication Instructions Recorded Confirmed Type nebulizer accessories #1 ea 06/17/19 01/02/23 Rx blood sugar diagnostic (OneTouch #100 ea 06/07/20 01/02/23 Rx Ultra Blue Test Strip) acetaminophen 500 mg tablet 500 mg PO Q6H PRN Pain 04/02/21 01/02/23 History (Tylenol Extra Strength) amlodipine 10 mg tablet 10 mg PO QPM 04/11/22 01/02/23 History albuterol sulfate 90 mcg/actuation 2 puff inhalation Q4H PRN 06/12/22 01/02/23 Rx aerosol inhaler (Ventolin HFA) shortness of breath or wheezing #8.5 grams apixaban 5 mg tablet (Eliquis) 5 mg PO BID #180 tabs 07/09/22 01/02/23 Rx carvedilol 12.5 mg tablet 12.5 mg PO BID #180 tabs 07/12/22 01/02/23 Rx sildenafil 100 mg tablet 100 mg PO DAILY PRN sexual 07/12/22 01/02/23 Rx activity #30 tabs Flutter Valve #1 ea 10/05/22 01/02/23 Rx lisinopril 30 mg tablet 30 mg PO QAM #90 tabs 10/30/22 01/02/23 Rx ipratropium 0.5 mg-albuterol 3 mg 3 ml inhalation QID #180 mL 11/19/22 01/02/23 Rx (2.5 mg base)/3 mL nebulization soln atorvastatin 40 mg tablet 40 mg PO HS 11/23/22 01/02/23 History budesonide 0.5 mg/2 mL suspension 0.5 mg (2 mL) inhalation BID #60 mL 12/07/22 01/02/23 Rx for nebulization nystatin 100,000 unit/gram topical 1 applic topical TID PRN rash #90 12/17/22 01/02/23 Rx cream grams albuterol sulfate 2.5 mg/3 mL 2.5 mg inhalation Q4H PRN 01/02/23 01/02/23 History (0.083 %) solution for nebulization Shortness Of Breath metformin 500 mg tablet 500 mg PO BID PRN SEE COMMENT 01/02/23 01/02/23 History trazodone 50 mg tablet 100 mg PO HS 01/03/23 History Patient History Medical History (Updated 01/03/23 @ 10:57 by Ollie Campbell MD) Atrial fibrillation on Eliquis. Follows with Dr. Haider Bloating Constipation Coronary artery disease History of anesthesia reaction "at least 20yrs ago having teeth removed and they lost me for awhile and then got me back"--no other issues with anesthesia History of COVID-19 10/01/20 @ [facility]--headache/cold symptoms Non-ST elevation myocardial infarction (NSTEMI) in recovery phase 2018--had heart cath--follows with Dr. Haider On anticoagulant therapy eliquis daily Peripheral eosinophilia Surgical History History of cardiac cath (~12/09/18) History of colonoscopy History of heart artery stent (~12/09/18) [address] Haider History of tooth extraction all teeth removed Family History Mother Colorectal cancer Father Myocardial infarction Other Coronary heart disease Diabetes Heart disease Hypertension No family history of adverse response to anesthesia Denies family history of Prostate cancer Breast cancer Social History Smoking Status: Former smoker Tobacco Type: Cigarettes Age Started Using Tobacco: 15; Age Quit Using Tobacco: 53; packs per day: 1.5; Second Hand Exposure: No; Do You Dip or Chew Tobacco: No; Hx Alcohol Use: No Hx Substance Use: No Preferred Language: Spanish Communication Ability: Effective Finance Professional Required: No Beliefs That Will Affect Care: None marital status: Current Living Situation: Spouse current occupational status: employed and disabled 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 Patient is in no apparent distress. Patient is well-developed. Eyes: Pupils are equal round and reactive to light. Conjunctivae are normal. Anicteric sclera. Ears nose, mouth and throat: Mallampati class 2. Normal posterior oropharynx. Uvula is midline. Neck: Trachea is midline. Visual inspection is normal. Respiratory: Diffuse expiratory wheeze. Cardiovascular: Regular rate and rhythm. No murmurs. No edema. Gastrointestinal: Normal bowel sounds, soft, nontender and nondistended. No hepatosplenomegaly noted. Musculoskeletal: No cyanosis. Patient is able to move all extremities. Strength is 5 out of 5 in the upper and lower extremities Neurologic: No obvious focal neurological deficits seen. Psychiatric: Alert and oriented x3 with a euthymic affect. Results & Data Results & Data ([facility]) Vital Signs (Past 12 Hours) Vital Signs Temp Pulse Pulse Resp BP Pulse Ox O2 Del Method 01/03/23 09:00 Nasal Cannula 01/03/23 08:04 36.6 C 76 18 140/81 93 Nasal Cannula 01/03/23 07:00 62 01/03/23 07:03 64 18 97 01/03/23 03:54 36.8 C 64 18 118/66 97 Nasal Cannula 01/02/23 23:11 36.6 C 79 20 134/71 97 Nasal Cannula O2 Flow Rate 01/03/23 09:00 2 01/03/23 08:04 2 01/03/23 07:00 01/03/23 07:03 2 01/03/23 03:54 2 01/02/23 23:11 3 PG Care Time/CCT Total # of Minutes Spent Total Time Spent with Patient: Total time spent is greater than 50% in coordination of care (as documented) at patient's floor/unit and/or counseling patient: Coding Level of Care Code 60369 IN/OBS CONSULT LVL 4,60M Diagnoses Acute exacerbation of chronic obstructive pulmonary disease J44.1 Breathlessness R06.81 On home oxygen therapy Z99.81 Peripheral eosinophilia D72.19
--- NOTE | 2023-01-03 20:30 | Hospitalist Progress Note ---
Date of Service January 03, 2023 Assessment & Plan (1) SOB (shortness of breath): Plan: -Admit to med/tele -The patient is currently afebrile, hemodynamically stable, -Patient reports normally on room air at rest with oxygen when he sleeps. -Currently is requiring oxygen at rest on 01/03 -At this time it appears that his symptoms are most likely due to poorly controlled COPD/non-compliance with medications/inability to afford some of his COPD medications -It appears that he does not completely understand his current medication regimen and the necessity to use his medications as prescribed -CXR was negative for focal consolidations, D-dimer negative, no increase in cough or sputum production with negative full respiratory biofire to suggest infectious COPD exacerbation -S/P DuoNebs and 125 mg IV Solu-Medrol in the ED -Will continue QID DuoNebs, Saline nebulizers BID, Budesonide BIB -will slowly titrate corticosteroid on 01/04 -Incentive spirometry and flutter therapy ordered, continue supplemental O2 to Keep SpO2 between 88-92%, prn Mucinex -Will hold abx at this time as it does not appear that he has an infectious source and recently completed a course of Azithromycin outpatient -will place on azithromycin MW. -Pulmonology consult placed -BL SCD's and home Eliquis for DVT PPX (2) Paroxysmal atrial fibrillation: Plan: -Stable -Continue Eliquis, carvedilol (3) GERD (gastroesophageal reflux disease): Plan: -40 mg PO famotidine daily while on steroids (4) Diabetes mellitus: Plan: -Hold metformin -Monitor BSG ACHS, goal is 110-140 -Will start lantus 5 units BID, correction factor of 45, and carb ratio of 15 -DMII -May need to adjust dosing with steroid treatment (5) Hyperlipidemia: Plan: -Continue statin (6) Hypertension: Plan: -Stable -Continue Carvedilol and amlodipine Admission and Anticipated Discharge Date Admission Date: January 02, 2023 Subjective 62 yo male reports no new symptoms. Review of Systems Review of Systems: All systems reviewed & are unremarkable except as noted in HPI & below Physical Exam Physical Exam: General: In no acute distress, stated age, chorionically ill-appearing but non-toxic appearing HEENT: Normocephalic, atraumatic, no scleral icterus, pupils around round, symmetrical, and reactive to light, moist mucus membranes, trachea midline, no thyromegaly Chest/Pulm: No respiratory distress, audible wheeze noted with deep inspiration prior to auscultation, symmetrical chest expansion, expiratory wheezing noted throughout Cardiac: RRR, no murmurs noted Abdomen: Negative for ascites and bruising, normoactive bowel sounds, soft, non-tender to palpation throughout Musculoskeletal: Symmetrical and without signs of acute trauma, upper and lower extremities with full ROM, no atrophy, spasticity, or flaccidity Extremities: Radial, dorsalis pedis, and posterior tibial pulses are intact and symmetrical, no edema noted in the BL LE's Skin: Patient with erythematous, plaque-like lesions on the left hand which he notes are similar to the ones on his buttocks, the lesions do note appear infected and are not draining Neuro: Alert and oriented to person, place, month, year, and president, no focal defects, CN II-XII tested and intact, no tremors noted Psych: No acute distress, calm and cooperative during the exam Results & Data Results & Data ([facility]) Vital Signs (Past 12 Hours) Vital Signs Temp Pulse Pulse Pulse Resp BP Pulse Ox 01/03/23 19:35 36.6 C 63 18 136/68 96 01/03/23 19:14 16 96 01/03/23 15:52 36.7 C 66 20 125/69 95 01/03/23 15:07 71 18 96 01/03/23 14:00 67 01/03/23 11:18 66 18 95 01/03/23 10:37 36.5 C 60 18 117/70 96 01/03/23 09:00 O2 Del Method O2 Flow Rate 01/03/23 19:35 Nasal Cannula 2 01/03/23 19:14 Nasal Cannula 2 01/03/23 15:52 Nasal Cannula 2 01/03/23 15:07 Nasal Cannula 2 01/03/23 14:00 01/03/23 11:18 Nasal Cannula 2 01/03/23 10:37 Nasal Cannula 2 01/03/23 09:00 Nasal Cannula 2 PG Care Time/CCT Total # of Minutes Spent Total Time Spent with Patient: Total time spent is greater than 50% in coordination of care (as documented) at patient's floor/unit and/or counseling patient: Coding Level of Care Code 36665 SUB INP/OBS CARE 35MIN Diagnoses SOB (shortness of breath) R06.02 Paroxysmal atrial fibrillation I48.0 GERD (gastroesophageal reflux disease) K21.9 Diabetes mellitus E11.9 Hyperlipidemia E78.5 Hypertension I10
[2023-01-03] MEDS: traZODone HCL 50 MG TAB PO SCH (20:38)
[2023-01-03] MEDS: amLODIPine BESYLATE 5 MG TAB PO SCH (20:38)
[2023-01-03] MEDS: ATORVASTATIN 40 MG TAB PO SCH (21:24)
[2023-01-04 06:47] LABS: Basophils # (auto) 0.02 K/uL (0-0.2); Basophils % (auto) 0.1 %; Hematocrit (blood only) 40.7 % (42.0-52.0); Hemoglobin 14.1 g/dl (14.0-18.0); Immature Granulocytes # (auto) 0.11 K/uL (0.01-0.20); Immature Granulocytes % (auto) 0.7 %; Lymphocytes # (auto) 1.27 K/uL (1.2-3.4); Lymphocytes % (auto) 8.2 %; Mean Corpuscular Hemoglobin 29.7 pg (25.0-34.0); Mean Corpuscular Hgb Conc 34.6 g/dL (32.0-36.0); Mean Corpuscular Volume 85.7 fL (80.0-100.0); Mean Platelet Volume 11.4 fL (9.4-12.4); Monocytes # (auto) 0.53 K/uL (0.11-0.59); Monocytes % (auto) 3.4 %; Neutrophils # (auto) 13.64 K/uL (1.40-6.50); Neutrophils % (auto) 87.6 %; Platelet Count 277 K/uL (130-400); RDW Coefficient of Variation 12.3 % (11.5-14.5); RDW Standard Deviation 38.8 fL (36.4-46.3); Red Blood Count 4.75 M/uL (4.70-6.10); White Blood Count 15.57 K/ul (4.8-10.8)
[2023-01-04] MEDS: FORMOTEROL 20 MCG/2 ML VIAL NEB SCH ×2 (07:00→19:20)
[2023-01-04] MEDS: ALBUT/IPRATROP 3MG/0.5MG NEB 3 ML VIAL NEB SCH ×4 (07:00→19:20)
[2023-01-04] MEDS: SODIUM CHLORIDE 0.9% NEBU SOLN 3 ML NEB SCH ×2 (07:00→19:20)
[2023-01-04] MEDS: BUDESONIDE 0.5 MG/2 ML VIAL (PULMICORT) INH SCH ×2 (07:00→19:20)
[2023-01-04 07:09] LABS: BUN Creatinine Ratio 29.5 (10-20); Calcium 8.9 mg/dl (8.5-10.1); Creatinine Clr Calc Pharmacy 90.6 ml/min; Est GFR (African American) 111.3 ml/min; Est GFR (Non-African American) 96.1 ml/min; Magnesium 2.1 mg/dl (1.7-2.4); Potassium 4.5 mmol/L (3.5-5.1)
[2023-01-04] MEDS: methylPREDNISolone 40 MG in SYRINGE 0 ML IV SCH (08:10)
[2023-01-04] MEDS: APIXABAN 5 MG TABLET PO SCH ×2 (08:10→20:51)
[2023-01-04] MEDS: FAMOTIDINE 40 MG TABLET PO SCH (08:10)
[2023-01-04] MEDS: lisinopril 10 MG TAB PO SCH (08:10)
[2023-01-04] MEDS: guaiFENesin 600 MG TABCR PO SCH ×2 (08:10→20:50)
[2023-01-04] MEDS: carvediloL 12.5 MG TAB PO SCH ×2 (08:11→20:49)
[2023-01-04] MEDS: INSULIN ASPART PER UNIT CHARGE SC SCH ×4 (08:19→20:52)
[2023-01-04] MEDS: LANTUS PER UNIT CHARGE SQ SCH ×2 (08:19→20:45)
--- NOTE | 2023-01-04 14:43 | Pulmonology Progress Note ---
Date of Service January 04, 2023 Assessment & Plan (1) Acute exacerbation of chronic obstructive pulmonary disease: (2) Breathlessness: (3) On home oxygen therapy: (4) Peripheral eosinophilia: Plan Patient with Gold D COPD and severe emphysema. He has had evidence of elevated eosinophil counts upwards of 900 previously and 630 this admission. He may be a candidate for antieosinophilic therapy. He may have a Th2 mediated component to his obstructive lung disease. IgE level pending. He may be a candidate for antieosinophilic therapy as an outpatient such as Faskostasra. Recommend slowly weaning prednisone over the next 3 weeks. Continue with Pulmicort and Brovana even as an outpatient. Recommend discharging home on chronic azithromycin therapy of 250 mg every Saturday, Saturday and Saturday. Will need outpatient audiology exam. QTc acceptable. Recommend outpatient low-dose CT chest. Recommend outpatient lung transplant evaluation at a tertiary center and referral to pulmonary rehab. Currently doing well on room air. Maintaining saturations above 90%. No further recommendations at this time. Patient stable for discharge. Admission and Anticipated Discharge Date Admission Date: January 02, 2023 Subjective Patient appears improved. He is currently on room air and saturating well. He was able to ambulate without any significant dyspnea. Denies chest pain. Does endorse some mild cough with occasional wheezing. Review of Systems Review of Systems: All systems reviewed & are unremarkable except as noted in HPI & below Physical Exam Physical Exam: Constitutional: Patient appears to be of their stated age. Patient is in no apparent distress. Patient is well-developed. Eyes: Pupils are equal round and reactive to light. Conjunctivae are normal. Anicteric sclera. Ears nose, mouth and throat: Mallampati class 2. Normal posterior oropharynx. Uvula is midline. Neck: Trachea is midline. Visual inspection is normal. Respiratory: Wheeze has resolved. Prolonged phase of exhalation. Cardiovascular: Regular rate and rhythm. No murmurs. No edema. Gastrointestinal: Normal bowel sounds, soft, nontender and nondistended. No hepatosplenomegaly noted. Musculoskeletal: No cyanosis. Patient is able to move all extremities. Strength is 5 out of 5 in the upper and lower extremities Neurologic: No obvious focal neurological deficits seen. Psychiatric: Alert and oriented x3 with a euthymic affect. Results & Data Results & Data ([facility]) Vital Signs (Past 12 Hours) Vital Signs Temp Pulse Pulse Resp BP Pulse Ox O2 Del Method 01/04/23 14:24 58 L 18 95 Room Air 01/04/23 11:50 36.4 C L 54 L 16 137/79 93 Room Air 01/04/23 10:38 57 L 18 95 Room Air 01/04/23 07:50 Nasal Cannula 01/04/23 07:22 36.0 C L 57 L 16 125/73 99 Nebulizer 01/04/23 07:10 54 L 01/04/23 07:00 57 L 18 93 Room Air 01/04/23 03:59 36.9 C 58 L 18 105/57 L 96 Nasal Cannula O2 Flow Rate 01/04/23 14:24 01/04/23 11:50 01/04/23 10:38 01/04/23 07:50 1 01/04/23 07:22 01/04/23 07:10 01/04/23 07:00 01/04/23 03:59 2 PG Care Time/CCT Total # of Minutes Spent Total Time Spent with Patient: Total time spent is greater than 50% in coordination of care (as documented) at patient's floor/unit and/or counseling patient: Coding Level of Care Code 74649 SUB INP/OBS CARE 2/35MIN Diagnoses Acute exacerbation of chronic obstructive pulmonary disease J44.1 Breathlessness R06.81 On home oxygen therapy Z99.81 Peripheral eosinophilia D72.19
[2023-01-04] MEDS: traZODone HCL 50 MG TAB PO SCH (20:48)
[2023-01-04] MEDS: amLODIPine BESYLATE 5 MG TAB PO SCH (20:49)
[2023-01-04] MEDS: ATORVASTATIN 40 MG TAB PO SCH (20:49)
--- NOTE | 2023-01-04 21:17 | Hospitalist Progress Note ---
Date of Service January 04, 2023 Assessment & Plan (1) SOB (shortness of breath): Plan: -Admit to med/tele -The patient is currently afebrile, hemodynamically stable, -Patient reports normally on room air at rest with oxygen when he sleeps. -Currently is requiring oxygen at rest on 01/03 -At this time it appears that his symptoms are most likely due to poorly controlled COPD/non-compliance with medications/inability to afford some of his COPD medications -It appears that he does not completely understand his current medication regimen and the necessity to use his medications as prescribed -CXR was negative for focal consolidations, D-dimer negative, no increase in cough or sputum production with negative full respiratory biofire to suggest infectious COPD exacerbation -S/P DuoNebs and 125 mg IV Solu-Medrol in the ED -Will continue QID DuoNebs, Saline nebulizers BID, Budesonide BIB -will slowly titrate corticosteroid on 01/04 -Incentive spirometry and flutter therapy ordered, continue supplemental O2 to Keep SpO2 between 88-92%, prn Mucinex -Will hold abx at this time as it does not appear that he has an infectious source and recently completed a course of Azithromycin outpatient -will place on azithromycin MW. -Pulmonology consult placed -BL SCD's and home Eliquis for DVT PPX -will continue above treatment, will cut back steroids on 01/05 (2) Paroxysmal atrial fibrillation: Plan: -Stable -Continue Eliquis, carvedilol (3) GERD (gastroesophageal reflux disease): Plan: -40 mg PO famotidine daily while on steroids (4) Diabetes mellitus: Plan: -Hold metformin -Monitor BSG ACHS, goal is 110-140 -Will start lantus 5 units BID, correction factor of 45, and carb ratio of 15 -DMII -May need to adjust dosing with steroid treatment (5) Hyperlipidemia: Plan: -Continue statin (6) Hypertension: Plan: -Stable -Continue Carvedilol and amlodipine Admission and Anticipated Discharge Date Admission Date: January 02, 2023 Subjective Patient reports feeling better. He is not quite back to his baseline. Review of Systems Review of Systems: All systems reviewed & are unremarkable except as noted in HPI & below Physical Exam Physical Exam: General:In no acute distress, stated age, chorionically ill-appearing but non-toxic appearing HEENT:Normocephalic, atraumatic, no scleral icterus, pupils around round, symmetrical, and reactive to light, moist mucus membranes, trachea midline, no thyromegaly Chest/Pulm:No respiratory distress, audible wheeze noted with deep inspiration prior to auscultation, symmetrical chest expansion, expiratory wheezing noted throughout Cardiac:RRR, no murmurs noted Abdomen:Negative for ascites and bruising, normoactive bowel sounds, soft, non-tender to palpation throughout Musculoskeletal:Symmetrical and without signs of acute trauma, upper and lower extremities with full ROM, no atrophy, spasticity, or flaccidity Extremities:Radial, dorsalis pedis, and posterior tibial pulses are intact and symmetrical, no edema noted in the BL LE's Skin:Patient with erythematous, plaque-like lesions on the left hand which he notes are similar to the ones on his buttocks, the lesions do note appear infected and are not draining Neuro:Alert and oriented to person, place, month, year, and president, no focal defects, CN II-XII tested and intact, no tremors noted Psych:No acute distress, calm and cooperative during the exam Results & Data Results & Data ([facility]) Vital Signs (Past 12 Hours) Vital Signs Temp Pulse Pulse Resp BP BP Pulse Ox 01/04/23 19:16 36.5 C 61 18 143/71 H 92 01/04/23 14:32 55 L 01/04/23 16:55 01/04/23 15:35 36.6 C 63 20 162/72 H 94 01/04/23 14:24 58 L 18 95 01/04/23 11:50 36.4 C L 54 L 16 137/79 93 01/04/23 10:38 57 L 18 95 O2 Del Method O2 Flow Rate 01/04/23 19:16 Room Air 01/04/23 14:32 01/04/23 16:55 Nasal Cannula 3 01/04/23 15:35 Room Air 01/04/23 14:24 Room Air 01/04/23 11:50 Room Air 01/04/23 10:38 Room Air PG Care Time/CCT Total # of Minutes Spent Total Time Spent with Patient: Total time spent is greater than 50% in coordination of care (as documented) at patient's floor/unit and/or counseling patient: Coding Level of Care Code 80789 SUB INP/OBS CARE 235MIN Diagnoses SOB (shortness of breath) R06.02 Paroxysmal atrial fibrillation I48.0 GERD (gastroesophageal reflux disease) K21.9 Diabetes mellitus E11.9 Hyperlipidemia E78.5 Hypertension I10
[2023-01-05 05:54] LABS: Basophils # (auto) 0.02 K/uL (0-0.2); Basophils % (auto) 0.1 %; Eosinophils # (auto) 0.02 K/uL (0-0.50); Eosinophils % (auto) 0.1 %; Hematocrit (blood only) 40.2 % (42.0-52.0); Hemoglobin 14.1 g/dl (14.0-18.0); Immature Granulocytes # (auto) 0.09 K/uL (0.01-0.20); Immature Granulocytes % (auto) 0.6 %; Lymphocytes # (auto) 2.13 K/uL (1.2-3.4); Lymphocytes % (auto) 13.9 %; Mean Corpuscular Hemoglobin 30.1 pg (25.0-34.0); Mean Corpuscular Hgb Conc 35.1 g/dL (32.0-36.0); Mean Corpuscular Volume 85.9 fL (80.0-100.0); Mean Platelet Volume 11.1 fL (9.4-12.4); Monocytes # (auto) 1.17 K/uL (0.11-0.59); Monocytes % (auto) 7.6 %; Neutrophils # (auto) 11.92 K/uL (1.40-6.50); Neutrophils % (auto) 77.7 %; Platelet Count 246 K/uL (130-400); RDW Coefficient of Variation 12.5 % (11.5-14.5); RDW Standard Deviation 38.9 fL (36.4-46.3); Red Blood Count 4.68 M/uL (4.70-6.10); White Blood Count 15.35 K/ul (4.8-10.8)
[2023-01-05 06:12] LABS: BUN Creatinine Ratio 32.5 (10-20); Calcium 8.7 mg/dl (8.5-10.1); Creatinine Clr Calc Pharmacy 91.8 ml/min; Est GFR (African American) 111.9 ml/min; Est GFR (Non-African American) 96.6 ml/min; Magnesium 2.1 mg/dl (1.7-2.4)
[2023-01-05] MEDS: SODIUM CHLORIDE 0.9% NEBU SOLN 3 ML NEB SCH (07:29)
[2023-01-05] MEDS: BUDESONIDE 0.5 MG/2 ML VIAL (PULMICORT) INH SCH (07:29)
[2023-01-05] MEDS: ALBUT/IPRATROP 3MG/0.5MG NEB 3 ML VIAL NEB SCH ×3 (07:29→14:32)
[2023-01-05] MEDS: FORMOTEROL 20 MCG/2 ML VIAL NEB SCH (07:29)
[2023-01-05] MEDS: INSULIN ASPART PER UNIT CHARGE SC SCH ×2 (08:18→12:22)
[2023-01-05] MEDS: lisinopril 10 MG TAB PO SCH (08:20)
[2023-01-05] MEDS: FAMOTIDINE 40 MG TABLET PO SCH (08:20)
[2023-01-05] MEDS: guaiFENesin 600 MG TABCR PO SCH (08:21)
[2023-01-05] MEDS: carvediloL 12.5 MG TAB PO SCH (08:21)
[2023-01-05] MEDS: APIXABAN 5 MG TABLET PO SCH (08:21)
[2023-01-05] MEDS: LANTUS PER UNIT CHARGE SQ SCH (08:30)
[2023-01-05] MEDS ORDERED: methylPREDNISolone 40 MG in SYRINGE 0 ML IV SCH (09:00)
--- NOTE | 2023-01-08 12:32 | Coding Query ---
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 Please assist us with the question(s) below: Coding Question(s): The diagnosis below was documented in the H&P, then subsequently fell off all further documentation. Please indicate if it is still a possible diagnosis or ruled out. Physician's Response(s): CHRONIC HYPOXIC RESPIRATORY FAILURE (x ) Diagnosed and POA ( ) Diagnosed and not POA ( ) Ruled out ( ) Other (please specify) MTDD
--- NOTE | 2023-01-14 19:51 | Discharge Summary ---
Date of Service January 05, 2023 Admission HPI Per Admitting Provider Claude is a 62 year old male with a PMH significant for COPD (Follows with Dr. Roldan), chronic hypoxemic respiratory failure typically on 2L NC, afib on Eliquis, ankylosing spondylitis, HTN, GERD, CAD status post NSTEMI and PCI of OM2 with single JOE (12/16), and DMII who presented to the [facility] ED on 01/02/23 with complaints of increased SOB and increased O2 requirements. In the ED the patient was found to be afebrile, initially hypertensive at 185/95, and hypoxic ay 86% on his 2L NC. Labs were remarkable for a WBC of 11.76 with absolute neut count of 7.79, stable Hgb and platelets, stable Cr at 0.77 with stable electrolytes, LFT's WNL, high sensitivity trop of 3.5. Chest xray was read as "Emphysema without acute process.". Prior to admission the patient was given DuoNebs and 125 mg IV solud medrol. Per chart review, the patient was last admitted to [facility] from 11/23/22-11/25/22 for acute on chronic hypoxic respiratory failure and Covid-19 Pneumonia. His acute on chronic respiratory failure was thought to be multifactorial including covid pneumonia and possibly stopping his Trellegy as recommended by Dr. Roldan at his last clinic visit. He was started on BID 40 mg IV Solu-Medrol, scheduled DuoNebs, his home Theophylline, and was started on Budesonide and Perforomist nebulizers as mentioned by Dr. Roldan at their last clinic visit. The patient responded well to treatment and was able to be weaned back to his home O2 requirements and discharged home with PO Decadron to complete a 10 days course. Per his last PCP visit on 12/17/22 for follow-up the patient noted that his breathing was still bothering him. He called the Pulmonology office on 12/14/22 and was prescribed formoterol, budesonide and revefenacin nebulizers. Per the PCP note the patient's insurance would not cover the Yupelri (revefenacin)or Perforomist (formoterol). He stopped taking his Theophylline as well prior to this visit as he started to develop a rash and was concerned it was caused by the Theophylline. At that time his PCP ordered him a course of Azithromycin and a tapering course of prednisone. At the time of the exam the patient was resting in bed in no acute distress, he was saturating at 97% on 3L. At the beginning of my exam I turned the patient's O2 back down to 2L and he remained stable throughout. He states since his last discharge his breathing problems have continued. He is stable and asymptomatic at rest but is becoming significant SOB with O2 saturations in the 70's-80's with ambulation on 2L NC. He states that at the present time he is only using his albuterol as needed and is infrequently using his budesonide as he was unsure if it was helping. He did complete the course of Azithromycin and Prednisone he was given by his PCP but did not see improvement in his symptoms. He confirmed he stopped his Theophylline due to concerns for a possible rash. He has not seen a significant improvement in his rash since stopping the Theophylline. When asked, he is also not using his ipratropium nebulizer as his insurance is not covering it. He thinks there may be a component of anxiety with his breathing difficulties with ambulation as his increased SOB makes him anxious, causing his to feel more SOB. I explained that we need to work on getting him back on a consistent medication regimen as he is not currently on one due to all his difficulties. He does not note an increase in cough or sputum production since his last admission. He has continued to take his Eliquis as prescribed and has not missed a dose. He denies recent fevers, chills, chest pain, abd pain, nausea, vomiting, dysuria, hematuria, LE swelling, and recent trauma. He wishes to be a full code and for his to make medical decisions for him if he could not make them himself. Please refer to Dr. Solis's attestation for any changes to the treatment plan Principal Diagnosis COPD EXACERVATION Discharge Exam General:In no acute distress, stated age, chorionically ill-appearing but non-toxic appearing HEENT:Normocephalic, atraumatic, no scleral icterus, pupils around round, symmetrical, and reactive to light, moist mucus membranes, trachea midline, no thyromegaly Chest/Pulm:No respiratory distress, decreased wheezing Cardiac:RRR, no murmurs noted Abdomen:Negative for ascites and bruising, normoactive bowel sounds, soft, non-tender to palpation throughout Musculoskeletal:Symmetrical and without signs of acute trauma, upper and lower extremities with full ROM, no atrophy, spasticity, or flaccidity Extremities:Radial, dorsalis pedis, and posterior tibial pulses are intact and symmetrical, no edema noted in the BL LE's Skin:Patient with erythematous, plaque-like lesions on the left hand which he notes are similar to the ones on his buttocks, the lesions do note appear infected and are not draining Neuro:Alert and oriented to person, place, month, year, and president, no focal defects, CN II-XII tested and intact, no tremors noted Psych:No acute distress, calm and cooperative during the exam Discharge Data Allergies Allergy/AdvReac Type Severity Reaction Status Date / Time Penicillins Allergy Severe THROAT Verified 01/14/23 10:12 SWELLING doxycycline Allergy Intermediate Rash Verified 01/14/23 10:12 naproxen Allergy Unknown Unknown Verified 01/14/23 10:12 Consultations 01/02/23 18:31 ED Decision to Admit Stat 01/03/23 08:00 Consult Pulmonology Routine Hospital Course (1) SOB (shortness of breath): -Admit to med/tele -The patient is currently afebrile, hemodynamically stable, -Patient reports normally on room air at rest with oxygen when he sleeps. -Currently is requiring oxygen at rest on 01/03 -At this time it appears that his symptoms are most likely due to poorly controlled COPD/non-compliance with medications/inability to afford some of his COPD medications -CXR was negative for focal consolidations, D-dimer negative, no increase in cough or sputum production with negative full respiratory biofire to suggest infectious COPD exacerbation -treated with QID DuoNebs, Saline nebulizers BID, Budesonide BIB -will slowly titrate corticosteroid on 01/04 -Incentive spirometry and flutter therapy ordered, continue supplemental O2 to Keep SpO2 between 88-92%, prn Mucinex -will place on azithromycin MWF. will require Trelegy as a mainatence medication. THis will replace your budesonide, duoneb (ipratropium/albuterol) Will resume your theophyline as this does not appear to be causing your rash. -Pulmonology consult placed -BL SCD's and home Eliquis for DVT PPX (2) Paroxysmal atrial fibrillation: -Stable -Continue Eliquis, carvedilol (3) GERD (gastroesophageal reflux disease): -40 mg PO famotidine daily while on steroids (4) Diabetes mellitus: -Hold metformin -Monitor BSG ACHS, goal is 110-140 -Will start lantus 5 units BID, correction factor of 45, and carb ratio of 15 -DMII -May need to adjust dosing with steroid treatment (5) Hyperlipidemia: -Continue statin (6) Hypertension: -Stable -Continue Carvedilol and amlodipine Total Time Total Time Spent Total Time Spent (In Minutes): 32 Discharge Plan Discharge Items Patient Disposition: Home - Self-Care Reason For Visit: SOB Discharge Diagnosis: COPD exacerbation Activity: Resume your previous activity Non-emergency contact: Primary Care Provider Call non-emergency contact if: you have any medication questions Follow-up/Referrals: Viki Braswell CRNP [Primary Care Provider] - 01/14/23 10:30 am Diet: Heart Healthy Addtl Attending Provider Instructions: Mr. Monterroso, You were seen for a flair up of your COPD. You will require Trelegy as a mainatence medication. THis will replace your budesonide, duoneb (ipratropium/albuterol) Will resume your theophyline as this does not appear to be causing your rash. Will recommend you followup with your PCP in 1-2 weeks. Recommend followup with your pulmonary doctor within 1-2 months. Pending Studies at Discharge: No Stand-Alone Forms: My [facility] [employer], Smoking Cessation Medications and DC Order Prescriptions: New Trelegy Ellipta 100-62.5-25 mcg blister with device 1 inh inhalation DAILY Qty: 60 0RF trazodone 50 mg Tablet 75 mg PO HS Qty: 45 0RF guaifenesin [Mucinex] 600 mg Tablet Extended Release 12hr 600 mg PO Q12 Qty: 15 0RF famotidine 40 mg Tablet 40 mg PO QAM Qty: 30 0RF Continued (DME) blood sugar diagnostic [vArmourTouch Ultra Blue Test Strip] Strip See Rx Instructions .ROUTE .MEDSUPPLY Qty: 100 5RF Rx Instructions: Test blood sugar once daily, Dx:E11.9 Eliquis 5 mg tablet 5 mg PO BID Qty: 180 3RF carvedilol 12.5 mg tablet 12.5 mg PO BID Qty: 180 3RF lisinopril 30 mg tablet 30 mg PO QAM Qty: 90 3RF albuterol sulfate [Ventolin HFA] 90 mcg/actuation HFA aerosol inhaler 2 puff INH Q4H PRN (Reason: shortness of breath or wheezing) Qty: 8.5 11RF sildenafil 100 mg tablet 100 mg PO DAILY PRN (Reason: sexual activity) Qty: 30 5RF Rx Instructions: administer 30 minutes to 4 hours before activity (DME) Flutter Valve Device See Rx Instructions .MEDSUPPLY Qty: 1 0RF Rx Instructions: As directed (DME) nebulizer accessories misc See Dose Instructions .ROUTE .MEDSUPPLY Qty: 1 0RF Dose Instruction: As directed Rx Instructions: nebulizer supplies as needed nystatin 100,000 unit/gram cream 1 applic topical TID PRN (Reason: rash) Qty: 90 5RF acetaminophen [Tylenol Extra Strength] 500 mg Tablet 500 mg PO Q6H PRN (Reason: Pain) amlodipine 10 mg tablet 10 mg PO QPM atorvastatin 40 mg Tablet 40 mg PO HS metformin 500 mg tablet 500 mg PO BID PRN (Reason: SEE COMMENT) Rx Instructions: PER PT "ONLY TAKE IF BSG >100, OTHERWISE BSG GOES TOO LOW". albuterol sulfate 2.5 mg /3 mL (0.083 %) solution for nebulization 2.5 mg inhalation Q4H PRN (Reason: Shortness Of Breath) Rx Instructions: Please use 1 vial up to every 4 hours as needed for shortness of breath. Discontinued budesonide 0.5 mg/2 mL suspension for nebulization 0.5 mg inhalation BID Qty: 60 2RF trazodone 50 mg tablet 100 mg PO HS ipratropium-albuterol 0.5 mg-3 mg(2.5 mg base)/3 mL solution for nebulization 3 ml inhalation QID Qty: 180 2RF No Action theophylline 300 mg tablet extended release 12 hr 300 mg PO DAILY Discharge Orders: Discharge Order (Routine); Ordered 01/05/23 Ordered By: Aram Woodard Admission Data Admit Date/Time: 01/02/23 19:16 Attending Provider: Aram Woodard Admit Provider: Chaz Solis Primary Care Provider: Viki Braswell Other Providers: Ollie Campbell Other Interventions: Discharge Summary Assessment (RN) Last Done: 01/05/23 17:08 Coding Level of Care Code 38273 INP/OBS DISCH >30 MIN Diagnoses SOB (shortness of breath) R06.02 Paroxysmal atrial fibrillation I48.0 GERD (gastroesophageal reflux disease) K21.9 Diabetes mellitus E11.9 Hyperlipidemia E78.5 Hypertension I10
== END 2023-01-05 16:45 | disposition home or self-care (01) | DRG 191 ==
LOC: ED 15:21 → SUATTDRO 19:16 → 2N 19:16

== ENCOUNTER 2024-07-11 01:33 | Inpatient (IN) ==
[2024-07-11 02:09] LABS: Basophils # (auto) 0.05 K/uL (0.00-0.20); Basophils % (auto) 0.3 %; Eosinophils # (auto) 0.17 K/uL (0.00-0.50); Eosinophils % (auto) 1.1 %; Hematocrit (blood only) 45.4 % (42.0-52.0); Immature Granulocytes # (auto) 0.07 K/uL (0.01-0.20); Immature Granulocytes % (auto) 0.5 %; Lymphocytes # (auto) 1.44 K/uL (1.20-3.40); Lymphocytes % (auto) 9.5 %; Mean Corpuscular Hemoglobin 30.3 pg (25.0-34.0); Mean Corpuscular Volume 91.7 fL (80.0-100.0); Monocytes # (auto) 0.89 K/uL (0.11-0.59); Monocytes % (auto) 5.9 %; Neutrophils # (auto) 12.56 K/uL (1.40-6.50); Neutrophils % (auto) 82.7 %; Platelet Count 195 K/uL (130-400); RDW Coefficient of Variation 12.6 % (11.5-14.5); RDW Standard Deviation 42.5 fL (36.4-46.3); Red Blood Count 4.95 M/uL (4.70-6.10); White Blood Count 15.18 K/ul (4.8-10.8)
[2024-07-11 02:24] LABS: Albumin Globulin Ratio 1.9 (0.9-2); Albumin Level 4.7 gm/dl (3.4-5.0); Bilirubin,Total 0.8 mg/dl (0.2-1.0); Calcium 9.1 mg/dl (8.6-10.3); Creatinine Clr Calc Pharmacy 83.5 ml/min; Est GFR (African American) 104.7 ml/min; Est GFR (Non-African American) 90.4 ml/min; Globulin 2.5 gm/dl (2.5-4.0); Potassium 4.1 mmol/L (3.5-5.1); Total Protein 7.2 gm/dl (6.0-8.3)
[2024-07-11 02:35] LABS: INR 1.1 (0.9-1.1); Partial Thromboplastin Time 27 Seconds (21-31); Prothrombin Time 11.8 Seconds (9.0-12.0)
[2024-07-11 03:00] LABS: Troponin I High Sensitivity 82.6 pg/ml (0-20)
[2024-07-11 05:27] LABS: Influenza A virus by PCR Negative (Neg); Influenza B virus by PCR Negative (Neg); RSV by PCR Negative (Neg); SARS CoV2 RNA(COVID-19) Ceph NEGATIVE (Negative)
--- NOTE | 2024-07-11 05:55 | History & Physical Report ---
Date of Service July 11, 2024 Assessment & Plan (1) Acute on chronic respiratory failure with hypoxia: (2) NSTEMI (non-ST elevated myocardial infarction): (3) Ankylosing spondylitis lumbar region: (4) On home oxygen therapy: (5) Paroxysmal atrial fibrillation: (6) DVT (deep venous thrombosis): (7) GERD (gastroesophageal reflux disease): (8) Coronary artery disease: (9) correction (current) use of anticoagulants: (10) DVT of leg (deep venous thrombosis): (11) COPD exacerbation: Plan Acute on chronic respiratory failure with hypoxia/COPD exacerbation/nasal cannula 2 L oxygen requirement at bedtime- Patient placed on BiPAP upon arrival to the ED with improvement in symptoms Give Solu-Medrol 125mg IV now, then 40 mg IV every 8 hours Duonebs every 4 hours while awake and every 2 hours when necessary. Azithromycin 500 mg IV daily Guaifenesin extended release 600 mg p.o. twice daily MRSA swab Continue theophylline, send a level Taper nasal cannula oxygen as symptoms improve NSTEMI/CAD/hypertension/cardiomyopathy/history of stent- Initial troponin 82.6, with follow-up 466.2 The patient will be admitted to telemetry for serial cardiac enzymes, serial EKG's, cardiac rhythm monitoring and a 2-D echocardiogram with Dopplers. EKG with normal sinus rhythm 99, ST depressions II, III, aVF, and V4 through V6 Hold apixaban Place on standard heparin without bolus Continue amlodipine, carvedilol, lisinopril Diabetes mellitus- Hold metformin Glucose [address] on Accu-Cheks with NovoLog SSI Check hemoglobin A1c Hyperlipidemia- Continue rosuvastatin 20 mg daily Check a fasting lipid panel History of Present Illness Chief Complaint: The patient presents to the emergency department with worsening shortness of breath over the past 2 to 3 days. Primary Care Provider: CHARISSA Hu The patient is a 63-year-old male with a past medical history including ankylosing spondylitis, peripheral eosinophilia, home oxygen therapy, paroxysmal atrial fibrillation, DVT, CAD, BPH, COPD, cardiomyopathy, diabetes mellitus, hyperlipidemia and hypertension. He presents to the emergency department with 2 to 3 days of worsening shortness of breath and cough. Due to significant difficulty with breathing, patient was placed on BiPAP in the emergency department, and reports feeling significantly more comfortable with his breathing. Allergies Allergy/AdvReac Type Severity Reaction Status Date / Time Penicillins Allergy Severe THROAT Verified 06/22/24 13:20 SWELLING doxycycline Allergy Intermediate Rash Verified 06/22/24 13:20 levofloxacin [From Levaquin] Allergy Mild Rash Verified 07/11/24 05:51 naproxen Allergy Unknown Unknown Verified 06/22/24 13:20 Home Medications Medication Instructions Recorded Confirmed Type nebulizer accessories #1 ea 06/17/19 06/22/24 Rx blood sugar diagnostic (OneTouch #100 ea 06/07/20 06/22/24 Rx Ultra Blue Test Strip) acetaminophen 500 mg tablet 500 mg PO Q6H PRN Pain 04/02/21 06/22/24 History (Tylenol Extra Strength) famotidine 40 mg tablet 40 mg PO QAM #30 tabs 01/05/23 06/22/24 Rx guaifenesin 600 mg tablet, 600 mg PO Q12 #15 tabs 01/05/23 06/22/24 Rx extended release 12 hr (Mucinex) sildenafil 100 mg tablet 100 mg PO DAILY PRN sexual 08/14/23 06/22/24 Rx activity #30 tabs albuterol sulfate 2.5 mg/3 mL 2.5 mg (3 mL) inhalation QID PRN 12/16/23 06/22/24 Rx (0.083 %) solution for nebulization shortness of breath or wheezing #180 mL albuterol sulfate 90 mcg/actuation 2 puff inhalation Q4H PRN 01/02/24 06/22/24 Rx aerosol inhaler (Ventolin HFA) shortness of breath or wheezing #8.5 grams metformin 500 mg tablet 500 mg PO BID PRN SEE COMMENT #30 01/02/24 06/22/24 Rx tabs trazodone 100 mg tablet 100 mg PO DAILY #90 tabs 01/02/24 06/22/24 Rx amlodipine 5 mg tablet 5 mg PO DAILY #90 tabs 04/20/24 06/22/24 Rx apixaban 5 mg tablet (Eliquis) 5 mg PO BID #180 tabs 04/20/24 06/22/24 Rx carvedilol 12.5 mg tablet 12.5 mg PO BID #180 tabs 04/20/24 06/22/24 Rx lisinopril 30 mg tablet 30 mg PO QAM #90 tabs 04/20/24 06/22/24 Rx rosuvastatin 20 mg tablet 20 mg PO DAILY #90 tabs 04/20/24 06/22/24 Rx fluticasone fur. 100 mcg-umeclid 1 inh inhalation DAILY #3 Inhalers 04/24/24 06/22/24 Rx 62.5 mcg-vilant 25 mcg inhalat.powder (Trelegy Ellipta) gabapentin 100 mg capsule See Rx Instructions PO TID #150 06/11/24 06/22/24 Rx caps theophylline 300 mg 300 mg PO DAILY #90 tabs 06/22/24 Rx tablet,extended release,12 hr secukinumab 150 mg/mL subcutaneous 150 mg subcut Q7D #5 mL 07/09/24 Rx pen injector (Cosentyx Pen) Past Med/Surg History Problem List (Updated 07/11/24 @ 06:25 by Darian Cox MD) Acute on chronic respiratory failure with hypoxia Ankylosing spondylitis lumbar region Chronic lower back pain Acute hip pain, bilateral Acute low back pain Peripheral eosinophilia Breathlessness (Acute) 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 (Acute) On home oxygen therapy 2L N/C at HS Paroxysmal atrial fibrillation Insomnia DVT (deep venous thrombosis) (Chronic) 2019- tx with eliquis Erectile dysfunction (Chronic) Renal cyst Abnormal CT scan, kidney GERD (gastroesophageal reflux disease) Ankylosing spondylitis Cervical spine ankylosis Coronary artery disease (Chronic) BPH (benign prostatic hyperplasia) COPD (chronic obstructive pulmonary disease) (Chronic) inhaler daily/prn Cardiomyopathy (Chronic) Diabetes mellitus (Chronic) NIDDM Hyperlipidemia (Chronic) Hypertension (Chronic) Medical History Atrial fibrillation Bloating Constipation On anticoagulant therapy History of anesthesia reaction History of COVID-19 Non-ST elevation myocardial infarction (NSTEMI) in recovery phase Surgical History History of colonoscopy History of tooth extraction History of cardiac cath (~12/09/18) History of heart artery stent (~12/09/18) Family History Mother Colorectal cancer Father Myocardial infarction Other Coronary heart disease Diabetes Heart disease Hypertension No family history of adverse response to anesthesia Denies family history of Prostate cancer Breast cancer Social History (Updated 06/11/24 @ 10:47 by Lillian Harrell LPN) Smoking Status: Former smoker Tobacco Type: Cigarettes Age Started Using Tobacco: 15; Age Quit Using Tobacco: 53; packs per day: 1.5; Cigarettes Per Day: 30; Second Hand Exposure: Yes (Father smoked when Pt. was a child. 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 ) Diet: regular caffeine: Yes (coffee) during the past year weight has: remained stable Dental Care, Regularly: Yes Physical Activity Frequency: Daily Seatbelt Use: always Sunscreen Use: No Do you think of yourself as: straight/heterosexual Sexual Activity: has been sexually active within the last 12 months Gender Identity: Male Assistive Devices: Glasses and Oxygen - at Night Review of Systems Review of Systems: The patient denies chest pain, palpitations, lower extremity swelling, sore throat, fevers, chills, sweats, nausea, vomiting, diarrhea , constipation, abdominal pain, pelvic pain, blood in urine or stool, dysuria, urinary frequency or urgency, lightheadedness, dizziness, headache, memory loss, loss of consciousness, rash, abnormal bruising or bleeding, imbalance, focal weakness, numbness or tingling in arms or legs, generalized arthralgias or myalgias, neck pain, or night sweats. The review of systems is otherwise negative other than for that already noted above, and at least 10 systems have been reviewed. Physical Exam Physical Exam: The patient is awake, alert and oriented 3, well developed and well nourished, normocephalic and atraumatic, lying in bed and in no acute distress. HEENT--PERRL, EOMI, mucous membranes and oropharynx dry. Neck--supple. No JVD. No bruits. Thyroid normal, trachea midline, no adenopathy. Heart--normal S1 and S2. No murmurs, rubs or gallops. Lungs--decreased breath sounds throughout. Mild respiratory distress, no accessory muscle use. Abdomen--normal bowel sounds and soft. Nontender. Nondistended, no hernias or masses, no organomegaly. Extremities-- No edema. There are good distal pulses b/l. Dermatologic--normal skin turgor, normal color, no abnormal lymph nodes, no rash. Neurologic--cranial nerves II through XII grossly intact. Rheumatologic--normal range of motion. Psychiatric--normal affect. Results & Data Results & Data Vital Signs (Past 12 Hours) Vital Signs Pulse Resp BP Pulse Ox O2 Del Method FiO2 07/11/24 05:49 17 96 40 07/11/24 04:24 87 07/11/24 04:00 90 23 184/107 H 92 BiPAP 50 07/11/24 03:30 83 21 133/88 93 BiPAP 50 07/11/24 02:30 100 H 17 138/96 93 BiPAP 50 07/11/24 02:01 101 H 23 94 40 07/11/24 02:00 100 H 17 167/105 H 93 BiPAP 50 07/11/24 01:47 100 H 17 158/80 H 97 BiPAP 50 07/11/24 01:47 102 H 14 96 BiPAP 50 07/11/24 01:47 BiPAP 07/11/24 01:23 BiPAP 07/11/24 01:23 BiPAP 07/11/24 01:23 101 H 16 158/80 H 97 BiPAP 50 Laboratory Results Laboratory Results WBC 15.18 K/ul (4.8-10.8) H 07/11/24 01:50 RBC 4.95 M/uL (4.70-6.10) 07/11/24 01:50 Hgb 15.0 g/dl (14.0-18.0) 07/11/24 01:50 Hct 45.4 % (42.0-52.0) 07/11/24 01:50 MCV 91.7 fL (80.0-100.0) 07/11/24 01:50 MCH 30.3 pg (25.0-34.0) 07/11/24 01:50 MCHC 33.0 g/dL (32.0-36.0) 07/11/24 01:50 RDW Std Deviation 42.5 fL (36.4-46.3) 07/11/24 01:50 RDW Coeff of [place] 12.6 % (11.5-14.5) 07/11/24 01:50 Plt Count 195 K/uL (130-400) 07/11/24 01:50 MPV 11.0 fL (9.4-12.4) 07/11/24 01:50 Immature Gran % (Auto) 0.5 % 07/11/24 01:50 Neut % (Auto) 82.7 % 07/11/24 01:50 Lymph % (Auto) 9.5 % 07/11/24 01:50 [place] % (Auto) 5.9 % 07/11/24 01:50 Eos % (Auto) 1.1 % 07/11/24 01:50 Baso % (Auto) 0.3 % 07/11/24 01:50 Neut # (Auto) 12.56 K/uL (1.40-6.50) H 07/11/24 01:50 Lymph # (Auto) 1.44 K/uL (1.20-3.40) 07/11/24 01:50 [place] # (Auto) 0.89 K/uL (0.11-0.59) H 07/11/24 01:50 Eos # (Auto) 0.17 K/uL (0.00-0.50) 07/11/24 01:50 Baso # (Auto) 0.05 K/uL (0.00-0.20) 07/11/24 01:50 Immature Gran # (Auto) 0.07 K/uL (0.01-0.20) 07/11/24 01:50 PT 11.8 Seconds (9.0-12.0) 07/11/24 01:50 INR 1.1 (0.9-1.1) 07/11/24 01:50 APTT 27 Seconds (21-31) 07/11/24 01:50 PTT Ratio 1.0 07/11/24 01:50 Sodium 136 mmol/L (136-145) 07/11/24 01:50 Potassium 4.1 mmol/L (3.5-5.1) 07/11/24 01:50 Chloride 99 mmol/L (98-107) 07/11/24 01:50 Carbon Dioxide 29 mmol/L (21-32) 07/11/24 01:50 Anion Gap 8 (3-11) 07/11/24 01:50 BUN 16 mg/dl (6-23) 07/11/24 01:50 Creatinine 0.89 mg/dl (0.6-1.4) 07/11/24 01:50 Est Cr Clr Drug Dosing 83.5 ml/min 07/11/24 01:50 Est GFR ( Amer) 104.7 ml/min 07/11/24 01:50 Est GFR (Non-Af Amer) 90.4 ml/min 07/11/24 01:50 BUN/Creatinine Ratio 18.0 (10-20) 07/11/24 01:50 Glucose 192 mg/dl (70-99(Fasting)) H 07/11/24 01:50 Calcium 9.1 mg/dl (8.6-10.3) 07/11/24 01:50 Total Bilirubin 0.8 mg/dl (0.2-1.0) 07/11/24 01:50 AST 14 U/L (13-39) 07/11/24 01:50 ALT 11 U/L (7-52) 07/11/24 01:50 Alkaline Phosphatase 60 U/L (34-104) 07/11/24 01:50 Troponin I High Sens 466.2 pg/ml (0-20) H* D 07/11/24 03:34 Total Protein 7.2 gm/dl (6.0-8.3) 07/11/24 01:50 Albumin 4.7 gm/dl (3.4-5.0) 07/11/24 01:50 Globulin 2.5 gm/dl (2.5-4.0) 07/11/24 01:50 Albumin/Globulin Ratio 1.9 (0.9-2) 07/11/24 01:50 SARS-CoV-2 (PCR) NEGATIVE (Negative) 07/11/24 04:31 Influenza Type A (PCR) Negative (Neg) 07/11/24 04:31 Influenza Type B (PCR) Negative (Neg) 07/11/24 04:31 RSV (RT-PCR) Negative (Neg) 07/11/24 04:31 Code Status & VTE Plan Code Status Full code VTE Prophylaxis Plan VTE Prophylaxis will be ordered: Yes PG Care Time/CCT Total # of Minutes Spent Total Time Spent with Patient: Total time spent is greater than 50% in coordination of care (as documented) at patient's floor/unit and/or counseling patient: Coding Level of Care Code 93731 INT INP/OBS CARE 3/75MIN Diagnoses Acute on chronic respiratory failure with hypoxia J96.21 NSTEMI (non-ST elevated myocardial infarction) I21.4 Ankylosing spondylitis lumbar region M45.6 On home oxygen therapy Z99.81 Paroxysmal atrial fibrillation I48.0 DVT (deep venous thrombosis) I82.409 GERD (gastroesophageal reflux disease) K21.9 Coronary artery disease I25.10 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
[2024-07-11] MEDS ORDERED: DEXTROSE 50% 50 ML SYRINGE IV PRN (06:35)
[2024-07-11] MEDS ORDERED: ACETAMINOPHEN 325 MG TAB PO PRN (06:35)
[2024-07-11] MEDS ORDERED: CARBOHYDRATES FOR HYPOGLYCEMIA PO PRN (06:35)
[2024-07-11] MEDS ORDERED: GLUCAGON FOR INJ 1 MG VIAL SQ PRN (06:35)
[2024-07-11] MEDS ORDERED: GLUCOSE 10 TAB/TUBE PO PRN (06:35)
[2024-07-11] MEDS: methylPREDNISolone 125 MG/2 ML VIAL IV STA (06:35)
[2024-07-11] MEDS ORDERED: GLUCOSE 40% GEL 15 GM TUBE PO PRN (06:35)
[2024-07-11] MEDS: AZITHROMYCIN 500 MG in DEXTROSE 5% 250 ML IV ONE (06:36)
[2024-07-11] MEDS: ALBUT/IPRATROP 3MG/0.5MG NEB 3 ML VIAL NEB SCH (06:45)
[2024-07-11] MEDS: HEPARIN SODIUM/DEXTROSE 25,000 UNITS/500 ML BAG IV SCH (07:24)
--- NOTE | 2024-07-11 08:05 | Emergency Department Note ---
Impression & Plan Hypoxia, Non-ST elevation MD (NSTEMI), Acute exacerbation of chronic obstructive pulmonary disease Admit to the [facility] ED Provider Note NAME: SIMON BACA Jr AGE: 63 SEX: Male INFORMANT: Patient ED PROVIDER(S): Jannette Peralta DO CHIEF COMPLAINT: Shortness of breath and chest tightness PLAN: Disposition: Admit to the [facility] MEDICAL DECISION MAKING: This is a 63-year-old male patient with history of COPD who had increasing shortness of breath and cough since yesterday and developed chest tightness and stomach cramps. EMS was called with O2 saturations in the 80s. He was initially placed on 15 L of oxygen by nonrebreather but then switched to BiPAP. Patient's shortness of breath and chest tightness resolved. Chest x-ray was unremarkable. EKG shows no signs of ischemia but troponin was elevated at 82.6. Repeat troponin was elevated at 466. Findings are consistent with an NSTEMI and the patient presented with acute respiratory failure/hypoxia secondary to COPD most likely. [facility] and [facility] will [facility] further [facility] care. Other laboratory values revealed a white blood cell count of 15.1. H&H were stable. Coags were normal. Glucose was 192. Bio fire was unremarkable. 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 Triage Nursing notes: reviewed and agree with them. Vital Signs: reviewed and unremarkable Additional History obtained from: EMS Chronic Medical/Social Conditions affecting care: COPD; coronary artery disease with previous PCI and stent placement Differential Diagnosis: STEMI, NSTEMI, CHF, COPD, respiratory failure, COVID Diagnostics, independently interpreted by me: ECG: Normal sinus rhythm at a rate of [address] segment depression in the inferior leads. There is no ectopy. Cardiac Monitoring: Normal sinus rhythm at a rate of 68 Imaging studies: Chest x-ray: As per my independent interpretation-no acute pulmonary infiltrates or pulmonary vascular congestion HPI: 63 year old Male arrives for evaluation of chest tightness and shortness of breath. Yesterday the patient developed a cough and shortness of breath. Last evening he began to develop chest tightness. He called EMS to his home because he is normally on 2 L of oxygen but had to bump himself up to 4 L and still felt extremely short of breath. Upon EMS arrival, O2 saturation was 70% on his usual 4 L. PAST MEDICAL HISTORY: See Below, PAST SURGICAL HISTORY: See Below, SOCIAL HISTORY: See Below, HOME MEDICATIONS: See list ALLERGIES: See list VITALS: See Below PHYSICAL EXAMINATION: HEENT: Head - normocephalic and atraumatic. Pupils are equal, round, and reactive to light. Extraocular eye muscles are intact, and sclera are anicteric. Nose - moist nasal mucosa without discharge. Mouth - moist buccal mucosa. Oropharynx is nonerythematous and there is no tonsillar exudate or edema noted. Neck: Supple; no JVD noted Heart: Regular rate and rhythm. There is a normal S1 and S2 with no murmurs, clicks, or gallops appreciated. Lungs: Diminished breath sounds in both lung bases with rhonchi intermittently. Abdomen: Soft, completely nontender, nondistended, with good bowel sounds. There are no palpable pulsatile masses or hepatosplenomegaly. There is no guarding, rigidity, or rebound noted. Extremities: No evidence of cyanosis, clubbing, or edema. There are easily palpable peripheral pulses. Skin: Pale, warm and dry with good turgor and no rashes. Emergency department course: The patient was evaluated in room C3. He was transferred over to BiPAP. An order was placed for continuous cardiac monitoring. The patient was in a normal sinus rhythm at a rate of 68. O2 saturation was 92% on the BiPAP. His chest tightness had resolved. Portable chest x-ray was performed. He remained hemodynamically stable. I reevaluated the patient multiple times to ensure that he is maintaining O2 saturations on the BiPAP. I have personally spent greater than 40 minutes of critical care time in the direct management of this patient. This includes bedside care, interpretation of diagnostic studies, and testing, discussion with consultants, patient, and family members, and other required patient management activities. This 40 minutes is in excess of all separately billable procedures. 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) use of anticoagulants (Acute) On home oxygen therapy 2L N/C at HS Paroxysmal atrial fibrillation Insomnia DVT (deep venous thrombosis) (Chronic) 2019- tx with eliquis Erectile dysfunction (Chronic) Renal cyst Abnormal CT scan, kidney GERD (gastroesophageal reflux disease) Ankylosing spondylitis Cervical spine ankylosis Coronary artery disease (Chronic) BPH (benign prostatic hyperplasia) COPD (chronic obstructive pulmonary disease) (Chronic) inhaler daily/prn Cardiomyopathy (Chronic) Diabetes mellitus (Chronic) NIDDM Hyperlipidemia (Chronic) Hypertension (Chronic) Medical History Atrial fibrillation on Eliquis. Follows with Dr. Haider Bloating Constipation On anticoagulant therapy eliquis daily History of anesthesia reaction "at least 20yrs ago having teeth removed and they lost me for awhile and then got me back"--no other issues with anesthesia History of COVID-19 10/01/20 @ [facility]--headache/cold symptoms Non-ST elevation myocardial infarction (NSTEMI) in recovery phase 2018--had heart cath--follows with Dr. Haider Surgical History History of colonoscopy History of tooth extraction all teeth removed History of cardiac cath (~12/09/18) History of heart artery stent (~12/09/18) [address] Haider Family History Mother Colorectal cancer Father Myocardial infarction Other Coronary heart disease Diabetes Heart disease Hypertension No family history of adverse response to anesthesia Denies family history of Prostate cancer Breast cancer Social History Smoking Status: Former smoker Age Started Using Tobacco: 15; Age Quit Using Tobacco: 53; packs per day: 1.5; Second Hand Exposure: Yes (Father smoked when Pt. was a child. 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 ) Diet: regular caffeine: Yes (coffee) during the past year weight has: remained stable Dental Care, Regularly: Yes Physical Activity Frequency: Daily Seatbelt Use: always Sunscreen Use: No Do you think of yourself as: straight/heterosexual Sexual Activity: has been sexually active within the last 12 months Gender Identity: Male Assistive Devices: Glasses and Oxygen - at Night Allergies Allergies Allergy/AdvReac Type Severity Reaction Status Date / Time Penicillins Allergy Severe THROAT Verified 06/22/24 13:20 SWELLING doxycycline Allergy Intermediate Rash Verified 06/22/24 13:20 levofloxacin [From Levaquin] Allergy Mild Rash Verified 07/11/24 05:51 naproxen Allergy Unknown Unknown Verified 06/22/24 13:20 Home Meds Home Medications Medication Instructions Recorded Confirmed acetaminophen 500 mg tablet 500 mg PO Q6H PRN Pain 04/02/21 07/11/24 (Tylenol Extra Strength) azithromycin 250 mg tablet 250 mg PO UD 07/11/24 07/11/24 Previous Rx's Medication Instructions Recorded nebulizer accessories #1 ea 06/17/19 blood sugar diagnostic (OneTouch #100 ea 06/07/20 Ultra Blue Test Strip) famotidine 40 mg tablet 40 mg PO QAM #30 tabs 01/05/23 guaifenesin 600 mg tablet, 600 mg PO Q12 #15 tabs 01/05/23 extended release 12 hr (Mucinex) sildenafil 100 mg tablet 100 mg PO DAILY PRN sexual 08/14/23 activity #30 tabs albuterol sulfate 2.5 mg/3 mL 2.5 mg (3 mL) inhalation QID PRN 12/16/23 (0.083 %) solution for nebulization shortness of breath or wheezing #180 mL albuterol sulfate 90 mcg/actuation 2 puff inhalation Q4H PRN 01/02/24 aerosol inhaler (Ventolin HFA) shortness of breath or wheezing #8.5 grams metformin 500 mg tablet 500 mg PO BID PRN SEE COMMENT #30 01/02/24 tabs trazodone 100 mg tablet 100 mg PO DAILY #90 tabs 01/02/24 amlodipine 5 mg tablet 5 mg PO DAILY #90 tabs 04/20/24 apixaban 5 mg tablet (Eliquis) 5 mg PO BID #180 tabs 04/20/24 carvedilol 12.5 mg tablet 12.5 mg PO BID #180 tabs 04/20/24 lisinopril 30 mg tablet 30 mg PO QAM #90 tabs 04/20/24 rosuvastatin 20 mg tablet 20 mg PO DAILY #90 tabs 04/20/24 fluticasone fur. 100 mcg-umeclid 1 inh inhalation DAILY #3 Inhalers 04/24/24 62.5 mcg-vilant 25 mcg inhalat.powder (Trelegy Ellipta) gabapentin 100 mg capsule See Rx Instructions PO TID #150 06/11/24 caps theophylline 300 mg 300 mg PO DAILY #90 tabs 06/22/24 tablet,extended release,12 hr secukinumab 150 mg/mL subcutaneous 150 mg subcut Q7D #5 mL 07/09/24 pen injector (Cosentyx Pen) Results & Data (ED) Vital Signs Vital Signs - 24 hr 07/11/24 01:23 07/11/24 01:23 07/11/24 01:23 Pulse Rate 101 H Pulse Rate from SpO2 Sensor Respiratory Rate 16 Respiratory Effort / Characteristics Respiratory Depth Respiratory Pattern Blood Pressure 158/80 H Blood Pressure Mean 106 Pulse Oximetry 97 Oxygen Delivery Method BiPAP BiPAP BiPAP Fraction of Inspired Oxygen 50 SaO2/FiO2 Ratio 194 Sepsis Recent Fever Within 48 Hours No Sepsis New/Unexplained Change in Mental Status No Sepsis Action Taken by Nursing No Action Required Fraction of Inspired Oxygen - Titration 50 Pulse Oximetry Post Tiitration 96 07/11/24 01:47 07/11/24 01:47 07/11/24 01:47 Pulse Rate 102 H 100 H Pulse Rate from SpO2 Sensor 100 H Respiratory Rate 14 17 Respiratory Effort / Characteristics Respiratory Depth Respiratory Pattern Blood Pressure 158/80 H Blood Pressure Mean 123 Pulse Oximetry 96 97 Oxygen Delivery Method BiPAP BiPAP BiPAP Fraction of Inspired Oxygen 50 50 SaO2/FiO2 Ratio 192 Sepsis Recent Fever Within 48 Hours Sepsis New/Unexplained Change in Mental Status Sepsis Action Taken by Nursing Fraction of Inspired Oxygen - Titration 50 Pulse Oximetry Post Tiitration 07/11/24 02:00 07/11/24 02:01 07/11/24 02:30 Pulse Rate 100 H 101 H 100 H Pulse Rate from SpO2 Sensor 100 H 98 H Respiratory Rate 17 23 17 Respiratory Effort / Characteristics Labored Respiratory Depth Normal Respiratory Pattern Regular Blood Pressure 167/105 H 138/96 Blood Pressure Mean 133 115 Pulse Oximetry 93 94 93 Oxygen Delivery Method BiPAP BiPAP Fraction of Inspired Oxygen 50 40 50 SaO2/FiO2 Ratio Sepsis Recent Fever Within 48 Hours Sepsis New/Unexplained Change in Mental Status Sepsis Action Taken by Nursing Fraction of Inspired Oxygen - Titration Pulse Oximetry Post Tiitration 07/11/24 03:30 07/11/24 04:00 07/11/24 04:24 Pulse Rate 83 90 87 Pulse Rate from SpO2 Sensor 82 89 Respiratory Rate 21 23 Respiratory Effort / Characteristics Respiratory Depth Respiratory Pattern Blood Pressure 133/88 184/107 H Blood Pressure Mean 104 131 Pulse Oximetry 93 92 Oxygen Delivery Method BiPAP BiPAP Fraction of Inspired Oxygen 50 50 SaO2/FiO2 Ratio Sepsis Recent Fever Within 48 Hours Sepsis New/Unexplained Change in Mental Status Sepsis Action Taken by Nursing Fraction of Inspired Oxygen - Titration Pulse Oximetry Post Tiitration 07/11/24 05:49 Pulse Rate Pulse Rate from SpO2 Sensor Respiratory Rate 17 Respiratory Effort / Characteristics Respiratory Depth Respiratory Pattern Blood Pressure Blood Pressure Mean Pulse Oximetry 96 Oxygen Delivery Method Fraction of Inspired Oxygen 40 SaO2/FiO2 Ratio Sepsis Recent Fever Within 48 Hours Sepsis New/Unexplained Change in Mental Status Sepsis Action Taken by Nursing Fraction of Inspired Oxygen - Titration Pulse Oximetry Post Tiitration Laboratory Data 07/12/24 07:45 07/12/24 07:45 Lab Results 07/11/24 07/11/24 07/11/24 Range/Units 01:50 03:34 04:31 WBC 15.18 H (4.8-10.8) K/ul RBC 4.95 (4.70-6.10) M/uL Hgb 15.0 (14.0-18.0) g/dl Hct 45.4 (42.0-52.0) % MCV 91.7 (80.0-100.0) fL MCH 30.3 (25.0-34.0) pg MCHC 33.0 (32.0-36.0) g/dL RDW Std Deviation 42.5 (36.4-46.3) fL RDW Coeff of [place] 12.6 (11.5-14.5) % Plt Count 195 (130-400) K/uL MPV 11.0 (9.4-12.4) fL Immature Gran % (Auto) 0.5 % Neut % (Auto) 82.7 % Lymph % (Auto) 9.5 % [place] % (Auto) 5.9 % Eos % (Auto) 1.1 % Baso % (Auto) 0.3 % Neut # (Auto) 12.56 H (1.40-6.50) K/uL Lymph # (Auto) 1.44 (1.20-3.40) K/uL [place] # (Auto) 0.89 H (0.11-0.59) K/uL Eos # (Auto) 0.17 (0.00-0.50) K/uL Baso # (Auto) 0.05 (0.00-0.20) K/uL Immature Gran # (Auto) 0.07 (0.01-0.20) K/uL PT 11.8 (9.0-12.0) Seconds INR 1.1 (0.9-1.1) APTT 27 (21-31) Seconds PTT Ratio 1.0 Sodium 136 (136-145) mmol/L Potassium 4.1 (3.5-5.1) mmol/L Chloride 99 (98-107) mmol/L Carbon Dioxide 29 (21-32) mmol/L Anion Gap 8 (3-11) BUN 16 (6-23) mg/dl Creatinine 0.89 (0.6-1.4) mg/dl Est Cr Clr Drug Dosing 83.5 ml/min Est GFR ( Amer) 104.7 ml/min Est GFR (Non-Af Amer) 90.4 ml/min BUN/Creatinine Ratio 18.0 (10-20) Glucose 192 H (70-99(Fasting)) mg/dl Calcium 9.1 (8.6-10.3) mg/dl Total Bilirubin 0.8 (0.2-1.0) mg/dl AST 14 (13-39) U/L ALT 11 (7-52) U/L Alkaline Phosphatase 60 (34-104) U/L Troponin I High Sens 82.6 H* 466.2 H* D (0-20) pg/ml Total Protein 7.2 (6.0-8.3) gm/dl Albumin 4.7 (3.4-5.0) gm/dl Globulin 2.5 (2.5-4.0) gm/dl Albumin/Globulin Ratio 1.9 (0.9-2) SARS-CoV-2 (PCR) NEGATIVE (Negative) Influenza Type A (PCR) Negative (Neg) Influenza Type B (PCR) Negative (Neg) RSV (RT-PCR) Negative (Neg) Administered Medications Albuterol (Albut/Ipratrop 3mg/0.5mg Neb 3 Ml Vial) 3 ml NEB QIDR KEISHA; Protocol Stop: 08/10/24 06:59 Last Admin: 07/12/24 11:03 Dose: 3 ml Documented By: Admin: 07/12/24 07:22 Dose: 3 ml Documented By: Admin: 07/11/24 19:38 Dose: 3 ml Documented By: Admin: 07/11/24 14:03 Dose: 3 ml Documented By: Admin: 07/11/24 10:52 Dose: 3 ml Documented By: Admin: 07/11/24 06:45 Dose: 3 ml Documented By: ANTONINA Amlodipine Besylate (Amlodipine Besylate 5 Mg Tab) 5 mg PO DAILY KEISHA Stop: 08/10/24 08:59 Last Admin: 07/12/24 08:31 Dose: 5 mg Documented By: Admin: 07/11/24 09:08 Dose: 5 mg Documented By: BRETT Carvedilol (Carvedilol 12.5 Mg Tab) 12.5 mg PO BID KEISHA Stop: 08/10/24 08:59 Last Admin: 07/12/24 08:31 Dose: 12.5 mg Documented By: Admin: 07/11/24 20:19 Dose: 12.5 mg Documented By: Admin: 07/11/24 09:08 Dose: 12.5 mg Documented By: BRETT Famotidine (Famotidine 40 Mg Tablet) 40 mg PO QAM [facility] Stop: 08/10/24 08:59 Last Admin: 07/12/24 08:31 Dose: 40 mg Documented By: Admin: 07/11/24 09:08 Dose: 40 mg Documented By: BRETT Gabapentin (Gabapentin 100 Mg Cap) 200 mg PO BID KEISHA Stop: 08/10/24 08:59 Last Admin: 07/12/24 08:31 Dose: 200 mg Documented By: Admin: 07/11/24 20:16 Dose: 200 mg Documented By: Admin: 07/11/24 09:08 Dose: 200 mg Documented By: BRETT Gabapentin (Gabapentin 100 Mg Cap) 100 mg PO DAILY@1400 KEISHA Stop: 08/10/24 13:59 Last Admin: 07/11/24 15:18 Dose: 100 mg Documented By: SHENA Guaifenesin (Guaifenesin 600 Mg Tabcr) 600 mg PO Q12 KEISHA Stop: 08/10/24 08:59 Last Admin: 07/12/24 08:31 Dose: 600 mg Documented By: Admin: 07/11/24 20:19 Dose: 600 mg Documented By: Admin: 07/11/24 09:08 Dose: 600 mg Documented By: BRETT Azithromycin 500 mg/ Dextrose 255 mls @ 125 mls/hr IV Q24H KEISHA Stop: 07/19/24 05:44 Last Infusion: 07/12/24 08:21 Dose: Infused Documented By: Admin: 07/12/24 06:09 Dose: 125 mls/hr Documented By: ELMA Heparin Sodium/Dextrose (Heparin Sodium/Dextrose) 25,000 units in 500 mls @ 18 mls/hr IV .Q24H KEISHA; Protocol Stop: 07/13/24 04:00 Last Admin: 07/12/24 11:12 Dose: 900 units/hr, 18 mls/hr Documented By: SHENA Co-signed By: HAO Titration: 07/12/24 11:12 Dose: Infused Documented By: SHENA Co-signed By: MJN Titration: 07/12/24 09:55 Dose: 900 units/hr, 18 mls/hr Documented By: SHENA Co-signed By: BT Titration: 07/12/24 01:45 Dose: 900 units/hr, 18 mls/hr Documented By: ELMA Co-signed By: MLH Titration: 07/11/24 18:07 Dose: 900 units/hr, 18 mls/hr Documented By: SHENA Co-signed By: HEL Titration: 07/11/24 14:56 Dose: 0 units/hr, 0 mls/hr Documented By: SHENA Co-signed By: HEL Titration: 07/11/24 12:12 Dose: 1,250 units/hr, 25 mls/hr Documented By: SHENA Co-signed By: HEL Admin: 07/11/24 07:24 Dose: 1,250 units/hr, 25 mls/hr Documented By: BRETT Co-signed By: ALVARO Methylprednisolone 40 mg/ (Syringe) 0.64 mls @ 1.5 mls/min IV Q8H KEISHA Stop: 08/10/24 13:59 Last Admin: 07/12/24 06:10 Dose: 1.5 mls/min Documented By: Admin: 07/11/24 20:28 Dose: 1.5 mls/min Documented By: Admin: 07/11/24 15:18 Dose: 1.5 mls/min Documented By: SHENA Insulin Aspart (Insulin Aspart Per Unit Charge) 0 units SC ACHS KEISHA Stop: 08/10/24 07:29 Last Admin: 07/12/24 12:24 Dose: 3 units Documented By: SHENA Co-signed By: JOE Admin: 07/12/24 08:37 Dose: 4 units Documented By: SHENA Co-signed By: HAO Admin: 07/11/24 20:28 Dose: 1 units Documented By: ELMA Co-signed By: DANNIE Admin: 07/11/24 17:00 Dose: 3 units Documented By: SHENA Co-signed By: RENE Admin: 07/11/24 12:49 Dose: 4 units Documented By: SHENA Co-signed By: RENE Admin: 07/11/24 09:56 Dose: 7 units Documented By: BRETT Co-signed By: BERNY Lisinopril (Lisinopril 10 Mg Tab) 30 mg PO QAM KEISHA Stop: 08/10/24 08:59 Last Admin: 07/12/24 08:31 Dose: 30 mg Documented By: Admin: 07/11/24 09:08 Dose: 30 mg Documented By: BRETT Rosuvastatin Calcium (Rosuvastatin Calcium 20 Mg Tab) 20 mg PO DAILY KEISHA Stop: 08/10/24 08:59 Last Admin: 07/12/24 08:31 Dose: 20 mg Documented By: Admin: 07/11/24 09:08 Dose: 20 mg Documented By: BRETT Theophylline (Theophylline 300mg Extended Rel Tab) 300 mg PO DAILY KEISHA Stop: 08/10/24 08:59 Last Admin: 07/12/24 09:04 Dose: 300 mg Documented By: Admin: 07/11/24 09:57 Dose: 300 mg Documented By: BRETT Trazodone HCl (Trazodone Hcl 100 Mg Tab) 100 mg PO HS KEISHA Stop: 08/10/24 20:59 Last Admin: 07/11/24 20:41 Dose: 100 mg Documented By: ELMA Discontinued Medications Heparin Sodium/Dextrose (Heparin Iv Adult Wt-Based Standard *No* Initial Bolus Protocol) 1 each IV ONE STA; Protocol Stop: 07/11/24 05:43 Last Admin: 07/11/24 08:19 Dose: Not Given Documented By: BRETT Azithromycin 500 mg/ Dextrose 255 mls @ 125 mls/hr IV NOW ONE Stop: 07/11/24 08:02 Last Infusion: 07/11/24 09:02 Dose: Infused Documented By: Admin: 07/11/24 06:36 Dose: 125 mls/hr Documented By: ALVARO Methylprednisolone (Methylprednisolone 125 Mg/2 Ml Vial) 125 mg IV NOW STA Stop: 07/11/24 05:38 Last Admin: 07/11/24 06:35 Dose: 125 mg Documented By: ALVARO Trazodone HCl (Trazodone Hcl 100 Mg Tab) 100 mg PO DAILY KEISHA Stop: 08/10/24 08:59 Last Admin: 07/11/24 09:08 Dose: 100 mg Documented By: BRETT Discharge Plan Visit Data Chief Complaint: Respiratory Problems Stated Complaint: Respiratory Difficulty ED Provider: Jannette Peralta Discharge Problem: Hypoxia, Non-ST elevation MD (NSTEMI), Acute exacerbation of chronic obstructive pulmonary disease Patient Disposition: Admitted As Inpatient Discharge Instructions Interventions: ED Discharge Assessment Last Done: 07/11/24 06:36
[2024-07-11] MEDS: Heparin IV Adult Wt-Based Standard *NO* INITIAL Bolus Protocol IV STA (08:19)
[2024-07-11 08:41] LABS: Chol HDL Ratio 2.1 (0-5)
--- NOTE | 2024-07-11 08:49 | XRay Report ---
XR chest 1V not portable CLINICAL HISTORY: Chest pain, nonspecific TECHNIQUE: Single frontal radiograph of the chest was obtained. Comparison: Comparison is made to chest radiograph 01/02/2023 FINDINGS: No lines and tubes are seen. Calcified aortic knob is seen. The lungs are clear. No evidence of pleur al effusion or pneumothorax. IMPRESSION: No acute chest disease. ACT 112: Negative or not required by law. Electronically signed by: Jeff Huertas M.D. 07/11/2024 8:48 AM
[2024-07-11] MEDS: carvediloL 12.5 MG TAB PO SCH (09:08)
[2024-07-11] MEDS: amLODIPine BESYLATE 5 MG TAB PO SCH (09:08)
[2024-07-11] MEDS: lisinopril 10 MG TAB PO SCH (09:08)
[2024-07-11] MEDS: GABAPENTIN 100 MG CAP PO SCH ×2 (09:08→15:18)
[2024-07-11] MEDS: traZODone HCL 100 MG TAB PO SCH ×2 (09:08→20:41)
[2024-07-11] MEDS: ROSUVASTATIN CALCIUM 20 MG TAB PO SCH (09:08)
[2024-07-11] MEDS: FAMOTIDINE 40 MG TABLET PO SCH (09:08)
[2024-07-11] MEDS: guaiFENesin 600 MG TABCR PO SCH (09:08)
--- NOTE | 2024-07-11 09:54 | Cardiology Consultation ---
Date of Consultation July 11, 2024 Assessment & Plan (1) Shortness of breath: (2) Paroxysmal atrial fibrillation: (3) Coronary artery disease: (4) Cardiomyopathy: (5) Elevated troponin: Plan 1. Shortness of breath: This could be multifactorial including his lung diseas e, his chest x-ray did not suggest congestive heart failure although he does have a low ejection fraction and perhaps it is subclinical. It could also be an anginal equivalent due to myocardial ischemia. 2. Atrial fibrillation: Atrial fibrillation does not seem to be a cause as he has been in sinus rhythm here. 3. Coronary disease: He has known coronary disease, a stress test had been planned but was not done due to him canceling it with his 's hip surgery. I think we need some type of coronary evaluation given his rising troponin and his symptoms. I think a catheterization is probably warranted, he is on apixaban for his paroxysmal atrial fibrillation but we can hold that at this time. I would anticipate doing this Saturday. 4. Cardiomyopathy: He does have a cardiomyopathy, that could explain some of his exertional symptoms but does not explain his elevated troponin. That makes progressive coronary disease more likely. 5. Elevated troponin: His troponin is quite elevated and in a rising pattern, he does not have ST elevation so I do not think he is having an acute event which would warrant urgent intervention. I think however we should plan on catheterization Saturday. History of Present Illness Reason for Consultation: Shortness of breath, elevated troponin Attending Physician: Levi Wiley, DO History of Present Illness This is a 63-year-old male with a history of COPD, diabetes mellitus, dyslipidemia, hypertension as well as a number of cardiovascular issues. He has paroxysmal atrial fibrillation, HFrEF with a nonischemic cardiomyopathy and coronary artery disease. He was last seen in the office April 20, 2024 and follows primarily with Dr. Haidre. 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 That was not done however due to his having hip surgery and he had to cancel. He presents now with worsening shortness of breath for which he required BiPAP. His chest x-ray showed clear lung lane with no significant abnormality. Electrocardiography showed sinus rhythm at around 100 bpm with nonspecific inferior ST-T abnormalities but no ST elevation. His white count was elevated and his high-sensitivity troponin was also elevated. That started at 83 on July 11, 2024 at 0150, about 2 hours later it had increased to 466 and 7 hours after presentation had increased to 619. He denies chest discomfort, he reports only worsening shortness of breath. He feels much better now that he is in the hospital. He has had no palpitations, lightheadedness or dizziness. Allergies Allergy/AdvReac Type Severity Reaction Status Date / Time Penicillins Allergy Severe THROAT Verified 06/22/24 13:20 SWELLING doxycycline Allergy Intermediate Rash Verified 06/22/24 13:20 levofloxacin [From Levaquin] Allergy Mild Rash Verified 07/11/24 05:51 naproxen Allergy Unknown Unknown Verified 06/22/24 13:20 Home Medications Medication Instructions Recorded Confirmed Type nebulizer accessories #1 ea 06/17/19 06/22/24 Rx blood sugar diagnostic (OneTouch #100 ea 06/07/20 06/22/24 Rx Ultra Blue Test Strip) acetaminophen 500 mg tablet 500 mg PO Q6H PRN Pain 04/02/21 07/11/24 History (Tylenol Extra Strength) famotidine 40 mg tablet 40 mg PO QAM #30 tabs 01/05/23 07/11/24 Rx guaifenesin 600 mg tablet, 600 mg PO Q12 #15 tabs 01/05/23 07/11/24 Rx extended release 12 hr (Mucinex) sildenafil 100 mg tablet 100 mg PO DAILY PRN sexual 08/14/23 07/11/24 Rx activity #30 tabs albuterol sulfate 2.5 mg/3 mL 2.5 mg (3 mL) inhalation QID PRN 12/16/23 07/11/24 Rx (0.083 %) solution for nebulization shortness of breath or wheezing #180 mL albuterol sulfate 90 mcg/actuation 2 puff inhalation Q4H PRN 01/02/24 07/11/24 Rx aerosol inhaler (Ventolin HFA) shortness of breath or wheezing #8.5 grams metformin 500 mg tablet 500 mg PO BID PRN SEE COMMENT #30 01/02/24 07/11/24 Rx tabs trazodone 100 mg tablet 100 mg PO DAILY #90 tabs 01/02/24 07/11/24 Rx amlodipine 5 mg tablet 5 mg PO DAILY #90 tabs 04/20/24 07/11/24 Rx apixaban 5 mg tablet (Eliquis) 5 mg PO BID #180 tabs 04/20/24 07/11/24 Rx carvedilol 12.5 mg tablet 12.5 mg PO BID #180 tabs 04/20/24 07/11/24 Rx lisinopril 30 mg tablet 30 mg PO QAM #90 tabs 04/20/24 07/11/24 Rx rosuvastatin 20 mg tablet 20 mg PO DAILY #90 tabs 04/20/24 07/11/24 Rx fluticasone fur. 100 mcg-umeclid 1 inh inhalation DAILY #3 Inhalers 04/24/24 07/11/24 Rx 62.5 mcg-vilant 25 mcg inhalat.powder (Trelegy Ellipta) gabapentin 100 mg capsule See Rx Instructions PO TID #150 06/11/24 07/11/24 Rx caps theophylline 300 mg 300 mg PO DAILY #90 tabs 06/22/24 07/11/24 Rx tablet,extended release,12 hr secukinumab 150 mg/mL subcutaneous 150 mg subcut Q7D #5 mL 07/09/24 07/11/24 Rx pen injector (Cosentyx Pen) azithromycin 250 mg tablet 250 mg PO UD 07/11/24 07/11/24 History Patient History Medical History Atrial fibrillation on Eliquis. Follows with Dr. Haider Bloating Constipation On anticoagulant therapy eliquis daily History of anesthesia reaction "at least 20yrs ago having teeth removed and they lost me for awhile and then got me back"--no other issues with anesthesia History of COVID-19 10/01/20 @ [facility]--headache/cold symptoms Non-ST elevation myocardial infarction (NSTEMI) in recovery phase 2018--had heart cath--follows with Dr. Haider Surgical History History of colonoscopy History of tooth extraction all teeth removed History of cardiac cath (~12/09/18) History of heart artery stent (~12/09/18) [address] Haider Family History Mother Colorectal cancer Father Myocardial infarction Other Coronary heart disease Diabetes Heart disease Hypertension No family history of adverse response to anesthesia Denies family history of Prostate cancer Breast cancer Social History Smoking Status: Former smoker Age Started Using Tobacco: 15; Age Quit Using Tobacco: 53; packs per day: 1.5; Second Hand Exposure: Yes (Father smoked when Pt. was a child. 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 ) Diet: regular caffeine: Yes (coffee) during the past year weight has: remained stable Dental Care, Regularly: Yes Physical Activity Frequency: Daily Seatbelt Use: always Sunscreen Use: No Do you think of yourself as: straight/heterosexual Sexual Activity: has been sexually active within the last 12 months Gender Identity: Male Assistive Devices: Glasses and Oxygen - at Night Review of Systems Review of Systems: All systems reviewed & are unremarkable except as noted in HPI & below Physical Exam Physical Exam: Constitutional: Alert, cooperative and in no distress. HEENT: Unremarkable Neck: No jugular venous distention, carotid pulses are normal and equal bilaterally without bruits. Pulmonary: Clear to auscultation bilaterally. Cardiac: Regular rhythm with no murmur, gallop or rub. Abdomen: Soft, nontender with normal bowel sounds. Extremities: No edema. Distal pulses intact. Neurologic: No focal findings. Skin: No rash, ecchymoses or petechiae. Results & Data Vital Signs (Past 12 Hours) Vital Signs Pulse Pulse Resp BP Pulse Ox Pulse Ox O2 Del Method 07/11/24 09:00 73 22 146/79 H 95 07/11/24 08:30 66 17 134/74 96 07/11/24 08:00 68 15 136/74 97 07/11/24 07:21 81 20 135/75 96 07/11/24 07:05 68 09/14/24 06:46 77 17 95 07/11/24 06:45 77 17 95 BiPAP 07/11/24 06:35 96 07/11/24 05:49 17 96 07/11/24 04:24 87 07/11/24 04:00 90 23 184/107 H 92 BiPAP 07/11/24 03:30 83 21 133/88 93 BiPAP 07/11/24 02:30 100 H 17 138/96 93 BiPAP 07/11/24 02:01 101 H 23 94 07/11/24 02:00 100 H 17 167/105 H 93 BiPAP 07/11/24 01:47 100 H 17 158/80 H 97 BiPAP 07/11/24 01:47 102 H 14 96 BiPAP 07/11/24 01:47 BiPAP 07/11/24 01:23 BiPAP 07/11/24 01:23 BiPAP 07/11/24 01:23 101 H 16 158/80 H 97 BiPAP O2 Del Method FiO2 07/11/24 09:00 07/11/24 08:30 07/11/24 08:00 07/11/24 07:21 07/11/24 07:05 07/11/24 06:46 40 07/11/24 06:45 40 07/11/24 06:35 BiPAP 07/11/24 05:49 40 07/11/24 04:24 07/11/24 04:00 50 07/11/24 03:30 50 07/11/24 02:30 50 07/11/24 02:01 40 07/11/24 02:00 50 07/11/24 01:47 50 07/11/24 01:47 50 07/11/24 01:47 07/11/24 01:23 07/11/24 01:23 07/11/24 01:23 50 Laboratory Results Cardiac Enzymes 07/11/24 07/11/24 07/11/24 Range/Units 01:50 03:34 08:10 AST 14 (13-39) U/L Troponin I High Sens 82.6 H* 466.2 H* D 619.4 H* D (0-20) pg/ml Coagulation 07/11/24 Range/Units 01:50 PT 11.8 (9.0-12.0) Seconds APTT 27 (21-31) Seconds Lipids 07/11/24 Range/Units 08:10 Triglycerides 33 (0-150) mg/dl Cholesterol 111 (0-200) mg/dl HDL Cholesterol 52 mg/dl Cholesterol/HDL Ratio 2.1 (0-5) CBC 07/11/24 Range/Units 01:50 WBC 15.18 H (4.8-10.8) K/ul RBC 4.95 (4.70-6.10) M/uL Hgb 15.0 (14.0-18.0) g/dl Hct 45.4 (42.0-52.0) % Plt Count 195 (130-400) K/uL Neut # (Auto) 12.56 H (1.40-6.50) K/uL Lymph # (Auto) 1.44 (1.20-3.40) K/uL [place] # (Auto) 0.89 H (0.11-0.59) K/uL Eos # (Auto) 0.17 (0.00-0.50) K/uL Baso # (Auto) 0.05 (0.00-0.20) K/uL Comprehensive Metabolic Panel 07/11/24 Range/Units 01:50 Sodium 136 (136-145) mmol/L Potassium 4.1 (3.5-5.1) mmol/L Chloride 99 (98-107) mmol/L Carbon Dioxide 29 (21-32) mmol/L BUN 16 (6-23) mg/dl Creatinine 0.89 (0.6-1.4) mg/dl Glucose 192 H (70-99(Fasting)) mg/dl Calcium 9.1 (8.6-10.3) mg/dl AST 14 (13-39) U/L ALT 11 (7-52) U/L Alkaline Phosphatase 60 (34-104) U/L Total Protein 7.2 (6.0-8.3) gm/dl Albumin 4.7 (3.4-5.0) gm/dl Intake and Output 07/10/24 07/11/24 07/11/24 22:59 06:59 14:59 Intake Total 255 / 255 Balance 255 / 255 Intake: IV 255 / 255 Azithromycin 500 mg In Dextrose 255 / 255 5% 250 ml @ 125 mls/hr IV NOW ONE Rx#:[id number] Other: Weight 70.4 kg Weight Measurement Method Built in [facility] Diagnostic Findings Telemetry: Sinus rhythm, no significant arrhythmias PG Care Time/CCT Total # of Minutes Spent Total Time Spent with Patient: Total time spent is greater than 50% in coordination of care (as documented) at patient's floor/unit and/or counseling patient: Coding Level of Care Code 76525 IN/OBS CONSULT LVL 4,60M Diagnoses Shortness of breath R06.02 Paroxysmal atrial fibrillation I48.0 Coronary artery disease I25.10 Cardiomyopathy I42.9 Elevated troponin R79.89
[2024-07-11] MEDS: INSULIN ASPART PER UNIT CHARGE SC SCH (09:56)
[2024-07-11] MEDS: THEOPHYLLINE 300MG EXTENDED REL TAB PO SCH (09:57)
--- NOTE | 2024-07-11 10:14 | Hospitalist Progress Note ---
Date of Service July 11, 2024 Assessment & Plan (1) Acute on chronic respiratory failure with hypoxia: (2) NSTEMI (non-ST elevated myocardial infarction): (3) Ankylosing spondylitis lumbar region: (4) On home oxygen therapy: (5) Paroxysmal atrial fibrillation: (6) DVT (deep venous thrombosis): (7) GERD (gastroesophageal reflux disease): (8) Coronary artery disease: (9) DVT of leg (deep venous thrombosis): (10) COPD exacerbation: Plan Acute on chronic respiratory failure with hypoxia/COPD exacerbation/nasal cannula 2 L oxygen requirement at bedtime- Patient placed on BiPAP upon arrival to the ED, most recently transitioned to 3L nasal cannula CXR negative, MRSA swab negative WBC 15 on admission, likely due to viral infection vs reactive S/p Solu-Medrol 125mg IV, continue 40 mg IV every 8 hours Duonebs every 4 hours while awake and every 2 hours when necessary. Azithromycin 500 mg IV daily Guaifenesin extended release 600 mg p.o. twice daily Theophylline lvl pending NSTEMI/CAD/hypertension/cardiomyopathy/history of stent- Initial troponin 82.6, with up-trending repeats, peaked at 620 EKG with normal sinus rhythm rate 99, ST depressions II, III, aVF, and V4 through V6 TTE pending Hold apixaban Continue heparin drip Continue amlodipine, carvedilol, lisinopril Cardiology consulted, appreciate recs - tentative plan for cardiac cath on Saturday Diabetes mellitus- Hold metformin Accu-Cheks with NovoLog SSI Check hemoglobin A1c Hyperlipidemia- Continue rosuvastatin 20 mg daily Fasting lipid panel significant for total cholesterol of 111, LDL 52, HDL 52 Diet: HH, CC VTE ppx: heparin Admission and Anticipated Discharge Date Admission Date: July 11, 2024 Supervising Physician Co-Signing Physician Notes I personally examined the patient and verified all francis points of history and exam, discussed case, and agree with decision making with Dr Sultana Feeling a bit better. Breathing better. No significant chest tightness or pressure now. Vitals noted, in general he is awake and alert pleasant no distress. HEENT normocephalic atraumatic mucous membranes moist. Breathing unlabored no accessory muscle use good effort. Lungs are diminished throughout. COPD exacerbationcontinue current careimproving nicely demand ischemia/type II MIrather significant troponin risehowever it does all seem to be brought on by the physiologic stress of his COPD exacerbation. Troponin trending down. Echo pending. Agree with cardiology cath on Saturday given the severity of the ischemic insult. Subjective Pt seen at bedside this morning, notes that shortness of breath is significantly improved since being place don BiPAP. Notes mild, constant chest pain/pressure. Denies fevers/chills. At home, uses supplemental oxygen 2L at night. Also notes prior SD with placement of 1 stent. Review of Systems Review of Systems: as per HPI Physical Exam Physical Exam: General: Alert and oriented. No acute distress Cardiac: Regular rate and rhythm, no murmurs appreciated Respiratory: Mildly diminished breath sounds bilaterally, no wheezes, rales, rhonchi appreciated, No increased work of breathing Abdominal: Soft, non-tender, non-distended. Bowel sounds present. Results & Data Results & Data Vital Signs (Past 12 Hours) Vital Signs Pulse Pulse Resp BP BP Pulse Ox Pulse Ox 07/11/24 09:59 75 24 169/98 H 95 07/11/24 09:00 73 22 146/79 H 95 07/11/24 08:30 66 17 134/74 96 07/11/24 08:00 68 15 136/74 97 07/11/24 07:21 81 20 135/75 96 07/11/24 07:05 68 07/11/24 06:46 77 17 95 07/11/24 06:45 77 17 95 07/11/24 06:35 96 07/11/24 05:49 17 96 07/11/24 04:24 87 07/11/24 04:00 90 23 184/107 H 92 07/11/24 03:30 83 21 133/88 93 07/11/24 02:30 100 H 17 138/96 93 07/11/24 02:01 101 H 23 94 07/11/24 02:00 100 H 17 167/105 H 93 07/11/24 01:47 100 H 17 158/80 H 97 07/11/24 01:47 102 H 14 96 07/11/24 01:47 07/11/24 01:23 07/11/24 01:23 07/11/24 01:23 101 H 16 158/80 H 97 O2 Del Method O2 Del Method O2 Flow Rate FiO2 07/11/24 09:59 Nasal Cannula 4 07/11/24 09:00 07/11/24 08:30 07/11/24 08:00 07/11/24 07:21 07/11/24 07:05 07/11/24 06:46 40 07/11/24 06:45 BiPAP 40 07/11/24 06:35 BiPAP 07/11/24 05:49 40 07/11/24 04:24 07/11/24 04:00 BiPAP 50 07/11/24 03:30 BiPAP 50 07/11/24 02:30 BiPAP 50 07/11/24 02:01 40 07/11/24 02:00 BiPAP 50 07/11/24 01:47 BiPAP 50 07/11/24 01:47 BiPAP 50 07/11/24 01:47 BiPAP 07/11/24 01:23 BiPAP 07/11/24 01:23 BiPAP 07/11/24 01:23 BiPAP 50 Resident Activity Tracking Resident Involvement: Resident Care Provided Care Provided: Adult [facility] Medicine
[2024-07-11] MEDS ORDERED: methylPREDNISolone 1000 MG/16 ML IV SCH (13:00)
[2024-07-11 14:54] LABS: ANTI-Xa, UFH(UnfractionatedHep 1.21 IU/ml (0.3-0.7)
[2024-07-11] MEDS: methylPREDNISolone 40 MG in SYRINGE 0 ML IV SCH (15:18)
[2024-07-11 18:06] LABS: ANTI-Xa, UFH(UnfractionatedHep 0.49 IU/ml (0.3-0.7)
[2024-07-12] MEDS: AZITHROMYCIN 500 MG in DEXTROSE 5% 250 ML IV SCH (06:09)
--- NOTE | 2024-07-12 06:46 | Hospitalist Progress Note ---
Date of Service July 12, 2024 Assessment & Plan (1) Acute on chronic respiratory failure with hypoxia: (2) NSTEMI (non-ST elevated myocardial infarction): (3) Ankylosing spondylitis lumbar region: (4) On home oxygen therapy: (5) Paroxysmal atrial fibrillation: (6) DVT (deep venous thrombosis): (7) GERD (gastroesophageal reflux disease): (8) Coronary artery disease: (9) DVT of leg (deep venous thrombosis): (10) COPD exacerbation: Plan Acute on chronic respiratory failure with hypoxia/COPD exacerbation/nasal cannula 2 L oxygen requirement at bedtime- Patient placed on BiPAP upon arrival to the ED, most recently on 4L nasal cannula CXR negative, MRSA swab negative WBC 15 on admission, likely due to viral infection vs reactive S/p Solu-Medrol 125mg IV, continue 40 mg IV every 8 hours Duonebs every 4 hours while awake and every 2 hours when necessary. Azithromycin 500 mg IV daily Guaifenesin extended release 600 mg p.o. twice daily Theophylline lvl pending NSTEMI/CAD/hypertension/cardiomyopathy/history of stent- Initial troponin 82.6, with up-trending repeats, peaked at 620 EKG on admission with normal sinus rhythm rate 99, ST depressions II, III, aVF, and V4 through V6 Hold apixaban Continue heparin drip Continue amlodipine, carvedilol, lisinopril Cardiology consulted, appreciate recs - Plan for cardiac cath 07/13, NPO at midnight Diabetes mellitus- Hold metformin Accu-Cheks with NovoLog SSI Hemoglobin A1c 5.7 Hyperlipidemia- Continue rosuvastatin 20 mg daily Fasting lipid panel significant for total cholesterol of 111, LDL 52, HDL 52 Diet: HH, CC - NPO at midnight VTE ppx: heparin Admission and Anticipated Discharge Date Admission Date: July 11, 2024 Supervising Physician Co-Signing Physician Notes I personally examined the patient and verified all francis points of history and exam, discussed case, and agree with decision making with Dr Sultana Feeling okay. No new issues. For cath tomorrow. Vitals noted, in general he is awake and alert pleasant no distress. HEENT normocephalic atraumatic mucous membranes moist. Breathing unlabored no accessory muscle use good effort. Lungs are diminished throughout but may be slightly improved from yesterday. COPD exacerbationcontinue current careimproving nicely demand ischemia/type II MIrather significant troponin risehowever it does all seem to be brought on by the physiologic stress of his COPD exacerbation. Troponin trending down. clinically COPD exacerbation seems to be turning the corner. Agree with cardiology cath on Saturday given the severity of the ischemic insult. Subjective Pt seen at bedside this morning, notes that shortness of breath is significantly improved overall but recurs anytime supplemental oxygen is dropped below 3L or with exertion. Denies chest pain. Denies fevers/chills. Review of Systems Review of Systems: as per HPI Physical Exam Physical Exam: General: Alert and oriented. No acute distress Cardiac: Regular rate and rhythm, no murmurs appreciated Respiratory: Mildly diminished breath sounds bilaterally, no wheezes, rales, rhonchi appreciated, No increased work of breathing Abdominal: Soft, non-tender, non-distended. Bowel sounds present. Results & Data Results & Data Vital Signs (Past 12 Hours) Vital Signs Temp Pulse Resp BP Pulse Ox O2 Del Method O2 Flow Rate 07/12/24 03:12 36.6 C 67 18 113/65 96 Nasal Cannula 4 07/11/24 23:09 36.7 C 83 18 104/59 L 96 Nasal Cannula 4 07/11/24 20:28 Nasal Cannula 07/11/24 19:39 79 18 92 Nasal Cannula 07/11/24 19:26 93 Nasal Cannula 07/11/24 19:24 36.6 C 82 18 143/76 H 92 Nasal Cannula 3 Resident Activity Tracking Resident Involvement: Resident Care Provided Care Provided: Adult Hospital Medicine
[2024-07-12 08:06] LABS: Hematocrit (blood only) 43.5 % (42.0-52.0); Hemoglobin 14.5 g/dl (14.0-18.0); Mean Corpuscular Hemoglobin 30.3 pg (25.0-34.0); Mean Corpuscular Hgb Conc 33.3 g/dL (32.0-36.0); Mean Platelet Volume 11.2 fL (9.4-12.4); Platelet Count 189 K/uL (130-400); RDW Coefficient of Variation 12.7 % (11.5-14.5); RDW Standard Deviation 42.4 fL (36.4-46.3); Red Blood Count 4.78 M/uL (4.70-6.10); White Blood Count 15.94 K/ul (4.8-10.8)
[2024-07-12 08:24] LABS: BUN Creatinine Ratio 32.2 (10-20); Creatinine Clr Calc Pharmacy 77.2 ml/min; Est GFR (African American) 104.2 ml/min; Est GFR (Non-African American) 89.9 ml/min; Potassium 4.4 mmol/L (3.5-5.1)
[2024-07-12 08:39] LABS: ANTI-Xa, UFH(UnfractionatedHep 0.57 IU/ml (0.3-0.7)
[2024-07-12 09:12] LABS: Estimated Average Glucose 117 mg/dl; Hemoglobin A1C 5.7 % (4.5-5.6)
--- NOTE | 2024-07-12 12:10 | Cardiology Progress Note ---
Date of Service July 12, 2024 Assessment & Plan (1) Shortness of breath: (2) Paroxysmal atrial fibrillation: (3) Coronary artery disease: (4) Cardiomyopathy: (5) Elevated troponin: Plan 1. Shortness of breath: This could be multifactorial including his lung disease, his chest x-ray did not suggest congestive heart failure although he does have a low ejection fraction and perhaps it is subclinical. His dyspnea on exertion could also be an anginal equivalent due to myocardial ischemia. 2. Atrial fibrillation: Atrial fibrillation does not seem to be a cause as he has been in sinus rhythm here. 3. Coronary disease: He has known coronary disease, a stress test had been planned but was not done due to him canceling it with his 's hip surgery. I think we need some type of coronary evaluation given his elevated troponin and his symptoms. I think a catheterization is warranted, he is agreeable. I would anticipate doing this Saturday. 4. Cardiomyopathy: He does have a cardiomyopathy, that could explain some of his exertional symptoms but does not explain his elevated troponin. That makes progressive coronary disease more likely. 5. Elevated troponin: His troponin is quite elevated, it is starting to drop now, he does not have ST elevation so I do not think he is having an acute event which would warrant urgent intervention. I think however we should plan on catheterization Saturday. Admission and Anticipated Discharge Date Admission Date: July 11, 2024 Subjective He is complaining of chest congestion but no chest discomfort today. No other complaints. Physical Exam Physical Exam: Constitutional: Alert, cooperative and in no distress. HEENT: Unremarkable Neck: No jugular venous distention, carotid pulses are normal and equal bilaterally without bruits. Pulmonary: Clear to auscultation bilaterally but with prolonged expiration. Cardiac: Regular rhythm with no murmur, gallop or rub. Abdomen: Soft, nontender with normal bowel sounds. Extremities: No edema. Distal pulses intact. Neurologic: No focal findings. Skin: No rash, ecchymoses or petechiae. Results & Data Vital Signs (Past 12 Hours) Vital Signs Temp Pulse Pulse Pulse Resp BP Pulse Ox 07/12/24 11:56 36.3 C L 62 20 147/75 H 95 07/12/24 11:03 68 18 93 07/12/24 08:10 58 L 07/12/24 08:10 09/15/24 08:09 36.4 C L 77 18 144/79 H 95 07/12/24 07:24 75 18 95 07/12/24 03:12 36.6 C 67 18 113/65 96 O2 Del Method O2 Flow Rate 07/12/24 11:56 Nebulizer 07/12/24 11:03 Nasal Cannula 4 07/12/24 08:10 07/12/24 08:10 Nasal Cannula 4 07/12/24 08:09 Nasal Cannula 4 07/12/24 07:24 Nasal Cannula 4 07/12/24 03:12 Nasal Cannula 4 Laboratory Results Cardiac Enzymes 07/11/24 07/11/24 07/12/24 Range/Units 14:14 20:31 00:26 Troponin I High Sens 470.5 H* D 287.1 H* D 274.0 H* (0-20) pg/ml CBC 07/12/24 Range/Units 07:45 WBC 15.94 H (4.8-10.8) K/ul RBC 4.78 (4.70-6.10) M/uL Hgb 14.5 (14.0-18.0) g/dl Hct 43.5 (42.0-52.0) % Plt Count 189 (130-400) K/uL Comprehensive Metabolic Panel 07/12/24 Range/Units 07:45 Sodium 137 (136-145) mmol/L Potassium 4.4 (3.5-5.1) mmol/L Chloride 99 (98-107) mmol/L Carbon Dioxide 31 (21-32) mmol/L BUN 29 H (6-23) mg/dl Creatinine 0.90 (0.6-1.4) mg/dl Glucose 183 H (70-99(Fasting)) mg/dl Calcium 9.0 (8.6-10.3) mg/dl Intake and Output 07/11/24 07/12/24 07/12/24 22:59 06:59 14:59 Intake Total 0 / 580.733 137.4 / 580.733 425.1 / 425.1 Output Total 2 752 500 / 500 Balance -2 / -171.267 137.4 / -171.267 -74.9 / -74.9 Intake: IV 0 / 580.733 137.4 / 580.733 425.1 / 425.1 Azithromycin 500 mg In Dextrose 255 / 255 5% 250 ml @ 125 mls/hr IV Q24H KEISHA Rx#:[id number] Heparin Sodium/Dextrose 25,000 0 / 325.733 137.4 / 325.733 170.1 / 170.1 units In 500 ml @ 900 UNITS/HR 18 mls/hr IV .Q24H KEISHA Rx#: [id number] Output: Urine 500 / 500 # Bowel Movements Other: Weight 65.8 kg Weight Measurement Method Built in [facility] Diagnostic Findings Telemetry: Sinus rhythm rate 60 to 80 bpm. PG Care Time/CCT Total # of Minutes Spent Total Time Spent with Patient: Total time spent is greater than 50% in coordination of care (as documented) at patient's floor/unit and/or counseling patient: Coding Level of Care Code 80011 SUB INP/OBS CARE 3/50MIN Diagnoses Shortness of breath R06.02 Paroxysmal atrial fibrillation I48.0 Coronary artery disease I25.10 Cardiomyopathy I42.9 Elevated troponin R79.89
--- NOTE | 2024-07-12 13:20 | Electrocardiogram Report ---
Test Reason : Blood Pressure : */* mmHG Vent. Rate : 99 BPM Atrial Rate : 100 BPM P-R Int : 168 ms QRS Dur : 82 ms QT Int : 336 ms P-R-T Axes : 91 75 91 degrees QTcB Int : 431 ms Normal sinus rhythm Nonspecific ST abnormality Abnormal ECG When compared with ECG of 02-Jan-2023 15:40, Vent. rate has increased by 33 bpm Nonspecific T wave abnormality now evident in Anterior leads Confirmed by Brain Enciso ([id number]) on 07/12/2024 1:20:07 PM Referred By: Confirmed By: Brain Enciso
--- NOTE | 2024-07-12 19:23 | Billing Data ---
Date of Service July 12, 2024 Coding Level of Care Code 89928 SUB INP/OBS CARE
[2024-07-13] MEDS: SODIUM CHLORIDE 0.9% 1,000 ML IV SCH (06:16)
[2024-07-13 07:22] LABS: Hematocrit (blood only) 46.8 % (42.0-52.0); Hemoglobin 15.3 g/dl (14.0-18.0); Mean Corpuscular Hemoglobin 29.9 pg (25.0-34.0); Mean Corpuscular Hgb Conc 32.7 g/dL (32.0-36.0); Mean Corpuscular Volume 91.4 fL (80.0-100.0); Mean Platelet Volume 11.2 fL (9.4-12.4); Platelet Count 206 K/uL (130-400); RDW Coefficient of Variation 12.6 % (11.5-14.5); Red Blood Count 5.12 M/uL (4.70-6.10)
[2024-07-13 07:34] LABS: BUN Creatinine Ratio 34.1 (10-20); Calcium 9.2 mg/dl (8.6-10.3); Creatinine Clr Calc Pharmacy 81.1 ml/min; Est GFR (African American) 106.7 ml/min; Est GFR (Non-African American) 92.1 ml/min; Potassium 4.5 mmol/L (3.5-5.1)
[2024-07-13 07:54] LABS: ANTI-Xa, UFH(UnfractionatedHep < 0.10 IU/ml (0.3-0.7)
--- NOTE | 2024-07-13 08:44 | Pre Anesthesia Assessment ---
Date of Service July 13, 2024 Pre Sedation Assessment Vital Signs Temp Pulse Pulse Resp BP Pulse Ox Pulse Ox 07/13/24 08:00 66 18 174/79 H 98 07/13/24 07:48 36.4 C L 71 18 182/75 H 97 07/13/24 07:33 07/13/24 07:05 71 18 96 07/13/24 06:00 95 07/13/24 03:00 36.6 C 71 20 142/76 H 94 07/12/24 22:40 36.5 C 86 24 156/86 H 94 07/12/24 21:43 71 07/12/24 21:05 79 151/84 H 07/12/24 20:00 07/12/24 19:44 71 18 94 07/12/24 19:41 36.8 C 70 18 146/64 H 95 07/12/24 16:09 36.4 C L 70 18 163/73 H 94 07/12/24 15:12 74 18 94 07/12/24 13:49 63 07/12/24 11:56 36.3 C L 62 20 147/75 H 95 07/12/24 11:03 68 18 93 O2 Del Method O2 Del Method O2 Flow Rate O2 Flow Rate 07/13/24 08:00 Nasal Cannula 3 07/13/24 07:48 Nasal Cannula 3 07/13/24 07:33 Nasal Cannula 3 07/13/24 07:05 Nasal Cannula 4 07/13/24 06:00 Nasal Cannula 4 07/13/24 03:00 Nasal Cannula 2 07/12/24 22:40 Nasal Cannula 3 07/12/24 21:43 07/12/24 21:05 07/12/24 20:00 Nasal Cannula 3 07/12/24 19:44 Nasal Cannula 3 07/12/24 19:41 Nasal Cannula 3 07/12/24 16:09 Nasal Cannula 3 07/12/24 15:12 Nasal Cannula 4 07/12/24 13:49 07/12/24 11:56 Nebulizer 07/12/24 11:03 Nasal Cannula 4 Cardiovascular RRR, no murmur, no edema Respiratory Additional Comments: No wheezing or rhonchi. Reduced air movement. Pre-Sedation Airway Assessment Smoking Status: Former smoker Hx Sleep Apnea: Yes Short, Thick Neck: No Thyromental Distance: > or= 3.5 Finger Breadths Oral Cavity: + Dental Abnormalities Mallampati Class: III ASA: ASA4 NPO Status Date of Last Intake of Fluids: 07/12/24 Time of Last Intake of Fluids: 21:00 Date of Last Intake of Solid Food: 07/12/24 Time of Last Intake of Solid Foods: 21:00 Notes The planned sedation has been discussed with the patient. Informed Consent was obtained. I have identified the patient, determined the appropriateness of sedation and have assessed the patient immediately prior to the procedure. All medicine(s) and interventions are by my order.
[2024-07-13] MEDS: NITROGLYCERIN/D5W 100MCG/ML 20ML SYR ONE (09:17)
[2024-07-13] MEDS: fentaNYL citrate PF 100 MCG/2 ML VIAL ONE (09:17)
[2024-07-13] MEDS: niCARdipine HCL INJ 2.5 MG/ML 10 ML AMP ONE (09:17)
[2024-07-13] MEDS: HEPARIN (PORCINE) 1000 UNIT/ML 10 ML (CATH LAB USE ONLY) ONE (09:17)
[2024-07-13] MEDS: OPTIRAY 350 ONE (09:18)
[2024-07-13] MEDS: MIDAZOLAM HCL 1 MG/ML 2ML VIAL ONE (09:19)
--- NOTE | 2024-07-13 09:28 | Post Anesthesia Assessment ---
Date of Service July 13, 2024 Post Sedation Assessment Vital Signs Temp Pulse Pulse Resp BP Pulse Ox Pulse Ox 07/13/24 08:00 66 18 174/79 H 98 07/13/24 07:48 36.4 C L 71 18 182/75 H 97 07/13/24 07:33 07/13/24 07:05 71 18 96 07/13/24 06:00 95 07/13/24 03:00 36.6 C 71 20 142/76 H 94 07/12/24 22:40 36.5 C 86 24 156/86 H 94 07/12/24 21:43 71 07/12/24 21:05 79 151/84 H 07/12/24 20:00 07/12/24 19:44 71 18 94 07/12/24 19:41 36.8 C 70 18 146/64 H 95 07/12/24 16:09 36.4 C L 70 18 163/73 H 94 07/12/24 15:12 74 18 94 07/12/24 13:49 63 07/12/24 11:56 36.3 C L 62 20 147/75 H 95 07/12/24 11:03 68 18 93 O2 Del Method O2 Del Method O2 Flow Rate O2 Flow Rate 07/13/24 08:00 Nasal Cannula 3 07/13/24 07:48 Nasal Cannula 3 07/13/24 07:33 Nasal Cannula 3 07/13/24 07:05 Nasal Cannula 4 07/13/24 06:00 Nasal Cannula 4 07/13/24 03:00 Nasal Cannula 2 07/12/24 22:40 Nasal Cannula 3 07/12/24 21:43 07/12/24 21:05 07/12/24 20:00 Nasal Cannula 3 07/12/24 19:44 Nasal Cannula 3 07/12/24 19:41 Nasal Cannula 3 07/12/24 16:09 Nasal Cannula 3 07/12/24 15:12 Nasal Cannula 4 07/12/24 13:49 07/12/24 11:56 Nebulizer 07/12/24 11:03 Nasal Cannula 4 Recovery Score Activity: Moves 4 extremities Respiration: Deep Breath/Cough Circulation: +/-20% PreAnes Value Consciousness: Fully Awake Oxygen Saturation: > 92% On Room Air Discharge Sedation Level of Care: Fast Track Phase II Post Sedation Plan On clinical assessment, the patient appears to have tolerated the sedation without complications. Patient is recovering as anticipated. Patient will continue to be monitored by nursing and may be discharged when sedation discharge criteria are met per below protocol. Upon Completions of procedure up to 15 minutes continue every 5 minute vital signs and the P.A.R. score; then discharge to a Phase I or Fast Track to Phase II per the following guidelines: * Discharge Patient to appropriate Phase II area if PAR is 8 or greater or return to pre- procedure baseline. The post - procedure orders will be as directed. * If PAR score is less than 8 or not return to pre-procedure baseline then patient will follow Phase I monitoring till PAR is reached for Phase II. The Phase I may be done in procedure room or may call to secure a Phase I area. * If naloxone or flumazenil are used for reversal, hold in Phase I for continued monitoring from when last reversal dose was given for a minimum of 60 minutes or longer pending the nurse and/or physician discretion of patient condition before discharge to Phase II. Please call the Sedation Physician to re-evaluate and complete post-note for discharge to Phase II area. Do NOT discharge from procedure sedation or Phase 1 until post- sedation evaluation note is complete by procedure /sedation MD Sedation Discharge Instructions to be given to the patient at discharge to home. [facility] Procedure Codes (Charges) Indication for Procedure Indication for procedure: NSTEMI Sedation/Anesthesia Procedure 1: Sedation/Anesthesia: 41343 Mod Sedation by the same physician;Init15 Min Child Age 5 & Up (Initial 15 min, start time 0903) Total Sedation Time (minutes): 19 Procedure 2: Sedation/Anesthesia: 27937 Mod Sedation by the same physician; Ea [id number] Minutes (Additional 4 min, end time 09) Total Sedation Time (minutes): 19
--- NOTE | 2024-07-13 09:35 | Cardiac Catheterization ---
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 Cardiac Status Clinical evaluation leading to the procedure CAD Presenation: Non STEMI Anginal Classification: CCS IV (Dyspnea) Heart Failure: No Cardiogenic Shock within 24 Hours: No Cardiac Arrest within 24 Hours: No Imaging Studies Past 6 Months: No Stress Studies Past 6 Months: No Coronary Anatomy Dominant: Right Left Main (% Stenosis): Distal (10 to 20%) LAD (% Stenosis): Ostial (50 to 60%, calcified) and Proximal (Moderately calcified, mild less than 20% plaques) D1 (% Stenosis): Normal D2 (% Stenosis): Normal Circumflex (% Stenosis): Mid (30%) and Distal (20%) OM1 (% Stenosis): Proximal (50 to 70%) OM2 (% Stenosis): Proximal (Stent patent) L PL1 (% Stenosis): Normal (Branching with mild luminal irregularities) RCA (% Stenosis): Proximal (Proximal to mid calcified 30 to 40%) R PDA (% Stenosis): Normal Diagnostic Physicians Name: Claude Elizalde MD, PhD Closure Device Percutaneous Entry Location: Radial Closure Device: Radial Band Recommendations: Medical Therapy and/or Counseling Cardiac Cath Procedure Full Procedure Date July 13, 2024 Pre-Procedure Diagnosis Pre-Procedure Diagnosis: Non STEMI AUC Score AUC Score: 8 Post-Procedure Diagnosis Post-Procedure Diagnosis: Moderate CAD Procedure(s) Performed Procedure(s) Performed: Coronary Angiography and Fractional Flow [place] [employer] Claude Elizalde MD, PhD Estimated Blood Loss Estimated Blood Loss: None (Less than 5 cc) Medication(s) Medication(s): Fentanyl, Heparin, Lidocaine 1%, Nicardipine, Nitroglycerin and Versed Summary of Findings Brief description: Patient was brought to the cardiac catheterization suite where he was shaved and prepped in a sterile fashion. Sedated using IV Versed and fentanyl. Soft tissues of the right wrist were anesthetized using 2 mL of 1% Xylocaine. Right radial artery was accessed with a modified Seldinger technique and a 6 English radial artery glide sheath was placed. Patient was provided anticoagulation with IV heparin and antispasmodics including nicardipine and nitroglycerin. All catheters were advanced and exchanged over a 0.035 J-tip wire. Left coronary angiography in orthogonal views with a 5 English [place] 4 diagnostic catheter. Right coronary angiography in orthogonal views with a 5 English [place] 4 diagnostic catheter. Diagnostic catheters were removed. iFR was undertaken using a 6 English EBU 3.0 guide catheter. Doppler wave wire was advanced in position with the transducer just distal to the guide catheter tip. System was flushed and pressures were normalized. Doppler wire was then advanced beyond the lesion in the LAD. iFR was then measured 3 times. Guidewire was removed and final angiographic evaluation was performed in orthogonal views. Guide catheter was removed over the J-wire. Radial artery sheath was removed. Hemostasis was obtained using the TR band. Patient remained hemodynamically stable and asymptomatic. He was returned to the recovery area. This ended the case. Hemodynamics Rest Ao:: 130/78 mmHg Final Ao: 142/66 mmHg LV: Not performed Recommendations Recommendations: Medical Therapy and/or Counseling Radiation Exposure (mGy) 433 mGy, fluoroscopy time 3.1-minute Contrast (mls) 90 Anesthesia 1 mg Versed, 25 mcg fentanyl IV. Start time 902, end time 921 Procedural Complication(s) None Disposition Cab Supervisor Holding/Recovery I attest to the content of the Intraoperative Record and any orders documented therein. Any exceptions are noted below. [facility] Card Cath Procedure Codes Cardiac Catheterization Procedure 1: Cardiovascular Cath Procedures: 02986 (Doppler) Pressure Wire Procedure 2: Cardiovascular Cath Procedures: 03381 Coronaries Moderate Sedation Procedure 1: Sedation/Anesthesia: 51143 Mod Sedation by the same physician;Init15 Min Child Age 5 & Up (Initial 15-minute, start time 902) Procedure 2: Sedation/Anesthesia: 35423 Mod Sedation by the same physician; Ea [id number] Minutes (Additional formalin, end time 921) PG Care Time/CCT Total # of Minutes Spent Total Time Spent with Patient: Total time spent is greater than 50% in coordination of care (as documented) at patient's floor/unit and/or counseling patient:
--- NOTE | 2024-07-13 09:45 | Hospitalist Progress Note ---
Date of Service July 13, 2024 Assessment & Plan (1) Acute exacerbation of chronic obstructive pulmonary disease: Plan: Mr. Monterroso is a 63M with a PMHx of NSTEMI in 2019 (heart cath, follows with Dr. Haider), CAD, hypertension, hyperlipidemia, cardiomyopathy, COPD, HFrEF, and a history of a stent who first presented to the ED on 07/11/2024 via EMS with a 2 day history of SOB and cough. SOB/COPD exacerbation: S/p Solu-Medrol 125mg IV, continue 40 mg IV Q8 hours Duonebs every 4 hours while awake and Q2 hours when necessary Azithromycin 500 mg IV discontinued, start Azithromycin 500 mg PO QAM Guaifenesin extended release 600 mg p.o. twice daily Theophylline lvl pending Maintain current medications including nebulizer. Reevaluate respiratory symptoms tomorrow morning. Wean oxygen as able. NSTEMI/CAD/hypertension/cardiomyopathy/history of stent- Initial troponin 82.6, with up-trending repeats, peaked at 620, then decreased EKG on admission with normal sinus rhythm rate 99, ST depressions II, III, aVF, and V4 through V6 Repeat EKG showed resolved ST depressions Cardiac cath this morning showed arterial stenosis and calcifications of multiple arteries, but no intervention required. Pt is not currently experiencing cardiac symptoms Continue amlodipine, carvedilol, lisinopril If cough does not resolve after resolution of SOB/hypoxia, consider lisinopril as a potential cause. Diabetes mellitus- Hold metformin Accu-Cheks with NovoLog SSI Hemoglobin A1c 5.7 Hyperlipidemia- Continue rosuvastatin 20 mg daily DVT ppx: Apixaban Diet: Heart Healthy/Carb Consistent or DM2 Code: Full code Dispo: PCU, discharge when back to baseline (2) Non-ST elevation [place] (NSTEMI): Admission and Anticipated Discharge Date Admission Date: July 11, 2024 Supervising Physician Co-Signing Physician Notes Attending Physician Supervision Note: I independently interviewed and examined the patient and verified the francis history and physical, reviewed labs and image studies and agree with findings and care plan noted above. No chest pain. Breathing improving but still with significant cough and wheezing. Doesn't feel at his baseline. Vitals noted, in general he is awake and alert pleasant no distress. HEENT normocephalic atraumatic mucous membranes moist. Breathing unlabored no accessory muscle use good effort. Lungs with bilateral diffuse exp wheezing. Acute on chronic RF - Was placed on bipap in ED. At home - On O2 2L only at bedtime. Continue NC O2 to keep SaO2 above 88% COPD exacerbationsteroids IV, duo nebs, azithromycin. Eugenio level pending Demand ischemia/type II [place] Likely from copd exac but d/t significant troponin rise LHC done 07/13 - No obstructive lesion. CAD s/p stent/HTN/CMP/HLD - Apixiban, amlodipine, carvedilol, lisinopril, rosuvastatin. DM- Hold metformin, Accu-Cheks with NovoLog SSI, A1c 5.7 Apixaban. Subjective Mr. Monterroso is a 63M with a PMHx of NSTEMI in 2019 (heart cath, follows with Dr. Haider), CAD, hypertension, hyperlipidemia, cardiomyopathy, COPD, HFrEF, and a history of a stent who first presented to the ED on 07/11/2024 via EMS with a 2 day history of SOB and cough followed by chest tightness and cramps. When EMS arrived his O2 sat was in the 80s despite him increasing his home oxygen from his baseline of 2L up to 4L. He was placed on 15L of oxygen via nonrebreather and then switched to BiPAP. which provided relief from my breathing symptoms. He had an unremarkable chest x-ray in the ED and his EKG showed EKG on admission with normal sinus rhythm rate 99, ST depressions II, III, aVF, and V4 through V6. The patient had an elevated troponin of 82.6 when he first presented (1am), 466.2 two hours later (3am), and 619.4 5 hours later (8am). It began to trend down after that, 470 at 2pm and was still elevated at 274 yesterday. He had an elevated WBC count on initial labs of 15.8 (4.8-10.8) thought to be due to a viral process. His WBC count was still elevated this morning at 13.0 but trending downward. He went for a cardiac cath this morning as he had previously had one scheduled but had to cancel due to his 's hip surgery. His current presentation of chest congestion and SOB is thought to be due to progressive coronary disease. Today, he reports that he is mostly experiencing a dry cough with no sputum production. He says the cough started 2 days ago but feels like it is getting progressively worse. At home he is on 2L of oxygen overnight with none during the day, but he is currently requiring oxygen to get to the bathroom. Stable O2 sat on 3-4L of oxygen. Review of Systems Respiratory: + cough, + chest congestion, + dyspnea a nd + wheezing Physical Exam Constitutional: WD/WN, vitals as above Eyes: PERRL, conjunctivae normal, anicteric sclerae Neck: trachea midline, no thyromegaly Respiratory: normal respiratory effort, + cough, able to speak in complete sentences and + audible wheezes Auscultation: + wheezes Cardiovascular: RRR, no murmur, no edema Skin: no rashes, warm and dry Psychiatric: A+Ox3, euthymic affect Results & Data Results & Data Vital Signs (Past 12 Hours) Vital Signs Temp Pulse Pulse Resp BP Pulse Ox Pulse Ox 07/13/24 07:05 71 18 96 07/13/24 06:00 95 07/13/24 03:00 36.6 C 71 20 142/76 H 94 07/12/24 22:40 36.5 C 86 24 156/86 H 94 07/12/24 21:43 71 07/12/24 21:05 79 151/84 H 07/12/24 20:00 07/12/24 19:44 71 18 94 07/12/24 19:41 36.8 C 70 18 146/64 H 95 O2 Del Method O2 Del Method O2 Flow Rate O2 Flow Rate 07/13/24 07:05 Nasal Cannula 4 07/13/24 06:00 Nasal Cannula 4 07/13/24 03:00 Nasal Cannula 2 07/12/24 22:40 Nasal Cannula 3 07/12/24 21:43 07/12/24 21:05 07/12/24 20:00 Nasal Cannula 3 07/12/24 19:44 Nasal Cannula 3 07/12/24 19:41 Nasal Cannula 3 CBC Results Results Complete Blood Count Results: RBC 5.12 M/uL (4.70-6.10) 07/13/24 WBC 13.00 K/ul (4.8-10.8) H 07/13/24 Hgb 15.3 g/dl (14.0-18.0) 07/13/24 Hct 46.8 % (42.0-52.0) 07/13/24 Plt Count 206 K/uL (130-400) 07/13/24 Resident Activity Tracking Resident Involvement: Resident Care Provided Care Provided: Adult [facility]
[2024-07-13] MEDS: IODIXANOL (VISIPAQUE) 320 MG/ML 100ML IV ONE (10:27)
[2024-07-13] MEDS: APIXABAN 5 MG TABLET PO SCH (12:40)
--- NOTE | 2024-07-14 06:03 | Electrocardiogram Report ---
Test Reason : Blood Pressure : */* mmHG Vent. Rate : 64 BPM Atrial Rate : 64 BPM P-R Int : 166 ms QRS Dur : 70 ms QT Int : 454 ms P-R-T Axes : 83 78 80 degrees QTcB Int : 468 ms Poor data quality, interpretation may be adversely affected Normal sinus rhythm Septal infarct , age undetermined Abnormal ECG When compared with ECG of 11-Jul-2024 01:46, (unconfirmed) Vent. rate has decreased by [address] no longer depressed in Lateral leads Confirmed by Brain Enciso ([id number]) on 07/14/2024 6:03:06 AM Referred By: REFERRED SELF Confirmed By: Brain Enciso
[2024-07-14 06:22] LABS: Hematocrit (blood only) 41.9 % (42.0-52.0); Hemoglobin 14.1 g/dl (14.0-18.0); Mean Corpuscular Hemoglobin 29.9 pg (25.0-34.0); Mean Corpuscular Hgb Conc 33.7 g/dL (32.0-36.0); Mean Platelet Volume 10.8 fL (9.4-12.4); Platelet Count 210 K/uL (130-400); RDW Coefficient of Variation 12.3 % (11.5-14.5); RDW Standard Deviation 40.5 fL (36.4-46.3); Red Blood Count 4.71 M/uL (4.70-6.10); White Blood Count 12.16 K/ul (4.8-10.8)
[2024-07-14 06:37] LABS: BUN Creatinine Ratio 35.3 (10-20); Calcium 8.8 mg/dl (8.6-10.3); Creatinine Clr Calc Pharmacy 100.9 ml/min; Est GFR (Non-African American) 100.9 ml/min; Magnesium 2.2 mg/dl (1.7-2.4); Potassium 4.4 mmol/L (3.5-5.1)
[2024-07-14 06:47] LABS: ANTI-Xa, UFH(UnfractionatedHep 1.39 IU/ml (0.3-0.7)
--- NOTE | 2024-07-14 06:50 | Electrocardiogram Report ---
Test Reason : Blood Pressure : */* mmHG Vent. Rate : 69 BPM Atrial Rate : 69 BPM P-R Int : 166 ms QRS Dur : 64 ms QT Int : 428 ms P-R-T Axes : 93 75 78 degrees QTcB Int : 458 ms Normal sinus rhythm Septal infarct (cited on or before 12-Jul-2024) Abnormal ECG When compared with ECG of 12-Jul-2024 06:01, (unconfirmed) No significant change was found Confirmed by Brain Enciso ([id number]) on 07/14/2024 6:49:52 AM Referred By: REFERRED SELF Confirmed By: Brain Enciso
[2024-07-14] MEDS: AZITHROMYCIN 250 MG TAB PO SCH (08:11)
--- NOTE | 2024-07-14 11:50 | Hospitalist Progress Note ---
Date of Service July 14, 2024 Assessment & Plan (1) Acute exacerbation of chronic obstructive pulmonary disease: Plan: Mr. Monterroso is a 63M with a PMHx of NSTEMI in 2019 (heart cath, follows with Dr. Haider), CAD, hypertension, hyperlipidemia, cardiomyopathy, COPD, HFrEF, and a history of a stent who first presented to the ED on 07/11/2024 via EMS with a 2 day history of SOB and cough. SOB/COPD exacerbation- D/c 40 mg IV Q8 hours, start prednisone 40mg PO Duonebs every 4 hours while awake and Q2 hours when necessary s/p azithromycin 500 mg x3 PO; will continue with home regimen of 250mg every other day starting tomorrow Guaifenesin extended release 600 mg p.o. twice daily Theophylline lvl pending Collect sputum sample if able to r/o infectious cause of exacerbation (negative Influenza A and B, negative COVID-19, negative RSV) Continue to wean oxygen as able with O2 sat goal of 88% or higher 2 step respiratory test today to assess for oxygen requirement Recommend follow up with pulmonary once discharged NSTEMI/CAD/hypertension/cardiomyopathy/history of stent- Initial troponin 82.6, with up-trending repeats, peaked at 620, then decreased EKG on admission with normal sinus rhythm rate 99, ST depressions II, III, aVF, and V4 through V6 Repeat EKG showed resolved ST depressions Cardiac cath this morning showed arterial stenosis and calcifications of multiple arteries, but no intervention required. Pt is not currently experiencing cardiac symptoms Continue amlodipine, carvedilol, lisinopril If cough does not resolve after resolution of SOB/hypoxia, consider lisinopril as a potential cause. Diabetes mellitus- Hold metformin Accu-Cheks with NovoLog SSI Hemoglobin A1c 5.7 Hyperlipidemia- Continue rosuvastatin 20 mg daily DVT ppx: Apixaban Diet: Heart Healthy/Carb Consistent or DM2 Code: Full code Dispo: PCU, discharge when back to baseline (2) Non-ST elevation [place] (NSTEMI): Admission and Anticipated Discharge Date Admission Date: July 11, 2024 Supervising Physician Co-Signing Physician Notes Attending Physician Supervision Note: I independently interviewed and examined the patient and verified the francis history and physical, reviewed labs and image studies and agree with findings and care plan noted above. Still feeling short of breath. Cough and wheezing better. Vitals noted, in general he is awake and alert pleasant no distress. HEENT normocephalic atraumatic mucous membranes moist. Breathing unlabored no accessory muscle use good effort. Lungs clear. Acute on chronic Resp F - Was placed on bipap in ED. At home - On O2 2L only at bedtime. Continue NC O2 to keep SaO2 above 88% COPD exacerbation (GOLD D COPD) continuing to improve. steroids - switch to PO, duo nebs, azithromycin. Eugenio level pending Demand ischemia/type II [place] Likely from copd exac but d/t significant troponin rise LHC done 07/13 - No obstructive lesion. CAD s/p stent/HTN/CMP/HLD - Apixaban, amlodipine, carvedilol, lisinopril, rosuvastatin. DM- Hold metformin, Accu-Cheks with NovoLog SSI, A1c 5.7 Hx of Lung ca - treated. Apixaban. Subjective Mr. Monterroso is a 63M with a PMHx of NSTEMI in 2019 (heart cath, follows with Dr. Haider), CAD, hypertension, hyperlipidemia, cardiomyopathy, COPD, HFrEF, and a history of a stent who first presented to the ED on 07/11/2024 via EMS with a 2 day history of SOB and cough. - Feeling a bit better this morning - Cough is about the same as yesterday - has not been able to bring up any sputum, he does not have a cough at baseline - Still having MAYEN when walking to the bathroom - Sitting up straighter in bed - Oxygen weaned down to 3L from 4L, O2 sat staying at 95% Review of Systems Respiratory: as per Subjective / HPI, + cough and + dyspnea on exertion Physical Exam Constitutional: WD/WN, vitals as above Eyes: PERRL, conjunctivae normal, anicteric sclerae Neck: trachea midline, no thyromegaly Respiratory: normal respiratory effort, + cough and able to speak in complete sentences Auscultation: + wheezes (expiratory wheezes improved since yesterday) Cardiovascular: RRR, no murmur, no edema Skin: no rashes, warm and dry Psychiatric: A+Ox3, euthymic affect Results & Data Results & Data Vital Signs (Past 12 Hours) Vital Signs Temp Pulse Pulse Resp BP Pulse Ox O2 Del Method 07/14/24 07:36 68 18 97 Nasal Cannula 07/14/24 07:25 36.7 C 64 18 189/82 H 96 Nasal Cannula 07/14/24 02:50 37.0 C 66 18 151/66 H 95 Nasal Cannula 07/13/24 22:37 36.7 C 67 18 154/71 H 93 Nasal Cannula 07/13/24 22:23 67 O2 Flow Rate 07/14/24 07:36 4 07/14/24 07:25 4 07/14/24 02:50 3 07/13/24 22:37 4 07/13/24 22:23 Resident Activity Tracking Resident Involvement: Resident Care Provided Care Provided: Adult Hospital Medicine
[2024-07-14] MEDS ORDERED: methylPREDNISolone 40 MG in SYRINGE 0 ML IV SCH (18:00)
[2024-07-14] MEDS: predniSONE 50 MG TAB PO SCH (19:31)
[2024-07-14] MEDS: SODIUM CHLOR 7% 4 ML NEB NEB SCH (20:05)
[2024-07-15 07:06] LABS: Basophils # (auto) 0.01 K/uL (0.00-0.20); Basophils % (auto) 0.1 %; Hematocrit (blood only) 44.4 % (42.0-52.0); Hemoglobin 14.6 g/dl (14.0-18.0); Immature Granulocytes # (auto) 0.05 K/uL (0.01-0.20); Immature Granulocytes % (auto) 0.5 %; Lymphocytes # (auto) 0.82 K/uL (1.20-3.40); Lymphocytes % (auto) 7.7 %; Mean Corpuscular Hemoglobin 29.9 pg (25.0-34.0); Mean Corpuscular Hgb Conc 32.9 g/dL (32.0-36.0); Mean Platelet Volume 11.1 fL (9.4-12.4); Monocytes # (auto) 1.02 K/uL (0.11-0.59); Monocytes % (auto) 9.6 %; Neutrophils # (auto) 8.72 K/uL (1.40-6.50); Neutrophils % (auto) 82.1 %; Platelet Count 214 K/uL (130-400); RDW Coefficient of Variation 12.1 % (11.5-14.5); RDW Standard Deviation 40.6 fL (36.4-46.3); Red Blood Count 4.88 M/uL (4.70-6.10); White Blood Count 10.62 K/ul (4.8-10.8)
--- NOTE | 2024-07-15 07:20 | Discharge Summary ---
Date of Service July 15, 2024 Admission HPI Per Admitting Provider The patient is a 63-year-old male with a past medical history including ankylosing spondylitis, peripheral eosinophilia, home oxygen therapy, paroxysmal atrial fibrillation, DVT, CAD, BPH, COPD, cardiomyopathy, diabetes mellitus, hyperlipidemia and hypertension. He presents to the emergency department with 2 to 3 days of worsening shortness of breath and cough. Due to significant difficulty with breathing, patient was placed on BiPAP in the emergency department, and reports feeling significantly more comfortable with his breathing. Principal Diagnosis COPD exacerbation Discharge Exam Constitutional WD/WN, vitals as above ENMT external ear and nose normal, oropharynx normal Respiratory normal respiratory effort; no respiratory distress and no labored breathing Auscultation: + rales (Bases) Cardiovascular RRR, no murmur, no edema Gastrointestinal (Abdomen) normal bowel sounds, soft, nontender, no hepatosplenomegaly Discharge Data Allergies Allergy/AdvReac Type Severity Reaction Status Date / Time Penicillins Allergy Severe THROAT Verified 06/22/24 13:20 SWELLING doxycycline Allergy Intermediate Rash Verified 06/22/24 13:20 levofloxacin [From Levaquin] Allergy Mild Rash Verified 07/11/24 05:51 naproxen Allergy Unknown Unknown Verified 06/22/24 13:20 aspirin Allergy Swelling Verified 07/13/24 08:07 of Lip/Tongue/Throat Consultations 07/11/24 05:12 ED Decision to Admit Stat 07/11/24 06:35 Consult Cardiology Routine Procedures Performed Operation Date: 07/13/24 08:00 Actual Procedures p Cath, Coronaries ONLY (no LV) - Claude Elizalde MD, PhD s Cineradiography w/Routine Exam - Claude Elizalde MD, PhD Ordered Studies 07/13/24 07:35 CL Cath Imgs for PACS use only Routine Hospital Course (1) Acute exacerbation of chronic obstructive pulmonary disease: Mr. Monterroso is a 63M with a PMHx of NSTEMI in 2019 (heart cath, follows with Dr. Haider), CAD, hypertension, hyperlipidemia, cardiomyopathy, COPD, HFrEF, and a history of a stent who first presented to the ED on 07/11/2024 via EMS with a 2 day history of SOB and cough. SOB/COPD exacerbation- Treated with Methylprednisone 40 mg IV Q8 hours, Duonebs every s/p azithromycin 500 mg x3 PO; will continue with home regimen of 250mg every other day Guaifenesin extended release 600 mg p.o. twice daily Continue Theophylline Sputum culture negative 2 step respiratory test - Oxygen requirement increased to 2 L on ambulation. Recommend follow up with pulmonary once discharged NSTEMI/CAD/hypertension/cardiomyopathy/history of stent- Initial troponin 82.6, with up-trending repeats, peaked at 620, then decreased EKG on admission with normal sinus rhythm rate 99, ST depressions II, III, aVF, and V4 through V6 Repeat EKG showed resolved ST depressions Cardiac cath performed 07/14: arterial stenosis and calcifications of multiple arteries, but no intervention required. Pt is not currently experiencing cardiac symptoms Continue amlodipine, carvedilol, lisinopril, apixaban If cough does not resolve after resolution of SOB/hypoxia, consider lisinopril as a potential cause. Diabetes mellitus- Restarted metformin Hemoglobin A1c 5.7 Hyperlipidemia- Continue rosuvastatin 20 mg daily (2) Non-ST elevation DE (NSTEMI): Total Time Total Time Spent Total Time Spent (In Minutes): see attending attestation Discharge Plan Discharge Items Patient Disposition: Home - Self-Care Reason For Visit: ACUTE CHRONIC RESP FAIL,HYPOXIA,COPD EXACER,NSTEMI Discharge Diagnosis: COPD exarcerbation Activity: Per Instructions section Non-emergency contact: Primary Care Provider Call non-emergency contact if: you have any medication questions Follow-up/Referrals: Viki Braswell CRNP [Primary Care Provider] - 07/23/24 10:30 am Diet: Regular Addtl Attending Provider Instructions: You were admitted in the hospital due to COPD exacerbation, You were treated with IV antibiotic, steroids and respiratory therapy You will be discharge home with: - Home Regimen of Azithromycin: 250 mg every other day. - Prednisone 50 mg: Take 50 mg (1 tab) twice a day for 3 days, then prednisone 50 mg daily You oxygen requirement increased to 2 L ambulation Continue your home medications as detailed above Follow up with your primary care within a week to ensure continuity of care Pending Studies at Discharge: No Stand-Alone Forms: [facility] [employer], Smoking Cessation Medications and DC Order Prescriptions: New prednisone 50 mg tablet 50 mg PO DAILY 7 Days Qty: 7 0RF Rx Instructions: Take 1 tab twice a day for 3 days, then one tab daily for 1 day sodium chloride 7 % Solution For Nebulization 4 ml NEB BIDR Qty: 120 0RF Continued sildenafil 100 mg tablet 100 mg PO DAILY PRN (Reason: sexual activity) Qty: 30 5RF Rx Instructions: administer 30 minutes to 4 hours before activity Trelegy Ellipta 100-62.5-25 mcg blister with device 1 inh inhalation DAILY Qty: 3 3RF theophylline 300 mg tablet extended release 12 hr 300 mg PO DAILY Qty: 90 3RF Cosentyx Pen 150 mg/mL pen injector 150 mg subcut Q7D Qty: 5 8RF Rx Instructions: Weekly for 5 doses then continue every 28 days albuterol sulfate 2.5 mg /3 mL (0.083 %) solution for nebulization 2.5 mg inhalation QID PRN (Reason: shortness of breath or wheezing) Qty: 180 3RF amlodipine 5 mg tablet 5 mg PO DAILY Qty: 90 3RF Eliquis 5 mg tablet 5 mg PO BID Qty: 180 3RF carvedilol 12.5 mg tablet 12.5 mg PO BID Qty: 180 3RF lisinopril 30 mg tablet 30 mg PO QAM Qty: 90 3RF rosuvastatin 20 mg tablet 20 mg PO DAILY Qty: 90 3RF gabapentin 100 mg capsule See Rx Instructions PO TID Qty: 150 2RF Rx Instructions: 2 tab in am, 1 tab in afternoon, 2 at bedtime orally three times a day; trazodone 100 mg tablet 100 mg PO DAILY Qty: 90 3RF Rx Instructions: pt aware dose change albuterol sulfate [Ventolin HFA] 90 mcg/actuation HFA aerosol inhaler 2 puff INH Q4H PRN (Reason: shortness of breath or wheezing) Qty: 8.5 11RF metformin 500 mg tablet 500 mg PO BID PRN (Reason: SEE COMMENT) Qty: 30 4RF Rx Instructions: PER PT "ONLY TAKE IF BSG >100, OTHERWISE BSG GOES TOO LOW". acetaminophen [Tylenol Extra Strength] 500 mg Tablet 500 mg PO Q6H PRN (Reason: Pain) guaifenesin [Mucinex] 600 mg Tablet Extended Release 12hr 600 mg PO Q12 Qty: 15 0RF famotidine 40 mg Tablet 40 mg PO QAM Qty: 30 0RF azithromycin 250 mg tablet 250 mg PO UD Rx Instructions: MON,WED,FRI No Action (DME) blood sugar diagnostic [OneTouch Ultra Blue Test Strip] Strip See Rx Instructions .ROUTE .MEDSUPPLY Qty: 100 5RF Rx Instructions: Test blood sugar once daily, Dx:E11.9 (DME) nebulizer accessories [facility] See Dose Instructions .ROUTE .MEDSUPPLY Qty: 1 0RF Dose Instruction: As directed Rx Instructions: nebulizer supplies as needed Discharge Orders: Discharge Order (Routine); Ordered 07/15/24 Ordered By: Francisco Lozoya/Other Patient Handouts: COPD: Spirometry, What Is COPD, Using an Incentive Spirometer, Quick, Healthy Ways to Cook, Traveling with Oxygen, Using an Oxygen Tank at Home Admission Data Admit Date/Time: 07/11/24 05:54 Attending Provider: Cora Serrato Admit Provider: Darian Cox Primary Care Provider: Viki Braswell Other Providers: Darian Cox; Brain Enciso; Levi Wiley Other Interventions: Discharge Summary Assessment (RN) Last Done: 07/15/24 13:58 Supervising Physician Co-Signing Physician Notes Attending Physician Supervision Note: I independently interviewed and examined the patient and verified the francis history and physical, reviewed labs and image studies and agree with findings and care plan noted above. Breathing better, cough improved. Vitals noted, in general he is awake and alert pleasant no distress. HEENT normocephalic atraumatic mucous membranes moist. Breathing unlabored no accessory muscle use good effort. Lungs faint wheezes +. Acute Resp F - Was placed on bipap in ED. At home - On O2 2L only at bedtime. 2 step done - Needing 2L O2 with ambulation to keep SaO2 above 88%. Arranged for home. COPD exacerbation (GOLD D COPD) improved with steroids, azithromycin, nebs, . Home on PO steroids. Continue home dose azithromycin, inhalers and theophylline. Demand ischemia/type II DE Likely from copd exac but d/t significant troponin rise C done 07/13 - No obstructive lesion. CAD s/p stent/HTN/CMP/HLD - Continued Apixaban, amlodipine, carvedilol, lisinopril, rosuvastatin. DM- Resume metformin on discharge. A1c 5.7 Hx of Lung ca - s/p treatment. Ankylosing spondilytis - On secukinumab
[2024-07-15 07:23] LABS: BUN Creatinine Ratio 38.4 (10-20); Calcium 8.8 mg/dl (8.6-10.3); Est GFR (African American) 113.6 ml/min; Potassium 4.5 mmol/L (3.5-5.1)
[2024-07-15] MEDS: AZITHROMYCIN 250 MG TAB PO SCH (08:37)
[2024-07-15 10:54] VITALS: RESP 18; O2SAT 92
[2024-07-15 11:39] VITALS: BP 177/76; TEMP 98.1
[2024-07-15 11:46] VITALS: PULSE 73
== END 2024-07-15 13:58 | disposition home or self-care (01) | DRG 190 ==
LOC: ED 01:33 → SUATTDRO 05:54 → EDINP 05:54 → 2S 06:36
PROC: CLB.CCO (2024-07-13 08:00)
DX: Z87.891 Personal history of nicotine dependence; I42.9 Cardiomyopathy, unspecified; Z79.84 Long term (current) use of oral hypoglycemic drugs; Z95.5 Presence of coronary angioplasty implant and graft; E11.9 Type 2 diabetes mellitus without complications; Z99.81 Dependence on supplemental oxygen; M45.6 Ankylosing spondylitis lumbar region; I21.A1 Myocardial infarction type 2; I11.0 Hypertensive heart disease with heart failure; Z88.1 Allergy status to other antibiotic agents; J96.21 Acute and chronic respiratory failure with hypoxia; I50.22 Chronic systolic (congestive) heart failure; Z88.6 Allergy status to analgesic agent; Z79.01 Long term (current) use of anticoagulants; J44.1 Chronic obstructive pulmonary disease with (acute) exacerbation; E78.5 Hyperlipidemia, unspecified; I48.0 Paroxysmal atrial fibrillation; Z79.899 Other long term (current) drug therapy; Z88.0 Allergy status to penicillin; I25.10 Atherosclerotic heart disease of native coronary artery without angina pectoris; Z79.51 Long term (current) use of inhaled steroids; Z85.118 Personal history of other malignant neoplasm of bronchus and lung

== ENCOUNTER 2024-07-16 07:04 | Inpatient (IN) ==
[2024-07-16 07:58] LABS: Base Excess VBG 10.5 mEq/L; HCO3 VBG 37 mmol/L; Oxygen Saturation VBG 83.8 %; PCO2 VBG 53 mmHg (38-50); PO2 VBG 48 mmHg; pH VBG 7.45 (7.36-7.41)
--- NOTE | 2024-07-16 07:58 | Emergency Department Note ---
Impression & Plan Dyspnea, Hypoxia, Acute exacerbation of chronic obstructive pulmonary disease, Pneumonia ED Provider Note ED Provider Note NAME: SIMON BACA Jr AGE:63 SEX: Male : 1960 ARRIVES VIA: EMS INFORMANT: Patient ED PROVIDER(s): Leslee Jimenez DO CHIEF COMPLAINT: Shortness of breath HPI: This is a 63-year-old male presents emergency department due to increased shortness of breath at home yesterday evening and into this morning. Patient with recent hospitalization and treatment for shortness of breath. He states they felt this was likely due to sputum in his chest which she could not get out and worsening of his underlying COPD. Patient states he used to be a smoker. Patient states prior to his most recent hospitalizations he did not require oxygen however upon discharge yesterday, he was instructed to wear oxygen chronically at 2 L/min. He states he was prescribed steroids at time of discharge however the prescription was not written correctly and his pharmacy could not fill it. He states he began to notice his breathing feeling worse last night and had difficulty sleeping in the overnight hours. He did try using his nebulizers at home without any significant improvement. He states this morning he felt even worse with accompanying chest tightness, he checked his oxygen at home and noted to be 79% while on his 2 L/min via nasal cannula. Patient and family at home called 911. Patient given nebulizers at home prior to transfer and given 125 mg of Solu-Medrol by EMS prior to arrival. Patient states that did help. He states they told him they had to turn his oxygen level up. He states at this time the chest tightness is improved but not resolved, he still feels as though it slightly hard to breathe although better than when he was at home. He states during his last admission they did do a cardiac catheterization additionally to look for any heart problems. He has previously required BiPAP for COPD exacerbations but states he does not feel his breathing is quite that bad at this time. He denies fevers or chills, vomiting, or leg swelling. PAST MEDICAL HISTORY:See Below PAST SURGICAL HISTORY:See Below FAMILY HISTORY:See Below SOCIAL HISTORY:See Below HOME MEDICATIONS:See Below ALLERGIES:See Below VITALS:See Below PHYSICAL EXAMINATION: GENERAL: alert, well appearing, well nourished, no distress, non-toxic EYE EXAM: normal conjunctiva, PERRL and EOM's grossly intact OROPHARYNX: no exudate, no erythema, lips, buccal mucosa, and tongue normal and mucous membranes are moist NECK: supple, no nuchal rigidity, no adenopathy, non-tender LUNGS: Normal chest wall mechanics, increased work of breathing, bilateral expiratory wheeze, scattered rhonchi, no accessory muscle use, mild tachypnea with conversation, sats on 3 L/min at 91% HEART: no murmurs, S1 normal and S2 normal ABDOMEN: abdomen soft, non-tender, normo-active bowel sounds, no masses, no rebound or guarding. BACK: Back is symmetrical on inspection and there is no deformity, no midline tenderness, no CVA tenderness. SKIN: no rashes, petechiae, orbruising UPPER EXTREMITIES: upper extremities are grossly normal. FROM, nml pulses b/l. Fungating fingernails noted on left hand. LOWER EXTREMITIES: No pitting edema. FROM, nml pulses b/l. Fungating toenails noted. NEURO EXAM: Normal sensorium, cranial nerves II-XII grossly intact, normal speech, no facial droop,nogross weakness of arms, no gross weakness of legs. Gross sensation intact. No ataxia. Vital Signs: reviewed and remarkable Differential Diagnosis: pneumonia, bronchitis, COPD/Asthma exacerbation, pneumothorax, pulmonary embolism, congestive heart failure, acute coronary syndrome, as well as others were considered MEDICAL DECISION MAKING: This is a 63-year-old male who presents emergency room due to concern for increased difficulty breathing and hypoxia noted at home despite his use of home oxygen therapy. Patient's oxygen via nasal cannula increased here, he was given steroids and nebulizer treatments prior to arrival by EMS. Labs drawn and sent, IV established, EKG and chest ray performed at bedside interpreted me and patient monitored on telemetry. He was given additional DuoNeb here. Patient's chest x-ray. Different compared to prior, in light of this patient sent for CT of the chest. Bio fire obtained and sent additionally which was negative. A second DuoNeb given to the patient also. Patient's chest x-ray read by radiology for multifocal pneumonia. Patient given IV cefepime after review of allergies and recent inpatient antibiotic use. All results were discussed with the patient at bedside. He and family verbalized understanding were in agreement with the plan. Case discussed with the hospitalist team for additional evaluation and management. I do not suspect PE as patient does use a blood thinner daily due to a history of atrial fibrillation. Consultation(s): 0950: Discussed with Dr. Miranda, [facility] hospitalist team, for additional evaluation and management. ER Treatment Provided: See below Diagnostics Interpreted By Me: -ECG: Normal sinus at 81, normal axis, normal intervals, no acute ST/T wave changes -Cardiac Monitoring: An order was placed for continuous cardiac monitoring. The monitor shows a rate of 80 with normal sinus rhythm. -Laboratory studies: As stated above and show below. -Imaging studies: cxr: No cardiomegaly, no wide mediastinum, no pulmonary edema, no pleural effusion, appearance of evolving right lower lobe pneumonia Triage Nursing Note Reviewed Prior/Outside Records Reviewed -discharge summary from yesterday noted Past Med/Surg History Problem List (Updated 07/16/24 @ 15:37 by Leslee Jimenez DO) Pneumonia (Acute) Pneumonia Hypoxia (Acute) Dyspnea (Acute) Acute exacerbation of chronic obstructive pulmonary disease (Acute) Non-ST elevation TN (NSTEMI) (Acute) Hypoxia (Acute) Elevated troponin Shortness of breath Acute on chronic respiratory failure with hypoxia Ankylosing spondylitis lumbar region Chronic lower back pain Acute hip pain, bilateral Acute low back pain Peripheral eosinophilia Breathlessness (Acute) nursing home (current) use of anticoagulants (Acute) On home oxygen therapy 2L N/C at HS Paroxysmal atrial fibrillation Insomnia DVT (deep venous thrombosis) (Chronic) 2019- tx with eliquis Erectile dysfunction (Chronic) Renal cyst Abnormal CT scan, kidney GERD (gastroesophageal reflux disease) Ankylosing spondylitis Cervical spine ankylosis Coronary artery disease (Chronic) BPH (benign prostatic hyperplasia) COPD (chronic obstructive pulmonary disease) (Chronic) inhaler daily/prn; Gold D with severe emphysema Cardiomyopathy (Chronic) Diabetes mellitus (Chronic) NIDDM Hyperlipidemia (Chronic) Hypertension (Chronic) Medical History Atrial fibrillation on Eliquis. Follows with Dr. Haider Bloating Constipation On anticoagulant therapy eliquis daily History of anesthesia reaction "at least 20yrs ago having teeth removed and they lost me for awhile and then got me back"--no other issues with anesthesia History of COVID-19 10/01/20 @ [facility]--headache/cold symptoms Non-ST elevation myocardial infarction (NSTEMI) in recovery phase 2019--had heart cath--follows with Dr. Haider Surgical History History of colonoscopy History of tooth extraction all teeth removed History of cardiac cath (~12/09/18) History of heart artery stent (~12/09/18) [address] Haider Family History Mother Colorectal cancer Father Myocardial infarction Other Coronary heart disease Diabetes Heart disease Hypertension No family history of adverse response to anesthesia Denies family history of Prostate cancer Breast cancer Social History Smoking Status: Former smoker Tobacco Type: Cigarettes Age Started Using Tobacco: 15; Age Quit Using Tobacco: 53; packs per day: 1.5; Second Hand Exposure: Yes (Father smoked when Pt. was a child. 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 ) Diet: regular caffeine: Yes (coffee) during the past year weight has: remained stable Dental Care, Regularly: Yes Physical Activity Frequency: Daily Seatbelt Use: always Sunscreen Use: No Do you think of yourself as: straight/heterosexual Sexual Activity: has been sexually active within the last 12 months Gender Identity: Male Assistive Devices: Denture - Upper, Glasses and Oxygen - Continuous Allergies Allergies Allergy/AdvReac Type Severity Reaction Status Date / Time Penicillins Allergy Severe THROAT Verified 06/22/24 13:20 SWELLING doxycycline Allergy Intermediate Rash Verified 06/22/24 13:20 levofloxacin [From Levaquin] Allergy Mild Rash Verified 07/11/24 05:51 naproxen Allergy Unknown Unknown Verified 06/22/24 13:20 aspirin Allergy Swelling Verified 07/13/24 08:07 of Lip/Tongue/Throat Home Meds Home Medications Medication Instructions Recorded Confirmed acetaminophen 500 mg tablet 500 mg PO Q6H PRN Pain 04/02/21 07/16/24 (Tylenol Extra Strength) azithromycin 250 mg tablet 250 mg PO UD 07/11/24 07/16/24 apixaban 5 mg tablet (Eliquis) 5 mg PO BID 07/16/24 07/16/24 famotidine 10 mg tablet 10 mg PO DAILY 07/16/24 07/16/24 prednisone 50 mg tablet 0 mg PO DAILY 07/16/24 07/16/24 secukinumab 150 mg/mL subcutaneous 0 mg subcut Q7D 07/16/24 07/16/24 pen injector (Cosentyx Pen) Previous Rx's Medication Instructions Recorded nebulizer accessories #1 ea 06/17/19 blood sugar diagnostic (OneTouch #100 ea 06/07/20 Ultra Blue Test Strip) guaifenesin 600 mg tablet, 600 mg PO Q12 #15 tabs 01/05/23 extended release 12 hr (Mucinex) sildenafil 100 mg tablet 100 mg PO DAILY PRN sexual 08/14/23 activity #30 tabs albuterol sulfate 2.5 mg/3 mL 2.5 mg (3 mL) inhalation QID PRN 12/16/23 (0.083 %) solution for nebulization shortness of breath or wheezing #180 mL albuterol sulfate 90 mcg/actuation 2 puff inhalation Q4H PRN 01/02/24 aerosol inhaler (Ventolin HFA) shortness of breath or wheezing #8.5 grams metformin 500 mg tablet 500 mg PO BID PRN SEE COMMENT #30 01/02/24 tabs trazodone 100 mg tablet 100 mg PO DAILY #90 tabs 01/02/24 carvedilol 12.5 mg tablet 12.5 mg PO BID #180 tabs 04/20/24 lisinopril 30 mg tablet 30 mg PO QAM #90 tabs 04/20/24 rosuvastatin 20 mg tablet 20 mg PO DAILY #90 tabs 04/20/24 fluticasone fur. 100 mcg-umeclid 1 inh inhalation DAILY #3 Inhalers 04/24/24 62.5 mcg-vilant 25 mcg inhalat.powder (Trelegy Ellipta) gabapentin 100 mg capsule See Rx Instructions PO TID #150 06/11/24 caps theophylline 300 mg 300 mg PO DAILY #90 tabs 06/22/24 tablet,extended release,12 hr sodium chloride 7 % for 4 ml NEB BIDR #120 mL 07/15/24 nebulization Results & Data (ED) Vital Signs Vital Signs - 24 hr 07/16/24 07:35 07/16/24 07:35 07/16/24 07:35 Temperature 36.8 C 36.8 C Temperature Source Oral Oral Pulse Rate 83 Pulse Rate [Left Brachial] 83 Pulse Rhythm Regular Pulse Rhythm [Left Brachial] Regular Pulse Strength Normal Pulse Strength [Left Brachial] Normal Respiratory Rate 24 24 Respiratory Effort / Characteristics Non-Labored Non-Labored Respiratory Depth Normal Normal Respiratory Pattern Regular Regular Blood Pressure 166/109 H Blood Pressure [Left Arm] 166/109 H Blood Pressure Mean 128 Blood Pressure Mean [Left Arm] 128 Blood Pressure Position Lying Blood Pressure Position [Left Arm] Lying Pulse Oximetry 86 L 86 L Oxygen Delivery Method Nasal Cannula Nasal Cannula Nasal Cannula Oxygen Flow Rate 3 3 3 Sepsis Recent Fever Within 48 Hours No Sepsis New/Unexplained Change in Mental Status No Sepsis Action Taken by Nursing No Action Required 07/16/24 07:52 07/16/24 08:51 Temperature Temperature Source Pulse Rate 75 Pulse Rate [Left Brachial] Pulse Rhythm Pulse Rhythm [Left Brachial] Pulse Strength Pulse Strength [Left Brachial] Respiratory Rate Respiratory Effort / Characteristics Respiratory Depth Respiratory Pattern Blood Pressure Blood Pressure [Left Arm] Blood Pressure Mean Blood Pressure Mean [Left Arm] Blood Pressure Position Blood Pressure Position [Left Arm] Pulse Oximetry Oxygen Delivery Method Nasal Cannula Oxygen Flow Rate 3 Sepsis Recent Fever Within 48 Hours Sepsis New/Unexplained Change in Mental Status Sepsis Action Taken by Nursing Laboratory Data 07/16/24 07:48 07/16/24 07:51 Lab Results 07/16/24 07/16/24 Range/Units 07:48 07:51 WBC 12.51 H (4.8-10.8) K/ul RBC 5.27 (4.70-6.10) M/uL Hgb 16.0 (14.0-18.0) g/dl Hct 46.1 (42.0-52.0) % MCV 87.5 (80.0-100.0) fL MCH 30.4 (25.0-34.0) pg MCHC 34.7 (32.0-36.0) g/dL RDW Std Deviation 38.4 (36.4-46.3) fL RDW Coeff of [place] 11.9 (11.5-14.5) % Plt Count 253 (130-400) K/uL MPV 10.9 (9.4-12.4) fL Immature Gran % (Auto) 0.4 % Neut % (Auto) 81.1 % Lymph % (Auto) 7.8 % [place] % (Auto) 10.6 % Eos % (Auto) 0.1 % Baso % (Auto) 0.0 % Neut # (Auto) 10.15 H (1.40-6.50) K/uL Lymph # (Auto) 0.97 L (1.20-3.40) K/uL [place] # (Auto) 1.33 H (0.11-0.59) K/uL Eos # (Auto) 0.01 (0.00-0.50) K/uL Baso # (Auto) 0.00 (0.00-0.20) K/uL Immature Gran # (Auto) 0.05 (0.01-0.20) K/uL PT 11.9 (9.0-12.0) Seconds INR 1.1 (0.9-1.1) VBG pH 7.45 H (7.36-7.41) VBG pCO2 53 H (38-50) mmHg VBG pO2 48 mmHg VBG HCO3 37 mmol/L VBG O2 Saturation 83.8 % VBG Base Excess 10.5 mEq/L Sodium 137 (136-145) mmol/L Potassium 4.1 (3.5-5.1) mmol/L Chloride 97 L (98-107) mmol/L Carbon Dioxide 32 (21-32) mmol/L Anion Gap 8 (3-11) BUN 28 H (6-23) mg/dl Creatinine 0.67 (0.6-1.4) mg/dl Est Cr Clr Drug Dosing 110.4 ml/min Est GFR ( Amer) 117.7 ml/min Est GFR (Non-Af Amer) 101.5 ml/min BUN/Creatinine Ratio 41.8 H (10-20) Glucose 154 H (70-99(Fasting)) mg/dl Calcium 9.1 (8.6-10.3) mg/dl Magnesium 2.1 (1.7-2.4) mg/dl Total Bilirubin 1.0 (0.2-1.0) mg/dl AST 14 (13-39) U/L ALT 14 (7-52) U/L Alkaline Phosphatase 45 (34-104) U/L Troponin I High Sens 16.5 (0-20) pg/ml B-Natriuretic Peptide 116 H (0-100) pg/ml Total Protein 6.5 (6.0-8.3) gm/dl Albumin 4.0 (3.4-5.0) gm/dl Globulin 2.5 (2.5-4.0) gm/dl Albumin/Globulin Ratio 1.6 (0.9-2) Lipase 29 (11-82) U/L Administered Medications Sodium Chloride (Nss) 1,000 mls @ 100 mls/hr IV .Q10H KEISHA Stop: 08/15/24 09:14 Last Admin: 07/16/24 09:28 Dose: 100 mls/hr Documented By: HUMERA Discontinued Medications Albuterol (Albut/Ipratrop 3mg/0.5mg Neb 3 Ml Vial) 3 ml NEB NOW STA; Protocol Stop: 07/16/24 07:41 Last Admin: 07/16/24 08:10 Dose: 3 ml Documented By: FRANCISCA Albuterol (Albut/Ipratrop 3mg/0.5mg Neb 3 Ml Vial) 3 ml NEB NOW STA; Protocol Stop: 07/16/24 09:19 Last Admin: 07/16/24 09:27 Dose: 3 ml Documented By: HUMERA Cefepime HCl (Maxipime) 2,000 mg in 20 mls @ 5 mls/min IV NOW STA; Protocol Stop: 07/16/24 09:16 Last Admin: 07/16/24 09:29 Dose: 5 mls/min Documented By: HUMERA Cefepime HCl 2,000 mg/ Syringe 20 mls @ 5 mls/min IV NOW STA; Protocol Stop: 07/16/24 10:33 Last Admin: 07/16/24 10:47 Dose: Not Given Documented By: LAYA Ioversol (Optiray 320 100ml) 94 ml IV ONCE ONE Stop: 07/16/24 08:43 Last Admin: 07/16/24 08:43 Dose: 94 ml Documented By: FLOWER Imaging Data Radiologist's Impression: Chest X-Ray 07/16/24 07:41 XR chest 1V portable HISTORY: 63 years-old Male sob acute short of breath COMPARISON: Chest radiograph 07/11/2024, chest CT 07/18/2022 TECHNIQUE: AP view of the chest FINDINGS: Cardiomediastinal and hilar silhouettes are within normal limits. Hyperinflation with pulmonary emphysema and chronic interstitial coarsening. There are new patchy ill-defined subsegmental lateral right lung base airspace opacities. Bones appear grossly intact. IMPRESSION: 1. Right basilar airspace opacities are suggestive of pneumonia versus aspiration pneumonitis. 2. Pulmonary emphysema. ACT 112: Negative or not required by law. The above report was generated using voice recognition software. It may contain grammatical, syntax or spelling errors. Electronically signed by: Trey Salas M.D. 07/16/2024 8:[address] 07/16/24 08:11 CT OF THE CHEST WITH IV CONTRAST CLINICAL HISTORY: Increasing shortness of breath, COPD, ?pna COMPARISON STUDY: Chest CT December 07, 2018. Chest radiograph performed earlier today. Chest CT July 18, 2022. TECHNIQUE: Following IV administration of 94 mL of Optiray, helical axial images of the chest were obtained. Sagittal and coronal reconstructions were viewed as well as maximal intensity projections on an independent 3-D workstation. Automated exposure control was utilized for the study. A dose lowering technique was utilized adhering to the principles of ALARA. CT DOSE: 493.4 mGy.cm FINDINGS: No enlarged axillary, mediastinal or hilar lymph nodes are present. The size the heart is normal. There is a trace pericardial effusion. There is extensive coronary artery calcification. No pneumothorax or pleural effusion is present. There are secretions within the trachea and mainstem bronchi. Emphysema is noted. Mild bibasilar opacities within the right lower lobe are noted. Scattered additional foci of tree-in-bud nodules within the lungs are also noted. Lower lobe predominant bronchial wall thickening is present. No central obstructing mass is noted. No cavitation. No suspicious lesions within the bony thorax are present. There is extensive anterior osteophytosis of the thoracic spine. Several enhancing hepatic lesions were shown on prior abdominal CT. These likely reflect hemangiomas. Left pelvic kidney was noted on that exam. IMPRESSION: 1. Multifocal airspace opacities within the lungs, most pronounced within the right lower lobe. The findings favor pneumonia. Aspiration pneumonitis could appear similar given secretions within the airways. A follow-up chest CT in 3 months to ensure resolution is recommended. 2. Diffuse bronchial wall thickening. 3. Emphysema. ACT 112: Negative or not required by law. Electronically signed by: Damion Urrutia M.D. 07/16/2024 9:01 AM Discharge Plan Visit Data Chief Complaint: Shortness of Breath/Dyspnea Stated Complaint: SOB, JUST D/C'D FROM HERE FOR COPD ED Provider: Leslee Jimenez Discharge Problem: Dyspnea, Hypoxia, Acute exacerbation of chronic obstructive pulmonary disease, Pneumonia Patient Disposition: Admitted As Inpatient Discharge Instructions Interventions: ED Discharge Assessment Last Done: 07/16/24 14:43
[2024-07-16 08:10] LABS: Eosinophils # (auto) 0.01 K/uL (0.00-0.50); Eosinophils % (auto) 0.1 %; Hematocrit (blood only) 46.1 % (42.0-52.0); Immature Granulocytes # (auto) 0.05 K/uL (0.01-0.20); Immature Granulocytes % (auto) 0.4 %; Lymphocytes # (auto) 0.97 K/uL (1.20-3.40); Lymphocytes % (auto) 7.8 %; Mean Corpuscular Hemoglobin 30.4 pg (25.0-34.0); Mean Corpuscular Hgb Conc 34.7 g/dL (32.0-36.0); Mean Corpuscular Volume 87.5 fL (80.0-100.0); Mean Platelet Volume 10.9 fL (9.4-12.4); Monocytes # (auto) 1.33 K/uL (0.11-0.59); Monocytes % (auto) 10.6 %; Neutrophils # (auto) 10.15 K/uL (1.40-6.50); Neutrophils % (auto) 81.1 %; Platelet Count 253 K/uL (130-400); RDW Coefficient of Variation 11.9 % (11.5-14.5); RDW Standard Deviation 38.4 fL (36.4-46.3); Red Blood Count 5.27 M/uL (4.70-6.10); White Blood Count 12.51 K/ul (4.8-10.8)
[2024-07-16] MEDS: ALBUT/IPRATROP 3MG/0.5MG NEB 3 ML VIAL NEB STA ×2 (08:10→09:27)
--- NOTE | 2024-07-16 08:17 | XRay Report ---
XR chest 1V portable HISTORY: 63 years-old Male sob acute short of breath COMPARISON: Chest radiograph 07/11/2024, chest CT 07/18/2022 TECHNIQUE: AP view of the chest FINDINGS: Cardiomediastinal and hilar silhouettes are within normal limits. Hyperinflation with pulmonary emphy sema and chronic interstitial coarsening. There are new patchy ill-defined subsegmental lateral right lung base airspace opacities. Bones appear grossly intact. IMPRESSION: 1. Right basilar airspace opacities are suggestive of pneumonia versus aspiration pneumonitis. 2. Pulmonary emphysema. ACT 112: Negative or not required by law. The above report was generated using voice recognition software. It may contain grammatical, syntax o r spelling errors. Electronically signed by: Trey Salas M.D. 07/16/2024 8:15 AM
[2024-07-16 08:24] LABS: BUN Creatinine Ratio 41.8 (10-20); Calcium 9.1 mg/dl (8.6-10.3); Creatinine Clr Calc Pharmacy 110.4 ml/min; Est GFR (African American) 117.7 ml/min; Est GFR (Non-African American) 101.5 ml/min; Magnesium 2.1 mg/dl (1.7-2.4); Potassium 4.1 mmol/L (3.5-5.1); Total Protein 6.5 gm/dl (6.0-8.3)
[2024-07-16 08:25] LABS: Albumin Globulin Ratio 1.6 (0.9-2); Globulin 2.5 gm/dl (2.5-4.0)
[2024-07-16 08:29] LABS: INR 1.1 (0.9-1.1); Prothrombin Time 11.9 Seconds (9.0-12.0)
[2024-07-16 08:30] LABS: Troponin I High Sensitivity 16.5 pg/ml (0-20)
[2024-07-16] MEDS: OPTIRAY 320 100ml IV ONE (08:43)
--- NOTE | 2024-07-16 09:03 | CT Scan Report ---
CT OF THE CHEST WITH IV CONTRAST CLINICAL HISTORY: Increasing shortness of breath, COPD, ?pna COMPARISON STUDY: Chest CT December 07, 2018. Chest radiograph performed earlier today. Chest CT Sep 2021. TECHNIQUE: Following IV administration of 94 mL of Optiray, helical axial images of the chest were o btained. Sagittal and coronal reconstructions were viewed as well as maximal intensity projections o n an independent 3-D workstation. Automated exposure control was utilized for the study. A dose low ering technique was utilized adhering to the principles of ALARA. CT DOSE: 493.4 mGy.cm FINDINGS: No enlarged axillary, mediastinal or hilar lymph nodes are present. The size the heart is normal. There is a trace pericardial effusion. There is extensive coronary artery calcification. No p neumothorax or pleural effusion is present. There are secretions within the trachea and mainstem bron chi. Emphysema is noted. Mild bibasilar opacities within the right lower lobe are noted. Scattered ad ditional foci of tree-in-bud nodules within the lungs are also noted. Lower lobe predominant bronchia l wall thickening is present. No central obstructing mass is noted. No cavitation. No suspicious lesi ons within the bony thorax are present. There is extensive anterior osteophytosis of the thoracic spi ne. Several enhancing hepatic lesions were shown on prior abdominal CT. These likely reflect hemangio mas. Left pelvic kidney was noted on that exam. IMPRESSION: 1. Multifocal airspace opacities within the lungs, most pronounced within the right lower lobe. The f indings favor pneumonia. Aspiration pneumonitis could appear similar given secretions within the airw ays. A follow-up chest CT in 3 months to ensure resolution is recommended. 2. Diffuse bronchial wall thickening. 3. Emphysema. ACT 112: Negative or not required by law. Electronically signed by: Damion Urrutia M.D. 07/16/2024 9:01 AM
[2024-07-16] MEDS: SODIUM CHLORIDE 0.9% 1,000 ML IV SCH (09:28)
[2024-07-16] MEDS: CEFEPIME 2,000 MG/20 ML VIAL IV STA (09:29)
--- NOTE | 2024-07-16 10:46 | History & Physical Report ---
Date of Service July 16, 2024 Assessment & Plan (1) Hypoxia: (2) Dyspnea: (3) Acute on chronic respiratory failure with hypoxia: (4) Ankylosing spondylitis lumbar region: (5) Paroxysmal atrial fibrillation: (6) COPD (chronic obstructive pulmonary disease): (7) Hyperlipidemia: (8) Hypertension: (9) Pneumonia: Plan Mr. Monterroso is a 63M with a PMHx of NSTEMI in 2019 (heart cath, follows with Dr. Haider), CAD, hypertension, hyperlipidemia, cardiomyopathy, COPD, HFrEF, and a history of a stent here with pneumonia Pneumonia - Recent admission due to COPD exacerbation - Sputum culture resulted this morning with S. pneumoniae - WBC: mild leukocytosis, no fever - CT chest: Multifocal airspace opacities within the lungs, most pronounced within the right lower lobe. The findings favor pneumonia. Emphysema. Diffuse bronchial wall thickening. - s/p Cefepime IV on ED - Ceftriaxone IV daily - Azithromycin home dose 250 mg (MWF) - Prednisone taper continue changed to IV Methylprednisone 40 mg BID, then Prednisone 50 mg for 3 days. Will re-eval in am - Dueneb Q4hrs - Tylenol prn for fever - Mucinex BID - CBC, CMP am SOB/COPD exacerbation Gold D - CT: Emphysema - will continue with home regimen of azithromycin 250mg every other day Guaifenesin extended release 600 mg p.o. twice daily Continue Theophylline Continue Oxygen supplementation goal of Sat 88% CAD/hypertension/cardiomyopathy/history of stent/ hx NSTEMI Cardiac cath performed 07/14: arterial stenosis and calcifications of multiple arteries, but no intervention required. EKG on admission: Normal sinus rhythm, Normal ECG Pt is not currently experiencing cardiac symptoms Continue amlodipine, carvedilol, lisinopril Atrial fibrillation Normal sinus Continue metoprolol Apixaban Diabetes mellitus- Hold metformin Accu-Cheks with NovoLog SSI Hemoglobin A1c 5.7 Hyperlipidemia Continue rosuvastatin 20 mg daily DVT ppx: Apixaban Diet: Heart Healthy/Carb Consistent or DM2 Code: Full code Dispo: MEd/ Telemetry History of Present Illness Primary Care Provider: CHARISSA Hu 63 y/o male PMHx of NSTEMI in 2019 (heart cath, follows with Dr. Haider), CAD, hypertension, hyperlipidemia, cardiomyopathy, COPD, HFrEF, and a history of a stent here due to increased SOB and hypoxia. Patient was recently discharge from the service after admission for COPD exacerbation and increased hypoxia. Sent home with prednisone taper. He refers increased shortness of breath last night and difficulty sleeping. This morning he refers having worsening hypoxia and chest tightness. On the EMS he was given Solumedrol IV. ED course: Cefepime IV, Albuterol neb Sputum culture that was sent yesterday got resulted this morning with S. Pneumonia. CT chest: Multifocal airspace opacities within the lungs, most pronounced within the right lower lobe. The findings favor pneumonia. Emphysema. Diffuse bronchial wall thickening. Patient on evaluation found in NAD, on nasal cannula 2 L. Refers SOB had improved since this morning. Chest tightness had resolved as well. Lungs exam pertinent with rhonchi on bilateral bases and wheezing. Denied and chest pain, palpitations, abdominal pain, nausea, vomiting or any other symtoms Allergies Allergy/AdvReac Type Severity Reaction Status Date / Time Penicillins Allergy Severe THROAT Verified 06/22/24 13:20 SWELLING doxycycline Allergy Intermediate Rash Verified 06/22/24 13:20 levofloxacin [From Levaquin] Allergy Mild Rash Verified 07/11/24 05:51 naproxen Allergy Unknown Unknown Verified 06/22/24 13:20 aspirin Allergy Swelling Verified 07/13/24 08:07 of Lip/Tongue/Throat Home Medications Medication Instructions Recorded Confirmed Type nebulizer accessories #1 ea 06/17/19 06/22/24 Rx blood sugar diagnostic (OneTouch #100 ea 06/07/20 06/22/24 Rx Ultra Blue Test Strip) acetaminophen 500 mg tablet 500 mg PO Q6H PRN Pain 04/02/21 07/16/24 History (Tylenol Extra Strength) guaifenesin 600 mg tablet, 600 mg PO Q12 #15 tabs 01/05/23 07/16/24 Rx extended release 12 hr (Mucinex) sildenafil 100 mg tablet 100 mg PO DAILY PRN sexual 08/14/23 07/16/24 Rx activity #30 tabs albuterol sulfate 2.5 mg/3 mL 2.5 mg (3 mL) inhalation QID PRN 12/16/23 07/16/24 Rx (0.083 %) solution for nebulization shortness of breath or wheezing #180 mL albuterol sulfate 90 mcg/actuation 2 puff inhalation Q4H PRN 01/02/24 07/16/24 Rx aerosol inhaler (Ventolin HFA) shortness of breath or wheezing #8.5 grams metformin 500 mg tablet 500 mg PO BID PRN SEE COMMENT #30 01/02/24 07/16/24 Rx tabs trazodone 100 mg tablet 100 mg PO DAILY #90 tabs 01/02/24 07/16/24 Rx carvedilol 12.5 mg tablet 12.5 mg PO BID #180 tabs 04/20/24 07/16/24 Rx lisinopril 30 mg tablet 30 mg PO QAM #90 tabs 04/20/24 07/16/24 Rx rosuvastatin 20 mg tablet 20 mg PO DAILY #90 tabs 04/20/24 07/16/24 Rx fluticasone fur. 100 mcg-umeclid 1 inh inhalation DAILY #3 Inhalers 04/24/24 07/16/24 Rx 62.5 mcg-vilant 25 mcg inhalat.powder (Trelegy Ellipta) gabapentin 100 mg capsule See Rx Instructions PO TID #150 06/11/24 07/16/24 Rx caps theophylline 300 mg 300 mg PO DAILY #90 tabs 06/22/24 07/16/24 Rx tablet,extended release,12 hr azithromycin 250 mg tablet 250 mg PO UD 07/11/24 07/16/24 History sodium chloride 7 % for 4 ml NEB BIDR #120 mL 07/15/24 07/16/24 Rx nebulization apixaban 5 mg tablet (Eliquis) 5 mg PO BID 07/16/24 07/16/24 History famotidine 10 mg tablet 10 mg PO DAILY 07/16/24 07/16/24 History prednisone 50 mg tablet 0 mg PO DAILY 07/16/24 07/16/24 History secukinumab 150 mg/mL subcutaneous 0 mg subcut Q7D 07/16/24 07/16/24 History pen injector (Cosentyx Pen) Past Med/Surg History Problem List (Updated 07/16/24 @ 15:37 by Leslee Jimenez DO) Pneumonia (Acute) Pneumonia Hypoxia (Acute) Dyspnea (Acute) Acute exacerbation of chronic obstructive pulmonary disease (Acute) Non-ST elevation VA (NSTEMI) (Acute) Hypoxia (Acute) Elevated troponin Shortness of breath Acute on chronic respiratory failure with hypoxia Ankylosing spondylitis lumbar region Chronic lower back pain Acute hip pain, bilateral Acute low back pain Peripheral eosinophilia Breathlessness (Acute) 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 (Acute) On home oxygen therapy 2L N/C at HS Paroxysmal atrial fibrillation Insomnia DVT (deep venous thrombosis) (Chronic) 2019- tx with eliquis Erectile dysfunction (Chronic) Renal cyst Abnormal CT scan, kidney GERD (gastroesophageal reflux disease) Ankylosing spondylitis Cervical spine ankylosis Coronary artery disease (Chronic) BPH (benign prostatic hyperplasia) COPD (chronic obstructive pulmonary disease) (Chronic) inhaler daily/prn; Gold D with severe emphysema Cardiomyopathy (Chronic) Diabetes mellitus (Chronic) NIDDM Hyperlipidemia (Chronic) Hypertension (Chronic) Medical History Atrial fibrillation on Eliquis. Follows with Dr. Haider Bloating Constipation On anticoagulant therapy eliquis daily History of anesthesia reaction "at least 20yrs ago having teeth removed and they lost me for awhile and then got me back"--no other issues with anesthesia History of COVID-19 10/01/20 @ [facility]--headache/cold symptoms Non-ST elevation myocardial infarction (NSTEMI) in recovery phase 2019--had heart cath--follows with Dr. Haider Surgical History History of colonoscopy History of tooth extraction all teeth removed History of cardiac cath (~12/09/18) History of heart artery stent (~12/09/18) [address] Haider Family History Mother Colorectal cancer Father Myocardial infarction Other Coronary heart disease Diabetes Heart disease Hypertension No family history of adverse response to anesthesia Denies family history of Prostate cancer Breast cancer Social History Smoking Status: Former smoker Tobacco Type: Cigarettes Age Started Using Tobacco: 15; Age Quit Using Tobacco: 53; packs per day: 1.5; Second Hand Exposure: Yes (Father smoked when Pt. was a child. 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 ) Diet: regular caffeine: Yes (coffee) during the past year weight has: remained stable Dental Care, Regularly: Yes Physical Activity Frequency: Daily Seatbelt Use: always Sunscreen Use: No Do you think of yourself as: straight/heterosexual Sexual Activity: has been sexually active within the last 12 months Gender Identity: Male Assistive Devices: Denture - Upper, Glasses and Oxygen - Continuous Review of Systems Review of Systems: as per HPI Physical Exam Constitutional: WD/WN, vitals as above Respiratory: normal respiratory effort; no respiratory distress Auscultation: + rhonchi (Bases ( bilateral)) and + wheezes; no crackles Cardiovascular: RRR, no murmur, no edema Gastrointestinal (Abdomen): normal bowel sounds, soft, nontender, no hepatos plenomegaly Musculoskeletal: no cyanosis or clubbing, extremities motor strength 5/5 Results & Data Results & Data Vital Signs (Past 12 Hours) Vital Signs Temp Pulse Pulse Resp BP BP Pulse Ox 07/16/24 08:51 75 07/16/24 07:52 07/16/24 07:35 36.8 C 83 24 166/109 H 86 L 07/16/24 07:35 07/16/24 07:35 36.8 C 83 24 166/109 H 86 L O2 Del Method O2 Flow Rate 07/16/24 08:51 07/16/24 07:52 Nasal Cannula 3 07/16/24 07:35 Nasal Cannula 3 07/16/24 07:35 Nasal Cannula 3 07/16/24 07:35 Nasal Cannula 3 Code Status & VTE Plan VTE Prophylaxis Plan VTE Prophylaxis will be ordered: Yes Supervising Physician Co-Signing Physician Notes Attending Physician Supervision Note: I independently interviewed and examined the patient and verified the francis history and physical, reviewed labs and image studies and agree with findings an d care plan noted above. 63 y/o with GOLD D Stage COPD, discharged yesterday from service after getting treated for copd exacerbation and acute respiratory failure, presented to ED via EMS for feeling short of breath. Required neb treatment by EMS on their arrival. Received neb treatment again in ED. CT - 1. Multifocal airspace opacities within the lungs, most pronounced within the right lower lobe. The findings favor pneumonia. Aspiration pneumonitis could appear similar given secretions within the airways. A follow-up chest CT in 3 months to ensure resolution is recommended. 86% on 3L on arrival to ED. rest vitals stable. On my exam - resting comfortably. crackles at base. No wheezing. RRR Pneumonia/COPD exacerbation - Was discharged on 2L home O2 while he had progressive improvement of symptoms over last 3 days. Sputum Culture sent right before discharge as the specimen was collected late by nursing. Culture resulted today - Strep Pneumo. s/p Cefepime in ED. Will treat with Rocephin. IV steroids. Nebs Home zithromax MWF Apixaban Resident Activity Tracking Resident Involvement: Resident Care Provided Care Provided: Adult Hospital Medicine (6) COPD (chronic obstructive pulmonary disease) COPD type: unspecified COPD Qualified Code(s): J44.9 - Chronic obstructive pulmonary disease, unspecified (7) Hyperlipidemia Hyperlipidemia type: mixed hyperlipidemia Qualified Code(s): E78.2 - Mixed hyperlipidemia (8) Hypertension Hypertension type: primary hypertension Qualified Code(s): I10 - Essential (primary) hypertension
[2024-07-16] MEDS: CEFEPIME 2,000 MG in SYRINGE 0 ML IV STA (10:47)
[2024-07-16 12:25] LABS: Adenovirus PCR Not Detected (NotDetected); Bordetella parapertussis PCR Not Detected (NotDetected); Bordetella pertussis PCR Not Detected (NotDetected); Chlamydia pneumoniae PCR Not Detected (NotDetected); Coronavirus 229E PCR Not Detected (NotDetected); Coronavirus CoV-2 (COVID19)PCR Not Detected (NotDetected); Coronavirus HKU1 PCR Not Detected (NotDetected); Coronavirus NL63 PCR Not Detected (NotDetected); Coronavirus OC43PCR Not Detected (NotDetected); Human Metapneumovirus PCR Not Detected (NotDetected); Influenza A PCR Not Detected (NotDetected); Influenza B PCR Not Detected (NotDetected); Mycoplasma pneumoniae PCR Not Detected (NotDetected); Parainfluenza Virus 1 PCR Not Detected (NotDetected); Parainfluenza Virus 2 PCR Not Detected (NotDetected); Parainfluenza Virus 3 PCR Not Detected (NotDetected); Parainfluenza Virus 4 PCR Not Detected (NotDetected); Respiratory Syncytial VirusPCR Not Detected (NotDetected); Rhinovirus/Enterovirus PCR DETECTED (NotDetected)
--- NOTE | 2024-07-16 12:28 | Electrocardiogram Report ---
Test Reason : Blood Pressure : */* mmHG Vent. Rate : 81 BPM Atrial Rate : 81 BPM P-R Int : 144 ms QRS Dur : 78 ms QT Int : 372 ms P-R-T Axes : 88 78 81 degrees QTcB Int : 432 ms Normal sinus rhythm Normal ECG When compared with ECG of 13-Jul-2024 05:01, Criteria for Septal infarct are no longer Present Confirmed by Wes Chávez ([id number]) on 07/16/2024 12:27:45 PM Referred By: REFERRED SELF Confirmed By: Wes Chávez
[2024-07-16] MEDS ORDERED: ALBUTEROL HFA 8 GM INHALER INH PRN (14:56)
[2024-07-16] MEDS ORDERED: CARBOHYDRATES FOR HYPOGLYCEMIA PO PRN (14:56)
[2024-07-16] MEDS ORDERED: GLUCOSE 40% GEL 15 GM TUBE PO PRN (14:56)
[2024-07-16] MEDS ORDERED: GLUCOSE 10 TAB/TUBE PO PRN (14:56)
[2024-07-16] MEDS ORDERED: ACETAMINOPHEN 325 MG TAB PO PRN (14:56)
[2024-07-16] MEDS ORDERED: ONDANSETRON INJ 2 MG/ML 2 ML VIAL IV PRN (14:56)
[2024-07-16] MEDS ORDERED: GLUCAGON FOR INJ 1 MG VIAL SQ PRN (14:56)
[2024-07-16] MEDS ORDERED: DEXTROSE 50% 50 ML SYRINGE IV PRN (14:56)
[2024-07-16] MEDS: ALBUT/IPRATROP 3MG/0.5MG NEB 3 ML VIAL NEB SCH (15:40)
[2024-07-16] MEDS: methylPREDNISolone 40 MG in SYRINGE 0 ML IV SCH (15:48)
[2024-07-16] MEDS: carvediloL 12.5 MG TAB PO SCH (17:04)
[2024-07-16] MEDS: cefTRIAXone SODIUM 2,000 MG/50 ML BAG IV SCH (18:02)
[2024-07-16] MEDS: INSULIN ASPART PER UNIT CHARGE SC SCH (18:04)
[2024-07-16] MEDS: guaiFENesin 600 MG TABCR PO SCH (19:47)
[2024-07-16] MEDS: GABAPENTIN 100 MG CAP PO SCH (19:49)
[2024-07-16] MEDS: APIXABAN 5 MG TABLET PO SCH (19:50)
[2024-07-16] MEDS: SODIUM CHLOR 7% 4 ML NEB NEB SCH (20:03)
[2024-07-16] MEDS: traZODone HCL 100 MG TAB PO SCH (22:36)
[2024-07-17 04:42] LABS: Basophils # (auto) 0.01 K/uL (0.00-0.20); Basophils % (auto) 0.1 %; Hematocrit (blood only) 41.5 % (42.0-52.0); Hemoglobin 13.9 g/dl (14.0-18.0); Immature Granulocytes # (auto) 0.05 K/uL (0.01-0.20); Immature Granulocytes % (auto) 0.5 %; Lymphocytes # (auto) 0.86 K/uL (1.20-3.40); Lymphocytes % (auto) 8.4 %; Mean Corpuscular Hgb Conc 33.5 g/dL (32.0-36.0); Mean Corpuscular Volume 89.4 fL (80.0-100.0); Mean Platelet Volume 10.9 fL (9.4-12.4); Monocytes # (auto) 0.95 K/uL (0.11-0.59); Monocytes % (auto) 9.2 %; Neutrophils # (auto) 8.41 K/uL (1.40-6.50); Neutrophils % (auto) 81.8 %; Platelet Count 233 K/uL (130-400); RDW Standard Deviation 39.2 fL (36.4-46.3); Red Blood Count 4.64 M/uL (4.70-6.10); White Blood Count 10.28 K/ul (4.8-10.8)
[2024-07-17 05:01] LABS: Albumin Globulin Ratio 1.6 (0.9-2); Albumin Level 3.3 gm/dl (3.4-5.0); BUN Creatinine Ratio 36.5 (10-20); Bilirubin,Total 0.6 mg/dl (0.2-1.0); Calcium 8.5 mg/dl (8.6-10.3); Est GFR (Non-African American) 97.5 ml/min; Globulin 2.1 gm/dl (2.5-4.0); Magnesium 2.2 mg/dl (1.7-2.4); Potassium 4.3 mmol/L (3.5-5.1); Total Protein 5.4 gm/dl (6.0-8.3)
--- NOTE | 2024-07-17 07:38 | Hospitalist Progress Note ---
Date of Service July 17, 2024 Assessment & Plan (1) Hypoxia: (2) Dyspnea: (3) Acute on chronic respiratory failure with hypoxia: (4) Ankylosing spondylitis lumbar region: (5) Paroxysmal atrial fibrillation: (6) COPD (chronic obstructive pulmonary disease): (7) Hyperlipidemia: (8) Hypertension: (9) Pneumonia: Plan Mr. Monterroso is a 63M with a PMHx of NSTEMI in 2019 (heart cath, follows with Dr. Haider), CAD, hypertension, hyperlipidemia, cardiomyopathy, COPD, HFrEF, and a history of a stent here with pneumonia Pneumonia - Sputum culture resulted this morning with S. pneumoniae resistant to Zithromax - Leukocytosis- resolved, no fever - CT chest: Multifocal airspace opacities within the lungs, most pronounced within the right lower lobe. The findings favor pneumonia. Emphysema. Diffuse bronchial wall thickening. - Pulmonology consulted -Ceftriaxone IV daily - Prednisone 20 mg daily - Dueneb Q4hrs SOB/COPD exacerbation Gold D - will continue with home regimen of Azithromycin home dose 250 mg (MWF) Guaifenesin extended release 600 mg p.o. twice daily Continue Trelegy Continue Theophylline Continue Oxygen supplementation goal of Sat 88% CAD/hypertension/cardiomyopathy/history of stent/ hx NSTEMI Cardiac cath performed 07/14: arterial stenosis and calcifications of multiple arteries, but no intervention required. EKG on admission: Normal sinus rhythm, Normal ECG Pt is not currently experiencing cardiac symptoms Continue amlodipine, carvedilol, lisinopril Atrial fibrillation Normal sinus Continue metoprolol Apixaban Diabetes mellitus- Hold metformin Accu-Cheks with NovoLog SSI Hemoglobin A1c 5.7 Hyperlipidemia Continue rosuvastatin 20 mg daily DVT ppx: Apixaban Diet: Heart Healthy/Carb Consistent or DM2 Code: Full code Dispo: MEd/ Telemetry Admission and Anticipated Discharge Date Admission Date: July 16, 2024 Supervising Physician Co-Signing Physician Notes Attending Physician Supervision Note: I independently interviewed and examined the patient and verified the francis history and physical, reviewed labs and image studies and agree with findings and care plan noted above. Pneumonia/COPD + for Rhinovirus. Likely secondary strep pnuemo Continue Rocephin - transition to cefoxitin on discharge - total 5 days. Not bronchospastic - transition to PO steroid - pred 40mgs Nebs, home meds. Home zithromax MWF Appreciate pul input. OOB Apixaban Subjective Seen this morning. Feeling well, improving. Had an increased of sputum production. On NC. Refers having GERd symtoms. Denied any chest pain, palpitations, nausea or vomiting Review of Systems Review of Systems: as per HPI Physical Exam Constitutional: WD/WN, vitals as above Respiratory: normal respiratory effort; no respiratory distress Auscultation: + diminished lung sounds and + wheezes; no crackles Cardiovascular: RRR, no murmur, no edema Gastrointestinal (Abdomen): normal bowel sounds, soft, nontender, no hepatosplenomegaly Musculoskeletal: no cyanosis or clubbing, extremities motor strength 5/5 Results & Data Results & Data Vital Signs (Past 12 Hours) Vital Signs Temp Pulse Pulse Resp BP Pulse Ox O2 Del Method 07/17/24 07:01 70 18 95 Nasal Cannula 07/17/24 04:20 36.7 C 61 20 164/86 H 93 Nasal Cannula 07/17/24 00:11 36.8 C 66 20 148/67 H 94 Nasal Cannula 07/16/24 23:27 Nasal Cannula 07/16/24 21:44 60 07/16/24 21:02 36.7 C 70 20 181/87 H 94 Nasal Cannula 07/16/24 20:04 69 18 95 Nasal Cannula O2 Flow Rate 07/17/24 07:01 4 07/17/24 04:20 4 07/17/24 00:11 4 07/16/24 23:27 4 07/16/24 21:44 07/16/24 21:02 4 07/16/24 20:04 4 Resident Activity Tracking Resident Involvement: Resident Care Provided Care Provided: Adult Hospital Medicine (6) COPD (chronic obstructive pulmonary disease) COPD type: unspecified COPD Qualified Code(s): J44.9 - Chronic obstructive pulmonary disease, unspecified (7) Hyperlipidemia Hyperlipidemia type: mixed hyperlipidemia Qualified Code(s): E78.2 - Mixed hyperlipidemia (8) Hypertension Hypertension type: primary hypertension Qualified Code(s): I10 - Essential (primary) hypertension
[2024-07-17] MEDS: amLODIPine BESYLATE 5 MG TAB PO SCH (08:55)
[2024-07-17] MEDS: FAMOTIDINE 20 MG TAB PO SCH (08:55)
[2024-07-17] MEDS: ROSUVASTATIN CALCIUM 20 MG TAB PO SCH (08:55)
[2024-07-17] MEDS: lisinopril 10 MG TAB PO SCH (08:55)
[2024-07-17] MEDS: UMECLIDINIUM/VILANTEROL 62.5/25MCG 7 PUFFS/INHALER INH SCH (08:56)
[2024-07-17] MEDS: THEOPHYLLINE 300MG EXTENDED REL TAB PO SCH (08:56)
[2024-07-17] MEDS: FLUTICASONE FUROATE 100MCG 14 PUFFS/INHALER INH SCH (08:56)
[2024-07-17] MEDS: AZITHROMYCIN 250 MG TAB PO SCH (10:20)
--- NOTE | 2024-07-17 12:15 | Pulmonary Consultation ---
Date of Consultation July 17, 2024 Assessment & Plan (1) Pneumonia: (2) Acute on chronic respiratory failure with hypoxia: (3) COPD (chronic obstructive pulmonary disease): COPD type: unspecified COPD Qualified Code(s): J44.9 - Chronic obstructive pulmonary disease, unspecified Plan IMPRESSION: 63-year-old male with severe COPD. His outpatient regimen is Trelegy, theophylline, azithromycin, and as needed albuterol. He is admitted with a positive sputum culture and exacerbation. RECOMMENDATIONS: 1. COPD: Recommend continuing at discharge Trelegy, theophylline, and 3 times a week azithromycin with as needed albuterol. He is not bronchospastic currently so methylprednisolone can be discontinued and he can be placed on prednisone 40 mg a day with plans for 5-day burst. 2. Pneumonia: Sputum culture positive for pneumococcus. Would complete 5 days of appropriate antimicrobial therapy, ideally beta-lactam therapy. Currently on Rocephin which she is tolerating. Can transition to oral cefoxitin when appropriate 3. Out of bed to chair is much as possible and ambulatory is much as possible. Thanks for the opportunity participating the care of this patient. Feel free to contact us with questions or concerns. History of Present Illness Attending Physician: Cora Serrato MD History of Present Illness Asked by hospitalist to assist in evaluation management this patient with COPD and bacterial pneumonia. I have the opportunity of caring for the patient in the outpatient setting and last saw him in October when he was doing quite well. He was admitted to the hospital 07/11/2024 with a COPD exacerbation and required BiPAP. He was seen by cardiology and underwent cardiac catheterization 07/13/2024 which demonstrated no acute disease and continued medical management was recommended. He was discharged 07/15 and then return to the hospital the next day with shortness of breath. Sputum culture collected during his prior hospitalization was positive for pneumococcus in the place which based on antibiotics. This morning he states he is feeling somewhat better. He is coughing and it has been intermittently productive but this morning appears more dry. No chest pain or palpitations. No fevers chills or night sweats. He is not wheezing. Allergies Allergy/AdvReac Type Severity Reaction Status Date / Time Penicillins Allergy Severe THROAT Verified 06/22/24 13:20 SWELLING doxycycline Allergy Intermediate Rash Verified 06/22/24 13:20 levofloxacin [From Levaquin] Allergy Mild Rash Verified 07/11/24 05:51 naproxen Allergy Unknown Unknown Verified 06/22/24 13:20 aspirin Allergy Swelling Verified 07/13/24 08:07 of Lip/Tongue/Throat Home Medications Medication Instructions Recorded Confirmed Type nebulizer accessories #1 ea 06/17/19 06/22/24 Rx blood sugar diagnostic (OneTouch #100 ea 06/07/20 06/22/24 Rx Ultra Blue Test Strip) acetaminophen 500 mg tablet 500 mg PO Q6H PRN Pain 04/02/21 07/16/24 History (Tylenol Extra Strength) guaifenesin 600 mg tablet, 600 mg PO Q12 #15 tabs 01/05/23 07/16/24 Rx extended release 12 hr (Mucinex) sildenafil 100 mg tablet 100 mg PO DAILY PRN sexual 08/14/23 07/16/24 Rx activity #30 tabs albuterol sulfate 2.5 mg/3 mL 2.5 mg (3 mL) inhalation QID PRN 12/16/23 07/16/24 Rx (0.083 %) solution for nebulization shortness of breath or wheezing #180 mL albuterol sulfate 90 mcg/actuation 2 puff inhalation Q4H PRN 01/02/24 07/16/24 Rx aerosol inhaler (Ventolin HFA) shortness of breath or wheezing #8.5 grams metformin 500 mg tablet 500 mg PO BID PRN SEE COMMENT #30 01/02/24 07/16/24 Rx tabs trazodone 100 mg tablet 100 mg PO DAILY #90 tabs 01/02/24 07/16/24 Rx carvedilol 12.5 mg tablet 12.5 mg PO BID #180 tabs 04/20/24 07/16/24 Rx lisinopril 30 mg tablet 30 mg PO QAM #90 tabs 04/20/24 07/16/24 Rx rosuvastatin 20 mg tablet 20 mg PO DAILY #90 tabs 04/20/24 07/16/24 Rx fluticasone fur. 100 mcg-umeclid 1 inh inhalation DAILY #3 Inhalers 04/24/24 07/16/24 Rx 62.5 mcg-vilant 25 mcg inhalat.powder (Trelegy Ellipta) gabapentin 100 mg capsule See Rx Instructions PO TID #150 08/15/24 09/19/24 Rx caps theophylline 300 mg 300 mg PO DAILY #90 tabs 06/22/24 07/16/24 Rx tablet,extended release,12 hr azithromycin 250 mg tablet 250 mg PO UD 07/11/24 07/16/24 History sodium chloride 7 % for 4 ml NEB BIDR #120 mL 07/15/24 07/16/24 Rx nebulization apixaban 5 mg tablet (Eliquis) 5 mg PO BID 07/16/24 07/16/24 History famotidine 10 mg tablet 10 mg PO DAILY 07/16/24 07/16/24 History prednisone 50 mg tablet 0 mg PO DAILY 07/16/24 07/16/24 History secukinumab 150 mg/mL subcutaneous 0 mg subcut Q7D 07/16/24 07/16/24 History pen injector (Cosentyx Pen) Patient History Medical History Atrial fibrillation on Eliquis. Follows with Dr. Haider Bloating Constipation On anticoagulant therapy eliquis daily History of anesthesia reaction "at least 20yrs ago having teeth removed and they lost me for awhile and then got me back"--no other issues with anesthesia History of COVID-19 10/01/20 @ [facility]--headache/cold symptoms Non-ST elevation myocardial infarction (NSTEMI) in recovery phase 2018--had heart cath--follows with Dr. Haider Surgical History History of colonoscopy History of tooth extraction all teeth removed History of cardiac cath (~12/09/18) History of heart artery stent (~12/09/18) [address] Haider Family History Mother Colorectal cancer Father Myocardial infarction Other Coronary heart disease Diabetes Heart disease Hypertension No family history of adverse response to anesthesia Denies family history of Prostate cancer Breast cancer Social History Smoking Status: Former smoker Tobacco Type: Cigarettes Age Started Using Tobacco: 15; Age Quit Using Tobacco: 53; packs per day: 1.5; Second Hand Exposure: Yes (Father smoked when Pt. was a child. ); Do You Dip or Chew Tobacco: No; Hx Alcohol Use: No Hx Substance Use: No Preferred Language: Amharic Communication Ability: Effective Visual Impairment: Limited Hearing Ability: Normal Carrier Washer Required: No Beliefs That Will Affect Care: None marital status: Current Living Situation: Spouse current occupational status: employed and disabled current occupation: [employer] How many Children do You have: 3 Feels Safe at Home: Yes Childhood Exposure to Second-Hand Smoke: Yes (Father smoked. ) Diet: regular caffeine: Yes (coffee) during the past year weight has: remained stable Dental Care, Regularly: Yes Physical Activity Frequency: Daily Seatbelt Use: always Sunscreen Use: No Do you think of yourself as: straight/heterosexual Sexual Activity: has been sexually active within the last 12 months Gender Identity: Male Assistive Devices: Denture - Upper, Glasses and Oxygen - Continuous Review of Systems Review of Systems: Please refer to admission H&P. No additions or deletions Physical Exam Constitutional: WD/WN, vitals as above Neck: trachea midline, no thyromegaly Respiratory: no respiratory distress, no labored breathing, no cough and not tachypneic Auscultation: + diminished lung sounds; no crackles and no wheezes Cardiovascular: RRR, no murmur, no edema Gastrointestinal (Abdomen): normal bowel sounds, soft, nontender, no hepatosplenomegaly Musculoskeletal: Extremities: extremities normal to inspection Skin: no rashes, warm and dry Neurologic: Nonfocal exam Lymphatic: no cervical lymphadenopathy Results & Data Results & Data Vital Signs (Past 12 Hours) Vital Signs Temp Pulse Pulse Resp BP Pulse Ox O2 Del Method 07/17/24 11:33 36.7 C 60 18 159/76 H 94 Nasal Cannula 07/17/24 11:24 Nasal Cannula 07/17/24 10:12 70 18 95 Nasal Cannula 07/17/24 08:20 36.7 C 62 20 186/76 H 92 Nasal Cannula 07/17/24 08:09 67 07/17/24 07:01 70 18 95 Nasal Cannula 07/17/24 04:20 36.7 C 61 20 164/86 H 93 Nasal Cannula O2 Flow Rate 07/17/24 11:33 3 07/17/24 11:24 4 07/17/24 10:12 3 07/17/24 08:20 3 07/17/24 08:09 07/17/24 07:01 4 07/17/24 04:20 4 Critical Care Results & Data Vital Signs (Past 12 Hours) Vital Signs Temp Pulse Pulse Resp BP Pulse Ox O2 Del Method 07/17/24 11:33 36.7 C 60 18 159/76 H 94 Nasal Cannula 07/17/24 11:24 Nasal Cannula 07/17/24 10:12 70 18 95 Nasal Cannula 07/17/24 08:20 36.7 C 62 20 186/76 H 92 Nasal Cannula 07/17/24 08:09 67 07/17/24 07:01 70 18 95 Nasal Cannula 07/17/24 04:20 36.7 C 61 20 164/86 H 93 Nasal Cannula O2 Flow Rate 07/17/24 11:33 3 07/17/24 11:24 4 07/17/24 10:12 3 07/17/24 08:20 3 07/17/24 08:09 07/17/24 07:01 4 07/17/24 04:20 4 Lab & Micro Results (Past 24 Hours) RBC 4.64 M/uL (4.70-6.10) L 07/17/24 WBC 10.28 K/ul (4.8-10.8) 07/17/24 Hgb 13.9 g/dl (14.0-18.0) L 07/17/24 Hct 41.5 % (42.0-52.0) L 07/17/24 MCV 89.4 fL (80.0-100.0) 07/17/24 MCH 30.0 pg (25.0-34.0) 07/17/24 MCHC 33.5 g/dL (32.0-36.0) 07/17/24 RDW Standard Deviation 39.2 fL (36.4-46.3) 07/17/24 RDW Coefficient of Variation 12.0 % (11.5-14.5) 07/17/24 Plt Count 233 K/uL (130-400) 07/17/24 MPV 10.9 fL (9.4-12.4) 07/17/24 Neutrophils (%) (Auto) 81.8 % 07/17/24 Lymphocytes (%) (Auto) 8.4 % 07/17/24 Monocytes # (Auto) 0.95 K/uL (0.11-0.59) H 07/17/24 Eosinophils # (Auto) 0.00 K/uL (0.00-0.50) 07/17/24 Immature Granulocyte % (Auto) 0.5 % 07/17/24 Neutrophils # (Auto) 8.41 K/uL (1.40-6.50) H 07/17/24 Lymphocytes # (Auto) 0.86 K/uL (1.20-3.40) L 07/17/24 Monocytes # (Auto) 0.95 K/uL (0.11-0.59) H 07/17/24 Eosinophils # (Auto) 0.00 K/uL (0.00-0.50) 07/17/24 Basophils # (Auto) 0.01 K/uL (0.00-0.20) 07/17/24 Immature Granulocyte # (Auto) 0.05 K/uL (0.01-0.20) 4 Na 138 mmol/L (136-145) 07/17/24 K 4.3 mmol/L (3.5-5.1) 07/17/24 Cl 100 mmol/L (98-107) 07/17/24 CO2 33 mmol/L (21-32) H 07/17/24 Anion Gap 5 (3-11) 07/17/24 BUN 27 mg/dl (6-23) H 07/17/24 Creatinine 0.74 mg/dl (0.6-1.4) 07/17/24 Estimated GFR ( Amer) 113.0 ml/min 07/17/24 Estimated GFR (Non-Af Amer) 97.5 ml/min 07/17/24 BUN/Creatinine Ratio 36.5 (10-20) H 07/17/24 Glu 125 mg/dl (70-99(Fasting)) H 07/17/24 Ca 8.5 mg/dl (8.6-10.3) L 07/17/24 Total Bilirubin 0.6 mg/dl (0.2-1.0) 07/17/24 AST 11 U/L (13-39) L 07/17/24 ALT 11 U/L (7-52) 07/17/24 Alkaline Phosphatase 35 U/L (34-104) 07/17/24 TP 5.4 gm/dl (6.0-8.3) L 07/17/24 Albumin 3.3 gm/dl (3.4-5.0) L 07/17/24 Globulin 2.1 gm/dl (2.5-4.0) L 07/17/24 Albumin/Globulin Ratio 1.6 (0.9-2) 07/17/24 Mg 2.2 mg/dl (1.7-2.4) 07/17/24 03:47 Calcium Level 8.5 mg/dl (8.6-10.3) L 07/17/24 03:47 I & O Totals 24 Hours 07/16/24 07/17/24 07/18/24 06:59 06:59 06:59 Intake Total 2750 / 2750 Balance 2750 / 2750 Cumulative 07/16/24 06:56 thru 07/17/24 06:32 Intake Total 2750 Balance 2750 RT Ventilator Mngmt (Last Documented) Ventilator Ordered Settings Respiratory Rate 18 07/17/24 11:33 Ventilator - PT Measurements Respiratory Rate 18 PG Care Time/CCT Total # of Minutes Spent Total Time Spent with Patient: Total time spent is greater than 50% in coordination of care (as documented) at patient's floor/unit and/or counseling patient: Coding Level of Care Code 98687 IN/OBS CONSULT LVL 4,60M Diagnoses Pneumonia J18.9 Acute on chronic respiratory failure with hypoxia J96.21 Chronic obstructive pulmonary disease, unspecified COPD type J44.9 COPD type: unspecified COPD
[2024-07-17] MEDS ORDERED: FLUTICASONE FUROATE 100MCG 14 PUFFS/INHALER INH SCH (12:45)
[2024-07-17] MEDS: GABAPENTIN 100 MG CAP PO SCH (13:08)
[2024-07-17] MEDS: predniSONE 20 MG TAB PO SCH (13:59)
[2024-07-18 07:54] LABS: BUN Creatinine Ratio 30.9 (10-20); Calcium 8.4 mg/dl (8.6-10.3); Creatinine Clr Calc Pharmacy 104.3 ml/min; Est GFR (Non-African American) 100.9 ml/min
[2024-07-18] MEDS: predniSONE 20 MG TAB PO SCH (07:56)
--- NOTE | 2024-07-18 08:32 | Pulmonology Progress Note ---
Date of Service July 18, 2024 Assessment & Plan (1) Pneumonia: (2) Acute on chronic respiratory failure with hypoxia: (3) COPD (chronic obstructive pulmonary disease): COPD type: unspecified COPD Qualified Code(s): J44.9 - Chronic obstructive pulmonary disease, unspecified Plan IMPRESSION: 63-year-old male with severe COPD. His outpatient regimen is Trelegy, theophylline, azithromycin, and as needed albuterol. He is admitted with a positive sputum culture and exacerbation. RECOMMENDATIONS: 1. COPD: Recommend continuing at discharge Trelegy, theophylline, and 3 times a week azithromycin with as needed albuterol. He is not bronchospastic currently, complete prednisone 40 mg a day for 5-day burst. 2. Pneumonia: Sputum culture positive for pneumococcus. Would complete 5 days of appropriate antimicrobial therapy, ideally beta-lactam therapy. Currently on Rocephin which he is tolerating. Can transition to oral cefoxitin when appropriate 3. Out of bed to chair is much as possible and ambulatory is much as possible. Thanks for the opportunity participating the care of this patient. Feel free to contact us with questions or concerns. Patient may be approaching discharge. I would be happy to see him back in the pulmonary clinic for follow-up. Disposition per primary service. Pulmonary will sign off. Feel free to contact us with questions or concerns Admission and Anticipated Discharge Date Admission Date: July 16, 2024 Subjective Patient seen and examined. EMR reviewed. The patient states he is showing some improvement from respiratory standpoint. He is able to walk around without feeling of shortness of breath as he did previously. He is coughing and producing scant amounts of clear to yellow phlegm. No significant hemoptysis. No fevers or chills. He is tolerating a diet. Review of Systems 2 Review of Systems: All systems reviewed & are unremarkable except as noted in Subjective Physical Exam 2 Constitutional: WD/WN, vitals as above Neck: trachea midline, no thyromegaly Respiratory: no respiratory distress, no labored breathing, no cough and not tachypneic Auscultation: + diminished lung sounds; no crackles and no wheezes Cardiovascular: RRR, no murmur, no edema Gastrointestinal (Abdomen): normal bowel sounds, soft, nontender, no hepatosplenomegaly Musculoskeletal: Extremities: extremities normal to inspection Skin: no rashes, warm and dry Lymphatic: no cervical lymphadenopathy Results & Data Results & Data Vital Signs (Past 12 Hours) Vital Signs Temp Pulse Pulse Resp BP Pulse Ox O2 Del Method 07/18/24 08:17 Nasal Cannula 07/18/24 08:01 36.4 C L 62 16 182/79 H 90 Nasal Cannula 07/18/24 07:13 53 L 07/18/24 07:01 55 L 18 95 Nasal Cannula 07/18/24 01:52 36.8 C 56 L 20 131/66 98 Nasal Cannula 07/18/24 00:00 57 L 07/17/24 21:14 36.6 C 55 L 20 150/74 H 95 Nasal Cannula O2 Flow Rate 07/18/24 08:17 4 07/18/24 08:01 2 07/18/24 07:13 07/18/24 07:01 3 07/18/24 01:52 4 07/18/24 00:00 07/17/24 21:14 4 Laboratory Results 07/17/24 03:47 07/18/24 07:06 Diagnostic Findings No new imaging PG Care Time/CCT Total # of Minutes Spent Total Time Spent with Patient: Total time spent is greater than 50% in coordination of care (as documented) at patient's floor/unit and/or counseling patient: Coding Level of Care Code 58871 SUB INP/OBS CARE 2/35MIN Diagnoses Pneumonia J18.9 Acute on chronic respiratory failure with hypoxia J96.21 Chronic obstructive pulmonary disease, unspecified COPD type J44.9 COPD type: unspecified COPD
--- NOTE | 2024-07-18 10:12 | Hospitalist Progress Note ---
Date of Service July 18, 2024 Assessment & Plan (1) Hypoxia: (2) Dyspnea: (3) Acute on chronic respiratory failure with hypoxia: (4) Ankylosing spondylitis lumbar region: (5) Paroxysmal atrial fibrillation: (6) COPD (chronic obstructive pulmonary disease): (7) Hyperlipidemia: (8) Hypertension: (9) Pneumonia: Plan Mr. Monterroso is a 63M with a PMHx of NSTEMI in 2019 (heart cath, follows with Dr. Haider), CAD, hypertension, hyperlipidemia, cardiomyopathy, COPD, HFrEF, and a history of a stent here with pneumonia Pneumonia - S. Pneumoniae - WBC normal, no fever - Pulmonology consulted, aprec recommendations - Ceftriaxone IV daily, tolerating well. To complete 5 days - Prednisone 40 mg daily for 5 day burst SOB/COPD exacerbation home regimen of Azithromycin home dose 250 mg (MWF) Guaifenesin BID Continue home Trelegy and Theophylline Continue Oxygen supplementation goal of Sat 88% CAD/hypertension/cardiomyopathy/history of stent/ hx NSTEMI Cardiac cath performed 07/14: arterial stenosis and calcifications of multiple arteries, but no intervention required. EKG on admission: Normal sinus rhythm, Normal ECG Continue amlodipine, carvedilol, lisinopril Atrial fibrillation Normal sinus Continue metoprolol Apixaban Diabetes mellitus- Hold metformin Accu-Cheks with NovoLog SSI Hemoglobin A1c 5.7 Hyperlipidemia Continue rosuvastatin 20 mg daily DVT ppx: Apixaban Diet: Heart Healthy/Carb Consistent or DM2 Code: Full code Dispo: MEd/ Telemetry Admission and Anticipated Discharge Date Admission Date: July 16, 2024 Supervising Physician Co-Signing Physician Notes Attending Physician Supervision Note: I independently interviewed and examined the patient and verified the francis history and physical, reviewed labs and image studies and agree with findings and care plan noted above. Still with cough and able to expectorate phlegm. lungs - No wheezing. +rhonchi Pneumonia/COPD + for Rhinovirus. Likely secondary strep pnuemo Continue Rocephin - transition to cefoxitin on discharge - total 5 days. Not bronchospastic - transition to PO steroid - pred 40mgs Nebs, home meds. Home zithromax MWF Appreciate pul input. OOB Apixaban Subjective Seen this am. Refers feeling improved compared from yesterda. Sitting down on the bed. Refers he is getting out of the bed. Increased sputum production. Review of Systems Review of Systems: as per HPI Physical Exam Constitutional: WD/WN, vitals as above Respiratory: normal respiratory effort; no respiratory distress Auscultation: + diminished lung sounds; no crackles and no wheezes Cardiovascular: RRR, no murmur, no edema Gastrointestinal (Abdomen): normal bowel sounds, soft, nontender, no hepatosplenomegaly Musculoskeletal: no cyanosis or clubbing, extremities motor strength 5/5 Results & Data Results & Data Vital Signs (Past 12 Hours) Vital Signs Temp Pulse Pulse Resp BP Pulse Ox O2 Del Method 07/18/24 08:17 Nasal Cannula 07/18/24 08:01 36.4 C L 62 16 182/79 H 90 Nasal Cannula 07/18/24 07:13 53 L 07/18/24 07:01 55 L 18 95 Nasal Cannula 07/18/24 01:52 36.8 C 56 L 20 131/66 98 Nasal Cannula 07/18/24 00:00 57 L O2 Flow Rate 07/18/24 08:17 4 07/18/24 08:01 2 07/18/24 07:13 07/18/24 07:01 3 07/18/24 01:52 4 07/18/24 00:00 Resident Activity Tracking Resident Involvement: Resident Care Provided Care Provided: Adult Hospital Medicine (6) COPD (chronic obstructive pulmonary disease) COPD type: unspecified COPD Qualified Code(s): J44.9 - Chronic obstructive pulmonary disease, unspecified (7) Hyperlipidemia Hyperlipidemia type: mixed hyperlipidemia Qualified Code(s): E78.2 - Mixed hyperlipidemia (8) Hypertension Hypertension type: primary hypertension Qualified Code(s): I10 - Essential (primary) hypertension
[2024-07-18] MEDS: HYDROCORTISONE 2.5% CR 30 GM TUBE EXT SCH (15:01)
[2024-07-18] MEDS: POLYETHYLENE (MIRALAX) 17 GM PACK PO PRN (21:04)
[2024-07-19 08:33] LABS: BUN Creatinine Ratio 23.4 (10-20); Calcium 8.7 mg/dl (8.6-10.3); Creatinine Clr Calc Pharmacy 92.9 ml/min; Est GFR (African American) 111.2 ml/min; Est GFR (Non-African American) 95.9 ml/min; Potassium 4.1 mmol/L (3.5-5.1)
[2024-07-19] MEDS: diphenhydrAMINE Capsule 25 MG CAP PO ONE (08:59)
--- NOTE | 2024-07-19 09:25 | Hospitalist Progress Note ---
Date of Service July 19, 2024 Assessment & Plan (1) Hypoxia: (2) Dyspnea: (3) Acute on chronic respiratory failure with hypoxia: (4) Ankylosing spondylitis lumbar region: (5) Paroxysmal atrial fibrillation: (6) COPD (chronic obstructive pulmonary disease): (7) Hyperlipidemia: (8) Hypertension: (9) Pneumonia: Plan Mr. Monterroso is a 63M with a PMHx of NSTEMI in 2019 (heart cath, follows with Dr. Haider), CAD, hypertension, hyperlipidemia, cardiomyopathy, COPD, HFrEF, and a history of a stent here with pneumonia Pneumonia - S. Pneumoniae - WBC normal, no fever - Pulmonology consulted, aprec recommendations - s/p Ceftriaxone IV daily - IV Cefoxitin - 4/5 day - Prednisone 40 mg daily for 5 day burst Allergic reaction- Rash - Secondary to Ceftriaxone - Benadryl 50 mg po now - IV abx change to Cefoxitin to complete 2 more days - Discussed with pharmacy, aprec recommendations SOB/COPD exacerbation home regimen of Azithromycin home dose 250 mg (MWF) Guaifenesin BID Continue home Trelegy and Theophylline Continue Oxygen supplementation goal of Sat 88% CAD/hypertension/cardiomyopathy/history of stent/ hx NSTEMI Cardiac cath performed 07/14: arterial stenosis and calcifications of multiple arteries, but no intervention required. EKG on admission: Normal sinus rhythm, Normal ECG Continue amlodipine, carvedilol, lisinopril Atrial fibrillation Normal sinus Continue metoprolol Apixaban Diabetes mellitus- Hold metformin Accu-Cheks with NovoLog SSI Hemoglobin A1c 5.7 Hyperlipidemia Continue rosuvastatin 20 mg daily DVT ppx: Apixaban Diet: Heart Healthy/Carb Consistent or DM2 Code: Full code Dispo: MEd/ Telemetry Admission and Anticipated Discharge Date Admission Date: July 16, 2024 Supervising Physician Co-Signing Physician Notes Attending Physician Supervision Note: I independently interviewed and examined the patient and verified the francis history and physical, reviewed labs and image studies and agree with findings and care plan noted above. Breathing feels like at baseline. Developed rash on his hands and arm Coalescing erythematous papules across the whole hand and arm. 97% on 2L. Lungs CTA Pneumonia/COPD + for Rhinovirus. Likely secondary strep pnuemo Developed allergic rash with Rocephin - spoke to pharmacy. Cefoxitin chemical structure is different so should be ok - tomorrow will be last day of abx. To finish 5 days of burst steroids. Nebs, home meds. Home zithromax MWF Appreciate pul input. Anticipate d/c home in am. Apixaban Subjective Seen this am. Refers feeling improved compared from yesterday. Sitting down on a chair. Refers rash on right cheek, right hand and feet. Denied any other symptoms Review of Systems Review of Systems: as per HPI Physical Exam Constitutional: WD/WN, vitals as above Respiratory: normal respiratory effort; no respiratory distress Auscultation: + diminished lung sounds; no crackles Cardiovascular: RRR, no murmur, no edema Gastrointestinal (Abdomen): normal bowel sounds, soft, nontender, no hepatosplenomegaly Musculoskeletal: no cyanosis or clubbing, extremities motor strength 5/5 Skin: + rash (Maculopapular rash ) Results & Data Results & Data Vital Signs (Past 12 Hours) Vital Signs Temp Pulse Pulse Resp BP Pulse Ox O2 Del Method 07/19/24 07:59 Nasal Cannula 07/19/24 07:47 36.6 C 56 L 20 172/82 H 94 Nasal Cannula, Nebulizer 07/19/24 07:22 55 L 18 94 Nasal Cannula 07/19/24 06:56 59 L 07/19/24 04:33 36.3 C L 56 L 20 131/72 95 Room Air 07/19/24 00:54 36.6 C 53 L 20 146/70 H 96 Nasal Cannula 07/18/24 22:14 52 L O2 Flow Rate 07/19/24 07:59 2 07/19/24 07:47 2 07/19/24 07:22 2 07/19/24 06:56 07/19/24 04:33 4 07/19/24 00:54 4 07/18/24 22:14 Resident Activity Tracking Resident Involvement: Resident Care Provided Care Provided: Adult Hospital Medicine (6) COPD (chronic obstructive pulmonary disease) COPD type: unspecified COPD Qualified Code(s): J44.9 - Chronic obstructive pulmonary disease, unspecified (7) Hyperlipidemia Hyperlipidemia type: mixed hyperlipidemia Qualified Code(s): E78.2 - Mixed hyperlipidemia (8) Hypertension Hypertension type: primary hypertension Qualified Code(s): I10 - Essential (primary) hypertension
[2024-07-19 10:41] VITALS: RESP 18
[2024-07-19] MEDS: cefOXitin 1,000 MG in DEXTROSE 5 % MINI-B 50 ML IV SCH (13:10)
[2024-07-20 07:52] LABS: BUN Creatinine Ratio 25.6 (10-20); Calcium 8.6 mg/dl (8.6-10.3); Creatinine Clr Calc Pharmacy 83.8 ml/min; Est GFR (African American) 108.3 ml/min; Est GFR (Non-African American) 93.5 ml/min; Potassium 4.3 mmol/L (3.5-5.1)
--- NOTE | 2024-07-20 09:44 | Hospitalist Progress Note ---
Date of Service July 20, 2024 Assessment & Plan (1) Hypoxia: (2) Dyspnea: (3) Acute on chronic respiratory failure with hypoxia: (4) Ankylosing spondylitis lumbar region: (5) Paroxysmal atrial fibrillation: (6) COPD (chronic obstructive pulmonary disease): (7) Hyperlipidemia: (8) Hypertension: (9) Pneumonia: Plan Mr. Monterroso is a 63M with a PMHx of NSTEMI in 2019 (heart cath, follows with Dr. Haider), CAD, hypertension, hyperlipidemia, cardiomyopathy, COPD, HFrEF, and a history of a stent here with pneumonia Pneumonia - S. Pneumoniae- resolved - WBC normal, no fever - Pulmonology consulted, aprec recommendations - s/p Ceftriaxone IV daily and IV Cefoxitin - 5 days in total - Prednisone 40 mg daily for 5 day burst - completed SOB/COPD exacerbation home regimen of Azithromycin home dose 250 mg (MWF) Guaifenesin BID Continue home Trelegy and Theophylline Continue Oxygen supplementation goal of Sat 88% - Neb prescription sent. CAD/hypertension/cardiomyopathy/history of stent/ hx NSTEMI Cardiac cath performed 07/14: arterial stenosis and calcifications of multiple arteries, but no intervention required. EKG on admission: Normal sinus rhythm, Normal ECG Continue amlodipine, carvedilol, lisinopril Atrial fibrillation Normal sinus Continue metoprolol Apixaban Diabetes mellitus- continue metformin Hyperlipidemia Continue rosuvastatin 20 mg daily Admission and Anticipated Discharge Date Admission Date: July 16, 2024 Subjective Seen this am. Refers feeling improved compared from yesterday. Sitting down on a chair. RDenied any other symptoms Review of Systems Review of Systems: as per HPI Physical Exam Constitutional: WD/WN, vitals as above Respiratory: normal respiratory effort; no respiratory distress Auscultation: + diminished lung sounds; no crackles Cardiovascular: RRR, no murmur, no edema Gastrointestinal (Abdomen): normal bowel sounds, soft, nontender, no hepatosplenomegaly Musculoskeletal: no cyanosis or clubbing, extremities motor strength 5/5 Results & Data Results & Data Vital Signs (Past 12 Hours) Vital Signs Temp Pulse Pulse Resp BP Pulse Ox O2 Del Method 07/20/24 08:06 Nasal Cannula 07/20/24 07:52 36.5 C 62 18 147/82 H 94 Nasal Cannula 07/20/24 07:02 52 L 07/20/24 07:00 54 L 18 97 Nasal Cannula 07/20/24 04:00 36.7 C 55 L 18 123/72 95 Nasal Cannula 07/20/24 01:51 Nasal Cannula 07/20/24 01:15 54 L 07/20/24 00:00 36.7 C 56 L 18 127/72 97 Nasal Cannula O2 Flow Rate 07/20/24 08:06 2 07/20/24 07:52 2 07/20/24 07:02 07/20/24 07:00 2 07/20/24 04:00 2 07/20/24 01:51 2 07/20/24 01:15 07/20/24 00:00 2 Resident Activity Tracking Resident Involvement: Resident Care Provided Care Provided: Adult Hospital Medicine (6) COPD (chronic obstructive pulmonary disease) COPD type: unspecified COPD Qualified Code(s): J44.9 - Chronic obstructive pulmonary disease, unspecified (7) Hyperlipidemia Hyperlipidemia type: mixed hyperlipidemia Qualified Code(s): E78.2 - Mixed hyperlipidemia (8) Hypertension Hypertension type: primary hypertension Qualified Code(s): I10 - Essential (primary) hypertension
[2024-07-20 11:54] VITALS: BP 118/72; PULSE 60; TEMP 97.9; O2SAT 94
--- NOTE | 2024-07-20 18:30 | Billing Data ---
Date of Service July 20, 2024 Coding Level of Care Code 44200 IN/OBS DISCH 30 MIN/LESS
--- NOTE | 2024-07-21 13:02 | Discharge Summary ---
Discharge Summary Date of Service July 20, 2024 Principal Dx & Hospital Course #1 = Principal Diagnosis (1) Hypoxia: (2) Dyspnea: (3) Acute on chronic respiratory failure with hypoxia: (4) Ankylosing spondylitis lumbar region: (5) Paroxysmal atrial fibrillation: (6) COPD (chronic obstructive pulmonary disease): (7) Hyperlipidemia: (8) Hypertension: (9) Pneumonia: Plan Mr. Monterroso is a 63M with a PMHx of NSTEMI in 2019 (heart cath, follows with Dr. Haider), CAD, hypertension, hyperlipidemia, cardiomyopathy, COPD, HFrEF, and a history of a stent here with pneumonia Pneumonia - S. Pneumoniae - improving - finishing w short course of PO cephalosporin - safe/stable for home rash - not entirely clear etiology but does not look allergic/urticarial - ?most c/w tinea but acute onset seems odd - at the same time has been on abx/steroids - safe/stable for home - topical clotrimazole/outpt f/u (notes this has happened before and self resolved) SOB/COPD exacerbation home regimen of Azithromycin home dose 250 mg (MWF) Guaifenesin BID Continue home Trelegy and Theophylline Continue Oxygen supplementation goal of Sat 88% CAD/hypertension/cardiomyopathy/history of stent/ hx NSTEMI Cardiac cath performed 07/14: arterial stenosis and calcifications of multiple arteries, but no intervention required. EKG on admission: Normal sinus rhythm, Normal ECG Continue amlodipine, carvedilol, lisinopril Atrial fibrillation Normal sinus Continue metoprolol Apixaban Diabetes mellitus- Hemoglobin A1c 5.7 Hyperlipidemia Continue rosuvastatin 20 mg daily safe/stable for home Notes For Next Care Provider Medication Changes From Visit finish abx for pneumonia/COPD Admission HPI Per Admitting Provider 63 y/o male PMHx of NSTEMI in 2019 (heart cath, follows with Dr. Haider), CAD, hypertension, hyperlipidemia, cardiomyopathy, COPD, HFrEF, and a history of a stent here due to increased SOB and hypoxia. Patient was recently discharge from the service after admission for COPD exacerbation and increased hypoxia. Sent home with prednisone taper. He refers increased shortness of breath last night and difficulty sleeping. This morning he refers having worsening hypoxia and chest tightness. On the EMS he was given Solumedrol IV. ED course: Cefepime IV, Albuterol neb Sputum culture that was sent yesterday got resulted this morning with S. Pneumonia. CT chest: Multifocal airspace opacities within the lungs, most pronounced within the right lower lobe. The findings favor pneumonia. Emphysema. Diffuse bronchial wall thickening. Patient on evaluation found in NAD, on nasal cannula 2 L. Refers SOB had improved since this morning. Chest tightness had resolved as well. Lungs exam pertinent with rhonchi on bilateral bases and wheezing. Denied and chest pain, palpitations, abdominal pain, nausea, vomiting or any other symtoms Updated Medication List Medication Instructions Recorded Confirmed Type nebulizer accessories #1 ea 06/17/19 07/21/24 Rx blood sugar diagnostic (OneTouch #100 ea 06/07/20 07/21/24 Rx Ultra Blue Test Strip) acetaminophen 500 mg tablet 500 mg PO Q6H PRN Pain 04/02/21 07/21/24 History (Tylenol Extra Strength) guaifenesin 600 mg tablet, 600 mg PO Q12 #15 tabs 01/05/23 07/21/24 Rx extended release 12 hr (Mucinex) sildenafil 100 mg tablet 100 mg PO DAILY PRN sexual 08/14/23 07/21/24 Rx activity #30 tabs albuterol sulfate 2.5 mg/3 mL 2.5 mg (3 mL) inhalation QID PRN 12/16/23 07/21/24 Rx (0.083 %) solution for nebulization shortness of breath or wheezing #180 mL albuterol sulfate 90 mcg/actuation 2 puff inhalation Q4H PRN 01/02/24 07/21/24 Rx aerosol inhaler (Ventolin HFA) shortness of breath or wheezing #8.5 grams metformin 500 mg tablet 500 mg PO BID PRN SEE COMMENT #30 01/02/24 07/21/24 Rx tabs trazodone 100 mg tablet 100 mg PO DAILY #90 tabs 01/02/24 07/21/24 Rx carvedilol 12.5 mg tablet 12.5 mg PO BID #180 tabs 04/20/24 07/21/24 Rx lisinopril 30 mg tablet 30 mg PO QAM #90 tabs 04/20/24 07/21/24 Rx rosuvastatin 20 mg tablet 20 mg PO DAILY #90 tabs 04/20/24 07/21/24 Rx fluticasone fur. 100 mcg-umeclid 1 inh inhalation DAILY #3 Inhalers 04/24/24 07/21/24 Rx 62.5 mcg-vilant 25 mcg inhalat.powder (Trelegy Ellipta) gabapentin 100 mg capsule See Rx Instructions PO TID #150 06/11/24 07/21/24 Rx caps theophylline 300 mg 300 mg PO DAILY #90 tabs 06/22/24 07/21/24 Rx tablet,extended release,12 hr azithromycin 250 mg tablet 250 mg PO UD 07/11/24 07/21/24 History apixaban 5 mg tablet (Eliquis) 5 mg PO BID 07/16/24 07/21/24 History famotidine 10 mg tablet 10 mg PO DAILY 07/16/24 07/21/24 History secukinumab 150 mg/mL subcutaneous 0 mg subcut Q7D 07/16/24 07/21/24 History pen injector (Cosentyx Pen) sodium chloride 7 % for 4 ml NEB BIDR 5 days #120 mL 07/20/24 07/21/24 Rx nebulization Hospital Stay Data Consultations 07/16/24 09:53 ED Decision to Admit Stat 07/16/24 22:39 Consult Pulmonology Routine Diagnostic Imagining Performed 07/16/24 08:11 CT chest diagnostic w con Stat Pending Results Patient Have Any Pending Studies at Discharge: No Discharge Instructions Given to Patient (Per Discharging Provider) You were admitted to the hospital for community acquired pneumonia. You were treated with IV antibiotic and Prednisone. You completed your treatment while hospitalized. Your respiratory symptoms improved while hospitalized. You will be sent home with Duoneb (Nebulizer/ respiratory treatment as needed for wheezing or SOB) and Hypertonic saline neb (this help with the secretions). A nebulizer prescription was sent to [facility]. - Your home O2 instruction: Use Oxygen to keep your pulse oximeter above 88 - As discussed, the rash seem to be Tinea in nature, we recommend using over the counter Clotrimazole. A discharge summary will be sent to your primary care physician to ensure continuity of care. Please bring this discharge summary with you to your next office appointment so that your provider can review it at that time. Medications: Your medication list has been reviewed and reconciled upon discharge to ensure accuracy and continuity of care. An updated list of all your medications is included with your hospital discharge paperwork. Please review this list closely and make note of any changes to your medications. Follow up appointments: - Make a follow up appointment with your PCP within the next week. It is very important that you follow up with them shortly after discharge from the hospital. - Keep all of your follow up appointments as already scheduled. If you cannot make an appointment, notify your provider. CONTACT YOUR PRIMARY CARE PROVIDER if you experience any of the following: - Difficulty following your treatment plan - Difficulty taking any of your medications CALL 911 OR GO TO THE EMERGENCY DEPARTMENT if you experience any of the following: - Sudden, severe abdominal pain or nausea/vomiting - Severe chest pain or chest pain that radiates to your jaw or arm - Sudden, severe shortness of breath or difficulty breathing Total Time Total Time Spent Total Time Spent (In Minutes): <30
--- NOTE | 2024-07-21 13:12 | Billing Data ---
Date of Service July 20, 2024 Coding Level of Care Code 68275 IN/OBS DISCH 30 MIN/LESS
== END 2024-07-20 15:32 | disposition home or self-care (01) | DRG 193 ==
LOC: ED 07:04 → SUATTDRO 10:44 → 2W 10:44